=== PATIENT | female | born 1995 | race Hispanic/Latino ===

== ENCOUNTER 2017-09-15 21:36 | Emergency (ER) | payer OTHER, SELFPAY ==
[2017-09-15 21:47] VITALS: BP 134/93; PULSE 93; RESP 16; TEMP 36.4; O2SAT 100; BMI 32.1
--- NOTE | 2017-09-15 23:45 | DI.CT.S_ITS ---
PROCEDURE: CT ABDOMEN PELVIS W CON INDICATIONS: Right lower quadrant pain. Appy? TECHNIQUE: After the administration of intravenous contrast, 5 mm thick sections acquired from the diaphragm to the symphysis. 5 mm coronal and sagittal reformats were acquired. For radiation dose reduction, the following was used: automated exposure control, adjustment of mA and/or kV according to patient size. COMPARISON: None. FINDINGS: Preliminary report by awake overnight counselor radiology Image quality: Excellent. ABDOMEN: Lung bases: Lung bases are clear. Heart size is normal. Solid organs: Liver measures 24 cm appearing normal in enhancement. Gallbladder appears normal. Biliary system is non dilated. Pancreas enhances normally. Spleen is normal in size and enhancement. No adrenal nodules. Kidneys demonstrate normal size and enhancement, without hydronephrosis. Peritoneum and bowel: Bowel loops demonstrate normal wall thickness and caliber. The appendix is normal, but best seen on sagittal series 5/image 45. No free fluid or air. Nodes and vessels: No retroperitoneal or mesenteric adenopathy by size criteria. Aorta and inferior vena cava are normal in size. Miscellaneous: No ventral hernias. PELVIS: Genitourinary: Bladder wall thickness is normal. Uterus and both ovaries are normal in appearance Miscellaneous: No inguinal hernias or adenopathy. Bones: No suspicious bony lesions. No vertebral body compression fractures. IMPRESSION: 1. Normal appendix is identified. Right ovary appears normal. No source of right lower quadrant pain is seen. No acute findings in the abdomen or pelvis. 2. Liver is prominent. Correlation with clinical exam and liver function tests suggested. Findings are concordant with the preliminary report. Dictated by: Jacky Valdez M.D. on 09/16/2017 at 8:22 Approved by: Jacky Valdez M.D. on 09/16/2017 at 8:29
[2017-09-16] MEDS: HYDROCODONE/ACET 10/325 TABLET 1 TAB PO (00:26)
[2017-09-16] MEDS: ONDANSETRON 4 MG/2 ML INJ IV ×2 (00:29→04:19)
[2017-09-16 00:42] LABS: Add Manual Diff / Slide Review NO; Hematocrit 40.5 % (36-46); Hemoglobin 14.1 g/dL (12.0-16.0); Lymphocytes Percent Auto 39.8 % (25-40); Mean Corpuscular HGB Conc 34.8 % (30-36); Monocytes Percent Auto 6.8 % (3-14); Neutrophils Absolute Auto 5600 /uL (3000-5900); Neutrophils Percent Auto 51.4 % (50-75); Platelet Count 358 X10^3/uL (150-400); Red Cell Distribution Width 12.9 % (11.6-14.8); White Blood Cell Count 10.9 X10^3/uL (4.5-11.0)
[2017-09-16 00:51] LABS: Alanine Aminotransferase 25 IU/L (9-52); Albumin 4.2 g/dL (3.5-5.0); Albumin Globulin Ratio 1.3 (1.0-2.8); Alkaline Phosphatase 84 U/L (38-126); Aspartate Aminotransferase 28 IU/L (14-36); Bilirubin Total 0.7 mg/dL (0.2-1.3); Calcium 9.6 mg/dL (8.4-10.2); Estimated Glomerular Filt Rate > 60.0 mL/min (>60); Globulin 3.2 g/dL (1.7-4.1); Glucose 89 mg/dL (70-100); HEMOLYSIS 28 (0-50); Lipase 115 U/L (23-300); Sodium 141 mmol/L (137-145); Total Protein 7.4 g/dL (6.3-8.2)
[2017-09-16] MEDS: HYDROMORPHONE 0.5 MG INJ IV ×2 (02:07→05:43)
[2017-09-16 02:22] VITALS: BP 120/94; PULSE 88; RESP 16; O2SAT 100
--- NOTE | 2017-09-16 03:01 | DI.US.S_ITS ---
PROCEDURE: US PELVIC COMPLETE INDICATIONS: RIGHT PELVIC PAIN TECHNIQUE: Real-time scanning was performed of the pelvic organs, with image documentation. Additional endovaginal scanning was necessary due to incomplete visualization of the adnexal and endometrial structures by transabdominal scanning. COMPARISON: None. LMP 08/11/2017 FINDINGS: Preliminary report by shift production associate radiology Transabdominal scanning: Limited scanning through the kidneys shows no hydronephrosis. The kidneys measure 10.0 CM right and 10.6 CM left. No pathologic free abdominal or pelvic fluid. Appendix is not seen. Endovaginal scanning: Uterus: Uterus is normal in size at 2.8 x 4.5 x 6.0 cm. The endometrium measures 1.5 mm in combined thickness. Ovaries: Ovaries appear normal bilaterally measuring 13 x 13 x 18 mm right and 13 x 17 x 19 mm left. IMPRESSION: 1. Normal pelvic ultrasound. 2. Appendix is nonvisualized and appendicitis cannot be excluded by this exam. Findings are concordant with the preliminary report. Dictated by: Jacky Valdez M.D. on 09/16/2017 at 9:04 Approved by: Jacky Valdez M.D. on 09/16/2017 at 9:07
[2017-09-16 03:04] VITALS: BP 133/91; PULSE 74; RESP 16; O2SAT 98
[2017-09-16 05:29] VITALS: BP 129/93; PULSE 69; RESP 18; O2SAT 100
[2017-09-16 06:22] VITALS: BP 116/71; PULSE 80; RESP 16; O2SAT 96
[2017-09-16 07:08] VITALS: BP 108/75; PULSE 75; RESP 14; O2SAT 99
--- NOTE | 2017-09-16 07:36 | ED.ABDPAIN ---
HPI - Abdominal Pain General Chief Complaint: Abdominal Pain Stated Complaint: PAIN LOWER ABDOMINAL Time Seen by Provider: 09/15/17 23:45 History of Present Illness HPI narrative: HPI 21-year-old female presents for evaluation of one day of moderate to severe nonmigratory right lower quadrant pain that is without identifiable provoking or relieving factors and is accompanied by anorexia; notes a history of irregular periods and severe endometriosis pain. Denies vaginal discharge, discomfort, dysuria, urinary frequency, or prior abdominal surgeries. M/S/F/SocHx notable for: please see HPI; remainder reviewed with patient and in chart. ROS: Negative constitutional, eye, cardiovascular, pulmonary, GI, , MSK, skin, neurologic, psychiatric, endocrine unless noted in the HPI. Exam Gen: Pleasant, non-toxic appearing, resting comfortably. HEENT: NC, AT, PEERL, EOMI. Resp: Clear to auscultation bilaterally, normal work of breathing, no accessory muscle usage. Card: Regular rate and rhythm with no murmurs, rubs, or gallops, extremities warm and well perfused. GI: notable right lower quadrant tenderness palpation at McBurney's point, no rebound, no guarding, remainder of abdomen nontender to palpation, negative Ol[place] sign. : No right sided CVA tenderness to percussion, no left sided CVA tenderness to percussion. No suprapubic tenderness to palpation. MSK: No visible deformities, strength and tone WNL. Skin: Normal color with no visible lesions. Neuro: AO x 3, no facial asymmetry, vision and hearing WNL. Psych: Mood and affect appropriate. Labs / Imaging (pertinent): CT abdomen/pelvis: hepatomegaly. No other acute abnormalities appreciated. UA - negative blood, negative nitrate, negative leukocyte esterase. Urine negative. WBC 10.9, hemoglobin 14.1, sodium 141, potassium 4.0, total bilirubin 0.7, AST 20, ALT 25, alkaline phosphatase 84, lipase 115. Transvaginal ultrasound: pending. GC and wet [place] pending. MDM Previous chart, nursing note, and vitals reviewed. A: 21-year-old female presents for evaluation of one day of moderate to severe nonmigratory right lower quadrant pain that is without identifiable provoking or relieving factors and is accompanied by anorexia. DDx: endometriosis, renal colic, UTI, pyelonephritis, AAA, biliary disease (colic/cholelithiasis/cholecystitis), large bowel disease (diverticulitis/appendicitis),ovarian torsion, hemorrhagic cyst, ectopic . Evaluation: based upon labs, imaging (ultrasound reviewed, awaiting radiologist report) and history strongly suspect symptomatic endometriosis. No clear evidence of alternate etiologies at time of patient care transfer to the daytime provider. Anticipate discharge with limited outpatient RX for pain control and PCP follow-up. Impression: abdominal pain (please reference below for remainder of encounter information) Related Data Home Medications Medication Instructions Recorded Confirmed leuprolide [Lupron Depot] #0 07/30/17 Previous Rx's Medication Instructions Recorded hydrocodone-acetaminophen [[place]] 1 tab PO Q4HP PRN #8 tab 07/26/17 ondansetron [Zofran ODT] 4 mg SUBLINGUAL Q4HP PRN #15 odt 07/26/17 loratadine [Claritin Liqui-Gel] 10 mg PO QDAY #30 sgl 07/30/17 Allergies Allergy/AdvReac Type Severity Reaction Status Date / Time No Known Allergies Allergy Uncoded 08/06/17 12:52 [facility] Social History Smoking Status: Current every day smoker Exam Initial Vital Signs Initial Vital Signs: Vital Signs Temperature 97.5 F L 09/15/17 21:47 Pulse Rate 93 H 09/15/17 21:47 Respiratory Rate 16 09/15/17 21:47 Blood Pressure 134/93 H 09/15/17 21:47 Pulse Oximetry 100 09/15/17 21:47 Course Orders Ordered: ED Orders 09/15/17 23:45 CT abdomen pelvis w con Stat 09/15/17 23:55 Complete Blood Count AUTO DIFF Stat Comprehensive Metabolic Panel Stat Lipase Stat 09/16/17 03:01 US pelvic complete Stat 09/16/17 07:33 GC Screen Stat Wet Prep Tric BV Bekah Stat Discontinued Medications Hydrocodone Bitart/Acetaminophen ([place] 10/325) 1 tab PO NOW ONE Stop: 09/15/17 23:46 Last Admin: 09/16/17 00:26 Dose: 1 tab Hydromorphone HCl (Dilaudid) 0.5 mg IV NOW ONE Stop: 09/16/17 01:26 Last Admin: 09/16/17 02:07 Dose: 0.5 mg Hydromorphone HCl (Dilaudid) 0.5 mg IV NOW ONE Stop: 09/16/17 05:29 Last Admin: 09/16/17 05:43 Dose: 0.5 mg Ondansetron HCl (Zofran) 4 mg IV NOW ONE Stop: 09/16/17 00:30 Last Admin: 09/16/17 00:29 Dose: 4 mg Ondansetron HCl (Zofran) 4 mg IV NOW ONE Stop: 09/16/17 04:00 Last Admin: 09/16/17 04:19 Dose: 4 mg Vital Signs - 8 hr 09/16/17 02:22 09/16/17 03:04 09/16/17 05:29 Pulse Rate 88 74 69 Respiratory Rate 16 16 18 Blood Pressure [Left Arm] 120/94 H 133/91 H 129/93 H Pulse Oximetry 100 98 100 09/16/17 06:22 09/16/17 07:08 Pulse Rate 80 75 Respiratory Rate 16 14 Blood Pressure [Left Arm] 116/71 108/75 Pulse Oximetry 96 99 MDM - Abdominal Pain Lab Data Result diagrams: 09/15/17 23:55 09/15/17 23:55 Lab Results 09/15/17 09/15/17 Range/Units 23:55 23:55 WBC 10.9 (4.5-11.0) X10^3/uL RBC 4.40 (4.0-5.2) X10^6/uL Hgb 14.1 (12.0-16.0) g/dL Hct 40.5 (36-46) % MCV 92.0 (80-100) fL MCH 32.0 (26-34) PG MCHC 34.8 (30-36) % RDW 12.9 (11.6-14.8) % Plt Count 358 (150-400) X10^3/uL Neut % (Auto) 51.4 (50-75) % Lymph % (Auto) 39.8 (25-40) % [place] % (Auto) 6.8 (3-14) % Eos % (Auto) 1.0 L (2-4) % Baso % (Auto) 1.0 (0-2) % Neut # (Auto) 5600 (4474-7179) /uL Sodium 141 (137-145) mmol/L Potassium 4.0 (3.4-5.1) mmol/L Chloride 104.0 (98-107) mmol/L Carbon Dioxide 25.0 (22-32) mmol/L BUN 16.0 (7-17) mg/dL Creatinine 0.80 (0.52-1.04) mg/dL Estimated GFR > 60.0 (>60) mL/min BUN/Creatinine Ratio 20.0 (6-22) Glucose 89 (70-100) mg/dL Calcium 9.6 (8.4-10.2) mg/dL Total Bilirubin 0.7 (0.2-1.3) mg/dL AST 28 (14-36) IU/L ALT 25 (9-52) IU/L Alkaline Phosphatase 84 (38-126) U/L Total Protein 7.4 (6.3-8.2) g/dL Albumin 4.2 (3.5-5.0) g/dL Globulin 3.2 (1.7-4.1) g/dL Albumin/Globulin Ratio 1.3 (1.0-2.8) Lipase 115 (23-300) U/L Discharge Plan Departure Prescriptions: No Action hydrocodone-acetaminophen [[place]] 5 MG/325 MG tablet 1 tab PO Q4HP PRNQty: 8 RF: 0 ondansetron [Zofran ODT] 4 MG tablet,disintegrating 4 mg Sublingual Q4HP PRNQty: 15 RF: 0 leuprolide [Lupron Depot] 3.75 MG syringe kit Qty: 0 RF: 0 loratadine [Claritin Liqui-Gel] 10 MG capsule 10 mg PO QDAY Qty: 30 RF: 0
== END 2017-09-16 08:18 | disposition home or self-care (01) ==
PROVIDERS: Emergency Provider Emergency Medicine
DX: R10.30 Lower abdominal pain, unspecified (principal)
CPT/HCPCS: 74177; 76830; 76856; 80053; 81003; 81025; 83690; 85025; 96374; 96375; 96376; 99283; 99285; J1170; J2405; Q9967

== ENCOUNTER 2017-09-26 09:23 | Day surgery (SDC) | payer OTHER, SELFPAY ==
[2017-09-24 08:33] VITALS: BMI 33.6
[2017-09-26] VITALS (13 sets, daily range): BP systolic 100–123; BP diastolic 47–80; PULSE 70–104; RESP 10–20; TEMP 36.6–36.8; O2SAT 96–100; BMI 33.6
[2017-09-26] MEDS: LACTATED RINGERS 1,000 ML 42 ML IV ×2 (10:25→13:30)
--- NOTE | 2017-09-26 12:56 | PM.GYNOP.1 ---
Operative Date/Time/Diagnoses - Date of procedure: 09/26/17 Time of procedure: 12:57 Pre-op diagnosis: pelvic pain Post-op diagnosis: other ( endometriosis) Procedure: Procedures Operation Date: 09/26/17 10:45 Actual Procedures Side Surgeon p Laparoscopy, Diagnostic, MANAGER SOURCING Jacky Jackson MD Surgeon: Jacky Jackson Anesthesia Type: General Operative Notes Findings: Examination under anesthesia revealed a normal sized anteverted uterus and normal adnexae. Operative findings included a normal uterus, tubes, and ovaries. Liver edge and gallbladder appeared normal. Appendix was searched for but not found. There was a powder burn over the ureter and the left ovarian fossa and a powder burn over the ureter in the right ovarian fossa. The anterior and posterior cul-de-sacs were clear. Closure Type: primary (Two 0 Vicryl, 4 O Monocryl, Dermabond) Specimen(s): none Applied: catheter Estimated blood loss (mL): 10 Blood products transfused: none Procedure in detail: The patient was brought to the operating room and placed supine on the operating table and given general oral endotracheal anesthesia. She was then placed in low lithotomy stirrups and prepped and draped in the usual sterile fashion. A time-out was performed. An examination under anesthesia was performed and a Hulka tenaculum was placed. Attention was turned to the abdomen where the umbilicus was infiltrated with 8 cc of 0.5% Marcaine and a midline stab incision was made. A Veress needle was inserted into the abdominal cavity and its position verified by hanging drop technique. Two attempts to insufflate the abdomen were unsuccessful. An attempt to insufflate the abdomen at xiong's point was also unsuccessful due to elevated abdominal pressures. An open technique using a Burnette cannula was therefore used. The fascia was opened under direct visualization and a 2 0 Vicryl suture was placed on either side of the fascial opening. The Burnette cannula was placed and the previously placed 2 0 Vicryl sutures looped around the Burnette cannula. The abdomen was then insufflated and the 5 mm laparoscoped was inserted into the abdominal cavity allowing visualization of the abdominal contents a 5 mm trocar was placed in the right lower quadrant under direct visualization after infiltration of an area lateral to the inferior epigastric vessels and a stab incision with a 11. Blade. The endometriosis implants were judged to be too close to vital structures to be fulgurated and were left in situ. The abdomen was desufflated to the extent possible, and instruments were withdrawn under direct visualization. The fascial opening was closed with the previously placed 2 0 Vicryl sutures. Additional 2 0 Vicryl subcutaneous sutures were placed. The 5 mm trocar site was closed with 4 O Monocryl and the skin incisions were closed with Dermabond. The instruments were withdrawn from the vagina and the patient was awakened and taken to the recovery room in stable condition. Complications: none Post-operative Condition: stable Disposition: PACU Plan for aftercare: home
[2017-09-26] MEDS: ONDANSETRON 4 MG/2 ML INJ IV (13:05)
[2017-09-26] MEDS: BUPIVACAINE 0.5% W/ EPI (PF) 30 ML VIAL INJ (13:15)
[2017-09-26] MEDS: fentaNYL 100 MCG/2 ML INJ 50 MCG IV ×2 (13:18→13:23)
[2017-09-26] MEDS: HYDROMORPHONE 2 MG INJ IV ×2 (13:35→13:43)
[2017-09-26] MEDS: HYDROMORPHONE 2 MG INJ 0.25 MG IV (13:49)
[2017-09-26] MEDS: HYDROCODONE/ACET 5/325 TABLET 1 TAB PO (14:29)
== END 2017-09-26 15:05 | disposition home or self-care (01) ==
PROVIDERS: Visit Provider Obstetrics & Gynecology
PROC: (CPT 49320; principal; 2017-09-26 10:45)
DX: N80.9 Endometriosis, unspecified (principal)
CPT/HCPCS: 49320; J1170; J2405; J3010

== ENCOUNTER → 2017-11-13 09:52 | Outpatient (CLI) | payer OTHER, SELFPAY ==
--- NOTE | 2017-11-13 | DI.MRI.S_ITS ---
PROCEDURE: MR HIP RT W CON INDICATIONS: LOWER ABDOMINAL PAIN TECHNIQUE: After the administration of 10 mL of dilute intra-articular Gadolinium contrast, coronal STIR of the bony pelvis; coronal and oblique axial T1 spin echo with fat saturation, axial T2 fast spin echo with fat saturation, sagittal T1 spin echo with and without fat saturation of the involved hip. COMPARISON: None. FINDINGS: Image quality: Excellent. Bones and joints: Bone marrow of the pelvic ring and proximal femurs show normal signal throughout. No intraosseous lesions or fractures. No avascular necrosis of the femoral head. The visualized lower lumbar spine appears normally aligned. The ligamental, neck, and labral plicae appear normal where visualized. Tendons and ligaments: The gluteus medius and minimus tendons appear intact, without associated muscle atrophy. The nearby proximal iliotibial band also appears intact. The iliopsoas tendon appears intact, without adjacent bursal fluid collections or evidence for impingement syndrome. The origin of the hamstring tendon is intact at the ischial tuberosity, as well as the associated sacrotuberous ligament. The straight and reflected heads of the rectus femoris muscle origin appear intact, as well as the conjoint tendon. The ligamentum teres appears intact where visualized. Labrum and cartilage: The acetabular labrum appears intact throughout. Incidentally noted mildly prominent smooth margined superior labral sulcus/groove. Cartilage surface of the femoral head appears of normal thickness. No paralabral cysts. The alpha angle of the femur is within normal limits at less than 55 degrees. Soft tissues: Visualized muscles demonstrate normal bulk and internal signal. Quadratus femoris muscle demonstrates no internal edema to suggest ischiofemoral impingement. The proximal sciatic neurovascular bundle appears normal adjacent to the hamstring tendons. No free pelvic fluid. Bladder wall thickness is normal. Genitourinary structures and bowel loops appear normal where visualized. IMPRESSION: Negative exam. No evidence of internal derangement or labral tear. Dictated by: Jose Antonio Poe M.D. on 11/13/2017 at 14:16 Approved by: Jose Antonio Poe M.D. on 11/13/2017 at 14:22
--- NOTE | 2017-11-13 | DI.RAD.S_ITS ---
PROCEDURE: FL HIP INJECTION MR/CT RT INDICATIONS: HIP PAIN TECHNIQUE: The indications, alternatives, benefits, risks, and complications of the procedure were explained to the patient. Written informed consent was obtained and placed in the chart. The hip was examined fluoroscopically with the legs fixed in slight internal rotation, and a site for needle placement chosen for entry into the hip joint from an anterior approach. Care was taken to locate the common femoral artery and vein beforehand. The skin was prepped and draped in a sterile fashion, and 1% Lidocaine infiltrated from skin down to joint capsule. A spinal needle was inserted into the joint, and a small amount of iodinated contrast media injected to confirm intra-articular placement of the needle tip. This was followed by approximately 10 mL dilute solution of a gadolinium containing MR contrast agent. The needle was removed and a dressing was applied. The patient was given postprocedural instructions and sent to the MR suite for imaging. FINDINGS: A single fluoroscopic spot image demonstrates intra-articular location of injected iodinated contrast. IMPRESSION: Successful fluoroscopically guided administration of dilute Gadolinium solution into the hip joint for MR arthrogram. Dictated by: Gonzalez Taylor M.D. on 11/13/2017 at 10:52 Approved by: Gonzalez Taylor M.D. on 11/13/2017 at 10:52
== END ==
PROVIDERS: Visit Provider General Practice
DX: R10.30 Lower abdominal pain, unspecified (principal); M25.551 Pain in right hip
CPT/HCPCS: 27093; 73722; 77002

== ENCOUNTER 2017-11-15 22:18 | Emergency (ER) | payer OTHER, SELFPAY ==
[2017-11-15 22:20] VITALS: BP 129/85; PULSE 106; RESP 40; TEMP 36.1; O2SAT 100; BMI 33.1
--- NOTE | 2017-11-15 22:49 | ED.ABDPAIN ---
HPI - Abdominal Pain General Chief Complaint: Abdominal Pain Stated Complaint: NUASEA,STOMACH PAIN Time Seen by Provider: 11/15/17 22:30 Source: patient and family Mode of arrival: ambulatory Limitations: no limitations History of Present Illness HPI narrative: 21-year-old female presents chief complaint gradually worsening nausea vomiting and right lower quadrant pain course of the day. Additionally she has had loose stools. She is not dizzy nor weak or lightheaded. She denies any history of the same. Her pain is much worse when she moves and improves with rest. She denies vaginal bleeding or discharge MD complaint: abdominal pain Onset (ago): minute(s) Pain Consistency: constant Location: RLQ Severity: severe Quality: cramping and stabbing Radiation: none Migration to: no migration Relieving factors: nothing Exacerbating factors: movement Associated symptoms: nausea, vomiting and diarrhea Related Data Home Medications Medication Instructions Recorded Confirmed leuprolide [Lupron Depot] 3.75 mg IM Q4W #0 07/30/17 09/26/17 Previous Rx's Medication Instructions Recorded hydrocodone-acetaminophen 1 tab PO Q4-6H PRN #14 tab 11/16/17 ketorolac 10 mg PO Q6H PRN #14 tab 11/16/17 Allergies Allergy/AdvReac Type Severity Reaction Status Date / Time No Known Allergies Allergy Uncoded 08/06/17 12:52 Review of Systems Review of Systems All systems reviewed & are unremarkable except as noted in HPI and below Constitutional Denies chills, Denies fever(s), Denies lethargy and Denies weakness Eyes Denies change in vision, Denies eye discharge, Denies irritation and Denies loss of vision ENT Ears, Nose, Mouth, and Throat: Denies change in voice, Denies neck pain and Denies sore throat Cardiovascular Denies chest pain, Denies irregular heart rhythm, Denies lightheadedness, Denies palpitations, Denies dyspnea, Denies dyspnea on exertion and Denies orthopnea Respiratory Denies cough, Denies dyspnea, Denies dyspnea on exertion and Denies wheezing Gastrointestinal Gastrointestinal: Reports abdominal pain, Denies change in bowel habits, Reports diarrhea, Reports nausea and Reports vomiting Genitourinary Denies hematuria, Denies flank pain, Denies urinary incontinence and Denies urinary urgency Musculoskeletal Denies neck pain Integumentary/Breasts Denies pruritus, Denies erythema, Denies rash and Denies wounds Neurologic Denies confusion, Denies loss of vision and Denies weakness Psychiatric Denies anxiety, Denies confusion, Denies depression, Denies homicidal ideation and Denies suicidal ideation Endocrine Denies palpitations Hematologic/Lymphatic Denies easy bruising Allergic/Immunologic Denies wheezing PFSH Medical History Endometriosis (Acute) Polycystic ovaries (Acute) [place] teeth extracted (Acute) Surgical History Hx of tonsillectomy (Acute) Social History household members: friend(s) Smoking Status: Current every day smoker Exam Narrative Exam Narrative: 21-year-old female in mild distress, clutching her right lower abdomen and a emesis bag Initial Vital Signs Initial Vital Signs: Vital Signs Temperature 97.0 F L 11/15/17 22:20 Pulse Rate 106 H 11/15/17 22:20 Respiratory Rate 40 H 11/15/17 22:20 Blood Pressure 129/85 H 11/15/17 22:20 Pulse Oximetry 100 11/15/17 22:20 Const General: cooperative, well developed and acute distress Nutritional Appearance: well nourished Orientation: alert, awake, oriented x3 and not confused HENAZ Head: normocephalic and atraumatic Ears: external ears normal and TM's normal bilaterally Nose: external nose normal and No nasal discharge Face and sinus: sinuses nontender, face symmetric, no sinus tenderness and No dry mucous membranes Mouth: oral mucosae normal and moist mucous membranes Teeth and gingiva: dentition normal Throat: tonsils normal and uvula midline Eyes General: appearance normal, both eyes and all related structures Eyelids: eyelids normal Conjunctivae: conjunctivae normal Sclera: sclerae normal Pupils: PERRL EOM: EOM intact bilaterally Neck Neck: normal visual inspection, trachea midline, No lymphadenopathy, No midline deformity and No JVD Lymphatic: No lymphedema Chest Chest: normal inspection of the chest Resp Effort & Inspection: normal respiratory effort, able to speak in complete sentences, no respiratory distress and no use of accessory muscles Auscultation: clear to auscultation bilaterally, no rales, no rhonchi and no wheezes Cardio Rate: regular rate Rhythm: regular rhythm Heart Sounds: no click, no gallops, no murmurs and no rubs Pulses: normal peripheral pulses GI Inspection: non-distended Palpation: soft, no hepatosplenomegaly, guarding, No pulsatile mass and tender (Severe right lower quadrant pain with local peritonitis) Auscultation: normal bowel sounds Back/Spine/Pelvis Back: No CVA tenderness Cervical Spine: cervical ROM normal and No pain with cervical ROM Thoracic/Lumbar Spine: thoracic and lumbar spine normal to inspection Skin General: no rashes or lesions noted, No jaundice and No petechiae Neuro General: alert, oriented x3, gait normal and no focal motor deficits Speech: speech normal Extrem General: full ROM, no clubbing, cyanosis or edema, no pedal edema and no calf tenderness Psych Appearance: well kempt Mental Status: mental status grossly normal Attitude: cooperative Thought Content: normal and suicidality Judgment: judgment good Course Orders Ordered: ED Orders 11/15/17 22:50 XR acute abdomen series Stat 11/15/17 23:15 Urine Microscopic Stat 11/15/17 23:58 CT abdomen pelvis w con Stat 11/16/17 01:52 US pelvic complete Stat Discontinued Medications Hydrocodone Bitart/Acetaminophen (Vicodin Prepack) 1 bottle MISC SEEINSTR ONE Stop: 11/16/17 03:12 Last Admin: 11/16/17 03:35 Dose: 1 bottle Hydromorphone HCl (Dilaudid) 1 mg IV NOW ONE Stop: 11/16/17 00:05 Last Admin: 11/16/17 00:11 Dose: 1 mg Sodium Chloride (Normal Saline 0.9%) 1,000 mls @ 150 mls/hr IV CONT RANDA Last Infusion: 11/16/17 03:35 Dose: 0 mls/hr Admin: 11/15/17 22:54 Dose: 150 mls/hr Ondansetron HCl (Zofran) 4 mg IV Q4HR PRN PRN Reason: Nausea And Vomiting Last Admin: 11/15/17 22:54 Dose: 4 mg Ondansetron HCl (Zofran Odt Prepack) 1 bottle MISC SEEINSTR ONE Stop: 11/16/17 03:28 Last Admin: 11/16/17 03:35 Dose: 1 bottle Pantoprazole Sodium (Protonix) 40 mg IV NOW ONE Stop: 11/16/17 00:05 Last Admin: 11/16/17 00:11 Dose: 40 mg Vital Signs - 8 hr 11/16/17 00:24 11/16/17 00:45 11/16/17 02:19 Pulse Rate 86 108 H 91 H Respiratory Rate 24 18 Blood Pressure [Right Arm] 117/90 H 135/81 H 130/73 H Pulse Oximetry 98 98 99 11/16/17 03:09 Pulse Rate 80 Respiratory Rate 16 Blood Pressure [Right Arm] 128/76 H Pulse Oximetry 100 MDM - Abdominal Pain Differential Diagnosis Differential diagnosis: Likely abdominal pain, acute appendicitis, calculus of kidney, constipation, endometriosis, gastroenteritis, pancreatitis and small bowel obstruction Medical Records Attestation: I reviewed the patient's medical records. Lab Data Attestation: I reviewed the patient's lab results. Result diagrams: 11/15/17 22:40 11/15/17 22:40 Lab Results 11/15/17 11/15/17 11/15/17 Range/Units 22:40 22:40 23:15 WBC 10.6 (4.5-11.0) X10^3/uL RBC 4.83 (4.0-5.2) X10^6/uL Hgb 15.5 (12.0-16.0) g/dL Hct 44.3 (36-46) % MCV 91.6 (80-100) fL MCH 32.0 (26-34) PG MCHC 34.9 (30-36) % RDW 12.7 (11.6-14.8) % Plt Count 409 H (150-400) X10^3/uL Neut % (Auto) 56.5 (50-75) % Lymph % (Auto) 34.0 (25-40) % [place] % (Auto) 7.9 (3-14) % Eos % (Auto) 0.7 L (2-4) % Baso % (Auto) 0.9 (0-2) % Neut # (Auto) 6000 H (6544-9575) /uL Sodium 143 (137-145) mmol/L Potassium 3.5 (3.4-5.1) mmol/L Chloride 102 (98-107) mmol/L Carbon Dioxide 26 (22-32) mmol/L BUN 11 (7-17) mg/dL Creatinine 0.80 (0.52-1.04) mg/dL Estimated GFR > 60.0 (>60) mL/min BUN/Creatinine Ratio 13.8 (6-22) Glucose 102 H (70-100) mg/dL Calcium 10.0 (8.4-10.2) mg/dL Total Bilirubin 0.7 (0.2-1.3) mg/dL AST 29 (14-36) IU/L ALT 37 (9-52) IU/L Alkaline Phosphatase 107 (38-126) U/L Total Protein 8.5 H (6.3-8.2) g/dL Albumin 4.9 (3.5-5.0) g/dL Globulin 3.6 (1.7-4.1) g/dL Albumin/Globulin Ratio 1.4 (1.0-2.8) Lipase 78 (23-300) U/L Urine RBC 0-1/hpf (0-5/HPF) Urine WBC 0-1/hpf (0-5/HPF) Ur Squamous Epith Cells None seen Urine Bacteria None seen (None) Ur Culture Indicated? Cult not indicated Micro UA Comment Not Reportable Point of care testing: Point of Care Testing Test Results Negative Urine Dip Bedside Urine Glucose Negative Bedside Urine Bilirubin - Negative Bedside Urine Ketone - Negative Urine Specific [place] 1.020 Bedside Urine Occult Blood +/- Bedside Urine pH 6.0 Bedside Urine Protein - Negative Bedside Urine Urobilinogen - Negative Bedside Urine Nitrite - Negative Bedside Urine Leukocytes - Negative Esterase Imaging Data CT scan - abdomen: Radiologist's impression: No appendicitis or obstruction. No free air. Reproductive organs normal US - abdomen: Radiologist's impression: R hemorrhagic ovarian cyst rupture Discharge Plan Departure Patient Disposition: Home, Self-Care Clinical Impression: Ovarian cyst Discharge Date/Time: 11/16/17 03:36 Interventions: ED Discharge Assessment Last Done: 11/16/17 03:36 Instructions: DI for Ovarian Cyst Prescriptions: New hydrocodone-acetaminophen 5-325 mg tablet 1 tab PO Q4-6H PRN (Reason: pain) Qty: 14 RF: 0 ketorolac 10 mg tablet 10 mg PO Q6H PRN (Reason: pain) Qty: 14 RF: 0 No Action leuprolide [Lupron Depot] 3.75 MG syringe kit 3.75 mg IM Q4W Qty: 0 RF: 0
--- NOTE | 2017-11-15 22:50 | DI.RAD.S_ITS ---
PROCEDURE: XR ACUTE ABDOMEN SERIES INDICATIONS: Abdominal pain, recent abdominal surgery for endometriosis TECHNIQUE: One view chest and two views of the abdomen were acquired. COMPARISON: [facility], US, US PELVIC COMPLETE, 11/16/2017, 2:20. [facility], CT, CT ABDOMEN PELVIS W CON, 11/16/2017, 0:22. [facility], US, US PELVIC COMPLETE, 09/16/2017, 3:56. [facility], CT, CT ABDOMEN PELVIS W CON, 09/16/2017, 0:12. [facility], US, ABDOMEN LIMITED, 07/26/2017, 15:01. [facility], CT, ABDOMEN/PELVIS WITH CONTRAST, 07/26/2017, 11:31. FINDINGS: Surgical changes and devices: None. Chest: Lungs are clear. Heart size is normal. No pleural effusions. No pneumoperitoneum. Abdomen: Bowel gas pattern is normal. No suspicious calcifications. Visualized solid organ contours appear normal. Bones: No suspicious bony lesions. IMPRESSION: Unremarkable exam. Dictated by: Elma Kelly M.D. on 11/16/2017 at 9:15 Approved by: Elma Kelly M.D. on 11/16/2017 at 9:16
[2017-11-15] MEDS: SODIUM CHLORIDE 0.9% 1,000 ML 150 ML IV (22:54)
[2017-11-15] MEDS: ONDANSETRON 4 MG/2 ML INJ IV (22:54)
[2017-11-15 23:01] LABS: Add Manual Diff / Slide Review NO; Basophils Percent Auto 0.9 % (0-2); Eosinophils Percent Auto 0.7 % (2-4); Hematocrit 44.3 % (36-46); Hemoglobin 15.5 g/dL (12.0-16.0); Mean Corpuscular HGB Conc 34.9 % (30-36); Mean Corpuscular Volume 91.6 fL (80-100); Monocytes Percent Auto 7.9 % (3-14); Neutrophils Absolute Auto 6000 /uL (3000-5900); Neutrophils Percent Auto 56.5 % (50-75); Platelet Count 409 X10^3/uL (150-400); Red Blood Cell Count 4.83 X10^6/uL (4.0-5.2); Red Cell Distribution Width 12.7 % (11.6-14.8); White Blood Cell Count 10.6 X10^3/uL (4.5-11.0)
[2017-11-15 23:07] LABS: Alanine Aminotransferase 37 IU/L (9-52); Albumin 4.9 g/dL (3.5-5.0); Albumin Globulin Ratio 1.4 (1.0-2.8); Alkaline Phosphatase 107 U/L (38-126); Aspartate Aminotransferase 29 IU/L (14-36); BUN Creatinine Ratio 13.8 (6-22); Bilirubin Total 0.7 mg/dL (0.2-1.3); Blood Urea Nitrogen 11 mg/dL (7-17); Carbon Dioxide 26 mmol/L (22-32); Chloride 102 mmol/L (98-107); Estimated Glomerular Filt Rate > 60.0 mL/min (>60); Globulin 3.6 g/dL (1.7-4.1); Glucose 102 mg/dL (70-100); HEMOLYSIS < 15 (0-50); Lipase 78 U/L (23-300); Potassium 3.5 mmol/L (3.4-5.1); Sodium 143 mmol/L (137-145); Total Protein 8.5 g/dL (6.3-8.2)
[2017-11-15 23:25] LABS: Bacteria Urine None Seen
[2017-11-15 23:39] LABS: RBC Urine 0-1/HPF (0-5/HPF); Squamous Epithelial Cell Urine None Seen; WBC Urine 0-1/HPF (0-5/HPF)
[2017-11-15 23:40] LABS: Culture Indicated Urine Cult Not Indicated
--- NOTE | 2017-11-15 23:58 | DI.CT.S_ITS ---
PROCEDURE: CT ABDOMEN PELVIS W CON INDICATIONS: severe RLQ pain, chills, vomiting TECHNIQUE: After the administration of intravenous contrast, 5 mm thick sections acquired from the diaphragm to the symphysis. 5 mm coronal and sagittal reformats were acquired. For radiation dose reduction, the following was used: automated exposure control, adjustment of mA and/or kV according to patient size. COMPARISON: [facility], US, US PELVIC COMPLETE, 09/16/2017, 3:56. [facility], US, US PELVIC COMPLETE, 11/16/2017, 2:20. [facility], CT, CT ABDOMEN PELVIS W CON, 09/16/2017, 0:12. [facility], US, ABDOMEN LIMITED, 07/26/2017, 15:01. [facility], CT, ABDOMEN/PELVIS WITH CONTRAST, 07/26/2017, 11:31. FINDINGS: Image quality: Motion is present. ABDOMEN: Lung bases: Lung bases are clear. Heart size is normal. Solid organs: Liver is mildly enlarged. Gallbladder is unremarkable. Biliary system is non dilated. Pancreas enhances normally. Spleen is normal in size and enhancement. No adrenal nodules. Kidneys demonstrate normal size and enhancement, without hydronephrosis. Peritoneum and bowel: Bowel loops demonstrate normal wall thickness and caliber. No free fluid or air. Appendix is unremarkable. Nodes and vessels: No retroperitoneal or mesenteric adenopathy by size criteria. Aorta and inferior vena cava are normal in size. Miscellaneous: No ventral hernias. PELVIS: Genitourinary: Bladder wall thickness is normal. Miscellaneous: No inguinal hernias or adenopathy. Bones: No suspicious bony lesions. No vertebral body compression fractures. IMPRESSION: 1. Appendix is unremarkable. No inflammatory change within the right lower quadrant. 2. Hepatomegaly without steatosis. Dictated by: Elma Kelly M.D. on 11/16/2017 at 8:53 Approved by: Elma Kelly M.D. on 11/16/2017 at 8:57
[2017-11-16] MEDS: PANTOPRAZOLE 40 MG VIAL IV (00:11)
[2017-11-16] MEDS: HYDROMORPHONE 1 MG INJ IV (00:11)
[2017-11-16 00:24] VITALS: BP 117/90; PULSE 86; RESP 24; O2SAT 98
[2017-11-16 00:45] VITALS: BP 135/81; PULSE 108; O2SAT 98
--- NOTE | 2017-11-16 01:52 | DI.US.S_ITS ---
PROCEDURE: US PELVIC COMPLETE INDICATIONS: SEVERE PELVIC PAIN TECHNIQUE: Real-time scanning was performed of the pelvic organs, with image documentation. Additional endovaginal scanning was necessary due to incomplete visualization of the adnexal and endometrial structures by transabdominal scanning. COMPARISON: [facility], CT, CT ABDOMEN PELVIS W CON, 11/16/2017, 0:22. [facility], CR, XR ACUTE ABDOMEN SERIES, 11/15/2017, 22:35. [facility], US, US PELVIC COMPLETE, 09/16/2017, 3:56. [facility], CT, CT ABDOMEN PELVIS W CON, 09/16/2017, 0:12. [facility], US, ABDOMEN LIMITED, 07/26/2017, 15:01. [facility], CT, ABDOMEN/PELVIS WITH CONTRAST, 07/26/2017, 11:31. FINDINGS: Transabdominal scanning: Limited scanning through the kidneys shows no hydronephrosis. No pathologic free abdominal or pelvic fluid. Endovaginal scanning: Uterus: Uterus is normal in size at 6.7 x 3.2 x 4.7 cm. The endometrium measures 10 mm in combined thickness. Ovaries: Right ovary measures 20 x 22 x 24 mm. The left are measures 20 x 19 x 18 mm. There unremarkable. Scattered follicles are noted within the left ovary. 10 mm focus of heteroechogenicity is noted within the right ovary possibly an involuting complex cyst. IMPRESSION: Focus of heteroechogenicity within the right ovary possibly involuting complex hemorrhagic cyst. Dictated by: Elma Kelly M.D. on 11/16/2017 at 9:37 Approved by: Elma Kelly M.D. on 11/16/2017 at 9:39
[2017-11-16 02:19] VITALS: BP 130/73; PULSE 91; RESP 18; O2SAT 99
[2017-11-16 03:09] VITALS: BP 128/76; PULSE 80; RESP 16; O2SAT 100
[2017-11-16] MEDS: ONDANSETRON 4 MG ODT PREPACK 1 BOTTLE MISC (03:35)
[2017-11-16] MEDS: HYDROCODONE/ACET 5/325 PREPACK 1 BOTTLE MISC (03:35)
== END 2017-11-16 03:36 | disposition home or self-care (01) ==
PROVIDERS: Emergency Provider Emergency Medicine
DX: N83.209 Unspecified ovarian cyst, unspecified side (principal)
CPT/HCPCS: 36591; 74022; 74177; 76830; 76856; 80053; 81003; 81015; 81025; 83690; 85025; 96361; 96374; 96375; 99283; 99284; C9113; J1170; J2405; Q9967

== ENCOUNTER 2018-01-13 01:59 | Emergency (ER) | payer OTHER, SELFPAY ==
--- NOTE | 2018-01-13 02:04 | ED_ITS ---
HPI - Abdominal Pain General Chief Complaint: Abdominal Pain Stated Complaint: lower abdominal pain since yesterday Time Seen by Provider: 01/13/18 02:04 Source: patient Mode of arrival: ambulatory Limitations: no limitations History of Present Illness HPI narrative: Patient is a 22-year-old female here for evaluation of right- sided abdominal pain. She stated that it started at 5 o'clock last evening. Has continued since then. Also has nausea and vomiting. She has a history of chronic right lower quadrant pain. Has been diagnosed with endometriosis. She states that she has an appointment scheduled for next Friday by a general surgeon for removal of her appendix secondary to ?chronic appendicitis ?she also has a history of ovarian cyst. She states the pain today is different than all of her prior abdominal pain. No trauma. Has not tried anything for prior to arrival. No urinary symptoms. No vaginal bleeding no change in bowel habits. Related Data Home Medications Medication Instructions Recorded Confirmed leuprolide [Lupron Depot] 3.75 mg IM Q4W #0 07/30/17 09/26/17 Previous Rx's Medication Instructions Recorded hydrocodone-acetaminophen 1 tab PO Q4-6H PRN #14 tab 11/16/17 ketorolac 10 mg PO Q6H PRN #14 tab 11/16/17 ondansetron [Zofran ODT] 4 mg PO BID-TID PRN #14 tab 01/13/18 Allergies Allergy/AdvReac Type Severity Reaction Status Date / Time No Known Allergies Allergy Uncoded 01/13/18 02:11 Review of Systems Constitutional Denies chills and Denies fever(s) ENT Ears, Nose, Mouth, and Throat: Denies vertigo and Denies dizziness Cardiovascular Denies chest pain and Denies dyspnea Respiratory Denies cough and Denies dyspnea Gastrointestinal Gastrointestinal: Reports abdominal pain, Denies melena, Reports nausea and Reports vomiting Genitourinary Denies dysuria Musculoskeletal Denies back pain, Denies myalgias and Denies arthralgias Integumentary/Breasts Denies lesions and Denies rash Neurologic Denies vertigo and Denies dizziness Hematologic/Lymphatic Denies easy bleeding and Denies easy bruising [facility] Medical History Endometriosis (Acute) Polycystic ovaries (Acute) [place] teeth extracted (Acute) Surgical History Hx of tonsillectomy (Acute) Social History household members: friend(s) Smoking Status: Current every day smoker Exam Initial Vital Signs Initial Vital Signs: Vital Signs Pulse Rate 105 H 01/13/18 02:07 Respiratory Rate 24 01/13/18 02:07 Blood Pressure 121/90 01/13/18 02:07 Pulse Oximetry 100 01/13/18 02:07 Const General: cooperative, well developed, well groomed and No acute distress Orientation: alert, awake and oriented x3 HENMT Head: normal to inspection and normocephalic Resp Effort & Inspection: normal respiratory effort Auscultation: clear to auscultation bilaterally Cardio Rate: regular rate Rhythm: regular rhythm Heart Sounds: no murmurs GI Inspection: normal to inspection and non-distended Palpation: soft, No firm and tender Back/Spine/Pelvis Back: No CVA tenderness Skin Lesions: no lesions Rashes: no rashes Neuro General: alert, awake and oriented x3 Cognition: normal cognition Speech: speech normal Motor: muscle tone normal throughout Sensory Exam: no sensory deficits noted Extrem General: normal to inspection and capillary refill normal Psych Appearance: grossly normal and well kempt Course Orders Ordered: ED Orders 01/13/18 02:09 Complete Blood Count AUTO DIFF Stat Comprehensive Metabolic Panel Stat Lipase Stat 01/13/18 02:34 Urine Microscopic Stat Discontinued Medications Hydromorphone HCl (Dilaudid) 0.5 mg IV NOW ONE Stop: 01/13/18 03:23 Last Admin: 01/13/18 03:33 Dose: 0.5 mg Sodium Chloride (Normal Saline 0.9%) 1,000 mls @ 1,000 mls/hr IV BOLUS ONE Stop: 01/13/18 03:13 Last Infusion: 01/13/18 03:34 Dose: 0 mls/hr Admin: 01/13/18 02:30 Dose: 1,000 mls/hr Sodium Chloride (Normal Saline 0.9%) 1,000 mls @ 1,000 mls/hr IV BOLUS ONE Stop: 01/13/18 04:23 Last Admin: 01/13/18 03:34 Dose: 1,000 mls/hr Ketorolac Tromethamine (Toradol) 30 mg IV NOW ONE Stop: 01/13/18 04:07 Last Admin: 01/13/18 04:08 Dose: 30 mg Metoclopramide HCl (Reglan) 10 mg IV NOW ONE Stop: 01/13/18 02:41 Last Admin: 01/13/18 02:42 Dose: 10 mg Morphine Sulfate (Morphine) 4 mg IV NOW ONE Stop: 01/13/18 02:15 Last Admin: 01/13/18 02:26 Dose: 4 mg Ondansetron HCl (Zofran) 4 mg IV NOW ONE Stop: 01/13/18 02:15 Last Admin: 01/13/18 02:25 Dose: 4 mg Ondansetron HCl (Zofran) 4 mg IV NOW ONE Stop: 01/13/18 04:45 Last Admin: 01/13/18 04:47 Dose: 4 mg Vital Signs - 8 hr 01/13/18 02:07 01/13/18 05:10 Pulse Rate 105 H 82 Respiratory Rate 24 82 H Blood Pressure 121/90 Blood Pressure [Left Arm] 126/85 Pulse Oximetry 100 100 MDM - Abdominal Pain Medical Records Attestation: I reviewed the patient's medical records. Lab Data Attestation: I reviewed the patient's lab results. Result diagrams: 01/13/18 02:09 01/13/18 02:09 Lab Results 01/13/18 01/13/18 01/13/18 Range/Units 02:09 02:09 02:34 WBC 15.7 H (4.5-11.0) X10^3/uL RBC 4.77 (4.0-5.2) X10^6/uL Hgb 15.0 (12.0-16.0) g/dL Hct 43.0 (36-46) % MCV 90.2 (80-100) fL MCH 31.4 (26-34) PG MCHC 34.8 (30-36) % RDW 12.2 (11.6-14.8) % Plt Count 402 H (150-400) X10^3/uL Neut % (Auto) 70.9 (50-75) % Lymph % (Auto) 22.5 L (25-40) % [place] % (Auto) 5.4 (3-14) % Eos % (Auto) 0.3 L (2-4) % Baso % (Auto) 0.9 (0-2) % Neut # (Auto) 97225 H (4757-6627) /uL Sodium 144 (137-145) mmol/L Potassium 3.7 (3.4-5.1) mmol/L Chloride 102 (98-107) mmol/L Carbon Dioxide 24 (22-32) mmol/L BUN 12 (7-17) mg/dL Creatinine 1.10 H (0.52-1.04) mg/dL Estimated GFR > 60.0 (>60) mL/min BUN/Creatinine Ratio 10.9 (6-22) Glucose 95 (70-100) mg/dL Calcium 10.2 (8.4-10.2) mg/dL Total Bilirubin 1.3 (0.2-1.3) mg/dL AST 32 (14-36) IU/L ALT 38 (9-52) IU/L Alkaline Phosphatase 97 (38-126) U/L Total Protein 8.4 H (6.3-8.2) g/dL Albumin 4.9 (3.5-5.0) g/dL Globulin 3.5 (1.7-4.1) g/dL Albumin/Globulin Ratio 1.4 (1.0-2.8) Lipase 73 (23-300) U/L Urine RBC 0-1/hpf (0-5/HPF) Urine WBC None seen (0-5/HPF) Urine Bacteria Occasional (0-1) (None) Ur Culture Indicated? Cult not indicated Micro UA Comment Not Reportable Point of care testing: Point of Care Testing Test Results Negative Urine Dip Bedside Urine Glucose Negative Bedside Urine Bilirubin - Negative Bedside Urine Ketone +++ 80 Urine Specific [place] 1.015 Bedside Urine Occult Blood +/- Bedside Urine pH 6.0 Bedside Urine Protein - Negative Bedside Urine Urobilinogen - Negative Bedside Urine Nitrite - Negative Bedside Urine Leukocytes - Negative Esterase MDM Narrative Medical decision making narrative: After multiple doses of nausea medication she was able to tolerate oral intake here in the ER. Patient stated that the Toradol that she was given through the IV improved her symptoms tremendously. Her heart rate improved. Given the elevated heart rate in her ketones in the urine I suspect that she did have mild dehydration. She does have an elevated white blood cell count. I did discuss this with her. She has had multiple abdominal CT scans in the past. I did inform her of the concern I have for intra-abdominal pathology such as appendicitis, cholecystitis, bowel obstructions another potential surgical pathology. I did also inform her that the elevated white blood cell count could also be secondary to the uncontrolled vomiting and dehydration causing demargination. She was afebrile here. After this long discussion the patient opted to not have a CT scan performed today secondary to the number CT she has had in the past. I do not feel like this isn 't unreasonable decision. I did tell her that if her symptoms worsen, she could not tolerate oral intake, she developed a fever that she does need to return to the emergency department for re-evaluation. I would recommend that if she does return a CT scan be performed for evaluation. Patient expressed understanding of the potential of missing a surgical issue. She declined the offer for a work note. She does have pain medication at home. She does not have any nausea medication at home. She was sent home with a prepack is Zofran and a prescription for the same. Discharge Plan Departure Patient Disposition: Home Clinical Impression: Abdominal pain, Nausea & vomiting, Dehydration Instructions: DI for Dehydration -- Adult, DI for Abdominal Pain-Adult, Nausea and Vomiting-Adult Activity Restrictions/Additional Instructions: Recommend that you take small sips of water over longer. Recommend a bland diet Take the nausea medication as needed. Use your pain medication that you have at home for any discomfort. After a discussion we did opt to not perform a CT scan today. This does me that we could potentially be missing an issue such as appendicitis. If your symptoms worsen or if you developed fevers or the inability to tolerate oral intake I do recommend that you return to the emergency department for further evaluation. Keep all of your scheduled medical appointments. Prescriptions: New ondansetron [Zofran ODT] 4 mg tablet,disintegrating 4 mg PO BID-TID PRN (Reason: nausea and vomiting) Qty: 14 RF: 0 No Action leuprolide [Lupron Depot] 3.75 MG syringe kit 3.75 mg IM Q4W Qty: 0 RF: 0 hydrocodone-acetaminophen 5-325 mg tablet 1 tab PO Q4-6H PRN (Reason: pain) Qty: 14 RF: 0 ketorolac 10 mg tablet 10 mg PO Q6H PRN (Reason: pain) Qty: 14 RF: 0 Stand Alone Forms: Work/School Restrictions
[2018-01-13 02:07] VITALS: BP 121/90; PULSE 105; RESP 24; O2SAT 100; BMI 34.0
[2018-01-13] MEDS: ONDANSETRON 4 MG/2 ML INJ IV ×2 (02:25→04:47)
[2018-01-13 02:26] LABS: Add Manual Diff / Slide Review NO; Basophils Percent Auto 0.9 % (0-2); Eosinophils Percent Auto 0.3 % (2-4); Lymphocytes Percent Auto 22.5 % (25-40); Mean Corpuscular HGB Conc 34.8 % (30-36); Mean Corpuscular Hemoglobin 31.4 PG (26-34); Mean Corpuscular Volume 90.2 fL (80-100); Monocytes Percent Auto 5.4 % (3-14); Neutrophils Absolute Auto 11100 /uL (3000-5900); Neutrophils Percent Auto 70.9 % (50-75); Platelet Count 402 X10^3/uL (150-400); Red Blood Cell Count 4.77 X10^6/uL (4.0-5.2); Red Cell Distribution Width 12.2 % (11.6-14.8); White Blood Cell Count 15.7 X10^3/uL (4.5-11.0)
[2018-01-13] MEDS: MORPHINE 4 MG/ML INJ IV (02:26)
[2018-01-13 02:29] LABS: Alanine Aminotransferase 38 IU/L (9-52); Albumin 4.9 g/dL (3.5-5.0); Albumin Globulin Ratio 1.4 (1.0-2.8); Alkaline Phosphatase 97 U/L (38-126); Aspartate Aminotransferase 32 IU/L (14-36); BUN Creatinine Ratio 10.9 (6-22); Bilirubin Total 1.3 mg/dL (0.2-1.3); Blood Urea Nitrogen 12 mg/dL (7-17); Calcium 10.2 mg/dL (8.4-10.2); Carbon Dioxide 24 mmol/L (22-32); Chloride 102 mmol/L (98-107); Estimated Glomerular Filt Rate > 60.0 mL/min (>60); Globulin 3.5 g/dL (1.7-4.1); Glucose 95 mg/dL (70-100); HEMOLYSIS < 15 (0-50); Lipase 73 U/L (23-300); Potassium 3.7 mmol/L (3.4-5.1); Sodium 144 mmol/L (137-145); Total Protein 8.4 g/dL (6.3-8.2)
[2018-01-13] MEDS: SODIUM CHLORIDE 0.9% 1,000 ML 1000 ML IV ×2 (02:30→03:34)
--- NOTE | 2018-01-13 02:37 | PC.NURSE ---
Pt still has N-V after the zofran and morphine.
[2018-01-13] MEDS: METOCLOPRAMIDE 10 MG/2 ML INJ IV (02:42)
[2018-01-13 03:04] LABS: WBC Urine None Seen (0-5/HPF)
--- NOTE | 2018-01-13 03:11 | PC.NURSE ---
Pt called and requesting something for abd pain. Informing Dr Albarran the above.
[2018-01-13 03:13] LABS: Bacteria Urine Occasional (0-1); RBC Urine 0-1/HPF (0-5/HPF)
[2018-01-13 03:14] LABS: Culture Indicated Urine Cult Not Indicated
[2018-01-13] MEDS: HYDROMORPHONE 1 MG INJ 0.5 MG IV (03:33)
[2018-01-13] MEDS: KETOROLAC 60 MG/2 ML VIAL 30 MG IV (04:08)
[2018-01-13 05:10] VITALS: BP 126/85; PULSE 82; RESP 82; O2SAT 100
[2018-01-13] MEDS: ONDANSETRON 4 MG ODT PREPACK 1 BOTTLE MISC (05:16)
== END 2018-01-13 05:33 | disposition home or self-care (01) ==
PROVIDERS: Emergency Provider Emergency Medicine
DX: R10.9 Unspecified abdominal pain (principal)
CPT/HCPCS: 80053; 81003; 81015; 81025; 83690; 85025; J1170; J1885; J2270; J2405; J2765

== ENCOUNTER 2018-01-13 17:32 | Emergency (ER) | payer OTHER, SELFPAY ==
[2018-01-13 17:48] VITALS: BP 136/88; PULSE 98; RESP 20; TEMP 36.5; O2SAT 100
[2018-01-13] MEDS: ONDANSETRON 4 MG/2 ML INJ IV (18:20)
[2018-01-13] MEDS: SODIUM CHLORIDE 0.9% 1,000 ML 1000 ML IV ×2 (18:20→20:43)
--- NOTE | 2018-01-13 18:30 | ED_ITS ---
HPI - Nausea/Vomiting/Diarrhea General Chief complaint: Nausea/Vomiting/Diarrhea Stated complaint: PAIN LOWER RIGHT SIDE STOMACH Time Seen by Provider: 01/13/18 18:19 Source: patient Mode of arrival: ambulatory Limitations: no limitations History of Present Illness HPI Narrative: 22-year-old female who I evaluated here in the emergency department less than 24 hr ago for right lower quadrant/right mid abdomen pain and nausea and vomiting. During her prior visit the patient did have an elevated white blood cell count and ketones in her urine and was tachycardic upon arrival. We did discuss this and I felt that these findings were secondary to demargination and also dehydration. She felt better after medicines here in the emergency department. We did discuss the potential for CT scan however since she has had multiple CT scans in the past we opted to hold on this for now. The patient returns this evening for continued symptoms. She states she has been taking her Zofran at home which has controlled her symptoms somewhat however the pain has not gone away and she thinks maybe it is somewhat worse. Continues to have nausea and vomiting. No urinary symptoms. No bowel symptoms. Patient states that several years ago she was diagnosed with Chlamydia but this was treated she did have a test of cure. She states she is not concerned about any STDs today. She states that she does have a diagnosis of endometriosis which was diagnosed by curing press operator after a laparoscopy. Related Data Home Medications Medication Instructions Recorded Confirmed ibuprofen 1 tab PO Q8H PRN 01/13/18 01/13/18 norethindrone-e.estradiol-iron 1 tab PO DAILY 01/13/18 01/13/18 Previous Rx's Medication Instructions Recorded ondansetron [Zofran ODT] 4 mg PO BID-TID PRN #14 tab 01/13/18 Allergies Allergy/AdvReac Type Severity Reaction Status Date / Time No Known Allergies Allergy Uncoded 01/13/18 02:11 Review of Systems Constitutional Denies fatigue, Denies fever(s), Denies headache(s) and Reports malaise ENT Ears, Nose, Mouth, and Throat: Denies dysphagia, Denies vertigo, Denies dizziness and Denies headache(s) Cardiovascular Denies chest pain, Denies syncope and Denies dyspnea Respiratory Denies dyspnea Gastrointestinal Gastrointestinal: Reports abdominal pain, Denies bloating, Denies change in bowel habits, Denies constipation, Denies cramping, Denies dysphagia, Denies diarrhea, Reports nausea and Reports vomiting Genitourinary Denies amenorrhea, Denies hematuria, Denies dysuria, Denies pelvic pain, Denies urinary incontinence, Denies urinary hesitancy, Denies urinary urgency, Denies vaginal discharge and Denies vaginal pruritus Musculoskeletal Denies myalgias and Denies arthralgias Integumentary/Breasts Denies lesions and Denies rash Neurologic Denies confusion, Denies vertigo, Denies dizziness, Denies syncope and Denies headache(s) Psychiatric Denies confusion Endocrine Denies fatigue Hematologic/Lymphatic Denies easy bleeding and Denies easy bruising [facility] Medical History Endometriosis (Acute) Polycystic ovaries (Acute) [place] teeth extracted (Acute) Surgical History Hx of tonsillectomy (Acute) Social History household members: friend(s) Smoking Status: Current every day smoker Exam Initial Vital Signs Initial Vital Signs: Vital Signs Temperature 97.7 F 01/13/18 17:48 Pulse Rate 98 H 01/13/18 17:48 Respiratory Rate 20 01/13/18 17:48 Blood Pressure 136/88 01/13/18 17:48 Pulse Oximetry 100 01/13/18 17:48 Const General: cooperative, well developed, well groomed and No acute distress Orientation: alert, awake and oriented x3 HENMT Head: normal to inspection and normocephalic Resp Effort & Inspection: normal respiratory effort Auscultation: clear to auscultation bilaterally Cardio Rate: regular rate Rhythm: regular rhythm Pulses: radial pulses present GI Inspection: non-distended Palpation: soft, No firm, No rigid and tender (Right mid abdomen right lower quadrant without rebound) External Female Exam: external appearance normal Bimanual Exam- Vagina & Uterus: normal bimanual exam, normal cervical palpation and no cervical motion tenderness Bimanual Exam- Adnexa, other: adnexal tenderness on the right Back/Spine/Pelvis Back: No CVA tenderness Skin Lesions: no lesions Rashes: no rashes Extrem General: normal to inspection and capillary refill normal Psych Appearance: grossly normal and well kempt Course Orders Ordered: ED Orders 01/13/18 18:05 Complete Blood Count AUTO DIFF Stat 01/13/18 18:30 CT abdomen pelvis w con Stat Comprehensive Metabolic Panel Stat GC Screen Stat 01/13/18 18:46 Lactate (Lactic Acid) Stat 01/13/18 18:50 Urine Chlamydia Gonorrhea PCR Stat 01/13/18 20:20 US pelvic complete Stat Discontinued Medications Hydromorphone HCl (Dilaudid) 1 mg IV NOW ONE Stop: 01/13/18 18:40 Last Admin: 01/13/18 18:58 Dose: 1 mg Hydromorphone HCl (Dilaudid) 0.5 mg IV NOW ONE Stop: 01/13/18 20:30 Last Admin: 01/13/18 20:43 Dose: 0.5 mg Sodium Chloride (Normal Saline 0.9%) 1,000 mls @ 1,000 mls/hr IV BOLUS ONE Stop: 01/13/18 19:29 Last Infusion: 01/13/18 19:24 Dose: 0 mls/hr Admin: 01/13/18 18:20 Dose: 1,000 mls/hr Sodium Chloride (Normal Saline 0.9%) 1,000 mls @ 1,000 mls/hr IV BOLUS ONE Stop: 01/13/18 21:38 Last Infusion: 01/13/18 21:57 Dose: 0 mls/hr Admin: 01/13/18 20:43 Dose: 1,000 mls/hr Lorazepam (Ativan) 0.5 mg IV NOW ONE Stop: 01/13/18 21:53 Last Admin: 01/13/18 21:58 Dose: 0.5 mg Metoclopramide HCl (Reglan) 10 mg IV NOW ONE Stop: 01/13/18 18:40 Last Admin: 01/13/18 18:58 Dose: 10 mg Ondansetron HCl (Zofran) 4 mg IV NOW ONE Stop: 01/13/18 18:40 Last Admin: 01/13/18 18:20 Dose: 4 mg Pantoprazole Sodium (Protonix) 40 mg IV NOW ONE Stop: 01/13/18 21:15 Last Admin: 01/13/18 21:45 Dose: 40 mg Vital Signs - 8 hr 01/13/18 17:48 01/13/18 20:52 Temperature 97.7 F Pulse Rate 98 H 71 Respiratory Rate 20 15 Blood Pressure 136/88 Blood Pressure [Right Arm] 108/61 Pulse Oximetry 100 99 MDM - Nausea/Vomiting/Diarrhea Medical Records Attestation: I reviewed the patient's medical records. Lab Data Attestation: I reviewed the patient's lab results. Result diagrams: 01/13/18 18:05 01/13/18 18:30 Lab Results 01/13/18 01/13/18 01/13/18 Range/Units 18:05 18:30 18:46 WBC 9.7 (4.5-11.0) X10^3/uL RBC 4.46 (4.0-5.2) X10^6/uL Hgb 14.2 (12.0-16.0) g/dL Hct 40.7 (36-46) % MCV 91.4 (80-100) fL MCH 31.9 (26-34) PG MCHC 34.9 (30-36) % RDW 12.5 (11.6-14.8) % Plt Count 375 (150-400) X10^3/uL Neut % (Auto) 59.5 (50-75) % Lymph % (Auto) 30.5 (25-40) % [place]ucks % (Auto) 8.7 (3-14) % Eos % (Auto) 0.5 L (2-4) % Baso % (Auto) 0.8 (0-2) % Neut # (Auto) 5800 (8127-2909) /uL Sodium 143 (137-145) mmol/L Potassium 3.7 (3.4-5.1) mmol/L Chloride 106 (98-107) mmol/L Carbon Dioxide 25 (22-32) mmol/L BUN 7 (7-17) mg/dL Creatinine 1.10 H (0.52-1.04) mg/dL Estimated GFR > 60.0 (>60) mL/min BUN/Creatinine Ratio 6.4 (6-22) Glucose 95 (70-100) mg/dL Lactate 0.9 (0.7-2.1) mmol/L Calcium 9.3 (8.4-10.2) mg/dL Total Bilirubin 1.1 (0.2-1.3) mg/dL AST 57 H (14-36) IU/L ALT 29 (9-52) IU/L Alkaline Phosphatase 90 (38-126) U/L Total Protein 7.5 (6.3-8.2) g/dL Albumin 4.4 (3.5-5.0) g/dL Globulin 3.1 (1.7-4.1) g/dL Albumin/Globulin Ratio 1.4 (1.0-2.8) Ur Chlamydia DNA (PCR) N gonorrhoeae DNA (PCR) 01/13/18 Range/Units 18:50 WBC (4.5-11.0) X10^3/uL RBC (4.0-5.2) X10^6/uL Hgb (12.0-16.0) g/dL Hct (36-46) % MCV (80-100) fL MCH (26-34) PG MCHC (30-36) % RDW (11.6-14.8) % Plt Count (150-400) X10^3/uL Neut % (Auto) (50-75) % Lymph % (Auto) (25-40) % Bucks % (Auto) (3-14) % Eos % (Auto) (2-4) % Baso % (Auto) (0-2) % Neut # (Auto) (1136-2325) /uL Sodium (137-145) mmol/L Potassium (3.4-5.1) mmol/L Chloride (98-107) mmol/L Carbon Dioxide (22-32) mmol/L BUN (7-17) mg/dL Creatinine (0.52-1.04) mg/dL Estimated GFR (>60) mL/min BUN/Creatinine Ratio (6-22) Glucose (70-100) mg/dL Lactate (0.7-2.1) mmol/L Calcium (8.4-10.2) mg/dL Total Bilirubin (0.2-1.3) mg/dL AST (14-36) IU/L ALT (9-52) IU/L Alkaline Phosphatase (38-126) U/L Total Protein (6.3-8.2) g/dL Albumin (3.5-5.0) g/dL Globulin (1.7-4.1) g/dL Albumin/Globulin Ratio (1.0-2.8) Ur Chlamydia DNA (PCR) Not detected N gonorrhoeae DNA (PCR) Not detected Point of Care Testing Test Results Negative Urine Dip Bedside Urine Glucose Negative Bedside Urine Bilirubin - Negative Bedside Urine Ketone + 15 Urine Specific Sophia 1.015 Bedside Urine Occult Blood - Negative Bedside Urine pH 6.0 Bedside Urine Protein - Negative Bedside Urine Urobilinogen - Negative Bedside Urine Nitrite - Negative Bedside Urine Leukocytes - Negative Esterase Imaging Data CT scan - abdomen: Radiologist's impression: PROCEDURE: CT ABDOMEN PELVIS W CON INDICATIONS: Right sided abd pain TECHNIQUE: After the administration of intravenous contrast, 5 mm thick sections acquired from the diaphragm to the symphysis. 5 mm coronal and sagittal reformats were acquired. For radiation dose reduction, the following was used: automated exposure control, adjustment of mA and/or kV according to patient size. COMPARISON: None. FINDINGS: Image quality: Excellent. ABDOMEN: Lung bases: Lung bases are clear. Heart size is normal. Solid organs: Liver is normal in size and enhancement. Gallbladder is within normal limits. Biliary system is non dilated. Pancreas enhances normally. Spleen is normal in size and enhancement. No adrenal nodules. Kidneys demonstrate normal size and enhancement, without hydronephrosis. Peritoneum and bowel: Stomach is within normal limits. There are multiple mildly distended and nearly enhancing fluid filled small bowel loops. The colon is fluid-filled and demonstrates mild thickening and enhancement of the descending and sigmoid colon. No free fluid or air. Normal appendix. Nodes and vessels: No retroperitoneal or mesenteric adenopathy by size criteria. Aorta and inferior vena cava are normal in size. Miscellaneous: No ventral hernias. PELVIS: Genitourinary: Bladder wall thickness is normal. Miscellaneous: No inguinal hernias or adenopathy. Bones: No suspicious bony lesions. No vertebral body compression fractures. IMPRESSION: 1. Findings suggestive of gastroenteritis. 2. Normal appendix. Dictated by: Berto Sands M.D. on 01/13/2018 at 19:36 Approved by: Berto Sands M.D. on 01/13/2018 at 19:39 US - abdomen: Radiologist's impression: [address] [id number] Ultrasound Report Signed Patient: Monique Newton [facility]#: [id number] : 1995Acct:[id number] Age/Sex: 22 / FDate of Service: 01/13/18 Loc: ED Accession Number: [id number] Procedure: US pelvic complete Ordering Provider: Adalberto Albarran D.O. PROCEDURE: US PELVIC COMPLETE INDICATIONS: RIGHT ADNEXAL PAIN TECHNIQUE: Real-time scanning was performed of the pelvic organs, with image documentation. Additional endovaginal scanning was necessary due to incomplete visualization of the adnexal and endometrial structures by transabdominal scanning. COMPARISON: None. FINDINGS: Transabdominal scanning: Limited scanning through the kidneys shows no hydronephrosis. No pathologic free abdominal or pelvic fluid. Endovaginal scanning: Uterus: Uterus is normal in size at 6.9 x 3.9 x 4.5 cm. The endometrium measures 9 mm in combined thickness. Ovaries: Within normal limits bilaterally IMPRESSION: No acute process. Dictated by: Berto Sands M.D. on 01/13/2018 at 21:54 Approved by: Berto Sands M.D. on 01/13/2018 at 21:55 MDM Narrative Medical decision making narrative: CT scan today unremarkable. Pelvic ultrasound today unremarkable. Her elevated white blood cell count from earlier today has resolved. Her pelvic exam today shows no cervical motion tenderness. Her GC and chlamydia was negative. LFTs unremarkable. Given the negative CT, physical exam is not consistent with gallbladder pathology. Not consistent with renal stones. CT negative for appendicitis. Ultrasound is negative for ovarian torsion or ovarian cysts or . Patient is not concerned about STDs and her GC and chlamydia are negative. Physical exam is not consistent with PID. No signs of bowel obstructions. No signs of urinary tract infection or pyelonephritis. Unsure as the exact etiology of her symptoms however does not appear to be surgical in nature. She states that she has been working on getting a referral to see a GI doctor. Her pain could be from endometriosis as well. Had a long discussion with the patient. She does have pain medications and Zofran at home. Informed her that she needed to contact her primary care doctor for follow-up. She expressed understanding and agreement with plan. Discharge Plan Departure Patient Disposition: Home Clinical Impression: Abdominal pain, Nausea & vomiting Instructions: Nausea and Vomiting-Adult Activity Restrictions/Additional Instructions: The exact cause of her symptoms were not identified today in the emergency department however he did have extensive testing which does not show any emergent or surgical or infectious causes. I would highly recommend that you contact your primary care doctor tomorrow to see about the referral to see the GI specialist. I would also recommend that you contact your curing press operator provider to see you if whether not the symptoms your experiencing today may be the result of endometriosis. Take the pain medication in the nausea medication that you have at home as needed and as directed. Prescriptions: No Action ondansetron [Zofran ODT] 4 mg tablet,disintegrating 4 mg PO BID-TID PRN (Reason: nausea and vomiting) Qty: 14 RF: 0 ibuprofen 800 mg tablet 1 tab PO Q8H PRN (Reason: Pain, Moderate) RF: 0 norethindrone-e.estradiol-iron 1 mg-20 mcg (21)/75 mg (7) tablet 1 tab PO DAILY RF: 0
[2018-01-13 18:41] LABS: Add Manual Diff / Slide Review NO; Basophils Percent Auto 0.8 % (0-2); Eosinophils Percent Auto 0.5 % (2-4); Hematocrit 40.7 % (36-46); Hemoglobin 14.2 g/dL (12.0-16.0); Lymphocytes Percent Auto 30.5 % (25-40); Mean Corpuscular HGB Conc 34.9 % (30-36); Mean Corpuscular Hemoglobin 31.9 PG (26-34); Mean Corpuscular Volume 91.4 fL (80-100); Monocytes Percent Auto 8.7 % (3-14); Neutrophils Absolute Auto 5800 /uL (3000-5900); Neutrophils Percent Auto 59.5 % (50-75); Platelet Count 375 X10^3/uL (150-400); Red Blood Cell Count 4.46 X10^6/uL (4.0-5.2); Red Cell Distribution Width 12.5 % (11.6-14.8); White Blood Cell Count 9.7 X10^3/uL (4.5-11.0)
[2018-01-13 18:46] LABS: Alanine Aminotransferase 29 IU/L (9-52); Albumin 4.4 g/dL (3.5-5.0); Albumin Globulin Ratio 1.4 (1.0-2.8); Alkaline Phosphatase 90 U/L (38-126); Aspartate Aminotransferase 57 IU/L (14-36); Bilirubin Total 1.1 mg/dL (0.2-1.3); Blood Urea Nitrogen 7 mg/dL (7-17); Calcium 9.3 mg/dL (8.4-10.2); Carbon Dioxide 25 mmol/L (22-32); Chloride 106 mmol/L (98-107); Globulin 3.1 g/dL (1.7-4.1); Glucose 95 mg/dL (70-100); HEMOLYSIS < 15 (0-50); Potassium 3.7 mmol/L (3.4-5.1); Sodium 143 mmol/L (137-145); Total Protein 7.5 g/dL (6.3-8.2)
[2018-01-13] MEDS: HYDROMORPHONE 1 MG INJ IV (18:58)
[2018-01-13] MEDS: METOCLOPRAMIDE 10 MG/2 ML INJ IV (18:58)
[2018-01-13 19:04] LABS: BUN Creatinine Ratio 6.4 (6-22); Estimated Glomerular Filt Rate > 60.0 mL/min (>60)
[2018-01-13 19:05] LABS: Lactate (Lactic Acid) 0.9 mmol/L (0.7-2.1)
--- NOTE | 2018-01-13 20:20 | DI.US.S_ITS ---
PROCEDURE: US PELVIC COMPLETE INDICATIONS: RIGHT ADNEXAL PAIN TECHNIQUE: Real-time scanning was performed of the pelvic organs, with image documentation. Additional endovaginal scanning was necessary due to incomplete visualization of the adnexal and endometrial structures by transabdominal scanning. COMPARISON: None. FINDINGS: Transabdominal scanning: Limited scanning through the kidneys shows no hydronephrosis. No pathologic free abdominal or pelvic fluid. Endovaginal scanning: Uterus: Uterus is normal in size at 6.9 x 3.9 x 4.5 cm. The endometrium measures 9 mm in combined thickness. Ovaries: Within normal limits bilaterally IMPRESSION: No acute process. Dictated by: Berto Sands M.D. on 01/13/2018 at 21:54 Approved by: Berto Sands M.D. on 01/13/2018 at 21:55
[2018-01-13 20:38] LABS: Urine N gonorrhoeae NOT DETECTED
[2018-01-13] MEDS: HYDROMORPHONE 1 MG INJ 0.5 MG IV (20:43)
[2018-01-13 20:52] VITALS: BP 108/61; PULSE 71; RESP 15; O2SAT 99
[2018-01-13 20:58] LABS: Urine Chlamydia NOT DETECTED
[2018-01-13] MEDS: PANTOPRAZOLE 40 MG VIAL IV (21:45)
[2018-01-13] MEDS: LORazepam 2 MG/ML SYRINGE 0.5 MG IV (21:58)
[2018-01-13 22:53] VITALS: BP 122/79; PULSE 66; RESP 14; TEMP 36.8; O2SAT 100
== END 2018-01-13 22:54 | disposition home or self-care (01) ==
PROVIDERS: Emergency Provider Emergency Medicine
DX: R10.9 Unspecified abdominal pain (principal); R11.2 Nausea with vomiting, unspecified
CPT/HCPCS: 36415; 36591; 74177; 76830; 76856; 80053; 81003; 81015; 81025; 83605; 83690; 85025; 87491; 87591; 96361; 96374; 96375; 99283; 99285; C9113; J1170; J1885; J2060; J2270; J2405; J2765; Q9967

== ENCOUNTER 2018-02-12 16:21 | Emergency (ER) | payer OTHER, SELFPAY ==
[2018-02-12 16:31] VITALS: BP 132/77; PULSE 103; RESP 16; TEMP 36.8; O2SAT 100; BMI 32.9
--- NOTE | 2018-02-12 16:32 | ED.NAVMDI ---
HPI - Nausea/Vomiting/Diarrhea <NIKOLAI Anderson - Last Filed: 02/12/18 22:16> General Chief complaint: Nausea/Vomiting/Diarrhea Stated complaint: ABD PAIN N/V Time Seen by Provider: 02/12/18 16:24 Source: patient Mode of arrival: ambulatory Limitations: no limitations History of Present Illness HPI Narrative: 22-year-old female with history of endometriosis as an everyday smoker here for complaint of having pain into her right lower quadrant/right pelvic region. She recently had her appendix out January 18 however denies any complications with the incisions or with the surgery. She states that her symptoms are similar to prior exacerbations of her endometriosis. She states her last menstrual cycle was on 27 December. She denies any vaginal bleeding or discharge. No fevers no chills. She does report having some nausea with vomiting. Last bowel movement was yesterday and was unremarkable. She denies any urinary symptoms. She is currently waiting for follow up with [employer] for further evaluation of endometriosis next week. She denies any other concerns or complaints at this time. Related Data Home Medications Medication Instructions Recorded Confirmed norethindrone-e.estradiol-iron 1 tab PO DAILY 01/13/18 02/12/18 biotin 1 cap PO DAILY 02/12/18 02/12/18 Previous Rx's Medication Instructions Recorded hydrocodone-acetaminophen [[place]] 1 tab PO Q4-6H PRN #10 tab 02/12/18 ondansetron 4 mg PO TID PRN #10 tab 02/12/18 Allergies Allergy/AdvReac Type Severity Reaction Status Date / Time No Known Drug Allergies Allergy Verified 02/12/18 16:31 Review of Systems <NIKOLAI Anderson - Last Filed: 02/12/18 22:16> Constitutional Denies chills, Denies fever(s), Denies lethargy and Denies weakness Eyes Denies change in vision, Denies eye discharge, Denies irritation and Denies loss of vision ENT Ears, Nose, Mouth, and Throat: Denies change in voice, Denies neck pain and Denies sore throat Cardiovascular Denies chest pain, Denies irregular heart rhythm, Denies lightheadedness, Denies palpitations, Denies dyspnea, Denies dyspnea on exertion and Denies orthopnea Respiratory Denies cough, Denies dyspnea, Denies dyspnea on exertion and Denies wheezing Gastrointestinal Gastrointestinal: Denies abdominal pain, Denies change in bowel habits, Denies diarrhea, Denies nausea and Denies vomiting Genitourinary Reports pelvic pain Musculoskeletal Denies neck pain Integumentary/Breasts Denies pruritus, Denies erythema, Denies rash and Denies wounds Neurologic Denies confusion, Denies loss of vision and Denies weakness Psychiatric Denies anxiety, Denies confusion, Denies depression, Denies homicidal ideation and Denies suicidal ideation Endocrine Denies palpitations Hematologic/Lymphatic Denies easy bruising Allergic/Immunologic Denies wheezing Exam <NIKOLAI Anderson - Last Filed: 02/12/18 22:16> Initial Vital Signs Initial Vital Signs: Vital Signs Temperature 98.3 F 02/12/18 16:31 Pulse Rate 103 H 02/12/18 16:31 Respiratory Rate 16 02/12/18 16:31 Blood Pressure 132/77 02/12/18 16:31 Pulse Oximetry 100 02/12/18 16:31 Const General: cooperative and well developed Nutritional Appearance: well nourished Orientation: alert, awake, oriented x3 and not confused HENUT Mouth: oral mucosae normal and moist mucous membranes Eyes Conjunctivae: conjunctivae normal Sclera: sclerae normal Pupils: PERRL EOM: EOM intact bilaterally Resp Effort & Inspection: normal respiratory effort, able to speak in complete sentences, no respiratory distress and no use of accessory muscles Auscultation: clear to auscultation bilaterally, no rales, no rhonchi and no wheezes Cardio Rate: regular rate Rhythm: regular rhythm Heart Sounds: no click, no gallops, no murmurs and no rubs Pulses: normal peripheral pulses GI Inspection: non-distended Palpation: soft, no hepatosplenomegaly, No guarding, No pulsatile mass and No tender Auscultation: normal bowel sounds Other: Tenderness on palpation to right lower quadrant/pelvic region. Skin General: no rashes or lesions noted, No jaundice and No petechiae Neuro General: alert, oriented x3, gait normal and no focal motor deficits Speech: speech normal <Maryjo Choi DO - Last Filed: 02/13/18 04:18> Initial Vital Signs Initial Vital Signs: Vital Signs Temperature 98.3 F 02/12/18 16:31 Pulse Rate 103 H 02/12/18 16:31 Respiratory Rate 16 02/12/18 16:31 Blood Pressure 132/77 02/12/18 16:31 Pulse Oximetry 100 02/12/18 16:31 Course <NIKOLAI Anderson - Last Filed: 02/12/18 22:16> Orders Ordered: Discontinued Medications Hydromorphone HCl (Dilaudid) 1 mg IV NOW ONE Stop: 02/12/18 16:46 Last Admin: 02/12/18 17:15 Dose: 1 mg Hydromorphone HCl (Dilaudid) 1 mg IV NOW ONE Stop: 02/12/18 18:33 Last Admin: 02/12/18 18:41 Dose: 1 mg Sodium Chloride (Normal Saline 0.9%) 1,000 mls @ 1,000 mls/hr IV BOLUS ONE Stop: 02/12/18 17:44 Last Infusion: 02/12/18 18:50 Dose: 0 mls/hr Admin: 02/12/18 17:20 Dose: 1,000 mls/hr Sodium Chloride (Normal Saline 0.9%) 1,000 mls @ 1,000 mls/hr IV BOLUS PRN PRN Reason: Fluid replacement Last Infusion: 02/12/18 20:23 Dose: 0 mls/hr Admin: 02/12/18 18:42 Dose: 1,000 mls/hr Ondansetron HCl (Zofran) 4 mg IV NOW ONE Stop: 02/12/18 16:46 Last Admin: 02/12/18 17:19 Dose: 4 mg Ondansetron HCl (Zofran) 4 mg IV NOW ONE Stop: 02/12/18 18:33 Last Admin: 02/12/18 18:41 Dose: 4 mg Vital Signs - 8 hr 02/12/18 20:39 Pulse Rate 95 H Blood Pressure 126/78 Pulse Oximetry 100 <Maryjo Choi DO - Last Filed: 02/13/18 04:18> Orders Ordered: Discontinued Medications Hydromorphone HCl (Dilaudid) 1 mg IV NOW ONE Stop: 02/12/18 16:46 Last Admin: 02/12/18 17:15 Dose: 1 mg Hydromorphone HCl (Dilaudid) 1 mg IV NOW ONE Stop: 02/12/18 18:33 Last Admin: 02/12/18 18:41 Dose: 1 mg Sodium Chloride (Normal Saline 0.9%) 1,000 mls @ 1,000 mls/hr IV BOLUS ONE Stop: 02/12/18 17:44 Last Infusion: 02/12/18 18:50 Dose: 0 mls/hr Admin: 02/12/18 17:20 Dose: 1,000 mls/hr Sodium Chloride (Normal Saline 0.9%) 1,000 mls @ 1,000 mls/hr IV BOLUS PRN PRN Reason: Fluid replacement Last Infusion: 02/12/18 20:23 Dose: 0 mls/hr Admin: 02/12/18 18:42 Dose: 1,000 mls/hr Ondansetron HCl (Zofran) 4 mg IV NOW ONE Stop: 02/12/18 16:46 Last Admin: 02/12/18 17:19 Dose: 4 mg Ondansetron HCl (Zofran) 4 mg IV NOW ONE Stop: 02/12/18 18:33 Last Admin: 02/12/18 18:41 Dose: 4 mg Vital Signs - 8 hr 02/12/18 20:39 Pulse Rate 95 H Blood Pressure 126/78 Pulse Oximetry 100 MDM - Nausea/Vomiting/Diarrhea <NIKOLAI Anderson - Last Filed: 02/12/18 22:16> Lab Data Result diagrams: 02/12/18 17:14 02/12/18 17:14 Lab Results 02/12/18 02/12/18 02/12/18 Range/Units 16:52 17:14 17:14 WBC 11.1 H (4.5-11.0) X10^3/uL RBC 4.73 (4.0-5.2) X10^6/uL Hgb 14.8 (12.0-16.0) g/dL Hct 42.9 (36-46) % MCV 90.7 (80-100) fL MCH 31.2 (26-34) PG MCHC 34.4 (30-36) % RDW 12.5 (11.6-14.8) % Plt Count 353 (150-400) X10^3/uL Neut % (Auto) 72.9 (50-75) % Lymph % (Auto) 19.7 L (25-40) % [place] % (Auto) 6.5 (3-14) % Eos % (Auto) 0.3 L (2-4) % Baso % (Auto) 0.6 (0-2) % Neut # (Auto) 8000 H (4899-3828) /uL Sodium 142 (137-145) mmol/L Potassium 3.8 (3.4-5.1) mmol/L Chloride 102 (98-107) mmol/L Carbon Dioxide 23 (22-32) mmol/L BUN 9 (7-17) mg/dL Creatinine 1.20 H (0.52-1.04) mg/dL Estimated GFR 55.7 L (>60) mL/min BUN/Creatinine Ratio 7.5 (6-22) Glucose 93 (70-100) mg/dL Calcium 9.7 (8.4-10.2) mg/dL Total Bilirubin 1.2 (0.2-1.3) mg/dL AST 31 (14-36) IU/L ALT 42 (9-52) IU/L Alkaline Phosphatase 96 (38-126) U/L Total Protein 7.9 (6.3-8.2) g/dL Albumin 4.8 (3.5-5.0) g/dL Globulin 3.1 (1.7-4.1) g/dL Albumin/Globulin Ratio 1.5 (1.0-2.8) Lipase 53 (23-300) U/L Urine RBC 1-5/hpf (0-5/HPF) Urine WBC 0-1/hpf (0-5/HPF) Ur Squamous Epith Cells 0-1 /hpf Urine Bacteria Moderate (10-30) H (None) Urine Mucus 1+ H (Negative) Ur Culture Indicated? Cult not indicated Micro UA Comment Call for cx Point of Care Testing Test Results Negative Urine Dip Bedside Urine Glucose Negative Bedside Urine Bilirubin - Negative Bedside Urine Ketone +++ 80 Urine Specific [place] 1.030 Bedside Urine Occult Blood + Bedside Urine pH 6.0 Bedside Urine Protein +/- 15 Bedside Urine Urobilinogen +/- 1mg Bedside Urine Nitrite - Negative Bedside Urine Leukocytes - Negative Esterase Imaging Data US - abdomen: Radiologist's impression: [address] [address] Ultrasound Report Signed Patient: Monique Newton [facility]#: [id number] : 1995Acct:[id number] Age/Sex: 22 / FDate of Service: 02/12/18 Loc: ED Accession Number: [id number] Procedure: US abdomen complete Ordering Provider: Atn James PROCEDURE: US ABDOMEN COMPLETE INDICATIONS: Right lower quadrant pain TECHNIQUE: Real-time scanning was performed of the abdominal and retroperitoneal organs, with image documentation. COMPARISON: None. FINDINGS: Liver: Liver is normal in size and homogeneous in echotexture. Gallbladder: Unremarkable Biliary ducts: Intrahepatic bile ducts are non-dilated. Extrahepatic bile duct caliber measures 4 mm. Normal is 6-7 mm or less in diameter, or 10 mm or less post-cholecystectomy. Pancreas: Obscured by shadowing bowel gas. Spleen: Obscured by shadowing bowel gas and rib shadow Kidneys: Kidneys are normal in size and echotexture. Right kidney measures 11.1 cm long; left kidney measures 11.1 cm long. No hydronephrosis or nephrolithiasis. No solid masses. Aorta: Proximal aorta is obscured by shadowing bowel gas Visualized aorta is normal in caliber at less than 3 cm. Iliacs: Proximal common iliac arteries are normal in caliber at less than 2.5 cm. IVC: Obscured by shadowing bowel gas. Miscellaneous: No free abdominal fluid. IMPRESSION: Suboptimal evaluation due to excessive shadowing bowel gas. No acute abnormality identified, however the pancreas, spleen are not well seen due to bowel gas. Dictated by: Jose Antonio Poe M.D. on 02/12/2018 at 18:02 Approved by: Jose Antonio oPe M.D. on 02/12/2018 at 18:04 pelvic us: Radiologist's impression: Ultrasound Report Signed Patient: Monique Newton [facility]#: [id number] : 1995Acct:[id number] Age/Sex: 22 / FDate of Service: 02/12/18 Loc: ED Accession Number: [id number] Procedure: US pelvic complete Ordering Provider: Ant James PROCEDURE: US PELVIC COMPLETE INDICATIONS: Right lower quadrant pain nausea vomiting. Status post appendectomy TECHNIQUE: Real-time scanning was performed of the pelvic organs, with image documentation. Additional endovaginal scanning was necessary due to incomplete visualization of the adnexal and endometrial structures by transabdominal scanning. COMPARISON: [facility], , US PELVIC COMPLETE, 01/13/2018, 21:17. FINDINGS: Transabdominal scanning: Limited scanning through the kidneys shows no hydronephrosis. No pathologic free abdominal or pelvic fluid. Endovaginal scanning: Uterus: Uterus is normal in size at 6.9 x 3.6 x 5.0 cm. The endometrium measures 8 mm in combined thickness. Ovaries: Right ovary is unremarkable and measures 2.2 x 2.4 x 2.3 cm. Left ovary measures 2.4 x 2.2 x 3.2 cm. Normal wave form seen with Doppler interrogation of the right ovary. Physiologic left ovarian follicle incidentally noted measuring 1.9 cm the. IMPRESSION: No evidence of right ovarian torsion identified. Negative examination as above. No free fluid. Dictated by: Jose Antonio Poe M.D. on 02/12/2018 at 18:04 Approved by: Jose Antonio Poe M.D. on 02/12/2018 at 18:08 Abdominal x-ray: Radiologist's impression: [address] [address] XRay Report Signed Patient: Monique Newton [facility]#: [id number] : 1995Acct:[id number] Age/Sex: 22 / FDate of Service: 02/12/18 Loc: ED Accession Number: [id number] Procedure: XR abdomen min 2V Ordering Provider: Ant James PROCEDURE: XR ABDOMEN MIN 2V INDICATIONS: Right lower quadrant pain nausea vomiting TECHNIQUE: 2 views of the abdomen were acquired. COMPARISON: None. FINDINGS: Surgical changes and devices: None. Bowel: No pneumoperitoneum. The bowel gas pattern is nonobstructive. Soft tissues: No masses; visualized solid organ contours appear normal in size. No suspicious abdominal calcifications. Bones: No suspicious bony abnormalities. IMPRESSION: Negative exam as above Dictated by: Jose Antonio Poe M.D. on 02/12/2018 at 17:59 Approved by: Jose Antonio Poe M.D. on 02/12/2018 at 18:02 [facility] Narrative Medical decision making narrative: CBC and Chem panel were obtained were unremarkable. Urinalysis was negative for urinary tract infection and also . Ultrasound of the abdomen and pelvic were unremarkable. Signs and symptoms presents as pain secondary to her endometriosis. She felt better after pain medications and nausea medication. She is prescribed a small amount of pain medication along with Zofran to help with the nausea. She is encouraged to follow up with [employer] as scheduled. For any worsening symptoms return emergency room. <Maryjo Steph, DO - Last Filed: 02/13/18 04:18> Lab Data Lab Results 02/12/18 02/12/18 02/12/18 Range/Units 16:52 17:14 17:14 WBC 11.1 H (4.5-11.0) X10^3/uL RBC 4.73 (4.0-5.2) X10^6/uL Hgb 14.8 (12.0-16.0) g/dL Hct 42.9 (36-46) % MCV 90.7 (80-100) fL MCH 31.2 (26-34) PG MCHC 34.4 (30-36) % RDW 12.5 (11.6-14.8) % Plt Count 353 (150-400) X10^3/uL Neut % (Auto) 72.9 (50-75) % Lymph % (Auto) 19.7 L (25-40) % [place] % (Auto) 6.5 (3-14) % Eos % (Auto) 0.3 L (2-4) % Baso % (Auto) 0.6 (0-2) % Neut # (Auto) 8000 H (8998-2755) /uL Sodium 142 (137-145) mmol/L Potassium 3.8 (3.4-5.1) mmol/L Chloride 102 (98-107) mmol/L Carbon Dioxide 23 (22-32) mmol/L BUN 9 (7-17) mg/dL Creatinine 1.20 H (0.52-1.04) mg/dL Estimated GFR 55.7 L (>60) mL/min BUN/Creatinine Ratio 7.5 (6-22) Glucose 93 (70-100) mg/dL Calcium 9.7 (8.4-10.2) mg/dL Total Bilirubin 1.2 (0.2-1.3) mg/dL AST 31 (14-36) IU/L ALT 42 (9-52) IU/L Alkaline Phosphatase 96 (38-126) U/L Total Protein 7.9 (6.3-8.2) g/dL Albumin 4.8 (3.5-5.0) g/dL Globulin 3.1 (1.7-4.1) g/dL Albumin/Globulin Ratio 1.5 (1.0-2.8) Lipase 53 (23-300) U/L Urine RBC 1-5/hpf (0-5/HPF) Urine WBC 0-1/hpf (0-5/HPF) Ur Squamous Epith Cells 0-1 /hpf Urine Bacteria Moderate (10-30) H (None) Urine Mucus 1+ H (Negative) Ur Culture Indicated? Cult not indicated Micro UA Comment Call for cx Point of Care Testing Test Results Negative Urine Dip Bedside Urine Glucose Negative Bedside Urine Bilirubin - Negative Bedside Urine Ketone +++ 80 Urine Specific [place] 1.030 Bedside Urine Occult Blood + Bedside Urine pH 6.0 Bedside Urine Protein +/- 15 Bedside Urine Urobilinogen +/- 1mg Bedside Urine Nitrite - Negative Bedside Urine Leukocytes - Negative Esterase Discharge Plan Departure Patient Disposition: Home Clinical Impression: Endometriosis, Pelvic pain Discharge Date/Time: 02/12/18 20:40 Interventions: ED Discharge Assessment Last Done: 02/12/18 20:39 Instructions: DI for Endometriosis Activity Restrictions/Additional Instructions: Laboratory results and imaging today were unremarkable. Signs and symptoms presents as pain secondary to endometriosis. Follow up with primary care provide. Follow up with [employer] next week as scheduled. Use ibuprofen as needed for any discomfort. Small amount of [place] is prescribed for breakthrough pain use as directed. Zofran is prescribed help with any nausea also use as described. For any worsening symptoms return to the emergency room. Prescriptions: New hydrocodone-acetaminophen [[place]] 5-325 mg tablet 1 tab PO Q4-6H PRN (Reason: pain) Qty: 10 RF: 0 ondansetron 4 mg tablet,disintegrating 4 mg PO TID PRN (Reason: nausea and vomiting) Qty: 10 RF: 0 No Action biotin 1 cap PO DAILY RF: 0 norethindrone-e.estradiol-iron 1 mg-20 mcg (21)/75 mg (7) tablet 1 tab PO DAILY RF: 0 Referrals: [facility] [Provider Group] <Maryjo Choi, - Last Filed: 02/13/18 04:18> Cosign ED Attending Renzo Attestation: I was immediately available in the department for consultation. Documentation has been reviewed. I agree with assessment and plan.
--- NOTE | 2018-02-12 16:45 | DI.US.S_ITS ---
PROCEDURE: US PELVIC COMPLETE INDICATIONS: Right lower quadrant pain nausea vomiting. Status post appendectomy TECHNIQUE: Real-time scanning was performed of the pelvic organs, with image documentation. Additional endovaginal scanning was necessary due to incomplete visualization of the adnexal and endometrial structures by transabdominal scanning. COMPARISON: [facility], , US PELVIC COMPLETE, 01/13/2018, 21:17. FINDINGS: Transabdominal scanning: Limited scanning through the kidneys shows no hydronephrosis. No pathologic free abdominal or pelvic fluid. Endovaginal scanning: Uterus: Uterus is normal in size at 6.9 x 3.6 x 5.0 cm. The endometrium measures 8 mm in combined thickness. Ovaries: Right ovary is unremarkable and measures 2.2 x 2.4 x 2.3 cm. Left ovary measures 2.4 x 2.2 x 3.2 cm. Normal wave form seen with Doppler interrogation of the right ovary. Physiologic left ovarian follicle incidentally noted measuring 1.9 cm the. IMPRESSION: No evidence of right ovarian torsion identified. Negative examination as above. No free fluid. Dictated by: Jose Antonio Poe M.D. on 02/12/2018 at 18:04 Approved by: Jose Antonio Poe M.D. on 02/12/2018 at 18:08
--- NOTE | 2018-02-12 16:46 | DI.US.S_ITS ---
PROCEDURE: US ABDOMEN COMPLETE INDICATIONS: Right lower quadrant pain TECHNIQUE: Real-time scanning was performed of the abdominal and retroperitoneal organs, with image documentation. COMPARISON: None. FINDINGS: Liver: Liver is normal in size and homogeneous in echotexture. Gallbladder: Unremarkable Biliary ducts: Intrahepatic bile ducts are non-dilated. Extrahepatic bile duct caliber measures 4 mm. Normal is 6-7 mm or less in diameter, or 10 mm or less post-cholecystectomy. Pancreas: Obscured by shadowing bowel gas. Spleen: Obscured by shadowing bowel gas and rib shadow Kidneys: Kidneys are normal in size and echotexture. Right kidney measures 11.1 cm long; left kidney measures 11.1 cm long. No hydronephrosis or nephrolithiasis. No solid masses. Aorta: Proximal aorta is obscured by shadowing bowel gas Visualized aorta is normal in caliber at less than 3 cm. Iliacs: Proximal common iliac arteries are normal in caliber at less than 2.5 cm. IVC: Obscured by shadowing bowel gas. Miscellaneous: No free abdominal fluid. IMPRESSION: Suboptimal evaluation due to excessive shadowing bowel gas. No acute abnormality identified, however the pancreas, spleen are not well seen due to bowel gas. Dictated by: Jose Antonio Poe M.D. on 02/12/2018 at 18:02 Approved by: Jose Antonio Poe M.D. on 02/12/2018 at 18:04
--- NOTE | 2018-02-12 16:47 | DI.RAD.S_ITS ---
PROCEDURE: XR ABDOMEN MIN 2V INDICATIONS: Right lower quadrant pain nausea vomiting TECHNIQUE: 2 views of the abdomen were acquired. COMPARISON: None. FINDINGS: Surgical changes and devices: None. Bowel: No pneumoperitoneum. The bowel gas pattern is nonobstructive. Soft tissues: No masses; visualized solid organ contours appear normal in size. No suspicious abdominal calcifications. Bones: No suspicious bony abnormalities. IMPRESSION: Negative exam as above Dictated by: Jose Antonio Poe M.D. on 02/12/2018 at 17:59 Approved by: Jose Antonio Poe M.D. on 02/12/2018 at 18:02
[2018-02-12] MEDS: HYDROMORPHONE 1 MG INJ IV ×2 (17:15→18:41)
[2018-02-12] MEDS: ONDANSETRON 4 MG/2 ML INJ IV ×2 (17:19→18:41)
[2018-02-12] MEDS: SODIUM CHLORIDE 0.9% 1,000 ML 1000 ML IV ×2 (17:20→18:42)
--- NOTE | 2018-02-12 17:21 | ED_ITS ---
HPI - Nausea/Vomiting/Diarrhea <NIKOLAI Anderson - Last Filed: 02/12/18 22:16> General Chief complaint: Nausea/Vomiting/Diarrhea Stated complaint: ABD PAIN N/V Time Seen by Provider: 02/12/18 16:24 Source: patient Mode of arrival: ambulatory Limitations: no limitations History of Present Illness HPI Narrative: 22-year-old female with history of endometriosis as an everyday smoker here for complaint of having pain into her right lower quadrant/right pelvic region. She recently had her appendix out January 18 however denies any complications with the incisions or with the surgery. She states that her symptoms are similar to prior exacerbations of her endometriosis. She states her last menstrual cycle was on 27 December. She denies any vaginal bleeding or discharge. No fevers no chills. She does report having some nausea with vomiting. Last bowel movement was yesterday and was unremarkable. She denies any urinary symptoms. She is currently waiting for follow up with water restoration technician for further evaluation of endometriosis next week. She denies any other concerns or complaints at this time. Related Data Home Medications Medication Instructions Recorded Confirmed norethindrone-e.estradiol-iron 1 tab PO DAILY 01/13/18 02/12/18 biotin 1 cap PO DAILY 02/12/18 02/12/18 Previous Rx's Medication Instructions Recorded hydrocodone-acetaminophen [[place]] 1 tab PO Q4-6H PRN #10 tab 02/12/18 ondansetron 4 mg PO TID PRN #10 tab 02/12/18 Allergies Allergy/AdvReac Type Severity Reaction Status Date / Time No Known Drug Allergies Allergy Verified 02/12/18 16:31 Review of Systems <NIKOLAI Anderson - Last Filed: 02/12/18 22:16> Constitutional Denies chills, Denies fever(s), Denies lethargy and Denies weakness Eyes Denies change in vision, Denies eye discharge, Denies irritation and Denies loss of vision ENT Ears, Nose, Mouth, and Throat: Denies change in voice, Denies neck pain and Denies sore throat Cardiovascular Denies chest pain, Denies irregular heart rhythm, Denies lightheadedness, Denies palpitations, Denies dyspnea, Denies dyspnea on exertion and Denies orthopnea Respiratory Denies cough, Denies dyspnea, Denies dyspnea on exertion and Denies wheezing Gastrointestinal Gastrointestinal: Denies abdominal pain, Denies change in bowel habits, Denies diarrhea, Denies nausea and Denies vomiting Genitourinary Reports pelvic pain Musculoskeletal Denies neck pain Integumentary/Breasts Denies pruritus, Denies erythema, Denies rash and Denies wounds Neurologic Denies confusion, Denies loss of vision and Denies weakness Psychiatric Denies anxiety, Denies confusion, Denies depression, Denies homicidal ideation and Denies suicidal ideation Endocrine Denies palpitations Hematologic/Lymphatic Denies easy bruising Allergic/Immunologic Denies wheezing Exam <NIKOLAI Anderson - Last Filed: 02/12/18 22:16> Initial Vital Signs Initial Vital Signs: Vital Signs Temperature 98.3 F 02/12/18 16:31 Pulse Rate 103 H 02/12/18 16:31 Respiratory Rate 16 02/12/18 16:31 Blood Pressure 132/77 02/12/18 16:31 Pulse Oximetry 100 02/12/18 16:31 Const General: cooperative and well developed Nutritional Appearance: well nourished Orientation: alert, awake, oriented x3 and not confused HENMD Mouth: oral mucosae normal and moist mucous membranes Eyes Conjunctivae: conjunctivae normal Sclera: sclerae normal Pupils: PERRL EOM: EOM intact bilaterally Resp Effort & Inspection: normal respiratory effort, able to speak in complete sentences, no respiratory distress and no use of accessory muscles Auscultation: clear to auscultation bilaterally, no rales, no rhonchi and no wheezes Cardio Rate: regular rate Rhythm: regular rhythm Heart Sounds: no click, no gallops, no murmurs and no rubs Pulses: normal peripheral pulses GI Inspection: non-distended Palpation: soft, no hepatosplenomegaly, No guarding, No pulsatile mass and No tender Auscultation: normal bowel sounds Other: Tenderness on palpation to right lower quadrant/pelvic region. Skin General: no rashes or lesions noted, No jaundice and No petechiae Neuro General: alert, oriented x3, gait normal and no focal motor deficits Speech: speech normal <Maryjo Choi DO - Last Filed: 02/13/18 04:18> Initial Vital Signs Initial Vital Signs: Vital Signs Temperature 98.3 F 02/12/18 16:31 Pulse Rate 103 H 02/12/18 16:31 Respiratory Rate 16 02/12/18 16:31 Blood Pressure 132/77 02/12/18 16:31 Pulse Oximetry 100 02/12/18 16:31 Course <NIKOLAI Anderson - Last Filed: 02/12/18 22:16> Orders Ordered: Discontinued Medications Hydromorphone HCl (Dilaudid) 1 mg IV NOW ONE Stop: 02/12/18 16:46 Last Admin: 02/12/18 17:15 Dose: 1 mg Hydromorphone HCl (Dilaudid) 1 mg IV NOW ONE Stop: 02/12/18 18:33 Last Admin: 02/12/18 18:41 Dose: 1 mg Sodium Chloride (Normal Saline 0.9%) 1,000 mls @ 1,000 mls/hr IV BOLUS ONE Stop: 02/12/18 17:44 Last Infusion: 02/12/18 18:50 Dose: 0 mls/hr Admin: 02/12/18 17:20 Dose: 1,000 mls/hr Sodium Chloride (Normal Saline 0.9%) 1,000 mls @ 1,000 mls/hr IV BOLUS PRN PRN Reason: Fluid replacement Last Infusion: 02/12/18 20:23 Dose: 0 mls/hr Admin: 02/12/18 18:42 Dose: 1,000 mls/hr Ondansetron HCl (Zofran) 4 mg IV NOW ONE Stop: 02/12/18 16:46 Last Admin: 02/12/18 17:19 Dose: 4 mg Ondansetron HCl (Zofran) 4 mg IV NOW ONE Stop: 02/12/18 18:33 Last Admin: 02/12/18 18:41 Dose: 4 mg Vital Signs - 8 hr 02/12/18 20:39 Pulse Rate 95 H Blood Pressure 126/78 Pulse Oximetry 100 <Maryjo Choi DO - Last Filed: 02/13/18 04:18> Orders Ordered: Discontinued Medications Hydromorphone HCl (Dilaudid) 1 mg IV NOW ONE Stop: 02/12/18 16:46 Last Admin: 02/12/18 17:15 Dose: 1 mg Hydromorphone HCl (Dilaudid) 1 mg IV NOW ONE Stop: 02/12/18 18:33 Last Admin: 02/12/18 18:41 Dose: 1 mg Sodium Chloride (Normal Saline 0.9%) 1,000 mls @ 1,000 mls/hr IV BOLUS ONE Stop: 02/12/18 17:44 Last Infusion: 02/12/18 18:50 Dose: 0 mls/hr Admin: 02/12/18 17:20 Dose: 1,000 mls/hr Sodium Chloride (Normal Saline 0.9%) 1,000 mls @ 1,000 mls/hr IV BOLUS PRN PRN Reason: Fluid replacement Last Infusion: 02/12/18 20:23 Dose: 0 mls/hr Admin: 02/12/18 18:42 Dose: 1,000 mls/hr Ondansetron HCl (Zofran) 4 mg IV NOW ONE Stop: 02/12/18 16:46 Last Admin: 02/12/18 17:19 Dose: 4 mg Ondansetron HCl (Zofran) 4 mg IV NOW ONE Stop: 02/12/18 18:33 Last Admin: 02/12/18 18:41 Dose: 4 mg Vital Signs - 8 hr 02/12/18 20:39 Pulse Rate 95 H Blood Pressure 126/78 Pulse Oximetry 100 MDM - Nausea/Vomiting/Diarrhea <NIKOLAI Anderson - Last Filed: 02/12/18 22:16> Lab Data Result diagrams: 02/12/18 17:14 02/12/18 17:14 Lab Results 02/12/18 02/12/18 02/12/18 Range/Units 16:52 17:14 17:14 WBC 11.1 H (4.5-11.0) X10^3/uL RBC 4.73 (4.0-5.2) X10^6/uL Hgb 14.8 (12.0-16.0) g/dL Hct 42.9 (36-46) % MCV 90.7 (80-100) fL MCH 31.2 (26-34) PG MCHC 34.4 (30-36) % RDW 12.5 (11.6-14.8) % Plt Count 353 (150-400) X10^3/uL Neut % (Auto) 72.9 (50-75) % Lymph % (Auto) 19.7 L (25-40) % [place] % (Auto) 6.5 (3-14) % Eos % (Auto) 0.3 L (2-4) % Baso % (Auto) 0.6 (0-2) % Neut # (Auto) 8000 H (4542-6351) /uL Sodium 142 (137-145) mmol/L Potassium 3.8 (3.4-5.1) mmol/L Chloride 102 (98-107) mmol/L Carbon Dioxide 23 (22-32) mmol/L BUN 9 (7-17) mg/dL Creatinine 1.20 H (0.52-1.04) mg/dL Estimated GFR 55.7 L (>60) mL/min BUN/Creatinine Ratio 7.5 (6-22) Glucose 93 (70-100) mg/dL Calcium 9.7 (8.4-10.2) mg/dL Total Bilirubin 1.2 (0.2-1.3) mg/dL AST 31 (14-36) IU/L ALT 42 (9-52) IU/L Alkaline Phosphatase 96 (38-126) U/L Total Protein 7.9 (6.3-8.2) g/dL Albumin 4.8 (3.5-5.0) g/dL Globulin 3.1 (1.7-4.1) g/dL Albumin/Globulin Ratio 1.5 (1.0-2.8) Lipase 53 (23-300) U/L Urine RBC 1-5/hpf (0-5/HPF) Urine WBC 0-1/hpf (0-5/HPF) Ur Squamous Epith Cells 0-1 /hpf Urine Bacteria Moderate (10-30) H (None) Urine Mucus 1+ H (Negative) Ur Culture Indicated? Cult not indicated Micro UA Comment Call for cx Point of Care Testing Test Results Negative Urine Dip Bedside Urine Glucose Negative Bedside Urine Bilirubin - Negative Bedside Urine Ketone +++ 80 Urine Specific [place] 1.030 Bedside Urine Occult Blood + Bedside Urine pH 6.0 Bedside Urine Protein +/- 15 Bedside Urine Urobilinogen +/- 1mg Bedside Urine Nitrite - Negative Bedside Urine Leukocytes - Negative Esterase Imaging Data US - abdomen: Radiologist's impression: [address] [address] Ultrasound Report Signed Patient: Monique Newton [facility]#: [id number] : 1995Acct:[id number] Age/Sex: 22 / FDate of Service: 02/12/18 Loc: ED Accession Number: [id number] Procedure: US abdomen complete Ordering Provider: Ant James PROCEDURE: US ABDOMEN COMPLETE INDICATIONS: Right lower quadrant pain TECHNIQUE: Real-time scanning was performed of the abdominal and retroperitoneal organs, with image documentation. COMPARISON: None. FINDINGS: Liver: Liver is normal in size and homogeneous in echotexture. Gallbladder: Unremarkable Biliary ducts: Intrahepatic bile ducts are non-dilated. Extrahepatic bile duct caliber measures 4 mm. Normal is 6-7 mm or less in diameter, or 10 mm or less post-cholecystectomy. Pancreas: Obscured by shadowing bowel gas. Spleen: Obscured by shadowing bowel gas and rib shadow Kidneys: Kidneys are normal in size and echotexture. Right kidney measures 11.1 cm long; left kidney measures 11.1 cm long. No hydronephrosis or nephrolithiasis. No solid masses. Aorta: Proximal aorta is obscured by shadowing bowel gas Visualized aorta is normal in caliber at less than 3 cm. Iliacs: Proximal common iliac arteries are normal in caliber at less than 2.5 cm. IVC: Obscured by shadowing bowel gas. Miscellaneous: No free abdominal fluid. IMPRESSION: Suboptimal evaluation due to excessive shadowing bowel gas. No acute abnormality identified, however the pancreas, spleen are not well seen due to bowel gas. Dictated by: Jose Antonio Poe M.D. on 02/12/2018 at 18:02 Approved by: Jose Antonio Poe M.D. on 02/12/2018 at 18:04 pelvic us: Radiologist's impression: Ultrasound Report Signed Patient: Monique Newton [facility]#: [id number] : 1995Acct:[id number] Age/Sex: 22 / FDate of Service: 02/12/18 Loc: ED Accession Number: [id number] Procedure: US pelvic complete Ordering Provider: Ant James PROCEDURE: US PELVIC COMPLETE INDICATIONS: Right lower quadrant pain nausea vomiting. Status post appendectomy TECHNIQUE: Real-time scanning was performed of the pelvic organs, with image documentation. Additional endovaginal scanning was necessary due to incomplete visualization of the adnexal and endometrial structures by transabdominal scanning. COMPARISON: [facility], , US PELVIC COMPLETE, 01/13/2018, 21:17. FINDINGS: Transabdominal scanning: Limited scanning through the kidneys shows no hydronephrosis. No pathologic free abdominal or pelvic fluid. Endovaginal scanning: Uterus: Uterus is normal in size at 6.9 x 3.6 x 5.0 cm. The endometrium measures 8 mm in combined thickness. Ovaries: Right ovary is unremarkable and measures 2.2 x 2.4 x 2.3 cm. Left ovary measures 2.4 x 2.2 x 3.2 cm. Normal wave form seen with Doppler interrogation of the right ovary. Physiologic left ovarian follicle incidentally noted measuring 1.9 cm the. IMPRESSION: No evidence of right ovarian torsion identified. Negative examination as above. No free fluid. Dictated by: Jose Antonio Poe M.D. on 02/12/2018 at 18:04 Approved by: Jose Antonio Poe M.D. on 02/12/2018 at 18:08 Abdominal x-ray: Radiologist's impression: [address] [address] XRay Report Signed Patient: Monique Newton [facility]#: [id number] : 1995Acct:[id number] Age/Sex: 22 / FDate of Service: 02/12/18 Loc: ED Accession Number: [id number] Procedure: XR abdomen min 2V Ordering Provider: Ant James PROCEDURE: XR ABDOMEN MIN 2V INDICATIONS: Right lower quadrant pain nausea vomiting TECHNIQUE: 2 views of the abdomen were acquired. COMPARISON: None. FINDINGS: Surgical changes and devices: None. Bowel: No pneumoperitoneum. The bowel gas pattern is nonobstructive. Soft tissues: No masses; visualized solid organ contours appear normal in size. No suspicious abdominal calcifications. Bones: No suspicious bony abnormalities. IMPRESSION: Negative exam as above Dictated by: Jose Antonio Poe M.D. on 02/12/2018 at 17:59 Approved by: Jose Antonio Poe M.D. on 02/12/2018 at 18:02 [facility] Narrative Medical decision making narrative: CBC and Chem panel were obtained were unremarkable. Urinalysis was negative for urinary tract infection and also . Ultrasound of the abdomen and pelvic were unremarkable. Signs and symptoms presents as pain secondary to her endometriosis. She felt better after pain medications and nausea medication. She is prescribed a small amount of pain medication along with Zofran to help with the nausea. She is encouraged to follow up with water restoration technician as scheduled. For any worsening symptoms return emergency room. <Maryjo Steph, DO - Last Filed: 02/13/18 04:18> Lab Data Lab Results 02/12/18 02/12/18 02/12/18 Range/Units 16:52 17:14 17:14 WBC 11.1 H (4.5-11.0) X10^3/uL RBC 4.73 (4.0-5.2) X10^6/uL Hgb 14.8 (12.0-16.0) g/dL Hct 42.9 (36-46) % MCV 90.7 (80-100) fL MCH 31.2 (26-34) PG MCHC 34.4 (30-36) % RDW 12.5 (11.6-14.8) % Plt Count 353 (150-400) X10^3/uL Neut % (Auto) 72.9 (50-75) % Lymph % (Auto) 19.7 L (25-40) % [place] % (Auto) 6.5 (3-14) % Eos % (Auto) 0.3 L (2-4) % Baso % (Auto) 0.6 (0-2) % Neut # (Auto) 8000 H (3545-1637) /uL Sodium 142 (137-145) mmol/L Potassium 3.8 (3.4-5.1) mmol/L Chloride 102 (98-107) mmol/L Carbon Dioxide 23 (22-32) mmol/L BUN 9 (7-17) mg/dL Creatinine 1.20 H (0.52-1.04) mg/dL Estimated GFR 55.7 L (>60) mL/min BUN/Creatinine Ratio 7.5 (6-22) Glucose 93 (70-100) mg/dL Calcium 9.7 (8.4-10.2) mg/dL Total Bilirubin 1.2 (0.2-1.3) mg/dL AST 31 (14-36) IU/L ALT 42 (9-52) IU/L Alkaline Phosphatase 96 (38-126) U/L Total Protein 7.9 (6.3-8.2) g/dL Albumin 4.8 (3.5-5.0) g/dL Globulin 3.1 (1.7-4.1) g/dL Albumin/Globulin Ratio 1.5 (1.0-2.8) Lipase 53 (23-300) U/L Urine RBC 1-5/hpf (0-5/HPF) Urine WBC 0-1/hpf (0-5/HPF) Ur Squamous Epith Cells 0-1 /hpf Urine Bacteria Moderate (10-30) H (None) Urine Mucus 1+ H (Negative) Ur Culture Indicated? Cult not indicated Micro UA Comment Call for cx Point of Care Testing Test Results Negative Urine Dip Bedside Urine Glucose Negative Bedside Urine Bilirubin - Negative Bedside Urine Ketone +++ 80 Urine Specific [place] 1.030 Bedside Urine Occult Blood + Bedside Urine pH 6.0 Bedside Urine Protein +/- 15 Bedside Urine Urobilinogen +/- 1mg Bedside Urine Nitrite - Negative Bedside Urine Leukocytes - Negative Esterase Discharge Plan Departure Patient Disposition: Home Clinical Impression: Endometriosis, Pelvic pain Discharge Date/Time: 02/12/18 20:40 Interventions: ED Discharge Assessment Last Done: 02/12/18 20:39 Instructions: DI for Endometriosis Activity Restrictions/Additional Instructions: Laboratory results and imaging today were unremarkable. Signs and symptoms presents as pain secondary to endometriosis. Follow up with primary care provide. Follow up with water restoration technician next week as scheduled. Use ibuprofen as needed for any discomfort. Small amount of [place] is prescribed for breakthrough pain use as directed. Zofran is prescribed help with any nausea also use as described. For any worsening symptoms return to the emergency room. Prescriptions: New hydrocodone-acetaminophen [[place]] 5-325 mg tablet 1 tab PO Q4-6H PRN (Reason: pain) Qty: 10 RF: 0 ondansetron 4 mg tablet,disintegrating 4 mg PO TID PRN (Reason: nausea and vomiting) Qty: 10 RF: 0 No Action biotin 1 cap PO DAILY RF: 0 norethindrone-e.estradiol-iron 1 mg-20 mcg (21)/75 mg (7) tablet 1 tab PO DAILY RF: 0 Referrals: [facility] [employer] [facility] [Provider Group] <Maryjo Choi, - Last Filed: 02/13/18 04:18> Cosign ED Attending Renzo Attestation: I was immediately available in the department for consultation. Documentation has been reviewed. I agree with assessment and plan.
[2018-02-12 17:24] LABS: RBC Urine 1-5/HPF (0-5/HPF); WBC Urine 0-1/HPF (0-5/HPF)
[2018-02-12 17:25] LABS: Bacteria Urine Moderate (10-30); Mucus Urine 1+ (Negative); Squamous Epithelial Cell Urine 0-1 /HPF
[2018-02-12 17:26] LABS: Culture Indicated Urine Cult Not Indicated
[2018-02-12 17:27] LABS: Add Manual Diff / Slide Review NO; Basophils Percent Auto 0.6 % (0-2); Eosinophils Percent Auto 0.3 % (2-4); Hematocrit 42.9 % (36-46); Hemoglobin 14.8 g/dL (12.0-16.0); Lymphocytes Percent Auto 19.7 % (25-40); Mean Corpuscular HGB Conc 34.4 % (30-36); Mean Corpuscular Hemoglobin 31.2 PG (26-34); Mean Corpuscular Volume 90.7 fL (80-100); Monocytes Percent Auto 6.5 % (3-14); Neutrophils Absolute Auto 8000 /uL (3000-5900); Neutrophils Percent Auto 72.9 % (50-75); Platelet Count 353 X10^3/uL (150-400); Red Blood Cell Count 4.73 X10^6/uL (4.0-5.2); Red Cell Distribution Width 12.5 % (11.6-14.8); White Blood Cell Count 11.1 X10^3/uL (4.5-11.0)
[2018-02-12 17:44] LABS: Alanine Aminotransferase 42 IU/L (9-52); Albumin 4.8 g/dL (3.5-5.0); Albumin Globulin Ratio 1.5 (1.0-2.8); Alkaline Phosphatase 96 U/L (38-126); Aspartate Aminotransferase 31 IU/L (14-36); Bilirubin Total 1.2 mg/dL (0.2-1.3); Blood Urea Nitrogen 9 mg/dL (7-17); Calcium 9.7 mg/dL (8.4-10.2); Carbon Dioxide 23 mmol/L (22-32); Chloride 102 mmol/L (98-107); Globulin 3.1 g/dL (1.7-4.1); Glucose 93 mg/dL (70-100); HEMOLYSIS < 15 (0-50); Lipase 53 U/L (23-300); Potassium 3.8 mmol/L (3.4-5.1); Sodium 142 mmol/L (137-145); Total Protein 7.9 g/dL (6.3-8.2)
[2018-02-12 17:59] LABS: BUN Creatinine Ratio 7.5 (6-22); Estimated Glomerular Filt Rate 55.7 mL/min (>60)
[2018-02-12 20:39] VITALS: BP 126/78; PULSE 95; O2SAT 100
== END 2018-02-12 20:40 | disposition home or self-care (01) ==
PROVIDERS: Emergency Provider Nurse Practitioner Family
DX: N80.9 Endometriosis, unspecified (principal); R10.9 Unspecified abdominal pain
CPT/HCPCS: 36415; 74019; 76700; 76830; 76856; 80053; 81003; 81015; 81025; 83690; 85025; 96361; 96374; 96375; 96376; 99283; 99284; J1170; J2405

== ENCOUNTER 2018-03-02 11:33 | Observation (INO) | payer OTHER, SELFPAY ==
[2018-03-02] VITALS (8 sets, daily range): BP systolic 107–131; BP diastolic 67–91; PULSE 57–100; RESP 13–18; TEMP 35.7–36.6; O2SAT 95–100; BMI 34.2
[2018-03-02] MEDS: ONDANSETRON 4 MG ODT PO (12:10)
[2018-03-02] MEDS: SODIUM CHLORIDE 0.9% 1,000 ML 1000 ML IV ×2 (12:24→14:01)
[2018-03-02] MEDS: ONDANSETRON 4 MG/2 ML INJ IV ×2 (12:27→23:40)
[2018-03-02] MEDS: KETOROLAC 60 MG/2 ML VIAL 30 MG IV (12:27)
[2018-03-02 12:31] LABS: Add Manual Diff / Slide Review NO; Basophils Percent Auto 0.9 % (0-2); Eosinophils Percent Auto 0.1 % (2-4); Hematocrit 42.4 % (36-46); Hemoglobin 14.4 g/dL (12.0-16.0); Lymphocytes Percent Auto 20.6 % (25-40); Mean Corpuscular Hemoglobin 30.8 PG (26-34); Mean Corpuscular Volume 90.5 fL (80-100); Monocytes Percent Auto 4.5 % (3-14); Neutrophils Absolute Auto 5900 /uL (3000-5900); Neutrophils Percent Auto 73.9 % (50-75); Platelet Count 408 X10^3/uL (150-400); Red Blood Cell Count 4.68 X10^6/uL (4.0-5.2); Red Cell Distribution Width 12.6 % (11.6-14.8)
--- NOTE | 2018-03-02 12:31 | ED.NAVMDI ---
HPI - Nausea/Vomiting/Diarrhea <Jennifer Johnson PA-C - Last Filed: 03/02/18 20:19> General Chief complaint: Nausea/Vomiting/Diarrhea Stated complaint: N/V/D Time Seen by Provider: 03/02/18 12:31 Source: patient Mode of arrival: ambulatory Limitations: no limitations History of Present Illness HPI Narrative: This 22-year-old female returns to ED due to recurrent right lower quadrant pain, nausea and vomiting and later onset of diarrhea. She states this is very typical for her with exacerbations of pain from her endometriosis. She had an appendectomy and exploration in December, and at that time adhesions were visualized but unable to be removed due to proximity to vital structures. She states that this pain started yesterday, and she took Zofran and tramadol prescribed by her PCP. She was able to rest for for 5 hr, but woke up early this morning with persistent pain as well as nausea and vomiting, and was unable to keep down any medication. She has not had any food or fluids in the last couple of days, as she has been vomiting liquid, and then continuously dry heaving since then. She states that she has also had 6 or 7 loose stools today. She states that she has some chills, does not have any known fevers at home. She states that pain is in the usual location in the right lower quadrant. She denies any new features with the pain such as urinary symptoms or back pain. She states that she skipped her menses last month and is on continuous OCP for endometriosis. She did have menses on Friday and has minimal brown discharge today. She is not concerned about STDs. No other new symptoms such as chest pain or dyspnea. She is awaiting panendoscopy on Friday by GI for further evaluation, has also been referred for PT by her director of billing. Related Data Home Medications Medication Instructions Recorded Confirmed biotin 1 cap PO DAILY 02/12/18 03/02/18 norethindrone-e.estradiol-iron 1 tab PO DAILY 03/02/18 03/02/18 Previous Rx's Medication Instructions Recorded ondansetron 8 mg PO TID PRN #30 tab 03/03/18 tramadol 50 mg PO Q4H PRN #30 tab 03/03/18 Allergies Allergy/AdvReac Type Severity Reaction Status Date / Time No Known Drug Allergies Allergy Verified 02/12/18 16:31 Review of Systems <Jennifer Johnson PA-C - Last Filed: 03/02/18 20:19> Review of Systems All systems reviewed & are unremarkable except as noted in HPI and below Exam <Jennifer Johnson PA-C - Last Filed: 03/02/18 20:19> Narrative Exam Narrative: GENERAL APPEARANCE: Patient retching continuously, belching HEENT: PERRL, EOMI, no scleral icterus NECK: Supple LUNGS: Clear to auscultation bilaterally. HEART: Rate and rhythm regular, normal S1 and S2, no S3 or S4. ABDOMEN: Soft, nondistended, bowel sounds present x 4 quadrants, no masses palpable, no hepatosplenomegaly. Localized R. LQ TTP without guarding or rebound EXTREMITIES: No edema, no cyanosis DERMATOLOGIC: No jaundice or exanthem NEUROLOGIC: Alert and oriented with normal speech and coordination Initial Vital Signs Initial Vital Signs: Vital Signs Temperature 97.8 F 03/02/18 11:40 Pulse Rate 100 H 03/02/18 11:40 Respiratory Rate 13 03/02/18 11:40 Blood Pressure 122/89 03/02/18 11:40 Pulse Oximetry 100 03/02/18 11:40 <Navi Mandel DO - Last Filed: 03/05/18 08:11> Initial Vital Signs Initial Vital Signs: Vital Signs Temperature 97.8 F 03/02/18 11:40 Pulse Rate 100 H 03/02/18 11:40 Respiratory Rate 13 03/02/18 11:40 Blood Pressure 122/89 03/02/18 11:40 Pulse Oximetry 100 03/02/18 11:40 Course <ANNE Rosa Last Filed: 03/02/18 20:19> Additional Information: The patient initially improved with Reglan and Dilaudid. She did not respond to Zofran. She started to have some recurrent nausea and pain. This appeared somewhat improved with Ativan and a little bit more Dilaudid, but she was unable to tolerate ice chips and had recurrent retching. Spoke with Dr. Hernandez public relations coordinator hospitalist who is agreeable to admission for observation, for intractable nausea and vomiting as well as pain control. We discussed medications and will try Compazine. Patient does have an outpatient bank consultant, Dr. Jackson, with whom she is following Orders Ordered: Discontinued Medications Hydromorphone HCl (Dilaudid) 1 mg IV NOW ONE Stop: 03/02/18 13:03 Last Admin: 03/02/18 13:08 Dose: 1 mg Hydromorphone HCl (Dilaudid) 0.5 mg IV NOW ONE Stop: 03/02/18 14:48 Last Admin: 03/02/18 15:14 Dose: 0.5 mg Hydromorphone HCl (Dilaudid) 0.5 mg IV NOW ONE Stop: 03/02/18 17:15 Last Admin: 03/02/18 17:55 Dose: 0.5 mg Hydromorphone HCl (Dilaudid) 1 mg IV Q2HR RANDA Last Admin: 03/02/18 19:38 Dose: Hydromorphone HCl (Dilaudid) 1 mg IV Q2HR RANDA Last Admin: 03/02/18 21:27 Dose: 1 mg Admin: 03/02/18 19:41 Dose: 1 mg Hydromorphone HCl (Dilaudid) 1 mg IV Q2HR PRN PRN Reason: Pain, Severe (7-10) Hydromorphone HCl (Dilaudid) 1 mg IV Q2H PRN PRN Reason: Pain, Severe (7-10) Last Admin: 03/03/18 12:34 Dose: 1 mg Admin: 03/03/18 09:17 Dose: 1 mg Admin: 03/03/18 06:32 Dose: 1 mg Admin: 03/03/18 04:25 Dose: 1 mg Admin: 03/03/18 02:24 Dose: 1 mg Admin: 03/03/18 00:00 Dose: 1 mg Sodium Chloride (Normal Saline 0.9%) 1,000 mls @ 1,000 mls/hr IV BOLUS ONE Stop: 03/02/18 13:10 Last Infusion: 03/02/18 13:59 Dose: 0 mls/hr Admin: 03/02/18 12:24 Dose: 1,000 mls/hr Sodium Chloride (Normal Saline 0.9%) 1,000 mls @ 1,000 mls/hr IV BOLUS ONE Stop: 03/02/18 14:43 Last Infusion: 03/02/18 15:15 Dose: 0 mls/hr Admin: 03/02/18 14:01 Dose: 1,000 mls/hr Ketorolac Tromethamine (Toradol) 30 mg IV NOW ONE Stop: 03/02/18 12:27 Last Admin: 03/02/18 12:27 Dose: 30 mg Lorazepam (Ativan) 0.5 mg IV NOW ONE Stop: 03/02/18 14:48 Last Admin: 03/02/18 15:15 Dose: 0.5 mg Metoclopramide HCl (Reglan) 10 mg IV NOW ONE Stop: 03/02/18 13:03 Last Admin: 03/02/18 13:09 Dose: 10 mg Metoclopramide HCl (Reglan) 10 mg IV Q8HR PRN PRN Reason: Nausea And Vomiting Last Admin: 03/03/18 06:02 Dose: 10 mg Admin: 03/02/18 20:26 Dose: 10 mg Ondansetron HCl (Zofran Odt) 4 mg PO NOW ONE Stop: 03/02/18 12:12 Last Admin: 03/02/18 12:10 Dose: 4 mg Ondansetron HCl (Zofran) 4 mg IV NOW ONE Stop: 03/02/18 12:27 Last Admin: 03/02/18 12:27 Dose: 4 mg Ondansetron HCl (Zofran) 4 mg IV Q4HR PRN PRN Reason: Nausea And Vomiting Last Admin: 03/03/18 13:10 Dose: 4 mg Admin: 03/03/18 09:08 Dose: 4 mg Admin: 03/03/18 03:40 Dose: 4 mg Admin: 03/02/18 23:40 Dose: 4 mg Oxycodone/Acetaminophen (Percocet 5/325) 2 tab PO Q4HR PRN PRN Reason: Pain, Severe (7-10) Last Admin: 03/03/18 11:29 Dose: 2 tab Admin: 03/03/18 07:33 Dose: 2 tab Admin: 03/03/18 01:03 Dose: 2 tab Pantoprazole Sodium (Protonix) 40 mg IV NOW ONE Stop: 03/02/18 13:03 Last Admin: 03/02/18 13:08 Dose: 40 mg Prochlorperazine (Compazine) 10 mg IV NOW ONE Stop: 03/02/18 16:11 Last Admin: 03/02/18 16:48 Dose: 10 mg Sodium Chloride (Normal Saline 0.9% Flush) 10 ml IV PRN PRN PRN Reason: Flush Last Admin: 03/03/18 06:02 Dose: 10 ml Admin: 03/03/18 03:40 Dose: 10 ml Admin: 03/03/18 02:24 Dose: 10 ml Admin: 03/03/18 00:02 Dose: 10 ml Sodium Chloride (Normal Saline 0.9% Flush) 10 ml IV BID [facility] Last Admin: 03/03/18 07:42 Dose: 10 ml Vital Signs - 8 hr 03/02/18 13:14 03/02/18 14:11 03/02/18 14:59 Pulse Rate 88 72 77 Respiratory Rate 16 13 16 Blood Pressure Blood Pressure [Left Arm] 131/82 111/70 127/69 Pulse Oximetry 99 100 99 03/02/18 16:48 Pulse Rate 90 Respiratory Rate Blood Pressure 110/72 Blood Pressure [Left Arm] Pulse Oximetry <Navi Mandel DO - Last Filed: 03/05/18 08:11> Orders Ordered: Discontinued Medications Hydromorphone HCl (Dilaudid) 1 mg IV NOW ONE Stop: 03/02/18 13:03 Last Admin: 03/02/18 13:08 Dose: 1 mg Hydromorphone HCl (Dilaudid) 0.5 mg IV NOW ONE Stop: 03/02/18 14:48 Last Admin: 03/02/18 15:14 Dose: 0.5 mg Hydromorphone HCl (Dilaudid) 0.5 mg IV NOW ONE Stop: 03/02/18 17:15 Last Admin: 03/02/18 17:55 Dose: 0.5 mg Hydromorphone HCl (Dilaudid) 1 mg IV Q2HR [facility] Last Admin: 03/02/18 19:38 Dose: Hydromorphone HCl (Dilaudid) 1 mg IV Q2HR [facility] Last Admin: 03/02/18 21:27 Dose: 1 mg Admin: 03/02/18 19:41 Dose: 1 mg Hydromorphone HCl (Dilaudid) 1 mg IV Q2HR PRN PRN Reason: Pain, Severe (7-10) Hydromorphone HCl (Dilaudid) 1 mg IV Q2H PRN PRN Reason: Pain, Severe (7-10) Last Admin: 03/03/18 12:34 Dose: 1 mg Admin: 03/03/18 09:17 Dose: 1 mg Admin: 03/03/18 06:32 Dose: 1 mg Admin: 03/03/18 04:25 Dose: 1 mg Admin: 03/03/18 02:24 Dose: 1 mg Admin: 03/03/18 00:00 Dose: 1 mg Sodium Chloride (Normal Saline 0.9%) 1,000 mls @ 1,000 mls/hr IV BOLUS ONE Stop: 03/02/18 13:10 Last Infusion: 03/02/18 13:59 Dose: 0 mls/hr Admin: 03/02/18 12:24 Dose: 1,000 mls/hr Sodium Chloride (Normal Saline 0.9%) 1,000 mls @ 1,000 mls/hr IV BOLUS ONE Stop: 03/02/18 14:43 Last Infusion: 03/02/18 15:15 Dose: 0 mls/hr Admin: 03/02/18 14:01 Dose: 1,000 mls/hr Ketorolac Tromethamine (Toradol) 30 mg IV NOW ONE Stop: 03/02/18 12:27 Last Admin: 03/02/18 12:27 Dose: 30 mg Lorazepam (Ativan) 0.5 mg IV NOW ONE Stop: 03/02/18 14:48 Last Admin: 03/02/18 15:15 Dose: 0.5 mg Metoclopramide HCl (Reglan) 10 mg IV NOW ONE Stop: 03/02/18 13:03 Last Admin: 03/02/18 13:09 Dose: 10 mg Metoclopramide HCl (Reglan) 10 mg IV Q8HR PRN PRN Reason: Nausea And Vomiting Last Admin: 03/03/18 06:02 Dose: 10 mg Admin: 03/02/18 20:26 Dose: 10 mg Ondansetron HCl (Zofran Odt) 4 mg PO NOW ONE Stop: 03/02/18 12:12 Last Admin: 03/02/18 12:10 Dose: 4 mg Ondansetron HCl (Zofran) 4 mg IV NOW ONE Stop: 03/02/18 12:27 Last Admin: 03/02/18 12:27 Dose: 4 mg Ondansetron HCl (Zofran) 4 mg IV Q4HR PRN PRN Reason: Nausea And Vomiting Last Admin: 03/03/18 13:10 Dose: 4 mg Admin: 03/03/18 09:08 Dose: 4 mg Admin: 03/03/18 03:40 Dose: 4 mg Admin: 03/02/18 23:40 Dose: 4 mg Oxycodone/Acetaminophen (Percocet 5/325) 2 tab PO Q4HR PRN PRN Reason: Pain, Severe (7-10) Last Admin: 03/03/18 11:29 Dose: 2 tab Admin: 03/03/18 07:33 Dose: 2 tab Admin: 03/03/18 01:03 Dose: 2 tab Pantoprazole Sodium (Protonix) 40 mg IV NOW ONE Stop: 03/02/18 13:03 Last Admin: 03/02/18 13:08 Dose: 40 mg Prochlorperazine (Compazine) 10 mg IV NOW ONE Stop: 03/02/18 16:11 Last Admin: 03/02/18 16:48 Dose: 10 mg Sodium Chloride (Normal Saline 0.9% Flush) 10 ml IV PRN PRN PRN Reason: Flush Last Admin: 03/03/18 06:02 Dose: 10 ml Admin: 03/03/18 03:40 Dose: 10 ml Admin: 03/03/18 02:24 Dose: 10 ml Admin: 03/03/18 00:02 Dose: 10 ml Sodium Chloride (Normal Saline 0.9% Flush) 10 ml IV BID RANDA Last Admin: 03/03/18 07:42 Dose: 10 ml Vital Signs - 8 hr 03/02/18 13:14 03/02/18 14:11 03/02/18 14:59 Pulse Rate 88 72 77 Respiratory Rate 16 13 16 Blood Pressure Blood Pressure [Left Arm] 131/82 111/70 127/69 Pulse Oximetry 99 100 99 03/02/18 16:48 Pulse Rate 90 Respiratory Rate Blood Pressure 110/72 Blood Pressure [Left Arm] Pulse Oximetry MDM - Nausea/Vomiting/Diarrhea <Jennifer Johnson PA-C - Last Filed: 03/02/18 20:19> Lab Data Attestation: I reviewed the patient's lab results. Result diagrams: 03/02/18 12:16 03/02/18 12:16 Lab Results 11/05/18 11/05/18 11/05/18 Range/Units 12:16 12:16 12:16 WBC 8.0 (4.5-11.0) X10^3/uL RBC 4.68 (4.0-5.2) X10^6/uL Hgb 14.4 (12.0-16.0) g/dL Hct 42.4 (36-46) % MCV 90.5 (80-100) fL MCH 30.8 (26-34) PG MCHC 34.0 (30-36) % RDW 12.6 (11.6-14.8) % Plt Count 408 H (150-400) X10^3/uL Neut % (Auto) 73.9 (50-75) % Lymph % (Auto) 20.6 L (25-40) % [place] % (Auto) 4.5 (3-14) % Eos % (Auto) 0.1 L (2-4) % Baso % (Auto) 0.9 (0-2) % Neut # (Auto) 5900 (4938-7956) /uL PT 12.4 (10.1-12.7) SECONDS INR 1.1 (0.9-1.3) APTT 34 (26.4-36.2) SECONDS Sodium 144 (137-145) mmol/L Potassium 4.0 (3.4-5.1) mmol/L Chloride 109 H (98-107) mmol/L Carbon Dioxide 23 (22-32) mmol/L BUN 8 (7-17) mg/dL Creatinine 0.70 (0.52-1.04) mg/dL Estimated GFR > 60.0 (>60) mL/min BUN/Creatinine Ratio 11.4 (6-22) Glucose 97 (70-100) mg/dL Calcium 9.7 (8.4-10.2) mg/dL Total Bilirubin 0.7 (0.2-1.3) mg/dL AST 35 (14-36) IU/L ALT 41 (9-52) IU/L Alkaline Phosphatase 87 (38-126) U/L Total Protein 8.1 (6.3-8.2) g/dL Albumin 4.8 (3.5-5.0) g/dL Globulin 3.3 (1.7-4.1) g/dL Albumin/Globulin Ratio 1.5 (1.0-2.8) Lipase 66 (23-300) U/L Urine RBC (0-5/HPF) Urine WBC (0-5/HPF) Urine Bacteria (None) Ur Culture Indicated? Micro UA Comment Ur Chlamydia DNA (PCR) N gonorrhoeae DNA (PCR) 03/02/18 03/02/18 Range/Units 12:31 Unknown WBC (4.5-11.0) X10^3/uL RBC (4.0-5.2) X10^6/uL Hgb (12.0-16.0) g/dL Hct (36-46) % MCV (80-100) fL MCH (26-34) PG MCHC (30-36) % RDW (11.6-14.8) % Plt Count (150-400) X10^3/uL Neut % (Auto) (50-75) % Lymph % (Auto) (25-40) % [place] % (Auto) (3-14) % Eos % (Auto) (2-4) % Baso % (Auto) (0-2) % Neut # (Auto) (5396-8081) /uL PT (10.1-12.7) SECONDS INR (0.9-1.3) APTT (26.4-36.2) SECONDS Sodium (137-145) mmol/L Potassium (3.4-5.1) mmol/L Chloride (98-107) mmol/L Carbon Dioxide (22-32) mmol/L BUN (7-17) mg/dL Creatinine (0.52-1.04) mg/dL Estimated GFR (>60) mL/min BUN/Creatinine Ratio (6-22) Glucose (70-100) mg/dL Calcium (8.4-10.2) mg/dL Total Bilirubin (0.2-1.3) mg/dL AST (14-36) IU/L ALT (9-52) IU/L Alkaline Phosphatase (38-126) U/L Total Protein (6.3-8.2) g/dL Albumin (3.5-5.0) g/dL Globulin (1.7-4.1) g/dL Albumin/Globulin Ratio (1.0-2.8) Lipase (23-300) U/L Urine RBC 1-5/hpf (0-5/HPF) Urine WBC 0-1/hpf (0-5/HPF) Urine Bacteria Occasional (0-1) D (None) Ur Culture Indicated? Cult not indicated Micro UA Comment Not Reportable Ur Chlamydia DNA (PCR) Not detected N gonorrhoeae DNA (PCR) Not detected Point of Care Testing Test Results Negative Urine Dip Bedside Urine Glucose Negative Bedside Urine Bilirubin - Negative Bedside Urine Ketone - Negative Urine Specific [place] 1.015 Bedside Urine Occult Blood +/- Bedside Urine pH 7.0 Bedside Urine Protein - Negative Bedside Urine Urobilinogen - Negative Bedside Urine Nitrite - Negative Bedside Urine Leukocytes - Negative Esterase Imaging Data pelvic us: Radiologist's impression: [address] [id number] Ultrasound Report Signed Patient: Monique Newton IMR#: [id number] : 1995Acct:[id number] Age/Sex: 22 / FDate of Service: 03/02/18 Loc: ED Accession Number: [id number] Procedure: US pelvic complete Ordering Provider: Jennifer Johnson P.A-C PROCEDURE: US PELVIC LIMITED INDICATIONS: R. LQ pain, h/o cyst TECHNIQUE: Real-time transabdominal scanning was performed of the pelvic organs, with image documentation. COMPARISON: [facility], US, US PELVIC COMPLETE, 02/12/2018, 17:22. [facility], US, US PELVIC COMPLETE, 01/13/2018, 21:17. [facility], CT, CT ABDOMEN PELVIS W CON, 01/13/2018, 19:07. FINDINGS: Uterus: Uterus is normal in size at 7.0 x 2.6 x 5.0 cm. Endometrium measures 5 mm in combined thickness. No focal myometrial lesions are evident. No significant fluid is seen within the endometrium. The cervix appears to be within normal limits. Ovaries: The right ovary measures 2.6 x 1.6 x 1.1 cm. The left ovary measures 2.7 x 1.6 x 1.6 cm. Both ovaries are normal in size without cystic or solid lesion. Multiple follicles are present involving both ovaries. However, there appears to be a left paraovarian cyst measuring up to approximately 1.6 cm in diameter. Other: No free pelvic fluid. Limited scanning through the kidneys shows no hydronephrosis. IMPRESSION: Unremarkable uterus and ovaries. No large ovarian cysts. Dictated by: Florin Harrison M.D. on 03/02/2018 at 14:09 Approved by: Florin Harrison M.D. on 03/02/2018 at 14:12 <Navi Mandel DO - Last Filed: 03/05/18 08:11> Lab Data Lab Results 03/02/18 03/02/18 03/02/18 Range/Units 12:16 12:16 12:16 WBC 8.0 (4.5-11.0) X10^3/uL RBC 4.68 (4.0-5.2) X10^6/uL Hgb 14.4 (12.0-16.0) g/dL Hct 42.4 (36-46) % MCV 90.5 (80-100) fL MCH 30.8 (26-34) PG MCHC 34.0 (30-36) % RDW 12.6 (11.6-14.8) % Plt Count 408 H (150-400) X10^3/uL Neut % (Auto) 73.9 (50-75) % Lymph % (Auto) 20.6 L (25-40) % [place] % (Auto) 4.5 (3-14) % Eos % (Auto) 0.1 L (2-4) % Baso % (Auto) 0.9 (0-2) % Neut # (Auto) 5900 (0477-2262) /uL PT 12.4 (10.1-12.7) SECONDS INR 1.1 (0.9-1.3) APTT 34 (26.4-36.2) SECONDS Sodium 144 (137-145) mmol/L Potassium 4.0 (3.4-5.1) mmol/L Chloride 109 H (98-107) mmol/L Carbon Dioxide 23 (22-32) mmol/L BUN 8 (7-17) mg/dL Creatinine 0.70 (0.52-1.04) mg/dL Estimated GFR > 60.0 (>60) mL/min BUN/Creatinine Ratio 11.4 (6-22) Glucose 97 (70-100) mg/dL Calcium 9.7 (8.4-10.2) mg/dL Total Bilirubin 0.7 (0.2-1.3) mg/dL AST 35 (14-36) IU/L ALT 41 (9-52) IU/L Alkaline Phosphatase 87 (38-126) U/L Total Protein 8.1 (6.3-8.2) g/dL Albumin 4.8 (3.5-5.0) g/dL Globulin 3.3 (1.7-4.1) g/dL Albumin/Globulin Ratio 1.5 (1.0-2.8) Lipase 66 (23-300) U/L Urine RBC (0-5/HPF) Urine WBC (0-5/HPF) Urine Bacteria (None) Ur Culture Indicated? Micro UA Comment Ur Chlamydia DNA (PCR) N gonorrhoeae DNA (PCR) 03/02/18 03/02/18 Range/Units 12:31 Unknown WBC (4.5-11.0) X10^3/uL RBC (4.0-5.2) X10^6/uL Hgb (12.0-16.0) g/dL Hct (36-46) % MCV (80-100) fL MCH (26-34) PG MCHC (30-36) % RDW (11.6-14.8) % Plt Count (150-400) X10^3/uL Neut % (Auto) (50-75) % Lymph % (Auto) (25-40) % [place] % (Auto) (3-14) % Eos % (Auto) (2-4) % Baso % (Auto) (0-2) % Neut # (Auto) (6939-3385) /uL PT (10.1-12.7) SECONDS INR (0.9-1.3) APTT (26.4-36.2) SECONDS Sodium (137-145) mmol/L Potassium (3.4-5.1) mmol/L Chloride (98-107) mmol/L Carbon Dioxide (22-32) mmol/L BUN (7-17) mg/dL Creatinine (0.52-1.04) mg/dL Estimated GFR (>60) mL/min BUN/Creatinine Ratio (6-22) Glucose (70-100) mg/dL Calcium (8.4-10.2) mg/dL Total Bilirubin (0.2-1.3) mg/dL AST (14-36) IU/L ALT (9-52) IU/L Alkaline Phosphatase (38-126) U/L Total Protein (6.3-8.2) g/dL Albumin (3.5-5.0) g/dL Globulin (1.7-4.1) g/dL Albumin/Globulin Ratio (1.0-2.8) Lipase (23-300) U/L Urine RBC 1-5/hpf (0-5/HPF) Urine WBC 0-1/hpf (0-5/HPF) Urine Bacteria Occasional (0-1) D (None) Ur Culture Indicated? Cult not indicated Micro UA Comment Not Reportable Ur Chlamydia DNA (PCR) Not detected N gonorrhoeae DNA (PCR) Not detected Point of Care Testing Test Results Negative Urine Dip Bedside Urine Glucose Negative Bedside Urine Bilirubin - Negative Bedside Urine Ketone - Negative Urine Specific [place] 1.015 Bedside Urine Occult Blood +/- Bedside Urine pH 7.0 Bedside Urine Protein - Negative Bedside Urine Urobilinogen - Negative Bedside Urine Nitrite - Negative Bedside Urine Leukocytes - Negative Esterase Discharge Plan Departure Patient Disposition: Admitted as Observation Clinical Impression: Vomiting, Intractable pain Discharge Date/Time: 03/02/18 16:16 Interventions: ED Discharge Assessment Last Done: 03/02/18 17:57 Admit Date/Time: 03/02/18 16:19 Admit Provider: Haven Hernandez <Navi Mandel DO - Last Filed: 03/05/18 08:11> Cosign ED Attending Maryature Attestation: I was immediately available in the department for consultation. Documentation has been reviewed. I agree with assessment and plan.
[2018-03-02 12:32] LABS: INR 1.1 (0.9-1.3); Prothrombin Time 12.4 SECONDS (10.1-12.7)
[2018-03-02 12:34] LABS: PTT Partial Thromboplastin Tim 34 SECONDS (26.4-36.2)
--- NOTE | 2018-03-02 12:34 | ED_ITS ---
HPI - Nausea/Vomiting/Diarrhea <Jennifer Johnson PA-C - Last Filed: 03/02/18 20:19> General Chief complaint: Nausea/Vomiting/Diarrhea Stated complaint: N/V/D Time Seen by Provider: 03/02/18 12:31 Source: patient Mode of arrival: ambulatory Limitations: no limitations History of Present Illness HPI Narrative: This 22-year-old female returns to ED due to recurrent right lower quadrant pain, nausea and vomiting and later onset of diarrhea. She states this is very typical for her with exacerbations of pain from her endometriosis. She had an appendectomy and exploration in December, and at that time adhesions were visualized but unable to be removed due to proximity to vital structures. She states that this pain started yesterday, and she took Zofran and tramadol prescribed by her PCP. She was able to rest for for 5 hr, but woke up early this morning with persistent pain as well as nausea and vomiting, and was unable to keep down any medication. She has not had any food or fluids in the last couple of days, as she has been vomiting liquid, and then continuously dry heaving since then. She states that she has also had 6 or 7 loose stools today. She states that she has some chills, does not have any known fevers at home. She states that pain is in the usual location in the right lower quadrant. She denies any new features with the pain such as urinary symptoms or back pain. She states that she skipped her menses last month and is on continuous OCP for endometriosis. She did have menses on Friday and has minimal brown discharge today. She is not concerned about STDs. No other new symptoms such as chest pain or dyspnea. 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 Related Data Home Medications Medication Instructions Recorded Confirmed biotin 1 cap PO DAILY 02/12/18 03/02/18 norethindrone-e.estradiol-iron 1 tab PO DAILY 03/02/18 03/02/18 Previous Rx's Medication Instructions Recorded ondansetron 8 mg PO TID PRN #30 tab 03/03/18 tramadol 50 mg PO Q4H PRN #30 tab 03/03/18 Allergies Allergy/AdvReac Type Severity Reaction Status Date / Time No Known Drug Allergies Allergy Verified 02/12/18 16:31 Review of Systems <Jennifer Johnson PA-C - Last Filed: 03/02/18 20:19> Review of Systems All systems reviewed & are unremarkable except as noted in HPI and below Exam <Jennifer oJhnson PA-C - Last Filed: 03/02/18 20:19> Narrative Exam Narrative: GENERAL APPEARANCE: Patient retching continuously, belching HEENT: PERRL, EOMI, no scleral icterus NECK: Supple LUNGS: Clear to auscultation bilaterally. HEART: Rate and rhythm regular, normal S1 and S2, no S3 or S4. ABDOMEN: Soft, nondistended, bowel sounds present x 4 quadrants, no masses palpable, no hepatosplenomegaly. Localized R. LQ TTP without guarding or rebound EXTREMITIES: No edema, no cyanosis DERMATOLOGIC: No jaundice or exanthem NEUROLOGIC: Alert and oriented with normal speech and coordination Initial Vital Signs Initial Vital Signs: Vital Signs Temperature 97.8 F 03/02/18 11:40 Pulse Rate 100 H 03/02/18 11:40 Respiratory Rate 13 03/02/18 11:40 Blood Pressure 122/89 03/02/18 11:40 Pulse Oximetry 100 03/02/18 11:40 <Navi Mandel DO - Last Filed: 03/05/18 08:11> Initial Vital Signs Initial Vital Signs: Vital Signs Temperature 97.8 F 03/02/18 11:40 Pulse Rate 100 H 03/02/18 11:40 Respiratory Rate 13 03/02/18 11:40 Blood Pressure 122/89 03/02/18 11:40 Pulse Oximetry 100 03/02/18 11:40 Course <ANNE Rosa Last Filed: 03/02/18 20:19> Additional Information: The patient initially improved with Reglan and Dilaudid. She did not respond to Zofran. She started to have some recurrent nausea and pain. This appeared somewhat improved with Ativan and a little bit more Dilaudid, but she was unable to tolerate ice chips and had recurrent retching. Spoke with Dr. Hernandez hall monitor hospitalist who is agreeable to admission for observation, for intractable nausea and vomiting as well as pain control. We discussed medications and will try Compazine. Patient does have an outpatient vp research, Dr. Jackson, with whom she is following Orders Ordered: Discontinued Medications Hydromorphone HCl (Dilaudid) 1 mg IV NOW ONE Stop: 03/02/18 13:03 Last Admin: 03/02/18 13:08 Dose: 1 mg Hydromorphone HCl (Dilaudid) 0.5 mg IV NOW ONE Stop: 03/02/18 14:48 Last Admin: 03/02/18 15:14 Dose: 0.5 mg Hydromorphone HCl (Dilaudid) 0.5 mg IV NOW ONE Stop: 03/02/18 17:15 Last Admin: 03/02/18 17:55 Dose: 0.5 mg Hydromorphone HCl (Dilaudid) 1 mg IV Q2HR RANDA Last Admin: 03/02/18 19:38 Dose: Hydromorphone HCl (Dilaudid) 1 mg IV Q2HR RANDA Last Admin: 03/02/18 21:27 Dose: 1 mg Admin: 03/02/18 19:41 Dose: 1 mg Hydromorphone HCl (Dilaudid) 1 mg IV Q2HR PRN PRN Reason: Pain, Severe (7-10) Hydromorphone HCl (Dilaudid) 1 mg IV Q2H PRN PRN Reason: Pain, Severe (7-10) Last Admin: 03/03/18 12:34 Dose: 1 mg Admin: 03/03/18 09:17 Dose: 1 mg Admin: 03/03/18 06:32 Dose: 1 mg Admin: 03/03/18 04:25 Dose: 1 mg Admin: 03/03/18 02:24 Dose: 1 mg Admin: 03/03/18 00:00 Dose: 1 mg Sodium Chloride (Normal Saline 0.9%) 1,000 mls @ 1,000 mls/hr IV BOLUS ONE Stop: 03/02/18 13:10 Last Infusion: 03/02/18 13:59 Dose: 0 mls/hr Admin: 03/02/18 12:24 Dose: 1,000 mls/hr Sodium Chloride (Normal Saline 0.9%) 1,000 mls @ 1,000 mls/hr IV BOLUS ONE Stop: 03/02/18 14:43 Last Infusion: 03/02/18 15:15 Dose: 0 mls/hr Admin: 03/02/18 14:01 Dose: 1,000 mls/hr Ketorolac Tromethamine (Toradol) 30 mg IV NOW ONE Stop: 03/02/18 12:27 Last Admin: 03/02/18 12:27 Dose: 30 mg Lorazepam (Ativan) 0.5 mg IV NOW ONE Stop: 03/02/18 14:48 Last Admin: 03/02/18 15:15 Dose: 0.5 mg Metoclopramide HCl (Reglan) 10 mg IV NOW ONE Stop: 03/02/18 13:03 Last Admin: 03/02/18 13:09 Dose: 10 mg Metoclopramide HCl (Reglan) 10 mg IV Q8HR PRN PRN Reason: Nausea And Vomiting Last Admin: 03/03/18 06:02 Dose: 10 mg Admin: 03/02/18 20:26 Dose: 10 mg Ondansetron HCl (Zofran Odt) 4 mg PO NOW ONE Stop: 03/02/18 12:12 Last Admin: 03/02/18 12:10 Dose: 4 mg Ondansetron HCl (Zofran) 4 mg IV NOW ONE Stop: 03/02/18 12:27 Last Admin: 03/02/18 12:27 Dose: 4 mg Ondansetron HCl (Zofran) 4 mg IV Q4HR PRN PRN Reason: Nausea And Vomiting Last Admin: 03/03/18 13:10 Dose: 4 mg Admin: 03/03/18 09:08 Dose: 4 mg Admin: 03/03/18 03:40 Dose: 4 mg Admin: 03/02/18 23:40 Dose: 4 mg Oxycodone/Acetaminophen (Percocet 5/325) 2 tab PO Q4HR PRN PRN Reason: Pain, Severe (7-10) Last Admin: 03/03/18 11:29 Dose: 2 tab Admin: 03/03/18 07:33 Dose: 2 tab Admin: 03/03/18 01:03 Dose: 2 tab Pantoprazole Sodium (Protonix) 40 mg IV NOW ONE Stop: 03/02/18 13:03 Last Admin: 03/02/18 13:08 Dose: 40 mg Prochlorperazine (Compazine) 10 mg IV NOW ONE Stop: 03/02/18 16:11 Last Admin: 03/02/18 16:48 Dose: 10 mg Sodium Chloride (Normal Saline 0.9% Flush) 10 ml IV PRN PRN PRN Reason: Flush Last Admin: 03/03/18 06:02 Dose: 10 ml Admin: 03/03/18 03:40 Dose: 10 ml Admin: 03/03/18 02:24 Dose: 10 ml Admin: 03/03/18 00:02 Dose: 10 ml Sodium Chloride (Normal Saline 0.9% Flush) 10 ml IV BID [facility] Last Admin: 03/03/18 07:42 Dose: 10 ml Vital Signs - 8 hr 03/02/18 13:14 03/02/18 14:11 03/02/18 14:59 Pulse Rate 88 72 77 Respiratory Rate 16 13 16 Blood Pressure Blood Pressure [Left Arm] 131/82 111/70 127/69 Pulse Oximetry 99 100 99 03/02/18 16:48 Pulse Rate 90 Respiratory Rate Blood Pressure 110/72 Blood Pressure [Left Arm] Pulse Oximetry <Navi Mandel DO - Last Filed: 03/05/18 08:11> Orders Ordered: Discontinued Medications Hydromorphone HCl (Dilaudid) 1 mg IV NOW ONE Stop: 03/02/18 13:03 Last Admin: 03/02/18 13:08 Dose: 1 mg Hydromorphone HCl (Dilaudid) 0.5 mg IV NOW ONE Stop: 03/02/18 14:48 Last Admin: 03/02/18 15:14 Dose: 0.5 mg Hydromorphone HCl (Dilaudid) 0.5 mg IV NOW ONE Stop: 03/02/18 17:15 Last Admin: 03/02/18 17:55 Dose: 0.5 mg Hydromorphone HCl (Dilaudid) 1 mg IV Q2HR [facility] Last Admin: 03/02/18 19:38 Dose: Hydromorphone HCl (Dilaudid) 1 mg IV Q2HR [facility] Last Admin: 03/02/18 21:27 Dose: 1 mg Admin: 03/02/18 19:41 Dose: 1 mg Hydromorphone HCl (Dilaudid) 1 mg IV Q2HR PRN PRN Reason: Pain, Severe (7-10) Hydromorphone HCl (Dilaudid) 1 mg IV Q2H PRN PRN Reason: Pain, Severe (7-10) Last Admin: 03/03/18 12:34 Dose: 1 mg Admin: 03/03/18 09:17 Dose: 1 mg Admin: 03/03/18 06:32 Dose: 1 mg Admin: 03/03/18 04:25 Dose: 1 mg Admin: 03/03/18 02:24 Dose: 1 mg Admin: 03/03/18 00:00 Dose: 1 mg Sodium Chloride (Normal Saline 0.9%) 1,000 mls @ 1,000 mls/hr IV BOLUS ONE Stop: 03/02/18 13:10 Last Infusion: 03/02/18 13:59 Dose: 0 mls/hr Admin: 03/02/18 12:24 Dose: 1,000 mls/hr Sodium Chloride (Normal Saline 0.9%) 1,000 mls @ 1,000 mls/hr IV BOLUS ONE Stop: 03/02/18 14:43 Last Infusion: 03/02/18 15:15 Dose: 0 mls/hr Admin: 03/02/18 14:01 Dose: 1,000 mls/hr Ketorolac Tromethamine (Toradol) 30 mg IV NOW ONE Stop: 03/02/18 12:27 Last Admin: 03/02/18 12:27 Dose: 30 mg Lorazepam (Ativan) 0.5 mg IV NOW ONE Stop: 03/02/18 14:48 Last Admin: 03/02/18 15:15 Dose: 0.5 mg Metoclopramide HCl (Reglan) 10 mg IV NOW ONE Stop: 03/02/18 13:03 Last Admin: 03/02/18 13:09 Dose: 10 mg Metoclopramide HCl (Reglan) 10 mg IV Q8HR PRN PRN Reason: Nausea And Vomiting Last Admin: 03/03/18 06:02 Dose: 10 mg Admin: 03/02/18 20:26 Dose: 10 mg Ondansetron HCl (Zofran Odt) 4 mg PO NOW ONE Stop: 03/02/18 12:12 Last Admin: 03/02/18 12:10 Dose: 4 mg Ondansetron HCl (Zofran) 4 mg IV NOW ONE Stop: 03/02/18 12:27 Last Admin: 03/02/18 12:27 Dose: 4 mg Ondansetron HCl (Zofran) 4 mg IV Q4HR PRN PRN Reason: Nausea And Vomiting Last Admin: 03/03/18 13:10 Dose: 4 mg Admin: 03/03/18 09:08 Dose: 4 mg Admin: 03/03/18 03:40 Dose: 4 mg Admin: 03/02/18 23:40 Dose: 4 mg Oxycodone/Acetaminophen (Percocet 5/325) 2 tab PO Q4HR PRN PRN Reason: Pain, Severe (7-10) Last Admin: 03/03/18 11:29 Dose: 2 tab Admin: 03/03/18 07:33 Dose: 2 tab Admin: 03/03/18 01:03 Dose: 2 tab Pantoprazole Sodium (Protonix) 40 mg IV NOW ONE Stop: 03/02/18 13:03 Last Admin: 03/02/18 13:08 Dose: 40 mg Prochlorperazine (Compazine) 10 mg IV NOW ONE Stop: 03/02/18 16:11 Last Admin: 03/02/18 16:48 Dose: 10 mg Sodium Chloride (Normal Saline 0.9% Flush) 10 ml IV PRN PRN PRN Reason: Flush Last Admin: 03/03/18 06:02 Dose: 10 ml Admin: 03/03/18 03:40 Dose: 10 ml Admin: 03/03/18 02:24 Dose: 10 ml Admin: 03/03/18 00:02 Dose: 10 ml Sodium Chloride (Normal Saline 0.9% Flush) 10 ml IV BID RANDA Last Admin: 03/03/18 07:42 Dose: 10 ml Vital Signs - 8 hr 03/02/18 13:14 03/02/18 14:11 03/02/18 14:59 Pulse Rate 88 72 77 Respiratory Rate 16 13 16 Blood Pressure Blood Pressure [Left Arm] 131/82 111/70 127/69 Pulse Oximetry 99 100 99 03/02/18 16:48 Pulse Rate 90 Respiratory Rate Blood Pressure 110/72 Blood Pressure [Left Arm] Pulse Oximetry MDM - Nausea/Vomiting/Diarrhea <Jennifer Johnson PA-C - Last Filed: 03/02/18 20:19> Lab Data Attestation: I reviewed the patient's lab results. Result diagrams: 03/02/18 12:16 03/02/18 12:16 Lab Results 11/05/18 11/05/18 11/05/18 Range/Units 12:16 12:16 12:16 WBC 8.0 (4.5-11.0) X10^3/uL RBC 4.68 (4.0-5.2) X10^6/uL Hgb 14.4 (12.0-16.0) g/dL Hct 42.4 (36-46) % MCV 90.5 (80-100) fL MCH 30.8 (26-34) PG MCHC 34.0 (30-36) % RDW 12.6 (11.6-14.8) % Plt Count 408 H (150-400) X10^3/uL Neut % (Auto) 73.9 (50-75) % Lymph % (Auto) 20.6 L (25-40) % [place] % (Auto) 4.5 (3-14) % Eos % (Auto) 0.1 L (2-4) % Baso % (Auto) 0.9 (0-2) % Neut # (Auto) 5900 (7704-0504) /uL PT 12.4 (10.1-12.7) SECONDS INR 1.1 (0.9-1.3) APTT 34 (26.4-36.2) SECONDS Sodium 144 (137-145) mmol/L Potassium 4.0 (3.4-5.1) mmol/L Chloride 109 H (98-107) mmol/L Carbon Dioxide 23 (22-32) mmol/L BUN 8 (7-17) mg/dL Creatinine 0.70 (0.52-1.04) mg/dL Estimated GFR > 60.0 (>60) mL/min BUN/Creatinine Ratio 11.4 (6-22) Glucose 97 (70-100) mg/dL Calcium 9.7 (8.4-10.2) mg/dL Total Bilirubin 0.7 (0.2-1.3) mg/dL AST 35 (14-36) IU/L ALT 41 (9-52) IU/L Alkaline Phosphatase 87 (38-126) U/L Total Protein 8.1 (6.3-8.2) g/dL Albumin 4.8 (3.5-5.0) g/dL Globulin 3.3 (1.7-4.1) g/dL Albumin/Globulin Ratio 1.5 (1.0-2.8) Lipase 66 (23-300) U/L Urine RBC (0-5/HPF) Urine WBC (0-5/HPF) Urine Bacteria (None) Ur Culture Indicated? Micro UA Comment Ur Chlamydia DNA (PCR) N gonorrhoeae DNA (PCR) 03/02/18 03/02/18 Range/Units 12:31 Unknown WBC (4.5-11.0) X10^3/uL RBC (4.0-5.2) X10^6/uL Hgb (12.0-16.0) g/dL Hct (36-46) % MCV (80-100) fL MCH (26-34) PG MCHC (30-36) % RDW (11.6-14.8) % Plt Count (150-400) X10^3/uL Neut % (Auto) (50-75) % Lymph % (Auto) (25-40) % [place] % (Auto) (3-14) % Eos % (Auto) (2-4) % Baso % (Auto) (0-2) % Neut # (Auto) (2853-4160) /uL PT (10.1-12.7) SECONDS INR (0.9-1.3) APTT (26.4-36.2) SECONDS Sodium (137-145) mmol/L Potassium (3.4-5.1) mmol/L Chloride (98-107) mmol/L Carbon Dioxide (22-32) mmol/L BUN (7-17) mg/dL Creatinine (0.52-1.04) mg/dL Estimated GFR (>60) mL/min BUN/Creatinine Ratio (6-22) Glucose (70-100) mg/dL Calcium (8.4-10.2) mg/dL Total Bilirubin (0.2-1.3) mg/dL AST (14-36) IU/L ALT (9-52) IU/L Alkaline Phosphatase (38-126) U/L Total Protein (6.3-8.2) g/dL Albumin (3.5-5.0) g/dL Globulin (1.7-4.1) g/dL Albumin/Globulin Ratio (1.0-2.8) Lipase (23-300) U/L Urine RBC 1-5/hpf (0-5/HPF) Urine WBC 0-1/hpf (0-5/HPF) Urine Bacteria Occasional (0-1) D (None) Ur Culture Indicated? Cult not indicated Micro UA Comment Not Reportable Ur Chlamydia DNA (PCR) Not detected N gonorrhoeae DNA (PCR) Not detected Point of Care Testing Test Results Negative Urine Dip Bedside Urine Glucose Negative Bedside Urine Bilirubin - Negative Bedside Urine Ketone - Negative Urine Specific [place] 1.015 Bedside Urine Occult Blood +/- Bedside Urine pH 7.0 Bedside Urine Protein - Negative Bedside Urine Urobilinogen - Negative Bedside Urine Nitrite - Negative Bedside Urine Leukocytes - Negative Esterase Imaging Data pelvic us: Radiologist's impression: [address] [address] Ultrasound Report Signed Patient: Monique Newton IMR#: [id number] : 1995Acct:[id number] Age/Sex: 22 / FDate of Service: 03/02/18 Loc: ED Accession Number: [id number] Procedure: US pelvic complete Ordering Provider: Jennifer Johnson P.A-C PROCEDURE: US PELVIC LIMITED INDICATIONS: R. LQ pain, h/o cyst TECHNIQUE: Real-time transabdominal scanning was performed of the pelvic organs, with image documentation. COMPARISON: [facility], US, US PELVIC COMPLETE, 02/12/2018, 17:22. [facility], US, US PELVIC COMPLETE, 01/13/2018, 21:17. [facility], CT, CT ABDOMEN PELVIS W CON, 01/13/2018, 19:07. FINDINGS: Uterus: Uterus is normal in size at 7.0 x 2.6 x 5.0 cm. Endometrium measures 5 mm in combined thickness. No focal myometrial lesions are evident. No significant fluid is seen within the endometrium. The cervix appears to be within normal limits. Ovaries: The right ovary measures 2.6 x 1.6 x 1.1 cm. The left ovary measures 2.7 x 1.6 x 1.6 cm. Both ovaries are normal in size without cystic or solid lesion. Multiple follicles are present involving both ovaries. However, there appears to be a left paraovarian cyst measuring up to approximately 1.6 cm in diameter. Other: No free pelvic fluid. Limited scanning through the kidneys shows no hydronephrosis. IMPRESSION: Unremarkable uterus and ovaries. No large ovarian cysts. Dictated by: Florin Harrison M.D. on 03/02/2018 at 14:09 Approved by: Florin Harrison M.D. on 03/02/2018 at 14:12 <Navi Mandel DO - Last Filed: 03/05/18 08:11> Lab Data Lab Results 03/02/18 03/02/18 03/02/18 Range/Units 12:16 12:16 12:16 WBC 8.0 (4.5-11.0) X10^3/uL RBC 4.68 (4.0-5.2) X10^6/uL Hgb 14.4 (12.0-16.0) g/dL Hct 42.4 (36-46) % MCV 90.5 (80-100) fL MCH 30.8 (26-34) PG MCHC 34.0 (30-36) % RDW 12.6 (11.6-14.8) % Plt Count 408 H (150-400) X10^3/uL Neut % (Auto) 73.9 (50-75) % Lymph % (Auto) 20.6 L (25-40) % [place] % (Auto) 4.5 (3-14) % Eos % (Auto) 0.1 L (2-4) % Baso % (Auto) 0.9 (0-2) % Neut # (Auto) 5900 (6797-2877) /uL PT 12.4 (10.1-12.7) SECONDS INR 1.1 (0.9-1.3) APTT 34 (26.4-36.2) SECONDS Sodium 144 (137-145) mmol/L Potassium 4.0 (3.4-5.1) mmol/L Chloride 109 H (98-107) mmol/L Carbon Dioxide 23 (22-32) mmol/L BUN 8 (7-17) mg/dL Creatinine 0.70 (0.52-1.04) mg/dL Estimated GFR > 60.0 (>60) mL/min BUN/Creatinine Ratio 11.4 (6-22) Glucose 97 (70-100) mg/dL Calcium 9.7 (8.4-10.2) mg/dL Total Bilirubin 0.7 (0.2-1.3) mg/dL AST 35 (14-36) IU/L ALT 41 (9-52) IU/L Alkaline Phosphatase 87 (38-126) U/L Total Protein 8.1 (6.3-8.2) g/dL Albumin 4.8 (3.5-5.0) g/dL Globulin 3.3 (1.7-4.1) g/dL Albumin/Globulin Ratio 1.5 (1.0-2.8) Lipase 66 (23-300) U/L Urine RBC (0-5/HPF) Urine WBC (0-5/HPF) Urine Bacteria (None) Ur Culture Indicated? Micro UA Comment Ur Chlamydia DNA (PCR) N gonorrhoeae DNA (PCR) 03/02/18 03/02/18 Range/Units 12:31 Unknown WBC (4.5-11.0) X10^3/uL RBC (4.0-5.2) X10^6/uL Hgb (12.0-16.0) g/dL Hct (36-46) % MCV (80-100) fL MCH (26-34) PG MCHC (30-36) % RDW (11.6-14.8) % Plt Count (150-400) X10^3/uL Neut % (Auto) (50-75) % Lymph % (Auto) (25-40) % [place] % (Auto) (3-14) % Eos % (Auto) (2-4) % Baso % (Auto) (0-2) % Neut # (Auto) (7994-8284) /uL PT (10.1-12.7) SECONDS INR (0.9-1.3) APTT (26.4-36.2) SECONDS Sodium (137-145) mmol/L Potassium (3.4-5.1) mmol/L Chloride (98-107) mmol/L Carbon Dioxide (22-32) mmol/L BUN (7-17) mg/dL Creatinine (0.52-1.04) mg/dL Estimated GFR (>60) mL/min BUN/Creatinine Ratio (6-22) Glucose (70-100) mg/dL Calcium (8.4-10.2) mg/dL Total Bilirubin (0.2-1.3) mg/dL AST (14-36) IU/L ALT (9-52) IU/L Alkaline Phosphatase (38-126) U/L Total Protein (6.3-8.2) g/dL Albumin (3.5-5.0) g/dL Globulin (1.7-4.1) g/dL Albumin/Globulin Ratio (1.0-2.8) Lipase (23-300) U/L Urine RBC 1-5/hpf (0-5/HPF) Urine WBC 0-1/hpf (0-5/HPF) Urine Bacteria Occasional (0-1) D (None) Ur Culture Indicated? Cult not indicated Micro UA Comment Not Reportable Ur Chlamydia DNA (PCR) Not detected N gonorrhoeae DNA (PCR) Not detected Point of Care Testing Test Results Negative Urine Dip Bedside Urine Glucose Negative Bedside Urine Bilirubin - Negative Bedside Urine Ketone - Negative Urine Specific [place] 1.015 Bedside Urine Occult Blood +/- Bedside Urine pH 7.0 Bedside Urine Protein - Negative Bedside Urine Urobilinogen - Negative Bedside Urine Nitrite - Negative Bedside Urine Leukocytes - Negative Esterase Discharge Plan Departure Patient Disposition: Admitted as Observation Clinical Impression: Vomiting, Intractable pain Discharge Date/Time: 03/02/18 16:16 Interventions: ED Discharge Assessment Last Done: 03/02/18 17:57 Admit Date/Time: 03/02/18 16:19 Admit Provider: Haven Hernandez <Navi Mandel DO - Last Filed: 03/05/18 08:11> Cosign ED Attending Maryature Attestation: I was immediately available in the department for consultation. Documentation has been reviewed. I agree with assessment and plan.
[2018-03-02 12:35] LABS: Alanine Aminotransferase 41 IU/L (9-52); Albumin 4.8 g/dL (3.5-5.0); Albumin Globulin Ratio 1.5 (1.0-2.8); Alkaline Phosphatase 87 U/L (38-126); Aspartate Aminotransferase 35 IU/L (14-36); BUN Creatinine Ratio 11.4 (6-22); Bilirubin Total 0.7 mg/dL (0.2-1.3); Blood Urea Nitrogen 8 mg/dL (7-17); Calcium 9.7 mg/dL (8.4-10.2); Carbon Dioxide 23 mmol/L (22-32); Chloride 109 mmol/L (98-107); Estimated Glomerular Filt Rate > 60.0 mL/min (>60); Globulin 3.3 g/dL (1.7-4.1); Glucose 97 mg/dL (70-100); HEMOLYSIS 17 (0-50); Lipase 66 U/L (23-300); Sodium 144 mmol/L (137-145); Total Protein 8.1 g/dL (6.3-8.2)
[2018-03-02 12:53] LABS: Bacteria Urine Occasional (0-1); Culture Indicated Urine Cult Not Indicated; RBC Urine 1-5/HPF (0-5/HPF); WBC Urine 0-1/HPF (0-5/HPF)
[2018-03-02] MEDS: HYDROMORPHONE 1 MG INJ IV ×3 (13:08→21:27)
[2018-03-02] MEDS: PANTOPRAZOLE 40 MG VIAL IV (13:08)
[2018-03-02] MEDS: METOCLOPRAMIDE 10 MG/2 ML INJ IV ×2 (13:09→20:26)
--- NOTE | 2018-03-02 13:12 | DI.US.S_ITS ---
PROCEDURE: US PELVIC LIMITED INDICATIONS: R. LQ pain, h/o cyst TECHNIQUE: Real-time transabdominal scanning was performed of the pelvic organs, with image documentation. COMPARISON: [facility], US, US PELVIC COMPLETE, 02/12/2018, 17:22. [facility], US, US PELVIC COMPLETE, 01/13/2018, 21:17. [facility], CT, CT ABDOMEN PELVIS W CON, 01/13/2018, 19:07. FINDINGS: Uterus: Uterus is normal in size at 7.0 x 2.6 x 5.0 cm. Endometrium measures 5 mm in combined thickness. No focal myometrial lesions are evident. No significant fluid is seen within the endometrium. The cervix appears to be within normal limits. Ovaries: The right ovary measures 2.6 x 1.6 x 1.1 cm. The left ovary measures 2.7 x 1.6 x 1.6 cm. Both ovaries are normal in size without cystic or solid lesion. Multiple follicles are present involving both ovaries. However, there appears to be a left paraovarian cyst measuring up to approximately 1.6 cm in diameter. Other: No free pelvic fluid. Limited scanning through the kidneys shows no hydronephrosis. IMPRESSION: Unremarkable uterus and ovaries. No large ovarian cysts. Dictated by: Florin Harrison M.D. on 03/02/2018 at 14:09 Approved by: Florin Harrison M.D. on 03/02/2018 at 14:12
[2018-03-02] MEDS: HYDROMORPHONE 1 MG INJ 0.5 MG IV ×2 (15:14→17:55)
[2018-03-02] MEDS: LORazepam 2 MG/ML SYRINGE 0.5 MG IV (15:15)
[2018-03-02] MEDS: PROCHLORPERAZINE 10 MG/2 ML VIAL IV (16:48)
[2018-03-02 18:06] LABS: Urine N gonorrhoeae NOT DETECTED
[2018-03-02 18:19] LABS: Urine Chlamydia NOT DETECTED
--- NOTE | 2018-03-02 18:38 | PC.ADMIT ---
Addendum entered by Saba Moscoso R.N. 03/02/18 22:10: Pt was able to eat a sandwich and drank a few apple juices. Pt given snacks. pt still belching and does hiccup quite a bit as well after anything. meds given per JUN. will continue to monitor pt for safety. Original Note: Admission Note: Pt arrived to floor vis [facility] around 1745- pt rates pain /. states its a constant pain in one area, RLQ, and gets increasingly bigger in size after the medication wears off. Pt compliant with admission process and nursing assessments. Pt pleasant and cooperative. Pt ambulates steady gait but is in alot of pain. pt belches frequently. pt states she is supposed to start her cleanse for her endoscopy and colonoscopy scheduled for Friday am, but states she cannot keep anything down and has not been able to for four or five days now. pt has been unable to keep water down for today and that's when she decided to come in as her primary md told her last time this happened that she should have come to the hospital when she was unable to keep fluids down.
--- NOTE | 2018-03-02 18:58 | PM.HP.1 ---
History of Present Illness Date Patient Seen: 03/02/18 Time Patient Seen: 18:30 Chief complaint: N/V/D Narrative: 22-year-old female, under the primary care of Dr. Arellano at the [facility], with history of endometriosis, who presented to the [facility] today for right lower quadrant abdominal pain. She started having right lower quadrant abdominal pain earlier this afternoon when she was sitting in the chair. The pain severity is gradually gotten worse. She described the pain as a sharp stabbing pain. She currently rates the severity of the pain as 6.5/ 10. She did have nausea and vomiting. She also had 5-6 loose stools. She received Zofran, Ativan, Compazine at the ER for symptomatic control. She also received IV Dilaudid for pain control. Pelvic ultrasound did not reveal the cause of her abdominal pain. She was admitted to the medicine floor for observation. Patient History Medical History Endometriosis (Acute) Polycystic ovaries (Acute) [place] teeth extracted (Acute) Surgical History Hx of tonsillectomy (Acute) Family & Social History Family History: Reviewed 03/02/18 by Haven Hernandez MD Social History: household members friend(s) Prior Living Arrangements Apartment/Condo Safety & Behavioral: Feels Safe in Current Yes Environment Been Physically Hurt or No Threatened By a Person Suicidal Ideation Description None Suicide Plan Description No Plan Tobacco & Substance use: Smoking Status Current every day smoker Smoking packs per day 0.25 alcohol intake current alcohol intake frequency holiday/special occasion Substance Use Type does not use Meds Home Medications Medication Instructions Recorded Confirmed Type biotin 1 cap PO DAILY 02/12/18 03/02/18 History norethindrone-e.estradiol-iron 1 tab PO DAILY 03/02/18 03/02/18 History [05/17 (28)] ondansetron HCl 8 mg PO TID PRN 03/02/18 03/02/18 History tramadol 50 mg PO Q4H PRN 03/02/18 03/02/18 History Allergies Allergy/AdvReac Type Severity Reaction Status Date / Time No Known Drug Allergies Allergy Verified 02/12/18 16:31 Review of Systems Constitutional Comments: No fever chills or sweats Cardiovascular Comments: No chest pain or palpitation Respiratory Comments: No cough or shortness of breath Gastrointestinal Gastrointestinal: Reports as per HPI Genitourinary Comments: No dysuria Musculoskeletal Comments: No low back pain Exam Vital Signs (past 8 hours): - 03/02/18 11:40 03/02/18 13:14 03/02/18 14:11 Temperature 97.8 F Pulse Rate 100 H 88 72 Respiratory Rate 13 16 13 Blood Pressure 122/89 Blood Pressure [Left Arm] 131/82 111/70 Pulse Oximetry 100 99 100 03/02/18 14:59 03/02/18 16:48 Temperature Pulse Rate 77 90 Respiratory Rate 16 Blood Pressure 110/72 Blood Pressure [Left Arm] 127/69 Pulse Oximetry 99 Oxygen Delivery Method Room Air Narrative Exam Narrative: GENERAL: Young woman in no acute distress. HEENT: Head normocephalic, atraumatic. Eyes pupils equal round NECK: Supple, no JVD, CHEST: Breath sounds equal bilaterally, no wheezes rales or rhonchi. CARDIAC: Regular rate and rhythm without murmurs, rubs or gallops. ABDOMEN: Soft, right lower quadrant tenderness.,No guarding or rebound. EXTREMITIES: Normal range of motion, no clubbing or edema. NEUROLOGICAL: Alert and oriented; Normal muscle strength. SKIN: Warm, dry, no petechiae, no rashes or lesions. Objective Imaging US - abdomen: Radiologist's impression: Unremarkable uterus and ovaries. No large ovarian cysts. Labs Result Diagrams: 03/02/18 12:16 03/02/18 12:16 Labs: Laboratory Results - last 24 hr 03/02/18 03/02/18 03/02/18 12:16 12:16 12:16 WBC 8.0 RBC 4.68 Hgb 14.4 Hct 42.4 MCV 90.5 MCH 30.8 MCHC 34.0 RDW 12.6 Plt Count 408 H Neut % (Auto) 73.9 Lymph % (Auto) 20.6 L Garvin % (Auto) 4.5 Eos % (Auto) 0.1 L Baso % (Auto) 0.9 Neut # (Auto) 5900 PT 12.4 INR 1.1 APTT 34 Sodium 144 Potassium 4.0 Chloride 109 H Carbon Dioxide 23 BUN 8 Creatinine 0.70 Estimated GFR > 60.0 BUN/Creatinine Ratio 11.4 Glucose 97 Calcium 9.7 Total Bilirubin 0.7 AST 35 ALT 41 Alkaline Phosphatase 87 Total Protein 8.1 Albumin 4.8 Globulin 3.3 Albumin/Globulin Ratio 1.5 Lipase 66 Urine RBC Urine WBC Urine Bacteria Ur Culture Indicated? Micro UA Comment Ur Chlamydia DNA (PCR) N gonorrhoeae DNA (PCR) 03/02/18 03/02/18 12:31 Unknown WBC RBC Hgb Hct MCV MCH MCHC RDW Plt Count Neut % (Auto) Lymph % (Auto) Garvin % (Auto) Eos % (Auto) Baso % (Auto) Neut # (Auto) PT INR APTT Sodium Potassium Chloride Carbon Dioxide BUN Creatinine Estimated GFR BUN/Creatinine Ratio Glucose Calcium Total Bilirubin AST ALT Alkaline Phosphatase Total Protein Albumin Globulin Albumin/Globulin Ratio Lipase Urine RBC 1-5/hpf Urine WBC 0-1/hpf Urine Bacteria Occasional (0-1) D Ur Culture Indicated? Cult not indicated Micro UA Comment Not Reportable Ur Chlamydia DNA (PCR) Not detected N gonorrhoeae DNA (PCR) Not detected Assessment & Plan Plan: Assessment/Plan Narrative: 1. Right lower quadrant abdominal pain: Likely secondary to endometriosis. We will continue serial abdominal exams. Continue Dilaudid IV for pain control. I will also add Percocet p.o. for moderate pain as needed. Use Zofran as needed for nausea Quality VTE Deep Vein Thrombosis/Pulmonary Embolism Present on Admission: No
[2018-03-03] MEDS: SODIUM CHLORIDE 0.9% FLUSH 10 ML IV ×5 (00:02→07:42)
[2018-03-03] MEDS: OXYCODONE/ACETAMINOPHEN 5/325 TABLET 2 TAB PO ×3 (01:03→11:29)
--- NOTE | 2018-03-03 01:16 | PC.NURSE ---
Addendum entered by Erika Hugo R.N. 03/03/18 06:08: Having dry heaves again so medicated with Reglan. States the best her pain has been has been down to a 4/10. Knows she is able to have Percocet now but with nausea is not wanting to try Percocet. Requests Dilaudid be given when next due. Original Note: Addendum entered by Erika Hugo R.N. 03/03/18 06:07: Original Note: Addendum entered by Erika Hugo R.N. 03/03/18 04:28: Continuing to have abdominal pain and rates severity as 5/10; medicated with Dilaudid. Original Note: Addendum entered by Erika Hugo R.N. 03/03/18 03:44: Medicated with Zofran for complaint of nausea; no dry heaves or vomiting at this time. Original Note: Addendum entered by Erika Hugo R.N. 03/03/18 03:23: Complains of feeling fuzzy possibly related to narcotics; bed alarm activated as precaution. Pain now 4/10 Original Note: Addendum entered by Erika Hugo R.N. 03/03/18 02:29: Complains that pain is still 6/10 so medicated with Dilaudid and provided warm blanket to abdomen. Original Note: Patient is alert and oriented. Breath sounds are CTA with RA sat of 99%. HRR. Nauseated and dry heaves earlier but now, after receiving Zofran, is only slightly nauseated and able to nibble on crackers and take sips of water. Pain at 0000 was 7/10 so medicated with IV Dilaudid and now 6/10 so given po Percocet. Pain is constant, sharp and stabbing in right LQ of abdomen. BT present. Does states she had burning with last urination and urine was dark and concentrated. Independent with bed mobility and calls for SBA when out of bed. Fall risk score is moderate.
[2018-03-03] MEDS: HYDROMORPHONE 1 MG INJ IV ×6 (02:24→12:34)
[2018-03-03 03:32] VITALS: BP 115/81; PULSE 80; RESP 16; TEMP 36.3; O2SAT 99
[2018-03-03] MEDS: ONDANSETRON 4 MG/2 ML INJ IV ×3 (03:40→13:10)
[2018-03-03] MEDS: METOCLOPRAMIDE 10 MG/2 ML INJ IV (06:02)
[2018-03-03 07:45] VITALS: BP 118/77; PULSE 68; RESP 12; TEMP 36.3; O2SAT 99
--- NOTE | 2018-03-03 10:00 | PC.NURSE ---
Addendum entered by Lauren Ibarra R.N. 03/03/18 13:42: Discharge paperwork reviewed with pt and alternative pain control measures discussed. She verbalized understanding and aware to notify PCP and [place] flight of hospital stay and follow-up as needed. Pt has pending appts with GI and OB specialist later this month. Pt left with all belongings with friend and d/c'd home in personal vehicle. Original Note: Addendum entered by Lauren Ibarra R.N. 03/03/18 13:24: Pt has not slept this shift. Continues to report nausea and intermittent pain rated 6/10 to RLQ. Relief noted with IV zofran/dilaudid and po percocet measures. Warm compress to abd helps discomfort. No dry heaves observed this shift. Tolerating sips of liquids with adequate UOP. Original Note: Pt A&Ox3. At start of shift pt appears uncomfortable. Reporting pain, no nausea. Later in shift reporting nausea w/o dry heaves/vomiting and sharp pain to RLQ. Warm compress applied to abdomen and medicated per emar--relief when reassessed. Poor po intake, encouraged sips of liquids. Reports no longer having dysuria. Friend at bedside, still awake, encouraged pt to rest since poor nights sleep. Will continue to monitor.
[2018-03-03 11:25] VITALS: BP 113/53; PULSE 72; RESP 18; O2SAT 99
--- NOTE | 2018-03-03 17:48 | PM.DS.1 ---
History of Present Illness Chief complaint: N/V/D Narrative: 22-year-old female, under the primary care of Dr. Arellano at the [facility], with history of endometriosis, who presented to the [facility] today for right lower quadrant abdominal pain. She started having right lower quadrant abdominal pain earlier this afternoon when she was sitting in the chair. The pain severity is gradually gotten worse. She described the pain as a sharp stabbing pain. She currently rates the severity of the pain as 6.5/ 10. She did have nausea and vomiting. She also had 5-6 loose stools. She received Zofran, Ativan, Compazine at the ER for symptomatic control. She also received IV Dilaudid for pain control. Pelvic ultrasound did not reveal the cause of her abdominal pain. She was admitted to the medicine floor for observation. Discharge Providers Date of admission: 03/02/18 16:19 Discharge provider: Darnell Tripp MD Discharge Date: 03/03/18 Summary Discharge Diagnosis: 1. Chronic abdominal pain possibly endometriosis related 2. Chronic nausea Hospital Course: Patient admitted for control of nausea and abdominal pain. These are chronic symptoms which really did not respond well to hospital treatments. There were no findings to suggest anything new going on. She had her appendix out recently. She carries diagnosis of endometriosis. 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 I did renew her tramadol 30 tablets and Zofran 30 tablets. Status at Discharge Functional status at discharge: independent ambulation Overall status at discharge: patient is back to baseline Time Spent with Patient Less than 30 minutes Exam Vital Signs (past 8 hours): - 03/03/18 11:25 Pulse Rate 72 Respiratory Rate 18 Blood Pressure 113/53 L Pulse Oximetry 99 Oxygen Delivery Method Room Air Objective Labs Result Diagrams: 03/02/18 12:16 03/02/18 12:16 Labs: Laboratory Results - last 24 hr 03/02/18 Unknown Ur Chlamydia DNA (PCR) Not detected N gonorrhoeae DNA (PCR) Not detected Discharge Plan Discharge Plan Patient Disposition: Home Discharge Med Rec/Prescriptions Prescriptions: New ondansetron 8 mg tablet,disintegrating 8 mg PO TID PRN (Reason: nausea and vomiting) Qty: 30 RF: 0 Continue biotin 1 cap PO DAILY RF: 0 norethindrone-e.estradiol-iron 1 mg-20 mcg (21)/75 mg (7) tablet 1 tab PO DAILY RF: 0 tramadol 50 mg tablet 50 mg PO Q4H PRN (Reason: Pain, Moderate) Qty: 30 RF: 0 Discontinued ondansetron HCl 8 mg tablet 8 mg PO TID PRN (Reason: Nausea) RF: 0 Provider Discharge Instructions Diet: Regular Visit Report/Discharge Packet Instructions: Endometriosis, Ondansetron, Tramadol Visit Report Forms: Stroke Signs & Symptoms Discharge Data Attending Provider: Haven Hernandez Admit Date/Time: 03/02/18 16:19 Discharges patient from system. Discharge Date/Time: 03/03/18 01:30 Quality VTE Deep Vein Thrombosis/Pulmonary Embolism Present on Admission: No
--- NOTE | 2018-03-03 17:51 | P.DS_ITS ---
History of Present Illness Chief complaint: N/V/D Narrative: 22-year-old female, under the primary care of Dr. Arellano at the [facility], with history of endometriosis, who presented to the [facility] today for right lower quadrant abdominal pain. She started having right lower quadrant abdominal pain earlier this afternoon when she was sitting in the chair. The pain severity is gradually gotten worse. She described the pain as a sharp stabbing pain. She currently rates the severity of the pain as 6.5/ 10. She did have nausea and vomiting. She also had 5-6 loose stools. She received Zofran, Ativan, Compazine at the ER for symptomatic control. She also received IV Dilaudid for pain control. Pelvic ultrasound did not reveal the cause of her abdominal pain. She was admitted to the medicine floor for observation. Discharge Providers Date of admission: 03/02/18 16:19 Discharge provider: Darnell Tripp MD Discharge Date: 03/03/18 Summary Discharge Diagnosis: 1. Chronic abdominal pain possibly endometriosis related 2. Chronic nausea Hospital Course: Patient admitted for control of nausea and abdominal pain. These are chronic symptoms which really did not respond well to hospital treatments. There were no findings to suggest anything new going on. She had her appendix out recently. She carries diagnosis of endometriosis. 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 I did renew her tramadol 30 tablets and Zofran 30 tablets. Status at Discharge Functional status at discharge: independent ambulation Overall status at discharge: patient is back to baseline Time Spent with Patient Less than 30 minutes Exam Vital Signs (past 8 hours): - 03/03/18 11:25 Pulse Rate 72 Respiratory Rate 18 Blood Pressure 113/53 L Pulse Oximetry 99 Oxygen Delivery Method Room Air Objective Labs Result Diagrams: 03/02/18 12:16 03/02/18 12:16 Labs: Laboratory Results - last 24 hr 03/02/18 Unknown Ur Chlamydia DNA (PCR) Not detected N gonorrhoeae DNA (PCR) Not detected Discharge Plan Discharge Plan Patient Disposition: Home Discharge Med Rec/Prescriptions Prescriptions: New ondansetron 8 mg tablet,disintegrating 8 mg PO TID PRN (Reason: nausea and vomiting) Qty: 30 RF: 0 Continue biotin 1 cap PO DAILY RF: 0 norethindrone-e.estradiol-iron 1 mg-20 mcg (21)/75 mg (7) tablet 1 tab PO DAILY RF: 0 tramadol 50 mg tablet 50 mg PO Q4H PRN (Reason: Pain, Moderate) Qty: 30 RF: 0 Discontinued ondansetron HCl 8 mg tablet 8 mg PO TID PRN (Reason: Nausea) RF: 0 Provider Discharge Instructions Diet: Regular Visit Report/Discharge Packet Instructions: Endometriosis, Ondansetron, Tramadol Visit Report Forms: Stroke Signs & Symptoms Discharge Data Attending Provider: Haven Hernandez Admit Date/Time: 03/02/18 16:19 Discharges patient from system. Discharge Date/Time: 03/03/18 01:30 Quality VTE Deep Vein Thrombosis/Pulmonary Embolism Present on Admission: No
== END 2018-03-03 01:30 | disposition home or self-care (01) ==
LOC: ED 12:31 → AC 16:16
PROVIDERS: Emergency Medicine; Admitting Provider Internal Medicine; Emergency Provider Internal Medicine; Visit Provider Internal Medicine
DX: R10.31 Right lower quadrant pain (principal); R11.2 Nausea with vomiting, unspecified; R19.7 Diarrhea, unspecified; F17.210 Nicotine dependence, cigarettes, uncomplicated; N80.9 Endometriosis, unspecified; E28.2 Polycystic ovarian syndrome
CPT/HCPCS: 36591; 76830; 76856; 80053; 81003; 81015; 81025; 83690; 85025; 85610; 85730; 87491; 87591; 96374; 96375; 96376; 99283; G0378; C9113; J0780; J1170; J1885; J2060; J2405; J2765

== ENCOUNTER 2018-04-05 19:10 | Emergency (ER) | payer OTHER, SELFPAY ==
[2018-03-02 18:05] VITALS: BMI 34.2
[2018-04-05 19:29] VITALS: BP 130/91; PULSE 90; RESP 24; TEMP 37; O2SAT 100; BMI 31.8
[2018-04-05 19:53] LABS: Bacteria Urine None Seen; RBC Urine None Seen (0-5/HPF); WBC Urine None Seen (0-5/HPF)
--- NOTE | 2018-04-05 19:57 | DI.US.S_ITS ---
PROCEDURE: US PELVIC COMPLETE INDICATIONS: PAIN TECHNIQUE: Real-time scanning was performed of the pelvic organs, with image documentation. Additional endovaginal scanning was necessary due to incomplete visualization of the adnexal and endometrial structures by transabdominal scanning. COMPARISON: [facility], , US PELVIC COMPLETE, 02/12/2018, 17:22. FINDINGS: Transabdominal scanning: No pathologic free abdominal or pelvic fluid. Endovaginal scanning: Uterus: Uterus is normal in size at 6.8 x 3.5 x 4.4 cm. The endometrium measures 0.6 cm in combined thickness. Ovaries: The right ovary measures 2.5 x 1.5 x 1.8 cm and the left ovary measures 3.6 x 2.0 x 1.7 cm. There is an exophytic ovarian or paraovarian cyst measuring up to 1.4 cm. Patent arterial flow demonstrated in the ovaries on Doppler interrogation. IMPRESSION: 1. Normal sonographic study of the pelvis. Dictated by: Cristiano Chavez M.D. on 04/05/2018 at 21:21 Approved by: Cristiano Chavez M.D. on 04/05/2018 at 21:24
--- NOTE | 2018-04-05 19:57 | DI.US.S_ITS ---
PROCEDURE: US ABDOMEN COMPLETE INDICATIONS: PAIN TECHNIQUE: Real-time scanning was performed of the abdominal and retroperitoneal organs, with image documentation. COMPARISON: None. FINDINGS: Liver: Liver is normal in size and increased in echogenicity. Gallbladder: The gallbladder is partially distended. No gallstones, gallbladder wall thickening, or pericholecystic fluid. Biliary ducts: Intrahepatic bile ducts are non-dilated. Extrahepatic bile duct caliber measures up to 4 mm. Normal is 6-7 mm or less in diameter, or 10 mm or less post-cholecystectomy. Pancreas: Not well-seen due to bowel gas. Spleen: Spleen is normal in size and homogeneous in echotexture. Kidneys: Right kidney measures 10.3 cm long; left kidney measures 1.3 cm long. No hydronephrosis. Aorta: Visualized aorta is normal in caliber at less than 3 cm. Iliacs: Proximal common iliac arteries are normal in caliber at less than 2.5 cm. IVC: Intrahepatic inferior vena cava is patent. Miscellaneous: No free abdominal fluid. IMPRESSION: 1. Increased hepatic echogenicity compatible with steatosis. 2. Partially distended gallbladder without evidence of cholelithiasis or definite cholecystitis. Dictated by: Cristiano Chavez M.D. on 04/05/2018 at 21:17 Approved by: Cristiano Chavez M.D. on 04/05/2018 at 21:21
--- NOTE | 2018-04-05 20:09 | ED.NAVMDI ---
HPI - Nausea/Vomiting/Diarrhea <JOE Solitario - Last Filed: 04/05/18 22:35> General Chief complaint: Nausea/Vomiting/Diarrhea Stated complaint: abdominal pain, vomiting,diarrhea Time Seen by Provider: 04/05/18 19:43 Source: patient Mode of arrival: ambulatory Limitations: no limitations History of Present Illness HPI Narrative: Patient is a patient is a single 22-year-old female with history of endometriosis was is current smoker who presents with a chief complaint of lower abdominal pain, nausea vomiting diarrhea. She has a history of multiple visits to this and other emergency departments and has an ELLI report for frequent visits. She presents today with chief complaint of lower abdominal pain and cramping that started yesterday and severe nausea vomiting diarrhea started today. She states that her vomiting has been almost continual since 2:00 a.m. this afternoon and that she has had for 5 episodes of diarrhea. She states that she has nausea vomiting and diarrhea episodes with her endometriosis. She states she was recently started on medications for H pylori after she had a colonoscopy an endoscope done by GI recently. She is not sure what medication she is taking. She also had her appendix out this past fall. She denies possibility of . She denies concerned about STIs. She denies subjective fever but complains of hot flashes and chills. Related Data Home Medications Medication Instructions Recorded Confirmed biotin 1 cap PO DAILY 02/12/18 03/02/18 norethindrone-e.estradiol-iron 1 tab PO DAILY 03/02/18 03/02/18 Previous Rx's Medication Instructions Recorded ondansetron 8 mg PO TID PRN #30 tab 03/03/18 tramadol 50 mg PO Q4H PRN #30 tab 03/03/18 Allergies Allergy/AdvReac Type Severity Reaction Status Date / Time Sulfa (Sulfonamide Allergy Verified 04/05/18 19:35 Antibiotics) Review of Systems <JOE Solitario - Last Filed: 04/05/18 22:35> Review of Systems GENERAL: Denies chills, fatigue, malaise, fever, sweats. HEENT: Denies sinus pain, ear pain, sore throat, difficulty swallowing, dizziness. RESPIRATORY: Denies dyspnea, cough, wheezing, hemoptysis, sputum. CARDIOVASCULAR: Denies chest pain, palpitations, orthopnea, edema, GASTROINTESTINAL: see HPI : See HPI MUSCULOSKELETAL: denies weakness, joint pain, or bony pain SKIN: Denies rash, skin lesions, or other NEUROLOGIC: Denies weakness, headache, numbness, change in speech, confusion, seizures, incoordination. PSYCHIATRIC: No concerning psychosocial issues. 12 point review of systems is negative except for those stated above Exam <Kirstin JamisonLUCHO champion-BC - Last Filed: 04/05/18 22:35> Narrative Exam Narrative: GENERAL: This is a well-nourished, well-developed patient, holding a vomit bag HEAD: Atraumatic. Normocephalic. No temporal or scalp tenderness. EYES: Pupils equal round and reactive. Extraocular motions intact. No scleral icterus. No injection or drainage. ENT: Nose without bleeding, purulent drainage or septal hematoma. Throat without erythema, tonsillar hypertrophy or exudate. Uvula midline. Airway patent. NECK: Trachea midline. No JVD or lymphadenopathy. Supple, nontender, no meningeal signs. CARDIOVASCULAR: Regular rate and rhythm without murmurs, gallops, or rubs. RESPIRATORY: Clear to auscultation. Breath sounds equal bilaterally. No wheezes, rales, or rhonchi. GASTROINTESTINAL: Abdomen soft,, nondistended. No hepato-splenomegaly, or palpable masses. No guarding. diffuse tenderness to lower left suprapubic and lower right quadrants. EXTREMITIES: No clubbing, cyanosis, or edema. No joint tenderness, effusion, or edema noted. BACK: Nontender without deformity or crepitance. No flank tenderness. NEURO: AOx3. SKIN: No rash or erythema. Initial Vital Signs Initial Vital Signs: Vital Signs Temperature 98.6 F 04/05/18 19:29 Pulse Rate 90 04/05/18 19:29 Respiratory Rate 24 04/05/18 19:29 Blood Pressure 130/91 H 04/05/18 19:29 Pulse Oximetry 100 04/05/18 19:29 <Smitha Harmon MD - Last Filed: 04/06/18 00:45> Initial Vital Signs Initial Vital Signs: Vital Signs Temperature 98.6 F 04/05/18 19:29 Pulse Rate 90 04/05/18 19:29 Respiratory Rate 24 04/05/18 19:29 Blood Pressure 130/91 H 04/05/18 19:29 Pulse Oximetry 100 04/05/18 19:29 Course <Kirstin Santiago, DRY CHAIN PULLER-BC - Last Filed: 04/05/18 22:35> Course Narrative: I checked on the patient several times throughout her stay in the emergency department. She was given 2 L of IVF as well as several doses of Zofran and Reglan as well as a dose of hydromorphone. She did present complaining of profuse diarrhea, but was not able to provide a stool sample throughout her stay in the emergency department. Orders Ordered: ED Orders 04/05/18 19:45 Urine Microscopic Stat 04/05/18 19:57 US abdomen complete Stat US pelvic complete Stat 04/05/18 20:15 Amylase Stat Complete Blood Count AUTO DIFF Stat Comprehensive Metabolic Panel Stat Lactate (Lactic Acid) Stat Lipase Stat 04/05/18 21:15 CT abdomen pelvis w con Stat Discontinued Medications Hydromorphone HCl (Dilaudid) 1 mg IV NOW ONE Stop: 04/05/18 21:09 Last Admin: 04/05/18 21:16 Dose: 1 mg Sodium Chloride (Normal Saline 0.9%) 1,000 mls @ 1,000 mls/hr IV BOLUS ONE Stop: 04/05/18 20:52 Last Infusion: 04/05/18 21:18 Dose: 0 mls/hr Admin: 04/05/18 20:19 Dose: 1,000 mls/hr Sodium Chloride (Normal Saline 0.9%) 1,000 mls @ 1,000 mls/hr IV BOLUS ONE Stop: 04/05/18 22:15 Last Infusion: 04/05/18 23:07 Dose: 0 mls/hr Admin: 04/05/18 21:18 Dose: 1,000 mls/hr Metoclopramide HCl (Reglan) 10 mg IV NOW ONE Stop: 04/05/18 21:46 Last Admin: 04/05/18 22:00 Dose: 10 mg Ondansetron HCl (Zofran) 4 mg IV NOW ONE Stop: 04/05/18 19:54 Last Admin: 04/05/18 20:19 Dose: 4 mg Ondansetron HCl (Zofran) 4 mg IV NOW ONE Stop: 04/05/18 21:24 Last Admin: 04/05/18 21:24 Dose: 4 mg Ondansetron HCl (Zofran Odt Prepack) 1 bottle MISC SEEINSTR ONE Stop: 04/05/18 22:31 Last Admin: 04/05/18 22:40 Dose: 1 bottle Potassium Chloride (Klor-Con M10) 20 meq PO NOW ONE Stop: 04/05/18 22:33 Last Admin: 04/05/18 22:39 Dose: 20 meq Vital Signs - 8 hr 04/05/18 19:29 04/05/18 20:58 04/05/18 23:07 Temperature 98.6 F Pulse Rate 90 72 68 Respiratory Rate 24 19 16 Blood Pressure 130/91 H 124/77 Blood Pressure [Right Arm] 130/81 Pulse Oximetry 100 100 100 <Smitha Harmon MD - Last Filed: 04/06/18 00:45> Orders Ordered: ED Orders 04/05/18 19:45 Urine Microscopic Stat 04/05/18 19:57 US abdomen complete Stat US pelvic complete Stat 04/05/18 20:15 Amylase Stat Complete Blood Count AUTO DIFF Stat Comprehensive Metabolic Panel Stat Lactate (Lactic Acid) Stat Lipase Stat 04/05/18 21:15 CT abdomen pelvis w con Stat Discontinued Medications Hydromorphone HCl (Dilaudid) 1 mg IV NOW ONE Stop: 04/05/18 21:09 Last Admin: 04/05/18 21:16 Dose: 1 mg Sodium Chloride (Normal Saline 0.9%) 1,000 mls @ 1,000 mls/hr IV BOLUS ONE Stop: 04/05/18 20:52 Last Infusion: 04/05/18 21:18 Dose: 0 mls/hr Admin: 04/05/18 20:19 Dose: 1,000 mls/hr Sodium Chloride (Normal Saline 0.9%) 1,000 mls @ 1,000 mls/hr IV BOLUS ONE Stop: 04/05/18 22:15 Last Infusion: 04/05/18 23:07 Dose: 0 mls/hr Admin: 04/05/18 21:18 Dose: 1,000 mls/hr Metoclopramide HCl (Reglan) 10 mg IV NOW ONE Stop: 04/05/18 21:46 Last Admin: 04/05/18 22:00 Dose: 10 mg Ondansetron HCl (Zofran) 4 mg IV NOW ONE Stop: 04/05/18 19:54 Last Admin: 04/05/18 20:19 Dose: 4 mg Ondansetron HCl (Zofran) 4 mg IV NOW ONE Stop: 04/05/18 21:24 Last Admin: 04/05/18 21:24 Dose: 4 mg Ondansetron HCl (Zofran Odt Prepack) 1 bottle MISC SEEINSTR ONE Stop: 04/05/18 22:31 Last Admin: 04/05/18 22:40 Dose: 1 bottle Potassium Chloride (Klor-Con M10) 20 meq PO NOW ONE Stop: 04/05/18 22:33 Last Admin: 04/05/18 22:39 Dose: 20 meq Vital Signs - 8 hr 04/05/18 19:29 04/05/18 20:58 04/05/18 23:07 Temperature 98.6 F Pulse Rate 90 72 68 Respiratory Rate 24 19 16 Blood Pressure 130/91 H 124/77 Blood Pressure [Right Arm] 130/81 Pulse Oximetry 100 100 100 MDM - Nausea/Vomiting/Diarrhea <LUCHO Solitario- - Last Filed: 04/05/18 22:35> Lab Data Result diagrams: 04/05/18 20:15 04/05/18 20:15 Lab Results 04/05/18 04/05/18 04/05/18 Range/Units 19:45 20:15 20:15 WBC 8.9 (4.5-11.0) X10^3/uL RBC 4.62 (4.0-5.2) X10^6/uL Hgb 14.2 (12.0-16.0) g/dL Hct 42.2 (36-46) % MCV 91.5 (80-100) fL MCH 30.7 (26-34) PG MCHC 33.6 (30-36) % RDW 13.6 (11.6-14.8) % Plt Count 373 (150-400) X10^3/uL Neut % (Auto) 61.7 (50-75) % Lymph % (Auto) 29.6 (25-40) % Miller % (Auto) 7.4 (3-14) % Eos % (Auto) 0.8 L (2-4) % Baso % (Auto) 0.5 (0-2) % Neut # (Auto) 5500 (2276-0577) /uL Sodium 144 (137-145) mmol/L Potassium 3.5 (3.4-5.1) mmol/L Chloride 103 (98-107) mmol/L Carbon Dioxide 26 (22-32) mmol/L BUN 11 (7-17) mg/dL Creatinine 0.80 (0.52-1.04) mg/dL Estimated GFR > 60.0 (>60) mL/min BUN/Creatinine Ratio 13.8 (6-22) Glucose 92 (70-100) mg/dL Lactate (0.7-2.1) mmol/L Calcium 9.6 (8.4-10.2) mg/dL Total Bilirubin 0.5 (0.2-1.3) mg/dL AST 29 (14-36) IU/L ALT 34 (9-52) IU/L Alkaline Phosphatase 93 (38-126) U/L Total Protein 7.9 (6.3-8.2) g/dL Albumin 4.6 (3.5-5.0) g/dL Globulin 3.3 (1.7-4.1) g/dL Albumin/Globulin Ratio 1.4 (1.0-2.8) Amylase 55 (30-110) U/L Lipase 70 (23-300) U/L Urine RBC None seen (0-5/HPF) Urine WBC None seen (0-5/HPF) Amorphous Sediment 1+ Urine Bacteria None seen (None) Ur Culture Indicated? Cult not indicated Micro UA Comment Not Reportable 04/05/18 Range/Units 20:15 WBC (4.5-11.0) X10^3/uL RBC (4.0-5.2) X10^6/uL Hgb (12.0-16.0) g/dL Hct (36-46) % MCV (80-100) fL MCH (26-34) PG MCHC (30-36) % RDW (11.6-14.8) % Plt Count (150-400) X10^3/uL Neut % (Auto) (50-75) % Lymph % (Auto) (25-40) % Miller % (Auto) (3-14) % Eos % (Auto) (2-4) % Baso % (Auto) (0-2) % Neut # (Auto) (3321-2637) /uL Sodium (137-145) mmol/L Potassium (3.4-5.1) mmol/L Chloride (98-107) mmol/L Carbon Dioxide (22-32) mmol/L BUN (7-17) mg/dL Creatinine (0.52-1.04) mg/dL Estimated GFR (>60) mL/min BUN/Creatinine Ratio (6-22) Glucose (70-100) mg/dL Lactate 1.0 (0.7-2.1) mmol/L Calcium (8.4-10.2) mg/dL Total Bilirubin (0.2-1.3) mg/dL AST (14-36) IU/L ALT (9-52) IU/L Alkaline Phosphatase (38-126) U/L Total Protein (6.3-8.2) g/dL Albumin (3.5-5.0) g/dL Globulin (1.7-4.1) g/dL Albumin/Globulin Ratio (1.0-2.8) Amylase (30-110) U/L Lipase (23-300) U/L Urine RBC (0-5/HPF) Urine WBC (0-5/HPF) Amorphous Sediment Urine Bacteria (None) Ur Culture Indicated? Micro UA Comment Point of Care Testing Test Results Negative Urine Dip Bedside Urine Glucose Negative Bedside Urine Bilirubin - Negative Bedside Urine Ketone - Negative Urine Specific [place] 1.020 Bedside Urine Occult Blood +/- Bedside Urine pH 6.5 Bedside Urine Protein - Negative Bedside Urine Urobilinogen - Negative Bedside Urine Nitrite - Negative Bedside Urine Leukocytes - Negative Esterase Imaging Data CT scan - abdomen: Radiologist's impression: [address] [address] [address] Scan Report Signed Patient: Monique Newton [facility]#: [id number] : 1995Acct:[id number] Age/Sex: 22 / FDate of Service: 04/05/18 Loc: ED Accession Number: [id number] Procedure: CT abdomen pelvis w con Ordering Provider: Kirstin Santiago-BC PROCEDURE: CT ABDOMEN PELVIS W CON INDICATIONS: Abdominal pain TECHNIQUE: After the administration of intravenous contrast, 5 mm thick sections acquired from the diaphragm to the symphysis. 5 mm coronal and sagittal reformats were acquired. For radiation dose reduction, the following was used: automated exposure control, adjustment of mA and/or kV according to patient size. COMPARISON: [facility], CT, CT ABDOMEN PELVIS W CON, 01/13/2018, 19:07. FINDINGS: Image quality: Excellent. ABDOMEN: Lung bases: Lung bases are clear. Heart size is normal. Solid organs: No focal hepatic lesions identified. Gallbladder appears within normal limits. Biliary system is non dilated. Pancreas enhances normally. Spleen is normal in size and enhancement. No adrenal nodules. Kidneys demonstrate normal size and enhancement, without hydronephrosis. Peritoneum and bowel: There is mild gastric wall thickening with mild hyperemia of the gastric mucosa. Bowel loops demonstrate normal wall thickness and caliber. There are R. sutures along the medial aspect of the cecum likely from prior appendectomy. No free fluid or air. Nodes and vessels: No retroperitoneal or mesenteric adenopathy by size criteria. Aorta and inferior vena cava are normal in size. Miscellaneous: No ventral hernias. PELVIS: Genitourinary: Bladder wall thickness is normal. The uterus and ovaries appear within normal size limits. Miscellaneous: No inguinal hernias or adenopathy. Bones: No suspicious bony lesions. No vertebral body compression fractures. IMPRESSION: 1. Mild gastric wall thickening with mild mucosal enhancement compatible with a nonspecific gastritis. Recommend correlation clinically. Dictated by: Cristiano Chavez M.D. on 04/05/2018 at 21:46 Approved by: Cristiano Chavez M.D. on 04/05/2018 at 21:52 US - abdomen: Radiologist's impression: [address] [address] Ultrasound Report Signed Patient: Monique Newton [facility]#: [id number] : 1995Acct:[id number] Age/Sex: 22 / FDate of Service: 04/05/18 Loc: ED Accession Number: [id number] Procedure: US abdomen complete Ordering Provider: Kirstin Santiago PROCEDURE: US ABDOMEN COMPLETE INDICATIONS: PAIN TECHNIQUE: Real-time scanning was performed of the abdominal and retroperitoneal organs, with image documentation. COMPARISON: None. FINDINGS: Liver: Liver is normal in size and increased in echogenicity. Gallbladder: The gallbladder is partially distended. No gallstones, gallbladder wall thickening, or pericholecystic fluid. Biliary ducts: Intrahepatic bile ducts are non-dilated. Extrahepatic bile duct caliber measures up to 4 mm. Normal is 6-7 mm or less in diameter, or 10 mm or less post-cholecystectomy. Pancreas: Not well-seen due to bowel gas. Spleen: Spleen is normal in size and homogeneous in echotexture. Kidneys: Right kidney measures 10.3 cm long; left kidney measures 1.3 cm long. No hydronephrosis. Aorta: Visualized aorta is normal in caliber at less than 3 cm. Iliacs: Proximal common iliac arteries are normal in caliber at less than 2.5 cm. IVC: Intrahepatic inferior vena cava is patent. Miscellaneous: No free abdominal fluid. IMPRESSION: 1. Increased hepatic echogenicity compatible with steatosis. 2. Partially distended gallbladder without evidence of cholelithiasis or definite cholecystitis. Dictated by: Cristiano Chavez M.D. on 04/05/2018 at 21:17 Approved by: Cristiano Chavez M.D. on 04/05/2018 at 21:21 CT scan - pelvis: Radiologist's impression: [place] [address] Ultrasound Report Signed Patient: Monique Newton [facility]#: [id number] : 1995Acct:[id number] Age/Sex: 22 / FDate of Service: 04/05/18 Loc: ED Accession Number: [id number] Procedure: US pelvic complete Ordering Provider: Kirstin SantiagoBC PROCEDURE: US PELVIC COMPLETE INDICATIONS: PAIN TECHNIQUE: Real-time scanning was performed of the pelvic organs, with image documentation. Additional endovaginal scanning was necessary due to incomplete visualization of the adnexal and endometrial structures by transabdominal scanning. COMPARISON: [facility], US PELVIC COMPLETE, 02/12/2018, 17:22. FINDINGS: Transabdominal scanning: No pathologic free abdominal or pelvic fluid. Endovaginal scanning: Uterus: Uterus is normal in size at 6.8 x 3.5 x 4.4 cm. The endometrium measures 0.6 cm in combined thickness. Ovaries: The right ovary measures 2.5 x 1.5 x 1.8 cm and the left ovary measures 3.6 x 2.0 x 1.7 cm. There is an exophytic ovarian or paraovarian cyst measuring up to 1.4 cm. Patent arterial flow demonstrated in the ovaries on Doppler interrogation. IMPRESSION: 1. Normal sonographic study of the pelvis. Dictated by: Cristiano Chavez M.D. on 04/05/2018 at 21:21 Approved by: Cristiano Chavez M.D. on 04/05/2018 at 21:24 [facility] Narrative Medical decision making narrative: Patient is a 22-year-old female with chronic abdominal pain and endometriosis who presents with nausea vomiting diarrhea. She had a CBC, CMP and urinalysis done. All came back grossly within normal limits. Given the acuteness of her exam And significant medical surgical history, I did obtain an ultrasound of her abdomen and pelvic ultrasound as well as an abdominal pelvis CT scan. Her CT scan showed evidence of gastritis. I discussed at length with the patient her normal imaging and grossly normal lab work. She was again not able to provide a stool sample prior to discharge. I discussed that I would be willing to give her an order for 1 to bring in as an outpatient, but she [place] She was able to pass a p.o. challenge to keep down water prior to discharge. <Smitha Harmon MD - Last Filed: 04/06/18 00:45> Lab Data Lab Results 04/05/18 04/05/18 04/05/18 Range/Units 19:45 20:15 20:15 WBC 8.9 (4.5-11.0) X10^3/uL RBC 4.62 (4.0-5.2) X10^6/uL Hgb 14.2 (12.0-16.0) g/dL Hct 42.2 (36-46) % MCV 91.5 (80-100) fL MCH 30.7 (26-34) PG MCHC 33.6 (30-36) % RDW 13.6 (11.6-14.8) % Plt Count 373 (150-400) X10^3/uL Neut % (Auto) 61.7 (50-75) % Lymph % (Auto) 29.6 (25-40) % Miller % (Auto) 7.4 (3-14) % Eos % (Auto) 0.8 L (2-4) % Baso % (Auto) 0.5 (0-2) % Neut # (Auto) 5500 (4346-1581) /uL Sodium 144 (137-145) mmol/L Potassium 3.5 (3.4-5.1) mmol/L Chloride 103 (98-107) mmol/L Carbon Dioxide 26 (22-32) mmol/L BUN 11 (7-17) mg/dL Creatinine 0.80 (0.52-1.04) mg/dL Estimated GFR > 60.0 (>60) mL/min BUN/Creatinine Ratio 13.8 (6-22) Glucose 92 (70-100) mg/dL Lactate (0.7-2.1) mmol/L Calcium 9.6 (8.4-10.2) mg/dL Total Bilirubin 0.5 (0.2-1.3) mg/dL AST 29 (14-36) IU/L ALT 34 (9-52) IU/L Alkaline Phosphatase 93 (38-126) U/L Total Protein 7.9 (6.3-8.2) g/dL Albumin 4.6 (3.5-5.0) g/dL Globulin 3.3 (1.7-4.1) g/dL Albumin/Globulin Ratio 1.4 (1.0-2.8) Amylase 55 (30-110) U/L Lipase 70 (23-300) U/L Urine RBC None seen (0-5/HPF) Urine WBC None seen (0-5/HPF) Amorphous Sediment 1+ Urine Bacteria None seen (None) Ur Culture Indicated? Cult not indicated Micro UA Comment Not Reportable 04/05/18 Range/Units 20:15 WBC (4.5-11.0) X10^3/uL RBC (4.0-5.2) X10^6/uL Hgb (12.0-16.0) g/dL Hct (36-46) % MCV (80-100) fL MCH (26-34) PG MCHC (30-36) % RDW (11.6-14.8) % Plt Count (150-400) X10^3/uL Neut % (Auto) (50-75) % Lymph % (Auto) (25-40) % Miller % (Auto) (3-14) % Eos % (Auto) (2-4) % Baso % (Auto) (0-2) % Neut # (Auto) (2808-2612) /uL Sodium (137-145) mmol/L Potassium (3.4-5.1) mmol/L Chloride (98-107) mmol/L Carbon Dioxide (22-32) mmol/L BUN (7-17) mg/dL Creatinine (0.52-1.04) mg/dL Estimated GFR (>60) mL/min BUN/Creatinine Ratio (6-22) Glucose (70-100) mg/dL Lactate 1.0 (0.7-2.1) mmol/L Calcium (8.4-10.2) mg/dL Total Bilirubin (0.2-1.3) mg/dL AST (14-36) IU/L ALT (9-52) IU/L Alkaline Phosphatase (38-126) U/L Total Protein (6.3-8.2) g/dL Albumin (3.5-5.0) g/dL Globulin (1.7-4.1) g/dL Albumin/Globulin Ratio (1.0-2.8) Amylase (30-110) U/L Lipase (23-300) U/L Urine RBC (0-5/HPF) Urine WBC (0-5/HPF) Amorphous Sediment Urine Bacteria (None) Ur Culture Indicated? Micro UA Comment Point of Care Testing Test Results Negative Urine Dip Bedside Urine Glucose Negative Bedside Urine Bilirubin - Negative Bedside Urine Ketone - Negative Urine Specific [place] 1.020 Bedside Urine Occult Blood +/- Bedside Urine pH 6.5 Bedside Urine Protein - Negative Bedside Urine Urobilinogen - Negative Bedside Urine Nitrite - Negative Bedside Urine Leukocytes - Negative Esterase Discharge Plan Departure Patient Disposition: Home Clinical Impression: Abdominal pain, Nausea & vomiting Discharge Date/Time: 04/05/18 23:08 Interventions: ED Discharge Assessment Last Done: 04/05/18 23:07 Instructions: DI for Abdominal Pain-Adult, DI for Nausea -- Adult, DI for Vomiting -- Adult Activity Restrictions/Additional Instructions: All of your lab work came back mostly normal today. Your potassium was on the low end of normal, so I gave you a dose the emergency department. Your white blood cell count was not elevated and her urine was normal. Your imaging all came back mostly normal. We gave you some nausea medication, some pain medication and 2 L of fluid. Please follow-up with primary care physician tomorrow. I am giving a take home pack of Zofran to take if needed. Please follow-up with primary care physician tomorrow. Prescriptions: No Action biotin 1 cap PO DAILY RF: 0 norethindrone-e.estradiol-iron 1 mg-20 mcg (21)/75 mg (7) tablet 1 tab PO DAILY RF: 0 tramadol 50 mg tablet 50 mg PO Q4H PRN (Reason: Pain, Moderate) Qty: 30 RF: 0 ondansetron 8 mg tablet,disintegrating 8 mg PO TID PRN (Reason: nausea and vomiting) Qty: 30 RF: 0 Referrals: [facility] [Provider Group]
--- NOTE | 2018-04-05 20:17 | ED_ITS ---
HPI - Nausea/Vomiting/Diarrhea <JOE Solitario - Last Filed: 04/05/18 22:35> General Chief complaint: Nausea/Vomiting/Diarrhea Stated complaint: abdominal pain, vomiting,diarrhea Time Seen by Provider: 04/05/18 19:43 Source: patient Mode of arrival: ambulatory Limitations: no limitations History of Present Illness HPI Narrative: Patient is a patient is a single 22-year-old female with history of endometriosis was is current smoker who presents with a chief complaint of lower abdominal pain, nausea vomiting diarrhea. She has a history of multiple visits to this and other emergency departments and has an ELLI report for frequent visits. She presents today with chief complaint of lower abdominal pain and cramping that started yesterday and severe nausea vomiting diarrhea started today. She states that her vomiting has been almost continual since 2:00 a.m. this afternoon and that she has had for 5 episodes of diarrhea. She states that she has nausea vomiting and diarrhea episodes with her endometriosis. She states she was recently started on medications for H pylori after she had a colonoscopy an endoscope done by GI recently. She is not sure what medication she is taking. She also had her appendix out this past fall. She denies possibility of . She denies concerned about STIs. She denies subjective fever but complains of hot flashes and chills. Related Data Home Medications Medication Instructions Recorded Confirmed biotin 1 cap PO DAILY 02/12/18 03/02/18 norethindrone-e.estradiol-iron 1 tab PO DAILY 03/02/18 03/02/18 Previous Rx's Medication Instructions Recorded ondansetron 8 mg PO TID PRN #30 tab 03/03/18 tramadol 50 mg PO Q4H PRN #30 tab 03/03/18 Allergies Allergy/AdvReac Type Severity Reaction Status Date / Time Sulfa (Sulfonamide Allergy Verified 04/05/18 19:35 Antibiotics) Review of Systems <JOE Solitario - Last Filed: 04/05/18 22:35> Review of Systems GENERAL: Denies chills, fatigue, malaise, fever, sweats. HEENT: Denies sinus pain, ear pain, sore throat, difficulty swallowing, dizziness. RESPIRATORY: Denies dyspnea, cough, wheezing, hemoptysis, sputum. CARDIOVASCULAR: Denies chest pain, palpitations, orthopnea, edema, GASTROINTESTINAL: see HPI : See HPI MUSCULOSKELETAL: denies weakness, joint pain, or bony pain SKIN: Denies rash, skin lesions, or other NEUROLOGIC: Denies weakness, headache, numbness, change in speech, confusion, seizures, incoordination. PSYCHIATRIC: No concerning psychosocial issues. 12 point review of systems is negative except for those stated above Exam <Kirstin JamisonLUCHO champion-BC - Last Filed: 04/05/18 22:35> Narrative Exam Narrative: GENERAL: This is a well-nourished, well-developed patient, holding a vomit bag HEAD: Atraumatic. Normocephalic. No temporal or scalp tenderness. EYES: Pupils equal round and reactive. Extraocular motions intact. No scleral icterus. No injection or drainage. ENT: Nose without bleeding, purulent drainage or septal hematoma. Throat without erythema, tonsillar hypertrophy or exudate. Uvula midline. Airway patent. NECK: Trachea midline. No JVD or lymphadenopathy. Supple, nontender, no meningeal signs. CARDIOVASCULAR: Regular rate and rhythm without murmurs, gallops, or rubs. RESPIRATORY: Clear to auscultation. Breath sounds equal bilaterally. No wheezes , rales, or rhonchi. GASTROINTESTINAL: Abdomen soft,, nondistended. No hepato-splenomegaly, or palpable masses. No guarding. diffuse tenderness to lower left suprapubic and lower right quadrants. EXTREMITIES: No clubbing, cyanosis, or edema. No joint tenderness, effusion, or edema noted. BACK: Nontender without deformity or crepitance. No flank tenderness. NEURO: AOx3. SKIN: No rash or erythema. Initial Vital Signs Initial Vital Signs: Vital Signs Temperature 98.6 F 04/05/18 19:29 Pulse Rate 90 04/05/18 19:29 Respiratory Rate 24 04/05/18 19:29 Blood Pressure 130/91 H 04/05/18 19:29 Pulse Oximetry 100 04/05/18 19:29 <Smitha Harmon MD - Last Filed: 04/06/18 00:45> Initial Vital Signs Initial Vital Signs: Vital Signs Temperature 98.6 F 04/05/18 19:29 Pulse Rate 90 04/05/18 19:29 Respiratory Rate 24 04/05/18 19:29 Blood Pressure 130/91 H 04/05/18 19:29 Pulse Oximetry 100 04/05/18 19:29 Course <Kirstin Santiago, VP OF [employer]-BC - Last Filed: 04/05/18 22:35> Course Narrative: I checked on the patient several times throughout her stay in the emergency department. She was given 2 L of IVF as well as several doses of Zofran and Reglan as well as a dose of hydromorphone. She did present complaining of profuse diarrhea, but was not able to provide a stool sample throughout her stay in the emergency department. Orders Ordered: ED Orders 04/05/18 19:45 Urine Microscopic Stat 04/05/18 19:57 US abdomen complete Stat US pelvic complete Stat 04/05/18 20:15 Amylase Stat Complete Blood Count AUTO DIFF Stat Comprehensive Metabolic Panel Stat Lactate (Lactic Acid) Stat Lipase Stat 04/05/18 21:15 CT abdomen pelvis w con Stat Discontinued Medications Hydromorphone HCl (Dilaudid) 1 mg IV NOW ONE Stop: 04/05/18 21:09 Last Admin: 04/05/18 21:16 Dose: 1 mg Sodium Chloride (Normal Saline 0.9%) 1,000 mls @ 1,000 mls/hr IV BOLUS ONE Stop: 04/05/18 20:52 Last Infusion: 04/05/18 21:18 Dose: 0 mls/hr Admin: 04/05/18 20:19 Dose: 1,000 mls/hr Sodium Chloride (Normal Saline 0.9%) 1,000 mls @ 1,000 mls/hr IV BOLUS ONE Stop: 04/05/18 22:15 Last Infusion: 04/05/18 23:07 Dose: 0 mls/hr Admin: 04/05/18 21:18 Dose: 1,000 mls/hr Metoclopramide HCl (Reglan) 10 mg IV NOW ONE Stop: 04/05/18 21:46 Last Admin: 04/05/18 22:00 Dose: 10 mg Ondansetron HCl (Zofran) 4 mg IV NOW ONE Stop: 04/05/18 19:54 Last Admin: 04/05/18 20:19 Dose: 4 mg Ondansetron HCl (Zofran) 4 mg IV NOW ONE Stop: 04/05/18 21:24 Last Admin: 04/05/18 21:24 Dose: 4 mg Ondansetron HCl (Zofran Odt Prepack) 1 bottle MISC SEEINSTR ONE Stop: 04/05/18 22:31 Last Admin: 04/05/18 22:40 Dose: 1 bottle Potassium Chloride (Klor-Con M10) 20 meq PO NOW ONE Stop: 04/05/18 22:33 Last Admin: 04/05/18 22:39 Dose: 20 meq Vital Signs - 8 hr 04/05/18 19:29 04/05/18 20:58 04/05/18 23:07 Temperature 98.6 F Pulse Rate 90 72 68 Respiratory Rate 24 19 16 Blood Pressure 130/91 H 124/77 Blood Pressure [Right Arm] 130/81 Pulse Oximetry 100 100 100 <Smitha Harmon MD - Last Filed: 04/06/18 00:45> Orders Ordered: ED Orders 04/05/18 19:45 Urine Microscopic Stat 04/05/18 19:57 US abdomen complete Stat US pelvic complete Stat 04/05/18 20:15 Amylase Stat Complete Blood Count AUTO DIFF Stat Comprehensive Metabolic Panel Stat Lactate (Lactic Acid) Stat Lipase Stat 04/05/18 21:15 CT abdomen pelvis w con Stat Discontinued Medications Hydromorphone HCl (Dilaudid) 1 mg IV NOW ONE Stop: 04/05/18 21:09 Last Admin: 04/05/18 21:16 Dose: 1 mg Sodium Chloride (Normal Saline 0.9%) 1,000 mls @ 1,000 mls/hr IV BOLUS ONE Stop: 04/05/18 20:52 Last Infusion: 04/05/18 21:18 Dose: 0 mls/hr Admin: 04/05/18 20:19 Dose: 1,000 mls/hr Sodium Chloride (Normal Saline 0.9%) 1,000 mls @ 1,000 mls/hr IV BOLUS ONE Stop: 04/05/18 22:15 Last Infusion: 04/05/18 23:07 Dose: 0 mls/hr Admin: 04/05/18 21:18 Dose: 1,000 mls/hr Metoclopramide HCl (Reglan) 10 mg IV NOW ONE Stop: 04/05/18 21:46 Last Admin: 04/05/18 22:00 Dose: 10 mg Ondansetron HCl (Zofran) 4 mg IV NOW ONE Stop: 04/05/18 19:54 Last Admin: 04/05/18 20:19 Dose: 4 mg Ondansetron HCl (Zofran) 4 mg IV NOW ONE Stop: 04/05/18 21:24 Last Admin: 04/05/18 21:24 Dose: 4 mg Ondansetron HCl (Zofran Odt Prepack) 1 bottle MISC SEEINSTR ONE Stop: 04/05/18 22:31 Last Admin: 04/05/18 22:40 Dose: 1 bottle Potassium Chloride (Klor-Con M10) 20 meq PO NOW ONE Stop: 04/05/18 22:33 Last Admin: 04/05/18 22:39 Dose: 20 meq Vital Signs - 8 hr 04/05/18 19:29 04/05/18 20:58 04/05/18 23:07 Temperature 98.6 F Pulse Rate 90 72 68 Respiratory Rate 24 19 16 Blood Pressure 130/91 H 124/77 Blood Pressure [Right Arm] 130/81 Pulse Oximetry 100 100 100 MDM - Nausea/Vomiting/Diarrhea <LUCHO Solitario- - Last Filed: 04/05/18 22:35> Lab Data Result diagrams: 04/05/18 20:15 04/05/18 20:15 Lab Results 04/05/18 04/05/18 04/05/18 Range/Units 19:45 20:15 20:15 WBC 8.9 (4.5-11.0) X10^3/uL RBC 4.62 (4.0-5.2) X10^6/uL Hgb 14.2 (12.0-16.0) g/dL Hct 42.2 (36-46) % MCV 91.5 (80-100) fL MCH 30.7 (26-34) PG MCHC 33.6 (30-36) % RDW 13.6 (11.6-14.8) % Plt Count 373 (150-400) X10^3/uL Neut % (Auto) 61.7 (50-75) % Lymph % (Auto) 29.6 (25-40) % [place] % (Auto) 7.4 (3-14) % Eos % (Auto) 0.8 L (2-4) % Baso % (Auto) 0.5 (0-2) % Neut # (Auto) 5500 (7584-3533) /uL Sodium 144 (137-145) mmol/L Potassium 3.5 (3.4-5.1) mmol/L Chloride 103 (98-107) mmol/L Carbon Dioxide 26 (22-32) mmol/L BUN 11 (7-17) mg/dL Creatinine 0.80 (0.52-1.04) mg/dL Estimated GFR > 60.0 (>60) mL/min BUN/Creatinine Ratio 13.8 (6-22) Glucose 92 (70-100) mg/dL Lactate (0.7-2.1) mmol/L Calcium 9.6 (8.4-10.2) mg/dL Total Bilirubin 0.5 (0.2-1.3) mg/dL AST 29 (14-36) IU/L ALT 34 (9-52) IU/L Alkaline Phosphatase 93 (38-126) U/L Total Protein 7.9 (6.3-8.2) g/dL Albumin 4.6 (3.5-5.0) g/dL Globulin 3.3 (1.7-4.1) g/dL Albumin/Globulin Ratio 1.4 (1.0-2.8) Amylase 55 (30-110) U/L Lipase 70 (23-300) U/L Urine RBC None seen (0-5/HPF) Urine WBC None seen (0-5/HPF) Amorphous Sediment 1+ Urine Bacteria None seen (None) Ur Culture Indicated? Cult not indicated Micro UA Comment Not Reportable 04/05/18 Range/Units 20:15 WBC (4.5-11.0) X10^3/uL RBC (4.0-5.2) X10^6/uL Hgb (12.0-16.0) g/dL Hct (36-46) % MCV (80-100) fL MCH (26-34) PG MCHC (30-36) % RDW (11.6-14.8) % Plt Count (150-400) X10^3/uL Neut % (Auto) (50-75) % Lymph % (Auto) (25-40) % [place] % (Auto) (3-14) % Eos % (Auto) (2-4) % Baso % (Auto) (0-2) % Neut # (Auto) (9693-5257) /uL Sodium (137-145) mmol/L Potassium (3.4-5.1) mmol/L Chloride (98-107) mmol/L Carbon Dioxide (22-32) mmol/L BUN (7-17) mg/dL Creatinine (0.52-1.04) mg/dL Estimated GFR (>60) mL/min BUN/Creatinine Ratio (6-22) Glucose (70-100) mg/dL Lactate 1.0 (0.7-2.1) mmol/L Calcium (8.4-10.2) mg/dL Total Bilirubin (0.2-1.3) mg/dL AST (14-36) IU/L ALT (9-52) IU/L Alkaline Phosphatase (38-126) U/L Total Protein (6.3-8.2) g/dL Albumin (3.5-5.0) g/dL Globulin (1.7-4.1) g/dL Albumin/Globulin Ratio (1.0-2.8) Amylase (30-110) U/L Lipase (23-300) U/L Urine RBC (0-5/HPF) Urine WBC (0-5/HPF) Amorphous Sediment Urine Bacteria (None) Ur Culture Indicated? Micro UA Comment Point of Care Testing Test Results Negative Urine Dip Bedside Urine Glucose Negative Bedside Urine Bilirubin - Negative Bedside Urine Ketone - Negative Urine Specific [place] 1.020 Bedside Urine Occult Blood +/- Bedside Urine pH 6.5 Bedside Urine Protein - Negative Bedside Urine Urobilinogen - Negative Bedside Urine Nitrite - Negative Bedside Urine Leukocytes - Negative Esterase Imaging Data CT scan - abdomen: Radiologist's impression: [address] [address] [address] Scan Report Signed Patient: Monique Newton [facility]#: [id number] : 1995Acct:[id number] Age/Sex: 22 / FDate of Service: 04/05/18 Loc: ED Accession Number: [id number] Procedure: CT abdomen pelvis w con Ordering Provider: Kirstin Santiago-BC PROCEDURE: CT ABDOMEN PELVIS W CON INDICATIONS: Abdominal pain TECHNIQUE: After the administration of intravenous contrast, 5 mm thick sections acquired from the diaphragm to the symphysis. 5 mm coronal and sagittal reformats were acquired. For radiation dose reduction, the following was used: automated exposure control, adjustment of mA and/or kV according to patient size. COMPARISON: [facility], CT, CT ABDOMEN PELVIS W CON, 01/13/2018, 19:07. FINDINGS: Image quality: Excellent. ABDOMEN: Lung bases: Lung bases are clear. Heart size is normal. Solid organs: No focal hepatic lesions identified. Gallbladder appears within normal limits. Biliary system is non dilated. Pancreas enhances normally. Spleen is normal in size and enhancement. No adrenal nodules. Kidneys demonstrate normal size and enhancement, without hydronephrosis. Peritoneum and bowel: There is mild gastric wall thickening with mild hyperemia of the gastric mucosa. Bowel loops demonstrate normal wall thickness and caliber. There are R. sutures along the medial aspect of the cecum likely from prior appendectomy. No free fluid or air. Nodes and vessels: No retroperitoneal or mesenteric adenopathy by size criteria. Aorta and inferior vena cava are normal in size. Miscellaneous: No ventral hernias. PELVIS: Genitourinary: Bladder wall thickness is normal. The uterus and ovaries appear within normal size limits. Miscellaneous: No inguinal hernias or adenopathy. Bones: No suspicious bony lesions. No vertebral body compression fractures. IMPRESSION: 1. Mild gastric wall thickening with mild mucosal enhancement compatible with a nonspecific gastritis. Recommend correlation clinically. Dictated by: Cristiano Chavez M.D. on 04/05/2018 at 21:46 Approved by: Cristiano Chavez M.D. on 04/05/2018 at 21:52 US - abdomen: Radiologist's impression: [address] [address] Ultrasound Report Signed Patient: Monique Newton [facility]#: [id number] : 1995Acct:[id number] Age/Sex: 22 / FDate of Service: 04/05/18 Loc: ED Accession Number: [id number] Procedure: US abdomen complete Ordering Provider: Kirstin Santiago PROCEDURE: US ABDOMEN COMPLETE INDICATIONS: PAIN TECHNIQUE: Real-time scanning was performed of the abdominal and retroperitoneal organs, with image documentation. COMPARISON: None. FINDINGS: Liver: Liver is normal in size and increased in echogenicity. Gallbladder: The gallbladder is partially distended. No gallstones, gallbladder wall thickening, or pericholecystic fluid. Biliary ducts: Intrahepatic bile ducts are non-dilated. Extrahepatic bile duct caliber measures up to 4 mm. Normal is 6-7 mm or less in diameter, or 10 mm or less post-cholecystectomy. Pancreas: Not well-seen due to bowel gas. Spleen: Spleen is normal in size and homogeneous in echotexture. Kidneys: Right kidney measures 10.3 cm long; left kidney measures 1.3 cm long. No hydronephrosis. Aorta: Visualized aorta is normal in caliber at less than 3 cm. Iliacs: Proximal common iliac arteries are normal in caliber at less than 2.5 cm. IVC: Intrahepatic inferior vena cava is patent. Miscellaneous: No free abdominal fluid. IMPRESSION: 1. Increased hepatic echogenicity compatible with steatosis. 2. Partially distended gallbladder without evidence of cholelithiasis or definite cholecystitis. Dictated by: Cristiano Chavez M.D. on 04/05/2018 at 21:17 Approved by: Cristiano Chavez M.D. on 04/05/2018 at 21:21 CT scan - pelvis: Radiologist's impression: [place] [address] Ultrasound Report Signed Patient: Monique Newton [facility]#: [id number] : 1995Acct:[id number] Age/Sex: 22 / FDate of Service: 04/05/18 Loc: ED Accession Number: [id number] Procedure: US pelvic complete Ordering Provider: Kirstin SantiagoBC PROCEDURE: US PELVIC COMPLETE INDICATIONS: PAIN TECHNIQUE: Real-time scanning was performed of the pelvic organs, with image documentation. Additional endovaginal scanning was necessary due to incomplete visualization of the adnexal and endometrial structures by transabdominal scanning. COMPARISON: [facility], US PELVIC COMPLETE, 02/12/2018, 17:22. FINDINGS: Transabdominal scanning: No pathologic free abdominal or pelvic fluid. Endovaginal scanning: Uterus: Uterus is normal in size at 6.8 x 3.5 x 4.4 cm. The endometrium measures 0.6 cm in combined thickness. Ovaries: The right ovary measures 2.5 x 1.5 x 1.8 cm and the left ovary measures 3.6 x 2.0 x 1.7 cm. There is an exophytic ovarian or paraovarian cyst measuring up to 1.4 cm. Patent arterial flow demonstrated in the ovaries on Doppler interrogation. IMPRESSION: 1. Normal sonographic study of the pelvis. Dictated by: Cristiano Chavez M.D. on 04/05/2018 at 21:21 Approved by: Cristiano Chavez M.D. on 04/05/2018 at 21:24 [facility] Narrative Medical decision making narrative: Patient is a 22-year-old female with chronic abdominal pain and endometriosis who presents with nausea vomiting diarrhea. She had a CBC, CMP and urinalysis done. All came back grossly within normal limits. Given the acuteness of her exam And significant medical surgical history, I did obtain an ultrasound of her abdomen and pelvic ultrasound as well as an abdominal pelvis CT scan. Her CT scan showed evidence of gastritis. I discussed at length with the patient her normal imaging and grossly normal lab work. She was again not able to provide a stool sample prior to discharge. I discussed that I would be willing to give her an order for 1 to bring in as an outpatient, but she [place] She was able to pass a p.o. challenge to keep down water prior to discharge. <Smitha Harmon MD - Last Filed: 04/06/18 00:45> Lab Data Lab Results 04/05/18 04/05/18 04/05/18 Range/Units 19:45 20:15 20:15 WBC 8.9 (4.5-11.0) X10^3/uL RBC 4.62 (4.0-5.2) X10^6/uL Hgb 14.2 (12.0-16.0) g/dL Hct 42.2 (36-46) % MCV 91.5 (80-100) fL MCH 30.7 (26-34) PG MCHC 33.6 (30-36) % RDW 13.6 (11.6-14.8) % Plt Count 373 (150-400) X10^3/uL Neut % (Auto) 61.7 (50-75) % Lymph % (Auto) 29.6 (25-40) % [place] % (Auto) 7.4 (3-14) % Eos % (Auto) 0.8 L (2-4) % Baso % (Auto) 0.5 (0-2) % Neut # (Auto) 5500 (0818-3375) /uL Sodium 144 (137-145) mmol/L Potassium 3.5 (3.4-5.1) mmol/L Chloride 103 (98-107) mmol/L Carbon Dioxide 26 (22-32) mmol/L BUN 11 (7-17) mg/dL Creatinine 0.80 (0.52-1.04) mg/dL Estimated GFR > 60.0 (>60) mL/min BUN/Creatinine Ratio 13.8 (6-22) Glucose 92 (70-100) mg/dL Lactate (0.7-2.1) mmol/L Calcium 9.6 (8.4-10.2) mg/dL Total Bilirubin 0.5 (0.2-1.3) mg/dL AST 29 (14-36) IU/L ALT 34 (9-52) IU/L Alkaline Phosphatase 93 (38-126) U/L Total Protein 7.9 (6.3-8.2) g/dL Albumin 4.6 (3.5-5.0) g/dL Globulin 3.3 (1.7-4.1) g/dL Albumin/Globulin Ratio 1.4 (1.0-2.8) Amylase 55 (30-110) U/L Lipase 70 (23-300) U/L Urine RBC None seen (0-5/HPF) Urine WBC None seen (0-5/HPF) Amorphous Sediment 1+ Urine Bacteria None seen (None) Ur Culture Indicated? Cult not indicated Micro UA Comment Not Reportable 04/05/18 Range/Units 20:15 WBC (4.5-11.0) X10^3/uL RBC (4.0-5.2) X10^6/uL Hgb (12.0-16.0) g/dL Hct (36-46) % MCV (80-100) fL MCH (26-34) PG MCHC (30-36) % RDW (11.6-14.8) % Plt Count (150-400) X10^3/uL Neut % (Auto) (50-75) % Lymph % (Auto) (25-40) % [place] % (Auto) (3-14) % Eos % (Auto) (2-4) % Baso % (Auto) (0-2) % Neut # (Auto) (3426-6856) /uL Sodium (137-145) mmol/L Potassium (3.4-5.1) mmol/L Chloride (98-107) mmol/L Carbon Dioxide (22-32) mmol/L BUN (7-17) mg/dL Creatinine (0.52-1.04) mg/dL Estimated GFR (>60) mL/min BUN/Creatinine Ratio (6-22) Glucose (70-100) mg/dL Lactate 1.0 (0.7-2.1) mmol/L Calcium (8.4-10.2) mg/dL Total Bilirubin (0.2-1.3) mg/dL AST (14-36) IU/L ALT (9-52) IU/L Alkaline Phosphatase (38-126) U/L Total Protein (6.3-8.2) g/dL Albumin (3.5-5.0) g/dL Globulin (1.7-4.1) g/dL Albumin/Globulin Ratio (1.0-2.8) Amylase (30-110) U/L Lipase (23-300) U/L Urine RBC (0-5/HPF) Urine WBC (0-5/HPF) Amorphous Sediment Urine Bacteria (None) Ur Culture Indicated? Micro UA Comment Point of Care Testing Test Results Negative Urine Dip Bedside Urine Glucose Negative Bedside Urine Bilirubin - Negative Bedside Urine Ketone - Negative Urine Specific [place] 1.020 Bedside Urine Occult Blood +/- Bedside Urine pH 6.5 Bedside Urine Protein - Negative Bedside Urine Urobilinogen - Negative Bedside Urine Nitrite - Negative Bedside Urine Leukocytes - Negative Esterase Discharge Plan Departure Patient Disposition: Home Clinical Impression: Abdominal pain, Nausea & vomiting Discharge Date/Time: 04/05/18 23:08 Interventions: ED Discharge Assessment Last Done: 04/05/18 23:07 Instructions: DI for Abdominal Pain-Adult, DI for Nausea -- Adult, DI for Vomiting -- Adult Activity Restrictions/Additional Instructions: All of your lab work came back mostly normal today. Your potassium was on the low end of normal, so I gave you a dose the emergency department. Your white blood cell count was not elevated and her urine was normal. Your imaging all came back mostly normal. We gave you some nausea medication, some pain medication and 2 L of fluid. Please follow-up with primary care physician tomorrow. I am giving a take home pack of Zofran to take if needed. Please follow-up with primary care physician tomorrow. Prescriptions: No Action biotin 1 cap PO DAILY RF: 0 norethindrone-e.estradiol-iron 1 mg-20 mcg (21)/75 mg (7) tablet 1 tab PO DAILY RF: 0 tramadol 50 mg tablet 50 mg PO Q4H PRN (Reason: Pain, Moderate) Qty: 30 RF: 0 ondansetron 8 mg tablet,disintegrating 8 mg PO TID PRN (Reason: nausea and vomiting) Qty: 30 RF: 0 Referrals: [facility] [Provider Group]
[2018-04-05] MEDS: ONDANSETRON 4 MG/2 ML INJ IV ×2 (20:19→21:24)
[2018-04-05] MEDS: SODIUM CHLORIDE 0.9% 1,000 ML 1000 ML IV ×2 (20:19→21:18)
[2018-04-05 20:21] LABS: Amorphous Sediment Urine 1+; Culture Indicated Urine Cult Not Indicated
[2018-04-05 20:30] LABS: Add Manual Diff / Slide Review NO; Basophils Percent Auto 0.5 % (0-2); Eosinophils Percent Auto 0.8 % (2-4); Hematocrit 42.2 % (36-46); Hemoglobin 14.2 g/dL (12.0-16.0); Lymphocytes Percent Auto 29.6 % (25-40); Mean Corpuscular HGB Conc 33.6 % (30-36); Mean Corpuscular Hemoglobin 30.7 PG (26-34); Mean Corpuscular Volume 91.5 fL (80-100); Monocytes Percent Auto 7.4 % (3-14); Neutrophils Absolute Auto 5500 /uL (3000-5900); Neutrophils Percent Auto 61.7 % (50-75); Platelet Count 373 X10^3/uL (150-400); Red Blood Cell Count 4.62 X10^6/uL (4.0-5.2); Red Cell Distribution Width 13.6 % (11.6-14.8); White Blood Cell Count 8.9 X10^3/uL (4.5-11.0)
[2018-04-05 20:47] LABS: Alanine Aminotransferase 34 IU/L (9-52); Albumin 4.6 g/dL (3.5-5.0); Albumin Globulin Ratio 1.4 (1.0-2.8); Alkaline Phosphatase 93 U/L (38-126); Amylase 55 U/L (30-110); Aspartate Aminotransferase 29 IU/L (14-36); BUN Creatinine Ratio 13.8 (6-22); Bilirubin Total 0.5 mg/dL (0.2-1.3); Blood Urea Nitrogen 11 mg/dL (7-17); Calcium 9.6 mg/dL (8.4-10.2); Carbon Dioxide 26 mmol/L (22-32); Chloride 103 mmol/L (98-107); Estimated Glomerular Filt Rate > 60.0 mL/min (>60); Globulin 3.3 g/dL (1.7-4.1); Glucose 92 mg/dL (70-100); HEMOLYSIS < 15 (0-50); Lipase 70 U/L (23-300); Potassium 3.5 mmol/L (3.4-5.1); Sodium 144 mmol/L (137-145); Total Protein 7.9 g/dL (6.3-8.2)
[2018-04-05 20:58] VITALS: BP 130/81; PULSE 72; RESP 19; O2SAT 100
--- NOTE | 2018-04-05 21:15 | DI.CT.S_ITS ---
PROCEDURE: CT ABDOMEN PELVIS W CON INDICATIONS: Abdominal pain TECHNIQUE: After the administration of intravenous contrast, 5 mm thick sections acquired from the diaphragm to the symphysis. 5 mm coronal and sagittal reformats were acquired. For radiation dose reduction, the following was used: automated exposure control, adjustment of mA and/or kV according to patient size. COMPARISON: [facility], CT, CT ABDOMEN PELVIS W CON, 01/13/2018, 19:07. FINDINGS: Image quality: Excellent. ABDOMEN: Lung bases: Lung bases are clear. Heart size is normal. Solid organs: No focal hepatic lesions identified. Gallbladder appears within normal limits. Biliary system is non dilated. Pancreas enhances normally. Spleen is normal in size and enhancement. No adrenal nodules. Kidneys demonstrate normal size and enhancement, without hydronephrosis. Peritoneum and bowel: There is mild gastric wall thickening with mild hyperemia of the gastric mucosa. Bowel loops demonstrate normal wall thickness and caliber. There are R. sutures along the medial aspect of the cecum likely from prior appendectomy. No free fluid or air. Nodes and vessels: No retroperitoneal or mesenteric adenopathy by size criteria. Aorta and inferior vena cava are normal in size. Miscellaneous: No ventral hernias. PELVIS: Genitourinary: Bladder wall thickness is normal. The uterus and ovaries appear within normal size limits. Miscellaneous: No inguinal hernias or adenopathy. Bones: No suspicious bony lesions. No vertebral body compression fractures. IMPRESSION: 1. Mild gastric wall thickening with mild mucosal enhancement compatible with a nonspecific gastritis. Recommend correlation clinically. Dictated by: Cristiano Chavez M.D. on 04/05/2018 at 21:46 Approved by: Cristiano Chavez M.D. on 04/05/2018 at 21:52
[2018-04-05] MEDS: HYDROMORPHONE 1 MG INJ IV (21:16)
[2018-04-05] MEDS: METOCLOPRAMIDE 10 MG/2 ML INJ IV (22:00)
--- NOTE | 2018-04-05 22:13 | PC.NURSE ---
Pt ambulated to [facility]. Was not able to produce stool sample. Pamela notified.
[2018-04-05] MEDS: POTASSIUM CHLORIDE 10 MEQ TAB 20 MEQ PO (22:39)
[2018-04-05] MEDS: ONDANSETRON 4 MG ODT PREPACK 1 BOTTLE MISC (22:40)
--- NOTE | 2018-04-05 22:44 | PC.NURSE ---
Pt is unable to provide stool sample. Provider aware.
[2018-04-05 23:07] VITALS: BP 124/77; PULSE 68; RESP 16; O2SAT 100
== END 2018-04-05 23:08 | disposition home or self-care (01) ==
PROVIDERS: Emergency Provider Nurse Practitioner Family
DX: R10.9 Unspecified abdominal pain (principal); R11.2 Nausea with vomiting, unspecified
CPT/HCPCS: 36591; 74177; 76700; 76830; 76856; 80053; 81003; 81015; 81025; 82150; 83605; 83690; 85025; 96361; 96374; 96375; 96376; 99283; 99285; J1170; J2405; J2765; Q9967

== ENCOUNTER 2018-05-15 00:36 | Emergency (ER) | payer OTHER, SELFPAY ==
[2018-03-02 18:05] VITALS: BMI 34.2
[2018-05-15 00:45] VITALS: BP 126/83; PULSE 101; RESP 18; TEMP 36.1; O2SAT 99; BMI 33.6
[2018-05-15 02:59] VITALS: BP 130/66; PULSE 99; O2SAT 99
--- NOTE | 2018-05-15 04:29 | DI.US.S_ITS ---
PROCEDURE: US PELVIC COMPLETE INDICATIONS: acutely worsened R pelvic pain TECHNIQUE: Real-time scanning was performed of the pelvic organs, with image documentation. Additional endovaginal scanning was necessary due to incomplete visualization of the adnexal and endometrial structures by transabdominal scanning. COMPARISON: None. FINDINGS: Transabdominal scanning: Limited scanning through the kidneys shows no hydronephrosis. No pathologic free abdominal or pelvic fluid. Endovaginal scanning: Uterus: Uterus is normal in size at 6.3 x 3.7 x 5.0 cm. The endometrium measures 11.0 mm in combined thickness. Ovaries: Right adnexa measures 1.8 x 2.4 x 1.8 cm. Left adnexa measures 1.8 x 2.5 x 2.6 cm. The ovaries are sonographically normal. Doppler evaluation demonstrates normal vascular flow in the adnexa. There is a small 1.0 x 1.5 x 1.1 cm cystic lesion adjacent to the right adnexa. Color Doppler evaluation demonstrates no vascularity within or along the periphery of the right adnexal region cyst. Right adnexal region cyst likely represents right paraovarian cyst versus a tubal cyst. IMPRESSION: 1. No evidence of ovarian torsion. Please note intermittent ovarian torsion cannot be excluded by ultrasound. 2. 1.0 x 1.5 x 1.1 cm right paraovarian cyst versus tubal cyst. Dictated by: Sherry Dean MD, PhD on 05/15/2018 at 7:11 Approved by: Sherry Dean MD, PhD on 05/15/2018 at 7:18
[2018-05-15] MEDS: HYDROMORPHONE 2 MG INJ 1 MG IM (04:30)
[2018-05-15] MEDS: KETOROLAC 60 MG/2 ML VIAL IM (04:40)
[2018-05-15 05:53] VITALS: BP 121/74; PULSE 95; RESP 16; O2SAT 96
--- NOTE | 2018-05-28 09:00 | ED.ABDPAIN ---
HPI - Abdominal Pain General Chief Complaint: Abdominal Pain Stated Complaint: vomiting sharp stabbing abdominal pain Time Seen by Provider: 05/15/18 03:51 Source: patient Mode of arrival: ambulatory Limitations: no limitations History of Present Illness HPI narrative: Patient complains of sharp stabbing right lower abdominal pain for the last 3 days. This has happened on and off before. She states she has a history of ovarian cyst previously. Patient denies any vaginal bleeding. No vaginal fluid leakage. She is not known to be . Patient states that the pain is keeping her from being able to do the work she needs to do. Patient denies further complaints at this time. She states her pain at worst is an 8/10, but right now, is a 7/10. Nothing makes better or worse. Patient states that she is here because [place] She denies fevers or chills. No appetite changes. Related Data Home Medications Medication Instructions Recorded Confirmed biotin 1 cap PO DAILY 02/12/18 03/02/18 norethindrone-e.estradiol-iron 1 tab PO DAILY 03/02/18 03/02/18 Previous Rx's Medication Instructions Recorded ondansetron 8 mg PO TID PRN #30 tab 03/03/18 tramadol 50 mg PO Q4H PRN #30 tab 03/03/18 Allergies Allergy/AdvReac Type Severity Reaction Status Date / Time Sulfa (Sulfonamide Allergy Verified 05/15/18 00:45 Antibiotics) Review of Systems Constitutional Denies chills, Denies fever(s), Denies lethargy and Denies weakness Eyes Denies change in vision, Denies eye discharge, Denies irritation and Denies loss of vision ENT Ears, Nose, Mouth, and Throat: Denies change in voice, Denies neck pain and Denies sore throat Cardiovascular Denies chest pain, Denies irregular heart rhythm, Denies lightheadedness, Denies palpitations, Denies dyspnea, Denies dyspnea on exertion and Denies orthopnea Respiratory Denies cough, Denies dyspnea, Denies dyspnea on exertion and Denies wheezing Gastrointestinal Gastrointestinal: Reports abdominal pain, Denies change in bowel habits, Denies diarrhea, Reports nausea and Reports vomiting Genitourinary Denies hematuria, Denies flank pain, Denies urinary incontinence and Denies urinary urgency Musculoskeletal Denies neck pain Integumentary/Breasts Denies pruritus, Denies erythema, Denies rash and Denies wounds Neurologic Denies confusion, Denies loss of vision and Denies weakness Psychiatric Denies anxiety, Denies confusion, Denies depression, Denies homicidal ideation and Denies suicidal ideation Endocrine Denies palpitations Hematologic/Lymphatic Denies easy bruising Allergic/Immunologic Denies wheezing [facility] Medical History Endometriosis (Acute) Polycystic ovaries (Acute) [place] teeth extracted (Acute) Surgical History Hx of tonsillectomy (Acute) Social History household members: friend(s) Smoking Status: Current every day smoker alcohol intake: current Social History household members: friend(s) Smoking Status: Current every day smoker alcohol intake: current Exam Initial Vital Signs Initial Vital Signs: Vital Signs Temperature 97.0 F L 05/15/18 00:45 Pulse Rate 101 H 05/15/18 00:45 Respiratory Rate 18 05/15/18 00:45 Blood Pressure 126/83 05/15/18 00:45 Pulse Oximetry 99 05/15/18 00:45 Const General: cooperative and well developed Nutritional Appearance: well nourished Orientation: alert, awake, oriented x3 and not confused [facility] Head: normocephalic and atraumatic Ears: external ears normal Nose: external nose normal and No nasal discharge Face and sinus: face symmetric and No dry mucous membranes Mouth: oral mucosae normal and moist mucous membranes Teeth and gingiva: dentition normal Eyes General: appearance normal, both eyes and all related structures Eyelids: eyelids normal Conjunctivae: conjunctivae normal Sclera: sclerae normal Pupils: PERRL EOM: EOM intact bilaterally Neck Neck: normal visual inspection, trachea midline, No lymphadenopathy, No midline deformity and No JVD Lymphatic: No lymphedema Chest Chest: normal inspection of the chest Resp Effort & Inspection: normal respiratory effort, able to speak in complete sentences, no respiratory distress and no use of accessory muscles Auscultation: clear to auscultation bilaterally, no rales, no rhonchi and no wheezes Cardio Rate: regular rate Rhythm: regular rhythm Heart Sounds: no click, no gallops, no murmurs and no rubs Pulses: normal peripheral pulses GI Inspection: non-distended Palpation: soft, no hepatosplenomegaly, No guarding, No pulsatile mass and tender (Mild, right pelvic area.) Back/Spine/Pelvis Back: No CVA tenderness Cervical Spine: cervical ROM normal and No pain with cervical ROM Thoracic/Lumbar Spine: thoracic and lumbar spine normal to inspection Skin General: no rashes or lesions noted, No jaundice and No petechiae Neuro General: alert, oriented x3, gait normal and no focal motor deficits Speech: speech normal Extrem General: full ROM, no clubbing, cyanosis or edema, no pedal edema and no calf tenderness Psych Appearance: well kempt Mental Status: mental status grossly normal Attitude: cooperative Thought Content: normal and suicidality Judgment: judgment good Course Course Narrative: Patient was treated symptomatically in the emergency department. Urinalysis and test were negative. Ultrasound was performed of the patient's pelvis, and patient was found to have a small right adnexal cyst. No evidence of torsion was noted. I discussed with patient the results of her study. The patient has had extensive workup for this same problem in the past, with ongoing pain. I have advised her that she needs to see a formulation chemist to determine whether exploratory laparoscopy would be helpful to determine any other causes of her pelvic pain, such as endometriosis. At this time however, no emergent condition has been identified. Patient has been without nausea and vomiting in the emergency department. She is stable for discharge home in improved condition. Orders Ordered: Discontinued Medications Hydromorphone HCl (Dilaudid) 1 mg IM NOW ONE Stop: 05/15/18 04:32 Last Admin: 05/15/18 04:30 Dose: 1 mg Ketorolac Tromethamine (Toradol) 60 mg IM NOW ONE Stop: 05/15/18 04:30 Last Admin: 05/15/18 04:40 Dose: 60 mg MDM - Abdominal Pain Medical Records Attestation: I reviewed the patient's medical records. Lab Data Attestation: I reviewed the patient's lab results. Point of care testing: Point of Care Testing Test Results Negative Urine Dip Bedside Urine Glucose Negative Bedside Urine Bilirubin - Negative Bedside Urine Ketone - Negative Urine Specific [place] 1.005 Bedside Urine Occult Blood +/- Bedside Urine pH 6.0 Bedside Urine Protein - Negative Bedside Urine Urobilinogen - Negative Bedside Urine Nitrite - Negative Bedside Urine Leukocytes - Negative Esterase Imaging Data Pelvic ultrasound: Radiologist's impression: PROCEDURE: US PELVIC COMPLETE INDICATIONS: acutely worsened R pelvic pain TECHNIQUE: Real-time scanning was performed of the pelvic organs, with image documentation. Additional endovaginal scanning was necessary due to incomplete visualization of the adnexal and endometrial structures by transabdominal scanning. COMPARISON: None. FINDINGS: Transabdominal scanning: Limited scanning through the kidneys shows no hydronephrosis. No pathologic free abdominal or pelvic fluid. Endovaginal scanning: Uterus: Uterus is normal in size at 6.3 x 3.7 x 5.0 cm. The endometrium measures 11.0 mm in combined thickness. Ovaries: Right adnexa measures 1.8 x 2.4 x 1.8 cm. Left adnexa measures 1.8 x 2.5 x 2.6 cm. The ovaries are sonographically normal. Doppler evaluation demonstrates normal vascular flow in the adnexa. There is a small 1.0 x 1.5 x 1.1 cm cystic lesion adjacent to the right adnexa. Color Doppler evaluation demonstrates no vascularity within or along the periphery of the right adnexal region cyst. Right adnexal region cyst likely represents right paraovarian cyst versus a tubal cyst. IMPRESSION: 1. No evidence of ovarian torsion. Please note intermittent ovarian torsion cannot be excluded by ultrasound. 2. 1.0 x 1.5 x 1.1 cm right paraovarian cyst versus tubal cyst. Dictated by: Sherry Dean MD, PhD on 05/15/2018 at 7:11 Approved by: Sherry Dean MD, PhD on 05/15/2018 at 7:18 Discharge Plan Departure Patient Disposition: Home Clinical Impression: Abdominal pain, Ovarian cyst Discharge Date/Time: 05/15/18 06:00 Interventions: ED Discharge Assessment Last Done: 05/15/18 06:00 Instructions: DI for Ovarian Cyst, DI for Abdominal Pain-Adult Activity Restrictions/Additional Instructions: Your ultrasound shows a cyst attached your right ovary. There is a small amount of fluid associated with the cyst, and may represent a recently ruptured portion of that cyst. This will heal on its own; however, the cyst may continue to cause you problems as long as it is present. You may speak with a formulation chemist about having it removed if it continues to bother you to this degree. Prescriptions: No Action biotin 1 cap PO DAILY RF: 0 norethindrone-e.estradiol-iron 1 mg-20 mcg (21)/75 mg (7) tablet 1 tab PO DAILY RF: 0 tramadol 50 mg tablet 50 mg PO Q4H PRN (Reason: Pain, Moderate) Qty: 30 RF: 0 ondansetron 8 mg tablet,disintegrating 8 mg PO TID PRN (Reason: nausea and vomiting) Qty: 30 RF: 0
--- NOTE | 2018-05-28 09:07 | ED_ITS ---
HPI - Abdominal Pain General Chief Complaint: Abdominal Pain Stated Complaint: vomiting sharp stabbing abdominal pain Time Seen by Provider: 05/15/18 03:51 Source: patient Mode of arrival: ambulatory Limitations: no limitations History of Present Illness HPI narrative: Patient complains of sharp stabbing right lower abdominal pain for the last 3 days. This has happened on and off before. She states she has a history of ovarian cyst previously. Patient denies any vaginal bleeding. No vaginal fluid leakage. She is not known to be . Patient states that the pain is keeping her from being able to do the work she needs to do. Patient denies further complaints at this time. She states her pain at worst is an 8/10, but right now, is a 7/10. Nothing makes better or worse. Patient states that she is here because she [place] She denies fevers or chills. No appetite changes. Related Data Home Medications Medication Instructions Recorded Confirmed biotin 1 cap PO DAILY 02/12/18 03/02/18 norethindrone-e.estradiol-iron 1 tab PO DAILY 03/02/18 03/02/18 Previous Rx's Medication Instructions Recorded ondansetron 8 mg PO TID PRN #30 tab 03/03/18 tramadol 50 mg PO Q4H PRN #30 tab 03/03/18 Allergies Allergy/AdvReac Type Severity Reaction Status Date / Time Sulfa (Sulfonamide Allergy Verified 05/15/18 00:45 Antibiotics) Review of Systems Constitutional Denies chills, Denies fever(s), Denies lethargy and Denies weakness Eyes Denies change in vision, Denies eye discharge, Denies irritation and Denies loss of vision ENT Ears, Nose, Mouth, and Throat: Denies change in voice, Denies neck pain and Denies sore throat Cardiovascular Denies chest pain, Denies irregular heart rhythm, Denies lightheadedness, Denies palpitations, Denies dyspnea, Denies dyspnea on exertion and Denies orthopnea Respiratory Denies cough, Denies dyspnea, Denies dyspnea on exertion and Denies wheezing Gastrointestinal Gastrointestinal: Reports abdominal pain, Denies change in bowel habits, Denies diarrhea, Reports nausea and Reports vomiting Genitourinary Denies hematuria, Denies flank pain, Denies urinary incontinence and Denies urinary urgency Musculoskeletal Denies neck pain Integumentary/Breasts Denies pruritus, Denies erythema, Denies rash and Denies wounds Neurologic Denies confusion, Denies loss of vision and Denies weakness Psychiatric Denies anxiety, Denies confusion, Denies depression, Denies homicidal ideation and Denies suicidal ideation Endocrine Denies palpitations Hematologic/Lymphatic Denies easy bruising Allergic/Immunologic Denies wheezing [facility] Medical History Endometriosis (Acute) Polycystic ovaries (Acute) [place] teeth extracted (Acute) Surgical History Hx of tonsillectomy (Acute) Social History household members: friend(s) Smoking Status: Current every day smoker alcohol intake: current Social History household members: friend(s) Smoking Status: Current every day smoker alcohol intake: current Exam Initial Vital Signs Initial Vital Signs: Vital Signs Temperature 97.0 F L 05/15/18 00:45 Pulse Rate 101 H 05/15/18 00:45 Respiratory Rate 18 05/15/18 00:45 Blood Pressure 126/83 05/15/18 00:45 Pulse Oximetry 99 05/15/18 00:45 Const General: cooperative and well developed Nutritional Appearance: well nourished Orientation: alert, awake, oriented x3 and not confused [facility] Head: normocephalic and atraumatic Ears: external ears normal Nose: external nose normal and No nasal discharge Face and sinus: face symmetric and No dry mucous membranes Mouth: oral mucosae normal and moist mucous membranes Teeth and gingiva: dentition normal Eyes General: appearance normal, both eyes and all related structures Eyelids: eyelids normal Conjunctivae: conjunctivae normal Sclera: sclerae normal Pupils: PERRL EOM: EOM intact bilaterally Neck Neck: normal visual inspection, trachea midline, No lymphadenopathy, No midline deformity and No JVD Lymphatic: No lymphedema Chest Chest: normal inspection of the chest Resp Effort & Inspection: normal respiratory effort, able to speak in complete sentences, no respiratory distress and no use of accessory muscles Auscultation: clear to auscultation bilaterally, no rales, no rhonchi and no wheezes Cardio Rate: regular rate Rhythm: regular rhythm Heart Sounds: no click, no gallops, no murmurs and no rubs Pulses: normal peripheral pulses GI Inspection: non-distended Palpation: soft, no hepatosplenomegaly, No guarding, No pulsatile mass and tender (Mild, right pelvic area.) Back/Spine/Pelvis Back: No CVA tenderness Cervical Spine: cervical ROM normal and No pain with cervical ROM Thoracic/Lumbar Spine: thoracic and lumbar spine normal to inspection Skin General: no rashes or lesions noted, No jaundice and No petechiae Neuro General: alert, oriented x3, gait normal and no focal motor deficits Speech: speech normal Extrem General: full ROM, no clubbing, cyanosis or edema, no pedal edema and no calf tenderness Psych Appearance: well kempt Mental Status: mental status grossly normal Attitude: cooperative Thought Content: normal and suicidality Judgment: judgment good Course Course Narrative: Patient was treated symptomatically in the emergency department. Urinalysis and test were negative. Ultrasound was performed of the patient's pelvis, and patient was found to have a small right adnexal cyst. No evidence of torsion was noted. I discussed with patient the results of her study. The patient has had extensive workup for this same problem in the past, with ongoing pain. I have advised her that she needs to see a nursery school teacher to determine whether exploratory laparoscopy would be helpful to determine any other causes of her pelvic pain, such as endometriosis. At this time however, no emergent condition has been identified. Patient has been without nausea and vomiting in the emergency department. She is stable for discharge home in improved condition. Orders Ordered: Discontinued Medications Hydromorphone HCl (Dilaudid) 1 mg IM NOW ONE Stop: 05/15/18 04:32 Last Admin: 05/15/18 04:30 Dose: 1 mg Ketorolac Tromethamine (Toradol) 60 mg IM NOW ONE Stop: 05/15/18 04:30 Last Admin: 05/15/18 04:40 Dose: 60 mg MDM - Abdominal Pain Medical Records Attestation: I reviewed the patient's medical records. Lab Data Attestation: I reviewed the patient's lab results. Point of care testing: Point of Care Testing Test Results Negative Urine Dip Bedside Urine Glucose Negative Bedside Urine Bilirubin - Negative Bedside Urine Ketone - Negative Urine Specific [place] 1.005 Bedside Urine Occult Blood +/- Bedside Urine pH 6.0 Bedside Urine Protein - Negative Bedside Urine Urobilinogen - Negative Bedside Urine Nitrite - Negative Bedside Urine Leukocytes - Negative Esterase Imaging Data Pelvic ultrasound: Radiologist's impression: PROCEDURE: US PELVIC COMPLETE INDICATIONS: acutely worsened R pelvic pain TECHNIQUE: Real-time scanning was performed of the pelvic organs, with image documentation. Additional endovaginal scanning was necessary due to incomplete visualization of the adnexal and endometrial structures by transabdominal scanning. COMPARISON: None. FINDINGS: Transabdominal scanning: Limited scanning through the kidneys shows no hydronephrosis. No pathologic free abdominal or pelvic fluid. Endovaginal scanning: Uterus: Uterus is normal in size at 6.3 x 3.7 x 5.0 cm. The endometrium measures 11.0 mm in combined thickness. Ovaries: Right adnexa measures 1.8 x 2.4 x 1.8 cm. Left adnexa measures 1.8 x 2.5 x 2.6 cm. The ovaries are sonographically normal. Doppler evaluation demonstrates normal vascular flow in the adnexa. There is a small 1.0 x 1.5 x 1.1 cm cystic lesion adjacent to the right adnexa. Color Doppler evaluation demonstrates no vascularity within or along the periphery of the right adnexal region cyst. Right adnexal region cyst likely represents right paraovarian cyst versus a tubal cyst. IMPRESSION: 1. No evidence of ovarian torsion. Please note intermittent ovarian torsion cannot be excluded by ultrasound. 2. 1.0 x 1.5 x 1.1 cm right paraovarian cyst versus tubal cyst. Dictated by: Sherry Dean MD, PhD on 05/15/2018 at 7:11 Approved by: Sherry Dean MD, PhD on 05/15/2018 at 7:18 Discharge Plan Departure Patient Disposition: Home Clinical Impression: Abdominal pain, Ovarian cyst Discharge Date/Time: 05/15/18 06:00 Interventions: ED Discharge Assessment Last Done: 05/15/18 06:00 Instructions: DI for Ovarian Cyst, DI for Abdominal Pain-Adult Activity Restrictions/Additional Instructions: Your ultrasound shows a cyst attached your right ovary. There is a small amount of fluid associated with the cyst, and may represent a recently ruptured portion of that cyst. This will heal on its own; however, the cyst may continue to cause you problems as long as it is present. You may speak with a nursery school teacher about having it removed if it continues to bother you to this degree. Prescriptions: No Action biotin 1 cap PO DAILY RF: 0 norethindrone-e.estradiol-iron 1 mg-20 mcg (21)/75 mg (7) tablet 1 tab PO DAILY RF: 0 tramadol 50 mg tablet 50 mg PO Q4H PRN (Reason: Pain, Moderate) Qty: 30 RF: 0 ondansetron 8 mg tablet,disintegrating 8 mg PO TID PRN (Reason: nausea and vomiting) Qty: 30 RF: 0
== END 2018-05-15 06:00 | disposition home or self-care (01) ==
PROVIDERS: Emergency Provider Emergency Medicine
DX: R10.9 Unspecified abdominal pain (principal); N83.201 Unspecified ovarian cyst, right side
CPT/HCPCS: 76830; 76856; 81003; 81025; 99282; 99283; J1170; J1885

== ENCOUNTER 2018-12-03 23:20 | Emergency (ER) | payer OTHER, SELFPAY ==
[2018-03-02 18:05] VITALS: BMI 34.2
[2018-12-03 23:25] VITALS: BP 141/72; PULSE 91; RESP 18; TEMP 36.4; O2SAT 100; BMI 32.8
[2018-12-03 23:57] LABS: Bacteria Urine Occasional (0-1); RBC Urine 1-5/HPF (0-5/HPF); Squamous Epithelial Cell Urine 1-5 /HPF (0-5/HPF); WBC Urine 1-5/HPF (0-5/HPF)
[2018-12-03 23:58] LABS: Mucus Urine 1+ (Negative)
[2018-12-03 23:59] LABS: Amorphous Sediment Urine 1+; Culture Indicated Urine Cult Not Indicated
--- NOTE | 2018-12-04 00:28 | ED_ITS ---
HPI - Female Genitourinary General Chief complaint: Urogenital-Female Stated complaint: back pain, pain/dark urine, hard to urinate Time Seen by Provider: 12/04/18 00:01 Source: patient Mode of arrival: ambulatory Limitations: no limitations History of Present Illness HPI Narrative: Otherwise healthy 22-year-old female here for evaluation of a couple days of dysuria, frequent urination, dark-colored urine, nausea, lower abdominal pain, and back pain. She is active-[employer]. She contacted her medical department they state they could not get her in. They told her to come to the emergency department. Has not tried anything for symptoms prior to arrival. Related Data Home Medications Medication Instructions Recorded Confirmed biotin 1 cap PO DAILY 02/12/18 03/02/18 norethindrone-e.estradiol-iron 1 tab PO DAILY 03/02/18 03/02/18 Previous Rx's Medication Instructions Recorded ondansetron 8 mg PO TID PRN #30 tab 03/03/18 tramadol 50 mg PO Q4H PRN #30 tab 03/03/18 cephalexin [Keflex] 500 mg PO BID 10 Days #20 cap 12/04/18 Allergies Allergy/AdvReac Type Severity Reaction Status Date / Time Sulfa (Sulfonamide Allergy Verified 12/03/18 23:33 Antibiotics) Review of Systems Constitutional Denies fever(s) Cardiovascular Denies chest pain and Denies dyspnea Respiratory Denies dyspnea Gastrointestinal Gastrointestinal: Reports abdominal pain, Reports nausea and Denies vomiting Genitourinary Reports urinary frequency, Reports dysuria, Reports urinary hesitancy and Reports urinary urgency Integumentary/Breasts Denies lesions and Denies rash Hematologic/Lymphatic Denies easy bleeding and Denies easy bruising [facility] Medical History Endometriosis (Acute) Polycystic ovaries (Acute) [place] teeth extracted (Acute) Social History household members: friend(s) Smoking Status: Current every day smoker alcohol intake: current Exam Initial Vital Signs Initial Vital Signs: Vital Signs Temperature 97.6 F 12/03/18 23:25 Pulse Rate 91 H 12/03/18 23:25 Respiratory Rate 18 12/03/18 23:25 Blood Pressure 141/72 H 12/03/18 23:25 Pulse Oximetry 100 12/03/18 23:25 Resp Effort & Inspection: normal respiratory effort Auscultation: clear to auscultation bilaterally Cardio Rate: regular rate Rhythm: regular rhythm Back/Spine/Pelvis Back: CVA tenderness Skin Lesions: no lesions Rashes: no rashes Neuro General: alert and awake Cognition: normal cognition Speech: speech normal Extrem General: normal to inspection and capillary refill normal Psych Appearance: grossly normal and well kempt Course Orders Ordered: ED Orders 12/03/18 23:40 Urine Microscopic Stat Discontinued Medications Cephalexin HCl (Keflex) 500 mg PO NOW ONE Stop: 12/04/18 00:26 Last Admin: 12/04/18 00:39 Dose: 500 mg Ondansetron HCl (Zofran Odt Prepack) 1 bottle MISC SEEINSTR ONE Stop: 12/04/18 00:26 Last Admin: 12/04/18 00:40 Dose: 1 bottle Tramadol HCl (Ultram 50mg Prepack) 1 bottle MISC SEEINSTR ONE Stop: 12/04/18 00:28 Last Admin: 12/04/18 00:40 Dose: 1 bottle Vital Signs - 8 hr 12/03/18 23:25 12/04/18 00:41 Temperature 97.6 F 99.1 F Pulse Rate 91 H 75 Respiratory Rate 18 16 Blood Pressure 141/72 H 115/74 Pulse Oximetry 100 99 MDM - Female Genitourinary Lab Data Attestation: I reviewed the patient's lab results. Lab Results 12/03/18 Range/Units 23:40 Urine RBC 1-5/hpf (0-5/HPF) Urine WBC 1-5/hpf (0-5/HPF) Ur Squamous Epith Cells 1-5 /hpf (0-5/HPF) Amorphous Sediment 1+ Urine Bacteria Occasional (0-1) (None) Urine Mucus 1+ H (Negative) Ur Culture Indicated? Cult not indicated Point of Care Testing Test Results Negative Urine Dip Bedside Urine Glucose Negative Bedside Urine Bilirubin - Negative Bedside Urine Ketone +/- 5 Urine Specific [place] 1.030 Bedside Urine Occult Blood + Bedside Urine pH 6.0 Bedside Urine Protein +/- 15 Bedside Urine Urobilinogen +/- 1mg Bedside Urine Nitrite - Negative Bedside Urine Leukocytes - Negative Esterase MDM Narrative Medical decision making narrative: Patient with dysuria, back pain, frequency, dark colored urine. Given her symptoms will treat her for urinary tract infection. Patient is nontoxic appearing. Was sent home with other symptom treatment. She was given return precautions and follow-up instructions. She expressed understanding and agreement with plan. Discharge Plan Departure Patient Disposition: Home Clinical Impression: Pyelonephritis Discharge Date/Time: 12/04/18 00:42 Interventions: ED Discharge Assessment Last Done: 12/04/18 00:41 Instructions: DI for Kidney Infection Activity Restrictions/Additional Instructions: Take the antibiotics and other medication as directed. Return to the emergency department for any new or worsening symptoms Prescriptions: New cephalexin [Keflex] 500 mg capsule 500 mg PO BID 10 Days Qty: 20 RF: 0 No Action biotin 1 cap PO DAILY RF: 0 norethindrone-e.estradiol-iron 1 mg-20 mcg (21)/75 mg (7) tablet 1 tab PO DAILY RF: 0 tramadol 50 mg tablet 50 mg PO Q4H PRN (Reason: Pain, Moderate) Qty: 30 RF: 0 ondansetron 8 mg tablet,disintegrating 8 mg PO TID PRN (Reason: nausea and vomiting) Qty: 30 RF: 0
[2018-12-04] MEDS: cephALEXin 250 MG CAPSULE 500 MG PO (00:39)
[2018-12-04] MEDS: TRAMADOL 50 MG PREPACK 1 BOTTLE MISC (00:40)
[2018-12-04] MEDS: ONDANSETRON 4 MG ODT PREPACK 1 BOTTLE MISC (00:40)
[2018-12-04 00:41] VITALS: BP 115/74; PULSE 75; RESP 16; TEMP 37.3; O2SAT 99
== END 2018-12-04 00:42 | disposition home or self-care (01) ==
PROVIDERS: Emergency Provider Emergency Medicine
DX: N12 Tubulo-interstitial nephritis, not specified as acute or chronic (principal)
CPT/HCPCS: 81003; 81015; 81025; 99282; 99283

== ENCOUNTER 2018-12-14 03:57 | Emergency (ER) | payer OTHER, SELFPAY ==
[2018-03-02 18:05] VITALS: BMI 34.2
[2018-12-14 04:11] VITALS: BP 126/98; PULSE 58; RESP 20; TEMP 36.6; O2SAT 96
[2018-12-14] MEDS: ONDANSETRON 4 MG ODT SL (04:45)
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
[2018-12-14] MEDS: KETOROLAC 60 MG/2 ML VIAL IM (05:26)
--- NOTE | 2018-12-14 06:21 | PC.NURSE ---
Unable to contact [facility] nurse. Plan now to transfer to [facility].
[2018-12-14 06:45] VITALS: BP 120/70; PULSE 65; RESP 16; O2SAT 100
== END 2018-12-14 06:47 | disposition short-term general hospital (02) ==
PROVIDERS: Emergency Provider Emergency Medicine
DX: T74.21XA Adult sexual abuse, confirmed, initial encounter (principal)
CPT/HCPCS: 96372; 99283; J1885

== ENCOUNTER 2018-12-28 02:38 | Emergency (ER) | payer OTHER, SELFPAY ==
[2018-03-02 18:05] VITALS: BMI 34.2
[2018-12-28] VITALS (8 sets, daily range): BP systolic 85–138; BP diastolic 45–90; PULSE 13–99; RESP 14–24; TEMP 36.5; O2SAT 95–99; BMI 33.6
--- NOTE | 2018-12-28 02:59 | ED_ITS ---
HPI - Headache General Chief Complaint: Headache Stated Complaint: endometriosis pain,migraine/cant move left side Time Seen by Provider: 12/28/18 02:42 Source: patient Mode of arrival: ambulatory Limitations: no limitations History of Present Illness HPI Narrative: Patient comes emergency department complaining of headache and pain from her endometriosis. Patient states that when she began to have her endometriosis pain, which she attributes to starting her period, she began to feel anxious. Patient developed a panic attack, and states that she took her propranolol for this. However per, although help the panic attack, it caused her to have a migraine she states. Patient states that she has a history of hemiplegic migraines, and that she is having some left-sided weakness now. She has already seen a neurologist for this, and has been told that her symptoms are not stroke related, but due to migraine associated hemiparesis. Patient states that the paresis resolves when the migraine goes away. She states that both a migraine and the endometriosis associated pain are consistent with previous episodes. No other complaints at this time. No fever chills. No dysuria. No chest pain or shortness of breath. Related Data Home Medications Medication Instructions Recorded Confirmed biotin 1 cap PO DAILY 02/12/18 03/02/18 norethindrone-e.estradiol-iron 1 tab PO DAILY 03/02/18 03/02/18 escitalopram oxalate 10 mg PO DAILY 12/30/18 12/30/18 norethindrone-e.estradiol-iron 1 tab PO DAILY 12/30/18 12/30/18 [05/17 (28)] propranolol 10 mg PO TID 12/30/18 12/30/18 Previous Rx's Medication Instructions Recorded ondansetron 8 mg PO TID PRN #30 tab 03/03/18 tramadol 50 mg PO Q4H PRN #30 tab 03/03/18 alprazolam [Xanax] 0.5 mg PO BID PRN #4 tab 12/28/18 hydrocodone-acetaminophen 1 tab PO Q4-6H PRN #7 tab 12/28/18 Allergies Allergy/AdvReac Type Severity Reaction Status Date / Time Sulfa (Sulfonamide Allergy Verified 12/03/18 23:33 Antibiotics) Review of Systems Constitutional Constitutional: Denies chills, Denies fatigue, Denies fever(s), Denies frequent falls, Reports headache(s), Denies lethargy and Denies weakness Eyes Eyes: Denies change in vision, Denies eye discharge, Denies irritation and Denies loss of vision ENT Ears, Nose, Mouth, and Throat: Denies change in voice, Denies dizziness, Reports headache(s), Denies neck pain, Denies sore throat and Denies throat swelling Cardiovascular Cardiovascular: Denies chest pain, Denies irregular heart rhythm, Denies lightheadedness, Denies palpitations, Denies dyspnea, Denies dyspnea on exertion and Denies orthopnea Respiratory Respiratory: Denies cough, Denies dyspnea, Denies dyspnea on exertion and Denies wheezing Gastrointestinal Gastrointestinal: Reports abdominal pain, Denies change in bowel habits, Denies diarrhea, Reports nausea and Reports vomiting Genitourinary Genitourinary: Denies hematuria, Denies flank pain, Denies urinary incontinence and Denies urinary urgency Musculoskeletal Musculoskeletal: Denies back pain, Denies muscle weakness, Denies neck pain, Denies numbness and Denies tingling Integumentary/Breasts Skin/Breast: Denies pruritus, Denies erythema, Denies rash and Denies wounds Neurologic Neurologic: Denies behavioral changes, Denies confusion, Denies dizziness, Denies frequent falls, Reports headache(s), Denies loss of vision, Denies numbness, Denies tingling and Denies weakness Psychiatric Psychiatric: Denies anxiety, Denies behavioral changes, Denies confusion, Denies depression, Denies homicidal ideation and Denies suicidal ideation Endocrine Endocrine: Denies fatigue, Denies flushing and Denies palpitations Hematologic/Lymphatic Hematologic/Lymphatic: Denies easy bruising Allergic/Immunologic Allergic/Immunologic: Denies urticaria, Denies throat swelling and Denies wheezing [facility] Medical History Endometriosis (Acute) Polycystic ovaries (Acute) [place] teeth extracted (Acute) Surgical History Hx of tonsillectomy (Acute) Social History household members: friend(s) Smoking Status: Current every day smoker alcohol intake: current Social History household members: friend(s) Smoking Status: Current every day smoker alcohol intake: current Exam Initial Vital Signs Initial Vital Signs: Vital Signs Temperature 97.7 F 12/28/18 02:46 Pulse Rate 73 12/28/18 02:46 Respiratory Rate 18 12/28/18 02:46 Blood Pressure 131/84 12/28/18 02:46 Pulse Oximetry 97 12/28/18 02:46 Const General: cooperative and well developed Nutritional Appearance: well nourished Orientation: alert, awake, oriented x3 and not confused Other: Patient appears anxious. HENMT Head: normocephalic and atraumatic Ears: external ears normal and TM's normal bilaterally Nose: external nose normal and No nasal discharge Face and sinus: sinuses nontender, face symmetric, no sinus tenderness and No dry mucous membranes Mouth: oral mucosae normal and moist mucous membranes Teeth and gingiva: dentition normal Throat: tonsils normal and uvula midline Eyes General: appearance normal, both eyes and all related structures Eyelids: eyelids normal Conjunctivae: conjunctivae normal Sclera: sclerae normal Pupils: PERRL EOM: EOM intact bilaterally Neck Neck: normal visual inspection, trachea midline, No lymphadenopathy, No midline deformity and No JVD Lymphatic: No lymphedema Chest Chest: normal inspection of the chest Resp Effort & Inspection: normal respiratory effort, able to speak in complete sentences, no respiratory distress and no use of accessory muscles Auscultation: clear to auscultation bilaterally, no rales, no rhonchi and no wheezes Cardio Rate: regular rate Rhythm: regular rhythm Heart Sounds: no click, no gallops, no murmurs and no rubs Pulses: normal peripheral pulses GI Inspection: non-distended Palpation: soft, no hepatosplenomegaly, No guarding, No pulsatile mass and tender (Right lower quadrant tenderness, moderate) Back/Spine/Pelvis Back: No CVA tenderness Cervical Spine: cervical ROM normal and No pain with cervical ROM Thoracic/Lumbar Spine: thoracic and lumbar spine normal to inspection Skin General: no rashes or lesions noted, No jaundice and No petechiae Neuro General: alert, oriented x3, gait normal and no focal motor deficits Speech: speech normal Extrem General: full ROM, no clubbing, cyanosis or edema, no pedal edema and no calf tenderness Psych Appearance: well kempt Mental Status: mental status grossly normal Attitude: cooperative Thought Content: normal and suicidality Judgment: judgment good Course Course Course Narrative: Patient was treated with IV Zofran, Toradol, and Dilaudid. The patient was extremely anxious, required also treatment with benzodiazepines while here. Ultimately, however, the patient was found to be feeling better, and was able to be discharged home with her friend. She was moving left side without difficulty, and her symptoms were in keeping with her prior diagnosis of hemiplegic migraine. We have discussed home management of symptoms, as well as the usual indications for return. Orders Ordered: Discontinued Medications Hydromorphone HCl (Dilaudid) 1 mg IV NOW ONE Stop: 12/28/18 02:56 Last Admin: 12/28/18 03:05 Dose: 1 mg Documented by: XOCHITL Ketorolac Tromethamine (Toradol) 30 mg IV NOW ONE Stop: 12/28/18 02:56 Last Admin: 12/28/18 03:05 Dose: 30 mg Documented by: XOCHITL Lorazepam (Ativan) 1 mg IV NOW ONE Stop: 12/28/18 03:29 Last Admin: 12/28/18 03:31 Dose: 1 mg Documented by: RASHI Lorazepam (Ativan) 1 mg IV NOW ONE Stop: 12/28/18 04:17 Last Admin: 12/28/18 04:22 Dose: 1 mg Documented by: RASHI Ondansetron HCl (Zofran) 4 mg IV NOW ONE Stop: 12/28/18 03:03 Last Admin: 12/28/18 03:05 Dose: 4 mg Documented by: XOCHITL Vital Signs Vital signs: Vital Signs - 8 hr 12/28/18 02:46 Temperature 97.7 F Pulse Rate 73 Respiratory Rate 18 Blood Pressure 131/84 Pulse Oximetry 97 MDM - Headache Medical Records Attestation: I reviewed the patient's medical records. Discharge Plan Departure Patient Disposition: Home Clinical Impression: Anxiety Abdominal pain Qualifiers: Abdominal location: lower abdomen, unspecified Qualified Code(s): R10.30 - Lower abdominal pain, unspecified Migraine Qualifiers: Migraine type: without aura Status migrainosus presence: without status migrainosus Intractability: not intractable Qualified Code(s): G43.009 - Migraine without aura, not intractable, without status migrainosus Discharge Date/Time: 12/28/18 06:09 Instructions: Migraine -- Adult, DI for Abdominal Pain-Adult, DI for Anxiety -- Adult Activity Restrictions/Additional Instructions: You have been given signficant doses of medication for both pain and anxiety/panic attack. You will need to combine mental focus and self-calming techniques with the taking of medicine to prevent your anxiety and panic attacks from gaining momentum as they have done tonight. Please follow up with your doctor on Friday, as planned. You may take the medication for pain and anxiety until then, needed. Prescriptions: New hydrocodone-acetaminophen 5-325 mg tablet 1 tab PO Q4-6H PRN (Reason: pain) Qty: 7 RF: 0 alprazolam [Xanax] 0.5 mg tablet 0.5 mg PO BID PRN (Reason: anxiety) Qty: 4 RF: 0 No Action biotin 1 cap PO DAILY RF: 0 norethindrone-e.estradiol-iron [Junel FE 05/17 ()] 1 mg-20 mcg (21)/75 mg (7) tablet 1 tab PO DAILY RF: 0 propranolol 10 mg tablet 10 mg PO TID RF: 0 escitalopram oxalate 10 mg tablet 10 mg PO DAILY RF: 0 norethindrone-e.estradiol-iron 1 mg-20 mcg (21)/75 mg (7) tablet 1 tab PO DAILY RF: 0 tramadol 50 mg tablet 50 mg PO Q4H PRN (Reason: Pain, Moderate) Qty: 30 RF: 0 ondansetron 8 mg tablet,disintegrating 8 mg PO TID PRN (Reason: nausea and vomiting) Qty: 30 RF: 0
[2018-12-28] MEDS: ONDANSETRON 4 MG/2 ML INJ IV (03:05)
[2018-12-28] MEDS: HYDROMORPHONE 1 MG INJ IV (03:05)
[2018-12-28] MEDS: KETOROLAC 60 MG/2 ML VIAL 30 MG IV (03:05)
[2018-12-28] MEDS: LORazepam 2 MG/ML INJ 1 MG IV ×2 (03:31→04:22)
--- NOTE | 2018-12-28 03:34 | PC.NURSE ---
Pt writhing and sobbing in the bed, left arm still weak but some movement now. Pt states, I'm having a panic attack. Pt coached in deep breathing/mindfulness with little effect. Pt states, I can't handle it. I can't handle the pain from both [abd and headache]. Dr Harmon notified, order received for 1 mg ativan IV. Pt medicated, friend at bedside. Will monitor for effect.
== END 2018-12-28 06:09 | disposition home or self-care (01) ==
PROVIDERS: Emergency Provider Emergency Medicine
DX: F41.9 Anxiety disorder, unspecified (principal); R10.30 Lower abdominal pain, unspecified; G43.009 Migraine without aura, not intractable, without status migrainosus
CPT/HCPCS: 96374; 96375; 96376; 99283; 99284; J1170; J1885; J2060; J2405

== ENCOUNTER 2018-12-30 16:11 | Emergency (ER) | payer OTHER, SELFPAY ==
[2018-03-02 18:05] VITALS: BMI 34.2
[2018-12-30 16:14] VITALS: BP 158/95; PULSE 91; RESP 20; TEMP 36.5; O2SAT 100
[2018-12-30 16:41] VITALS: BP 145/97; PULSE 67; RESP 16; O2SAT 97
[2018-12-30] MEDS: SODIUM CHLORIDE 0.9% 1,000 ML 1000 ML IV (17:21)
[2018-12-30] MEDS: METOCLOPRAMIDE 10 MG/2 ML INJ IV (17:21)
[2018-12-30] MEDS: diphenhydrAMINE 50 MG/ML VIAL 25 MG IV (17:22)
[2018-12-30] MEDS: KETOROLAC 60 MG/2 ML VIAL 30 MG IV (17:22)
[2018-12-30] MEDS: HYDROMORPHONE 0.5 MG INJ IV ×2 (18:41→19:54)
[2018-12-30 18:57] VITALS: BP 133/87; PULSE 70; RESP 15; O2SAT 96
[2018-12-30 19:00] VITALS: BP 139/90; PULSE 78; RESP 19; O2SAT 95
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
== END 2018-12-30 20:16 | disposition home or self-care (01) ==
PROVIDERS: Emergency Provider Nurse Practitioner Family
DX: G43.409 Hemiplegic migraine, not intractable, without status migrainosus (principal)
CPT/HCPCS: 36591; 81003; 96361; 96374; 96375; 96376; 99283; 99284; J1170; J1200; J1885; J2765

== ENCOUNTER 2019-01-13 22:48 | Emergency (ER) | payer OTHER, SELFPAY ==
[2018-03-02 18:05] VITALS: BMI 34.2
[2019-01-13] MEDS: SODIUM CHLORIDE 0.9% 1,000 ML 1000 ML IV (23:05)
[2019-01-13 23:07] VITALS: BP 138/95; PULSE 108; RESP 18; TEMP 36.4; O2SAT 99; BMI 34.5
--- NOTE | 2019-01-13 23:35 | ED_ITS ---
HPI - Headache General Chief Complaint: Headache Stated Complaint: MIGRAINE, N/V ABD PAIN Time Seen by Provider: 01/13/19 23:12 Source: patient Mode of arrival: ambulatory Limitations: no limitations History of Present Illness HPI Narrative: Patient is a 23-year-old female with history of appendectomy and endometriosis presenting with right lower quadrant pain. She says it started around 8:00 p.m. this evening. She thinks it is her endometriosis she has had pain here and before. He started dry heaving and then her headache got worse. She does have a history of migraine headaches, precipitated by anxiety and depression. She states that she has been on anxiety depression medication for some time is and they seem to be helping her headaches. However this 1 started after her abdominal pain. She says her menses has gotten worse she actually had an endometriosis surgery a few years ago severe right lower quadrant and her menstruation cycles improved significantly. Over the last 6 months or so they have progressively got worse she has referral in for violent crimes detective but has not yet been there. MD Complaint: headache Related Data Home Medications Medication Instructions Recorded Confirmed biotin 1 cap PO DAILY 02/12/18 03/02/18 norethindrone-e.estradiol-iron 1 tab PO DAILY 03/02/18 03/02/18 escitalopram oxalate 10 mg PO DAILY 12/30/18 12/30/18 norethindrone-e.estradiol-iron 1 tab PO DAILY 12/30/18 12/30/18 [05/17 (28)] propranolol 10 mg PO TID 12/30/18 12/30/18 Previous Rx's Medication Instructions Recorded ondansetron 8 mg PO TID PRN #30 tab 03/03/18 tramadol 50 mg PO Q4H PRN #30 tab 03/03/18 alprazolam [Xanax] 0.5 mg PO BID PRN #4 tab 12/28/18 hydrocodone-acetaminophen 1 tab PO Q4-6H PRN #7 tab 12/28/18 Allergies Allergy/AdvReac Type Severity Reaction Status Date / Time Sulfa (Sulfonamide Allergy Verified 12/03/18 23:33 Antibiotics) Review of Systems Review of Systems Narrative: GENERAL: Denies chills, fatigue, malaise, fever, sweats, travel HEENT: Denies sinus pain, ear pain, sore throat, difficulty swallowing, neck pain RESPIRATORY: Denies dyspnea, cough, wheezing, hemoptysis, sputum. CARDIOVASCULAR: Denies chest pain, palpitations, orthopnea, edema GASTROINTESTINAL: See HPI : Denies dysuria, frequency, incontinence, hematuria, urinary retention, flank pain. MUSCULOSKELETAL: Denies weakness, joint pain, or bony pain SKIN: No rash, no erythema, no pruritus NEUROLOGIC: See HPI Denies weakness, dizziness,numbness, change in speech, confusion PSYCHIATRIC: No concerning psychosocial issues. 12 point review of systems is negative except for those stated above and HPI [facility] [place] Medical History Endometriosis (Acute) Polycystic ovaries (Acute) [place] teeth extracted (Acute) Surgical History Hx of tonsillectomy (Acute) Social History household members: friend(s) Smoking Status: Current every day smoker alcohol intake: current Social History household members: friend(s) Smoking Status: Current every day smoker alcohol intake: current Exam Initial Vital Signs Initial Vital Signs: Vital Signs Temperature 97.6 F 01/13/19 23:07 Pulse Rate 108 H 01/13/19 23:07 Respiratory Rate 18 01/13/19 23:07 Blood Pressure 138/95 H 01/13/19 23:07 Pulse Oximetry 99 01/13/19 23:07 GENERAL: Sitting in dark room dry heaving HEENT: Head atraumatic,EOMI, pupils reactive, face symmetric CARDIOVASCULAR: Regular rate and rhythm without murmurs, rubs or gallops. RESPIRATORY: Breath sounds equal bilaterally, no wheezes rales or rhonchi. ABDOMEN: Soft, right lower quadrant tenderness no guarding no rebound no [place] sign : No flank pain EXTREMITIES: Normal range of motion, no clubbing or edema. Neurovascularly intact NEUROLOGICAL: Alert and oriented x4.Normal gait and speech. SKIN: Warm, dry, no laceration, no petechiae, no rashes or lesions. Course Orders Ordered: ED Orders 01/13/19 23:00 Complete Blood Count AUTO DIFF Stat Comprehensive Metabolic Panel Stat Lipase Stat Test Urine Stat Urinalysis and Microscopic Stat 01/14/19 00:22 CT abdomen pelvis w con Stat Discontinued Medications Diphenhydramine HCl (Benadryl) 25 mg IV NOW ONE Stop: 01/13/19 23:27 Last Admin: 01/13/19 23:39 Dose: 25 mg Documented by: LOLIS Sodium Chloride (Normal Saline 0.9%) 1,000 mls @ 1,000 mls/hr IV CONT RANDA Last Infusion: 01/14/19 01:33 Dose: 1,000 mls/hr Documented by: Admin: 01/13/19 23:05 Dose: 1,000 mls/hr Documented by: LOLIS Ketorolac Tromethamine (Toradol) 30 mg IV NOW ONE Stop: 01/13/19 23:27 Last Admin: 01/13/19 23:39 Dose: 30 mg Documented by: LOLIS Pantoprazole Sodium (Protonix) 40 mg IV NOW ONE Stop: 01/13/19 23:27 Last Admin: 01/13/19 23:38 Dose: 40 mg Documented by: LOLIS Prochlorperazine (Compazine) 10 mg IV NOW ONE Stop: 01/13/19 23:27 Last Admin: 01/13/19 23:38 Dose: 10 mg Documented by: LOLIS Vital Signs Vital signs: Vital Signs - 8 hr 01/13/19 23:07 01/14/19 01:00 Temperature 97.6 F Pulse Rate 108 H 84 Respiratory Rate 18 18 Blood Pressure 138/95 H Blood Pressure [Right Arm] 131/88 Pulse Oximetry 99 98 MDM - Headache Lab Data Attestation: I reviewed the patient's lab results. Result diagrams: 01/13/19 23:00 01/13/19 23:00 Labs: Lab Results 01/13/19 01/13/19 01/13/19 Range/Units 23:00 23:00 23:00 WBC 14.0 H (4.5-11.0) X10^3/uL RBC 4.40 (4.0-5.2) X10^6/uL Hgb 13.9 (12.0-16.0) g/dL Hct 39.7 (36-46) % MCV 90.1 (80-100) fL MCH 31.5 (26-34) PG MCHC 34.9 (30-36) % RDW 13.0 (11.6-14.8) % Plt Count 386 (150-400) X10^3/uL Neut % (Auto) 66.9 (50-75) % Lymph % (Auto) 25.5 (25-40) % [place] % (Auto) 6.1 (3-14) % Eos % (Auto) 0.8 L (2-4) % Baso % (Auto) 0.7 (0-2) % Neut # (Auto) 9400 H (6231-3116) /uL Lymph # (Auto) 3600 (2470-8644) /uL [place] # (Auto) 900 (0-900) /uL Eos # (Auto) 100 (0-450) /uL Baso # (Auto) 100 (0-100) /uL Sodium 138 (137-145) mmol/L Potassium 4.0 (3.4-5.1) mmol/L Chloride 102 (98-107) mmol/L Carbon Dioxide 25 (22-32) mmol/L BUN 19 H (7-17) mg/dL Creatinine 0.80 (0.52-1.04) mg/dL Estimated GFR > 60.0 (>60) mL/min BUN/Creatinine Ratio 23.8 H (6-22) Glucose 108 H (70-100) mg/dL Calcium 9.7 (8.4-10.2) mg/dL Total Bilirubin 0.4 (0.2-1.3) mg/dL AST 31 (14-36) IU/L ALT 18 (9-52) IU/L Alkaline Phosphatase 97 (38-126) U/L Total Protein 7.9 (6.3-8.2) g/dL Albumin 4.5 (3.5-5.0) g/dL Globulin 3.4 (1.7-4.1) g/dL Albumin/Globulin Ratio 1.3 (1.0-2.8) Lipase 134 (23-300) U/L Urine Color Urine Appearance Urine pH (4.5-8.0) Ur Specific [place] (1.000-1.035) Urine Protein (Negative) Urine Glucose (UA) (Negative) g/dL Urine Ketones (NEGATIVE) Urine Occult Blood (Negative) Urine Nitrate (Negative) Urine Bilirubin (NEGATIVE) Urine Urobilinogen (0.2) E.U./dL Ur Leukocyte Esterase (NEGATIVE) Urine RBC (0-5/HPF) Urine WBC (0-5/HPF) Ur Squamous Epith Cells (0-5/HPF) Urine Bacteria (None) Ur Culture Indicated? Urine Test Negative (Negative) 01/13/19 Range/Units 23:00 WBC (4.5-11.0) X10^3/uL RBC (4.0-5.2) X10^6/uL Hgb (12.0-16.0) g/dL Hct (36-46) % MCV (80-100) fL MCH (26-34) PG MCHC (30-36) % RDW (11.6-14.8) % Plt Count (150-400) X10^3/uL Neut % (Auto) (50-75) % Lymph % (Auto) (25-40) % [place] % (Auto) (3-14) % Eos % (Auto) (2-4) % Baso % (Auto) (0-2) % Neut # (Auto) (5801-5516) /uL Lymph # (Auto) (5004-6670) /uL [place] # (Auto) (0-900) /uL Eos # (Auto) (0-450) /uL Baso # (Auto) (0-100) /uL Sodium (137-145) mmol/L Potassium (3.4-5.1) mmol/L Chloride (98-107) mmol/L Carbon Dioxide (22-32) mmol/L BUN (7-17) mg/dL Creatinine (0.52-1.04) mg/dL Estimated GFR (>60) mL/min BUN/Creatinine Ratio (6-22) Glucose (70-100) mg/dL Calcium (8.4-10.2) mg/dL Total Bilirubin (0.2-1.3) mg/dL AST (14-36) IU/L ALT (9-52) IU/L Alkaline Phosphatase (38-126) U/L Total Protein (6.3-8.2) g/dL Albumin (3.5-5.0) g/dL Globulin (1.7-4.1) g/dL Albumin/Globulin Ratio (1.0-2.8) Lipase (23-300) U/L Urine Color Yellow Urine Appearance Clear Urine pH 6.5 (4.5-8.0) Ur Specific [place] 1.015 (1.000-1.035) Urine Protein Negative (Negative) Urine Glucose (UA) Negative (Negative) g/dL Urine Ketones Negative (NEGATIVE) Urine Occult Blood Trace-lysed (Negative) Urine Nitrate Negative (Negative) Urine Bilirubin Negative (NEGATIVE) Urine Urobilinogen 0.2 (0.2) E.U./dL Ur Leukocyte Esterase Negative (NEGATIVE) Urine RBC 0-1/hpf (0-5/HPF) Urine WBC None seen (0-5/HPF) Ur Squamous Epith Cells 0-1 /hpf (0-5/HPF) Urine Bacteria None seen (None) Ur Culture Indicated? Cult not indicated Urine Test (Negative) Imaging Data CT scan - abdomen: Radiologist's impression: mine shifter report: No acute abnormality. No free intraperitoneal air or fluid. No inflammatory or obstructive changes involving bowel or Eda toe urinary tract. Distended urinary bladder. Right ovary measuring 2.2 x 2.5 cm. MDM Narrative Medical decision making narrative: The patient's headache is better after migraine cocktail. She does have some mild right lower quadrant pain. Is quite lateral not quite over her ovaries. Her pain there has improved some but is not totally gone away. CT does no in ovarian cyst. She also has a history of endometriosis this feels similar to her previous episodes of endometriosis. She has referral in to violent crimes detective all ready. Overall she is feeling better and feels ready able to go home Discharge Plan Departure Patient Disposition: Home Clinical Impression: Endometriosis Ovarian cyst Qualifiers: Laterality: right Qualified Code(s): N83.201 - Unspecified ovarian cyst, right side Migraine Qualifiers: Migraine type: unspecified Status migrainosus presence: without status migrainosus Intractability: not intractable Qualified Code(s): G43.909 - Migraine, unspecified, not intractable, without status migrainosus Discharge Date/Time: 01/14/19 01:35 Instructions: Ovarian Cyst, Endometriosis Activity Restrictions/Additional Instructions: *You have been diagnosed with endometriosis ovarian cyst *What to do: Recommend seeing a violent crimes detective in regards to both of these things. If you should need stronger pain medication please talk with her PCP *Continue to take medications as directed *Follow up with your primary care provider in 2-3 days *Return to ER if you should have increasing pain persistent vomiting or any new, worsening or concerning symptoms Prescriptions: No Action biotin 1 cap PO DAILY RF: 0 hydrocodone-acetaminophen 5-325 mg tablet 1 tab PO Q4-6H PRN (Reason: pain) Qty: 7 RF: 0 alprazolam [Xanax] 0.5 mg tablet 0.5 mg PO BID PRN (Reason: anxiety) Qty: 4 RF: 0 norethindrone-e.estradiol-iron [Junel FE 05/17 ()] 1 mg-20 mcg (21)/75 mg (7) tablet 1 tab PO DAILY RF: 0 propranolol 10 mg tablet 10 mg PO TID RF: 0 escitalopram oxalate 10 mg tablet 10 mg PO DAILY RF: 0 norethindrone-e.estradiol-iron 1 mg-20 mcg (21)/75 mg (7) tablet 1 tab PO DAILY RF: 0 tramadol 50 mg tablet 50 mg PO Q4H PRN (Reason: Pain, Moderate) Qty: 30 RF: 0 ondansetron 8 mg tablet,disintegrating 8 mg PO TID PRN (Reason: nausea and vomiting) Qty: 30 RF: 0
[2019-01-13 23:38] LABS: Add Manual Diff / Slide Review NO; Basophils Absolute Auto 100 /uL (0-100); Basophils Percent Auto 0.7 % (0-2); Eosinophils Absolute Auto 100 /uL (0-450); Eosinophils Percent Auto 0.8 % (2-4); Hematocrit 39.7 % (36-46); Hemoglobin 13.9 g/dL (12.0-16.0); Lymphocytes Absolute Auto 3600 /uL (1100-4500); Lymphocytes Percent Auto 25.5 % (25-40); Mean Corpuscular HGB Conc 34.9 % (30-36); Mean Corpuscular Hemoglobin 31.5 PG (26-34); Mean Corpuscular Volume 90.1 fL (80-100); Monocytes Absolute Auto 900 /uL (0-900); Monocytes Percent Auto 6.1 % (3-14); Neutrophils Absolute Auto 9400 /uL (1500-7000); Neutrophils Percent Auto 66.9 % (50-75); Platelet Count 386 X10^3/uL (150-400)
[2019-01-13] MEDS: PROCHLORPERAZINE 10 MG/2 ML VIAL IV (23:38)
[2019-01-13] MEDS: PANTOPRAZOLE 40 MG VIAL IV (23:38)
[2019-01-13] MEDS: KETOROLAC 60 MG/2 ML VIAL 30 MG IV (23:39)
[2019-01-13] MEDS: diphenhydrAMINE 50 MG/ML VIAL 25 MG IV (23:39)
[2019-01-13 23:41] LABS: Alanine Aminotransferase 18 IU/L (9-52); Albumin 4.5 g/dL (3.5-5.0); Albumin Globulin Ratio 1.3 (1.0-2.8); Alkaline Phosphatase 97 U/L (38-126); Aspartate Aminotransferase 31 IU/L (14-36); BUN Creatinine Ratio 23.8 (6-22); Bilirubin Total 0.4 mg/dL (0.2-1.3); Blood Urea Nitrogen 19 mg/dL (7-17); Calcium 9.7 mg/dL (8.4-10.2); Carbon Dioxide 25 mmol/L (22-32); Chloride 102 mmol/L (98-107); Estimated Glomerular Filt Rate > 60.0 mL/min (>60); Globulin 3.4 g/dL (1.7-4.1); Glucose 108 mg/dL (70-100); HEMOLYSIS < 15 (0-50); Lipase 134 U/L (23-300); Sodium 138 mmol/L (137-145); Total Protein 7.9 g/dL (6.3-8.2)
[2019-01-13 23:54] LABS: Pregnancy Test Urine Negative (Negative)
[2019-01-13 23:57] LABS: Bacteria Urine None Seen; WBC Urine None Seen (0-5/HPF)
[2019-01-14 00:21] LABS: Appearance Urine UA CLEAR; Bilirubin Urine UA NEGATIVE (NEGATIVE); Color Urine UA YELLOW; Glucose Urine UA NEGATIVE (Negative); Ketones Urine UA NEGATIVE (NEGATIVE); Leukocyte Esterase Urine UA NEGATIVE (NEGATIVE); Nitrite Urine UA NEGATIVE (Negative); Occult Blood Urine UA TRACE-LYSED (Negative); Protein Urine UA NEGATIVE (Negative); Specific Gravity Urine UA 1.015 (1.000-1.035); Urobilinogen Urine UA 0.2 E.U./dL (0.2)
[2019-01-14 00:22] LABS: pH Urine UA 6.5 (4.5-8.0)
--- NOTE | 2019-01-14 00:22 | DI.CT.S_ITS ---
PROCEDURE: CT ABDOMEN PELVIS W CON INDICATIONS: Right lower quadrant pain, history of appendicitis TECHNIQUE: After the administration of intravenous contrast, 5 mm thick sections acquired from the diaphragm to the symphysis. 5 mm coronal and sagittal reformats were acquired. For radiation dose reduction, the following was used: automated exposure control, adjustment of mA and/or kV according to patient size. COMPARISON: [facility], CT, CT ABDOMEN PELVIS W CON, 04/05/2018, 21:12. FINDINGS: Image quality: There is mild motion artifact. ABDOMEN: Lung bases: Lung bases are clear. Heart size is normal. Solid organs: Evaluation of the liver demonstrates no focal hepatic lesions. The gallbladder appears within normal limits without calcified gallstones. Biliary system is non-dilated. Pancreas enhances normally. No peripancreatic fat stranding or fluid collections. No pancreatic duct dilatation. The spleen is normal in size. No adrenal nodules. Kidneys demonstrate no hydronephrosis. Peritoneum and bowel: Bowel loops demonstrate normal wall thickness and caliber. There are postsurgical changes along the cecum compatible with prior appendectomy. No free fluid or air. Nodes and vessels: No retroperitoneal or mesenteric adenopathy by size criteria. Aorta and inferior vena cava are normal in size. Miscellaneous: No ventral hernias. PELVIS: Genitourinary: There is moderate distention of the urinary bladder. Bladder wall thickness is normal. There is a thin walled right ovarian cyst measuring up to 2.3 cm likely representing a physiologic follicular cyst. Miscellaneous: No inguinal hernias or adenopathy. Bones: No suspicious bony lesions. No vertebral body compression fractures. IMPRESSION: 1. No definite acute intra-abdominal abnormality. 2. Thin walled right ovarian cyst like the representing a physiologic follicular cyst. 3. Moderate distention of the urinary bladder. Concordant with preliminary interpretation. Dictated by: Cristiano Chavez M.D. on 01/14/2019 at 9:13 Approved by: Cristiano Chavez M.D. on 01/14/2019 at 9:17
[2019-01-14 00:42] LABS: Culture Indicated Urine Cult Not Indicated; RBC Urine 0-1/HPF (0-5/HPF); Squamous Epithelial Cell Urine 0-1 /HPF (0-5/HPF)
[2019-01-14 01:00] VITALS: BP 131/88; PULSE 84; RESP 18; O2SAT 98
== END 2019-01-14 01:35 | disposition home or self-care (01) ==
PROVIDERS: Emergency Provider Emergency Medicine
DX: N80.9 Endometriosis, unspecified (principal); N83.201 Unspecified ovarian cyst, right side; G43.909 Migraine, unspecified, not intractable, without status migrainosus
CPT/HCPCS: 36591; 74177; 80053; 81001; 81025; 83690; 85025; 96361; 96374; 96375; 99283; 99285; C9113; J0780; J1200; J1885; Q9967

== ENCOUNTER 2019-01-23 23:23 | Emergency (ER) | payer OTHER, SELFPAY ==
[2018-03-02 18:05] VITALS: BMI 34.2
[2019-01-23 23:31] VITALS: BP 138/93; PULSE 107; RESP 16; TEMP 37; O2SAT 98; BMI 34.5
[2019-01-24 00:43] LABS: Prothrombin Time 10.9 SECONDS (10.1-12.7)
[2019-01-24] MEDS: SODIUM CHLORIDE 0.9% 1,000 ML 1000 ML IV (00:43)
[2019-01-24] MEDS: ONDANSETRON 4 MG/2 ML INJ IV (00:43)
--- NOTE | 2019-01-24 00:44 | PC.NURSE ---
Patient states she is feeling like she'd rather than feel the pain she is having. States she has no plan but has thought about just dieing and not hurting. Denies previous hx of suicide attempts. Pt in full view of [employer] station and contracts verbally for safety.
[2019-01-24 00:45] LABS: PTT Partial Thromboplastin Tim 36 SECONDS (26.4-36.2)
[2019-01-24 00:47] LABS: Alanine Aminotransferase 26 IU/L (9-52); Albumin 4.3 g/dL (3.5-5.0); Albumin Globulin Ratio 1.2 (1.0-2.8); Alkaline Phosphatase 85 U/L (38-126); Aspartate Aminotransferase 47 IU/L (14-36); BUN Creatinine Ratio 14.3 (6-22); Bilirubin Total 0.4 mg/dL (0.2-1.3); Blood Urea Nitrogen 10 mg/dL (7-17); Calcium 9.4 mg/dL (8.4-10.2); Carbon Dioxide 24 mmol/L (22-32); Chloride 108 mmol/L (98-107); Estimated Glomerular Filt Rate > 60.0 mL/min (>60); Globulin 3.5 g/dL (1.7-4.1); Glucose 104 mg/dL (70-100); HEMOLYSIS 18 (0-50); Lipase 99 U/L (23-300); Potassium 4.1 mmol/L (3.4-5.1); Sodium 144 mmol/L (137-145); Total Protein 7.8 g/dL (6.3-8.2)
[2019-01-24 00:49] LABS: Add Manual Diff / Slide Review NO; Basophils Absolute Auto 100 /uL (0-100); Basophils Percent Auto 0.9 % (0-2); Eosinophils Absolute Auto 200 /uL (0-450); Eosinophils Percent Auto 2.2 % (2-4); Hemoglobin 13.5 g/dL (12.0-16.0); Lymphocytes Absolute Auto 2700 /uL (1100-4500); Lymphocytes Percent Auto 28.1 % (25-40); Mean Corpuscular HGB Conc 34.6 % (30-36); Mean Corpuscular Hemoglobin 31.4 PG (26-34); Mean Corpuscular Volume 90.7 fL (80-100); Monocytes Absolute Auto 600 /uL (0-900); Monocytes Percent Auto 6.8 % (3-14); Neutrophils Absolute Auto 5900 /uL (1500-7000); Platelet Count 428 X10^3/uL (150-400); Red Cell Distribution Width 13.2 % (11.6-14.8); White Blood Cell Count 9.4 X10^3/uL (4.5-11.0)
[2019-01-24 01:30] VITALS: BP 117/62; PULSE 98; RESP 16; TEMP 36.7; O2SAT 97
--- NOTE | 2019-01-24 01:34 | ED_ITS ---
HPI - Abdominal Pain General Chief Complaint: Abdominal Pain Stated Complaint: severe abdominal pain/migraine nausea/weakness Time Seen by Provider: 01/24/19 01:34 Source: patient and old records reviewed Mode of arrival: Ambulatory Limitations: no limitations History of Present Illness HPI narrative: This is a 23-year-old female comes to the emergency department with complaint of abdominal pain, migraine and nausea. Patient states she has had all these problems in the past. States she has had migraine she took Reglan, Benadryl p.o. and ibuprofen at home which kept her migraine ?in check and ?but she has continued to have significant abdominal pain. She does normally see a neurologist, she states that the Reglan, Benadryl combo was recommended by her neurologist. They are in the process of getting her set up with verapamil but she is waiting for prior authorization. Patient states she has known endometriosis. She states that this is the 2nd worst episode that she has had. She has had laparoscopic surgery in the past and states that she had an area removed on the right side 1-2 years ago. Patient states it is always on the right side it is similar to where she normally hurts. It is the similar type episodes. She has had appendectomy in the past. Patient denies any fevers. She felt nauseated early but does not currently. She has had normal bowel movements and states they have been a little soft. She denies any urinary frequency urgency or dysuria. She did start her menses today and she thinks that may be exacerbating her endometriosis. 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 Related Data Home Medications Medication Instructions Recorded Confirmed biotin 1 cap PO DAILY 02/12/18 03/02/18 norethindrone-e.estradiol-iron 1 tab PO DAILY 03/02/18 03/02/18 escitalopram oxalate 10 mg PO DAILY 12/30/18 12/30/18 norethindrone-e.estradiol-iron 1 tab PO DAILY 12/30/18 12/30/18 [05/17 (28)] propranolol 10 mg PO TID 12/30/18 12/30/18 Previous Rx's Medication Instructions Recorded ondansetron 8 mg PO TID PRN #30 tab 03/03/18 tramadol 50 mg PO Q4H PRN #30 tab 03/03/18 alprazolam [Xanax] 0.5 mg PO BID PRN #4 tab 12/28/18 hydrocodone-acetaminophen 1 tab PO Q4-6H PRN #7 tab 12/28/18 Allergies Allergy/AdvReac Type Severity Reaction Status Date / Time Sulfa (Sulfonamide Allergy Verified 12/03/18 23:33 Antibiotics) Review of Systems Review of Systems ROS Unobtainable: All systems reviewed & are unremarkable except as noted in HPI and below Constitutional Constitutional: Denies chills, Denies fever(s) and Reports headache(s) ENT Ears, Nose, Mouth, and Throat: Reports headache(s) Cardiovascular Cardiovascular: Denies chest pain, Denies irregular heart rhythm, Denies light headedness, Denies palpitations, Denies dyspnea, Denies dyspnea on exertion and Denies orthopnea Respiratory Respiratory: Denies dyspnea and Denies dyspnea on exertion Gastrointestinal Gastrointestinal: Reports abdominal pain, Denies melena, Denies hematochezia, Denies change in bowel habits, Denies diarrhea, Reports nausea (improved after home meds) and Reports vomiting (x2) Genitourinary Genitourinary: Reports as per HPI (currently on menses), Denies abnormal vaginal bleeding, Denies hematuria, Denies urinary frequency, Denies difficulty voiding, Reports dysmenorrhea, Denies dysuria, Denies flank pain, Denies urinary incontinence, Denies urinary hesitancy, Denies urinary urgency and Denies vaginal discharge Musculoskeletal Musculoskeletal: Denies back pain Neurologic Neurologic: Reports headache(s) Endocrine Endocrine: Denies palpitations [facility] Social History household members: friend(s) Smoking Status: Former smoker alcohol intake: current Exam Narrative Exam Narrative: GENERAL: Alert and oriented x three, obese female in moderate distress. HEENT: Head normocephalic, atraumatic, EOMI, pupils reactive, face symmetric, moist mucous membranes NECK: Supple, full range of motion CARDIOVASCULAR: Regular rate and rhythm without murmurs, rubs or gallops. RESPIRATORY: Breath sounds equal bilaterally, no wheezes rales or rhonchi. ABDOMEN: Soft, patient has moderate tenderness of the right middle abdomen. Normoactive bowel sounds all 4 quadrants. No guarding or rebound, rigidity, no mass. : No CVA tenderness EXTREMITIES: Normal range of motion, no clubbing or edema. Neurovascularly intact NEUROLOGICAL: Cranial nerves II through XII grossly intact. Moving all extremities SKIN: Warm, dry, no petechiae, no rashes or lesions. Initial Vital Signs Initial Vital Signs: Vital Signs Temperature 98.6 F 01/23/19 23:31 Pulse Rate 107 H 01/23/19 23:31 Respiratory Rate 16 01/23/19 23:31 Blood Pressure 138/93 H 01/23/19 23:31 Pulse Oximetry 98 01/23/19 23:31 Course Orders Ordered: ED Orders 01/24/19 00:18 Complete Blood Count AUTO DIFF Stat Comprehensive Metabolic Panel Stat Lipase Stat Partial Thromboplastin Time Stat Prothrombin Time INR Stat Discontinued Medications Hydromorphone HCl (Dilaudid) 1 mg IV NOW ONE Stop: 01/24/19 02:19 Last Admin: 01/24/19 02:36 Dose: 1 mg Documented by: BRUNA Hydromorphone HCl (Dilaudid) 1 mg IV NOW ONE Stop: 01/24/19 02:54 Last Admin: 01/24/19 03:00 Dose: 1 mg Documented by: BRUNA Sodium Chloride (Normal Saline 0.9%) 1,000 mls @ 1,000 mls/hr IV BOLUS ONE Stop: 01/24/19 01:40 Last Infusion: 01/24/19 01:58 Dose: 0 mls/hr Documented by: Admin: 01/24/19 00:43 Dose: 1,000 mls/hr Documented by: BRUNA Ketorolac Tromethamine (Toradol) 30 mg IV NOW ONE Stop: 01/24/19 01:48 Last Admin: 01/24/19 01:55 Dose: 30 mg Documented by: BRUNA Lorazepam (Ativan) 0.5 mg IV NOW ONE Stop: 01/24/19 01:48 Last Admin: 01/24/19 01:56 Dose: 0.5 mg Documented by: BRUNA Ondansetron HCl (Zofran) 4 mg IV NOW ONE Stop: 01/24/19 00:35 Last Admin: 01/24/19 00:43 Dose: 4 mg Documented by: BRUNA Vital Signs Vital signs: Vital Signs - 8 hr 01/24/19 01:30 01/24/19 02:30 01/24/19 04:02 Temperature 98.0 F 98.5 F Pulse Rate 98 H 98 H 97 H Respiratory Rate 16 16 16 Blood Pressure [Right Arm] 117/62 148/74 H 139/90 Pulse Oximetry 97 98 99 MDM - Abdominal Pain Lab Data Attestation: I reviewed the patient's lab results. Result diagrams: 01/24/19 00:18 01/24/19 00:18 Labs: Lab Results 01/24/19 01/24/19 01/24/19 Range/Units 00:18 00:18 00:18 WBC 9.4 (4.5-11.0) X10^3/uL RBC 4.30 (4.0-5.2) X10^6/uL Hgb 13.5 (12.0-16.0) g/dL Hct 39.0 (36-46) % MCV 90.7 (80-100) fL MCH 31.4 (26-34) PG MCHC 34.6 (30-36) % RDW 13.2 (11.6-14.8) % Plt Count 428 H (150-400) X10^3/uL Neut % (Auto) 62.0 (50-75) % Lymph % (Auto) 28.1 (25-40) % [place] % (Auto) 6.8 (3-14) % Eos % (Auto) 2.2 (2-4) % Baso % (Auto) 0.9 (0-2) % Neut # (Auto) 5900 (9781-8542) /uL Lymph # (Auto) 2700 (6462-2462) /uL [place] # (Auto) 600 (0-900) /uL Eos # (Auto) 200 (0-450) /uL Baso # (Auto) 100 (0-100) /uL PT 10.9 (10.1-12.7) SECONDS INR 1.0 (0.9-1.3) APTT 36 D (26.4-36.2) SECONDS Sodium 144 (137-145) mmol/L Potassium 4.1 (3.4-5.1) mmol/L Chloride 108 H (98-107) mmol/L Carbon Dioxide 24 (22-32) mmol/L BUN 10 (7-17) mg/dL Creatinine 0.70 (0.52-1.04) mg/dL Estimated GFR > 60.0 (>60) mL/min BUN/Creatinine Ratio 14.3 (6-22) Glucose 104 H (70-100) mg/dL Calcium 9.4 (8.4-10.2) mg/dL Total Bilirubin 0.4 (0.2-1.3) mg/dL AST 47 H (14-36) IU/L ALT 26 (9-52) IU/L Alkaline Phosphatase 85 (38-126) U/L Total Protein 7.8 (6.3-8.2) g/dL Albumin 4.3 (3.5-5.0) g/dL Globulin 3.5 (1.7-4.1) g/dL Albumin/Globulin Ratio 1.2 (1.0-2.8) Lipase 99 (23-300) U/L Point of care testing: Point of Care Testing Test Results Negative Urine Dip Bedside Urine Glucose Negative Bedside Urine Bilirubin - Negative Bedside Urine Ketone - Negative Urine Specific [place] 1.010 Bedside Urine Occult Blood +/- Bedside Urine pH 5.5 Bedside Urine Protein - Negative Bedside Urine Urobilinogen - Negative Bedside Urine Nitrite - Negative Bedside Urine Leukocytes - Negative Esterase MDM Narrative Medical decision making narrative: Patient has right-sided abdominal pain, states she has had an appendectomy. She has multiple visits for similar symptoms in the past. Patient has tried her regular migraine medications with minimal improvement. Patient and I discussed that her labs today do not show any major abnormalities. Her heart rate was elevated initially. Discussed with patient at this time I would like to avoid radiating her she has had multiple CT scans in the past and she is open to this plan. Patient given Toradol and Ativan with minimal improvement. Given additional dose of Dilaudid and patient on recheck is improved but still uncomfortable. Patient received 2nd dose and requesting to return home. 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 Continue home medications as prescribed. Return to the ER for fevers greater than 100.4 F, persistent vomiting, black or bloody stools, you're not having any bowel movements, changing or new abdominal pain, now, new chest pain or shortness of breath, syncope or lightheadedness or other new or concerning symptoms. Prescriptions: No Action biotin 1 cap PO DAILY RF: 0 hydrocodone-acetaminophen 5-325 mg tablet 1 tab PO Q4-6H PRN (Reason: pain) Qty: 7 RF: 0 alprazolam [Xanax] 0.5 mg tablet 0.5 mg PO BID PRN (Reason: anxiety) Qty: 4 RF: 0 norethindrone-e.estradiol-iron [Junel FE 05/17 (28)] 1 mg-20 mcg (21)/75 mg (7) tablet 1 tab PO DAILY RF: 0 propranolol 10 mg tablet 10 mg PO TID RF: 0 escitalopram oxalate 10 mg tablet 10 mg PO DAILY RF: 0 norethindrone-e.estradiol-iron 1 mg-20 mcg (21)/75 mg (7) tablet 1 tab PO DAILY RF: 0 tramadol 50 mg tablet 50 mg PO Q4H PRN (Reason: Pain, Moderate) Qty: 30 RF: 0 ondansetron 8 mg tablet,disintegrating 8 mg PO TID PRN (Reason: nausea and vomiting) Qty: 30 RF: 0
[2019-01-24] MEDS: KETOROLAC 60 MG/2 ML VIAL 30 MG IV (01:55)
[2019-01-24] MEDS: LORazepam 2 MG/ML INJ 0.5 MG IV (01:56)
[2019-01-24 02:30] VITALS: BP 148/74; PULSE 98; RESP 16; O2SAT 98
[2019-01-24] MEDS: HYDROMORPHONE 1 MG INJ IV ×2 (02:36→03:00)
[2019-01-24 04:02] VITALS: BP 139/90; PULSE 97; RESP 16; TEMP 36.9; O2SAT 99
== END 2019-01-24 04:00 | disposition home or self-care (01) ==
PROVIDERS: Emergency Provider Emergency Medicine
DX: R10.9 Unspecified abdominal pain (principal); Z87.42 Personal history of other diseases of the female genital tract
CPT/HCPCS: 36415; 80053; 81003; 81025; 83690; 85025; 85610; 85730; 96361; 96374; 96375; 99283; 99284; J1170; J1885; J2060; J2405

== ENCOUNTER 2019-01-24 20:04 | Emergency (ER) | payer OTHER, SELFPAY ==
[2018-03-02 18:05] VITALS: BMI 34.2
[2019-01-24] VITALS (9 sets, daily range): BP systolic 89–142; BP diastolic 69–99; PULSE 75–103; RESP 12–20; TEMP 36.2–37.1; O2SAT 98–99; BMI 34.5
--- NOTE | 2019-01-24 20:50 | ED.ABDPAIN ---
HPI - Abdominal Pain General Chief Complaint: Abdominal Pain Stated Complaint: abdominal pain is worse, not keeping anything down Time Seen by Provider: 01/24/19 20:21 Source: patient Mode of arrival: Ambulatory Limitations: no limitations History of Present Illness HPI narrative: 23-year-old female smoker with known history of endometriosis and chronic abdominal pain presents to the emergency department for the 2nd time in 2 days. She was seen and evaluated last night with extensive workup at and reassuring labs and exam. Patient had increasing right lower quadrant pain as well as nausea and vomiting over the course of the day. Her pain is worse with motion and improves with rest. She does states she had 1 episode of diarrhea but largely her bowels have been normal. She denies dysuria, frequency or urgency. She has had no fever, recent antibiotics or exposure to ill persons. She denies international travel. She does have an extensive history of endometriosis and migraines. She had been on hormonal replacement to help with endometriosis but had increasing migraines. As a result she stopped taking these medications and her migraines have improved. This is her 1st menstrual cycle off of them, her menses started yesterday. MD complaint: abdominal pain Onset (ago): day(s) Pain Consistency: constant Location: RLQ Severity: moderate Quality: cramping and aching Migration to: no migration Relieving factors: rest Exacerbating factors: movement Associated symptoms: nausea and vomiting Related Data Patient : No Home Medications Medication Instructions Recorded Confirmed biotin 1 cap PO DAILY 02/12/18 03/02/18 norethindrone-e.estradiol-iron 1 tab PO DAILY 03/02/18 03/02/18 escitalopram oxalate 10 mg PO DAILY 12/30/18 12/30/18 norethindrone-e.estradiol-iron 1 tab PO DAILY 12/30/18 12/30/18 [June FE 05/17 (28)] propranolol 10 mg PO TID 12/30/18 12/30/18 Previous Rx's Medication Instructions Recorded ondansetron 8 mg PO TID PRN #30 tab 03/03/18 tramadol 50 mg PO Q4H PRN #30 tab 03/03/18 alprazolam [Xanax] 0.5 mg PO BID PRN #4 tab 12/28/18 hydrocodone-acetaminophen 1 tab PO Q4-6H PRN #7 tab 12/28/18 Allergies Allergy/AdvReac Type Severity Reaction Status Date / Time Sulfa (Sulfonamide Allergy Verified 12/03/18 23:33 Antibiotics) Review of Systems Constitutional Constitutional: Denies chills, Denies fatigue, Denies fever(s), Denies frequent falls, Denies lethargy and Denies weakness Eyes Eyes: Denies change in vision, Denies eye discharge, Denies irritation and Denies loss of vision ENT Ears, Nose, Mouth, and Throat: Denies change in voice, Denies dizziness, Denies neck pain, Denies sore throat and Denies throat swelling Cardiovascular Cardiovascular: Denies chest pain, Denies irregular heart rhythm, Denies lightheadedness, Denies palpitations, Denies dyspnea, Denies dyspnea on exertion and Denies orthopnea Respiratory Respiratory: Denies cough, Denies dyspnea, Denies dyspnea on exertion and Denies wheezing Gastrointestinal Gastrointestinal: Reports abdominal pain, Denies change in bowel habits, Denies diarrhea, Reports nausea and Reports vomiting Genitourinary Genitourinary: Denies hematuria, Denies flank pain, Denies urinary incontinence and Denies urinary urgency Musculoskeletal Musculoskeletal: Denies back pain, Denies muscle weakness, Denies neck pain, Denies numbness and Denies tingling Integumentary/Breasts Skin/Breast: Denies pruritus, Denies erythema, Denies rash and Denies wounds Neurologic Neurologic: Denies behavioral changes, Denies confusion, Denies dizziness, Denies frequent falls, Denies loss of vision, Denies numbness, Denies tingling and Denies weakness Psychiatric Psychiatric: Denies anxiety, Denies behavioral changes, Denies confusion, Denies depression, Denies homicidal ideation and Denies suicidal ideation Endocrine Endocrine: Denies fatigue, Denies flushing and Denies palpitations Hematologic/Lymphatic Hematologic/Lymphatic: Denies easy bruising Allergic/Immunologic Allergic/Immunologic: Denies urticaria, Denies throat swelling and Denies wheezing [facility] Medical History Endometriosis (Acute) Polycystic ovaries (Acute) [place] teeth extracted (Acute) Surgical History Hx of tonsillectomy (Acute) Social History household members: friend(s) Smoking Status: Former smoker alcohol intake: current Social History household members: friend(s) Smoking Status: Former smoker alcohol intake: current Exam Narrative Exam Narrative: GENERAL: [23] year old patient appears stated age. Well-nourished, well-developed patient, in mild distress. Tearful, holding an emesis bag HEAD: Atraumatic. Normocephalic. EYES: Pupils equal round and reactive. Extraocular motions intact. No scleral icterus. No injection or drainage. ENT: Nose without bleeding, purulent drainage. Throat without erythema, tonsillar hypertrophy or exudate. Airway patent. NECK: Trachea midline. Non tender CARDIOVASCULAR: Regular rate and rhythm without murmurs, gallops, or rubs. RESPIRATORY: Clear to auscultation. Breath sounds equal bilaterally. No wheezes, rales, or rhonchi. GASTROINTESTINAL: Abdomen soft, tender in the right lower quadrant, nondistended. Bowel sounds in all 4 quadrants. No rebound. Voluntary guarding noted. Negative Rovsing's and heel tap EXTREMITIES: No edema or joint tenderness. BACK: Nontender without deformity or crepitance. No flank tenderness. NEURO: AOx3. SKIN: No rash or erythema of visible areas Initial Vital Signs Initial Vital Signs: Vital Signs Temperature 97.1 F L 01/24/19 20:22 Pulse Rate 103 H 01/24/19 20:22 Respiratory Rate 16 01/24/19 20:22 Blood Pressure 131/92 H 01/24/19 20:22 Pulse Oximetry 98 01/24/19 20:22 Course Orders Ordered: ED Orders 01/24/19 20:44 Complete Blood Count AUTO DIFF Stat Comprehensive Metabolic Panel Stat 01/24/19 22:45 US pelvic complete Stat Discontinued Medications Hydrocodone Bitart/Acetaminophen (Vicodin Prepack) 1 bottle MISC SEEINSTR ONE Stop: 01/25/19 00:34 Last Admin: 01/25/19 00:52 Dose: 1 bottle Documented by: THUY Sodium Chloride (Normal Saline 0.9%) 1,000 mls @ 1,000 mls/hr IV BOLUS ONE Stop: 01/24/19 22:00 Last Infusion: 01/24/19 22:56 Dose: 0 mls/hr Documented by: Admin: 01/24/19 21:11 Dose: 1,000 mls/hr Documented by: THUY Ketorolac Tromethamine (Toradol) 15 mg IV NOW ONE Stop: 01/24/19 21:02 Last Admin: 01/24/19 21:12 Dose: 15 mg Documented by: THUY Metoclopramide HCl (Reglan) 10 mg IV NOW ONE Stop: 01/25/19 00:10 Last Admin: 01/25/19 00:17 Dose: 10 mg Documented by: THUY Ondansetron HCl (Zofran) 4 mg IV NOW ONE Stop: 01/24/19 21:52 Last Admin: 01/24/19 21:56 Dose: 4 mg Documented by: ABHI Ondansetron HCl (Zofran Odt Prepack) 1 bottle MISC SEEINSTR ONE Stop: 01/25/19 00:34 Last Admin: 01/25/19 00:52 Dose: 1 bottle Documented by: THUY Vital Signs Vital signs: Vital Signs - 8 hr 01/24/19 20:22 01/24/19 20:30 01/24/19 21:00 Temperature 97.1 F L Pulse Rate 103 H 92 H 98 H Respiratory Rate 16 20 19 Blood Pressure 131/92 H Blood Pressure [Left Arm] 127/82 131/80 Pulse Oximetry 98 99 99 01/24/19 21:30 01/24/19 22:00 01/24/19 22:30 Temperature Pulse Rate 80 84 75 Respiratory Rate 15 15 18 Blood Pressure Blood Pressure [Left Arm] 124/87 121/77 142/99 H Pulse Oximetry 99 99 99 01/24/19 23:27 01/24/19 23:30 01/24/19 23:37 Temperature 98.7 F Pulse Rate 76 78 84 Respiratory Rate 12 15 16 Blood Pressure Blood Pressure [Left Arm] 100/81 89/69 L 121/74 Pulse Oximetry 99 99 99 01/25/19 00:30 Temperature Pulse Rate 79 Respiratory Rate 14 Blood Pressure Blood Pressure [Left Arm] 117/85 Pulse Oximetry 99 MDM - Abdominal Pain Lab Data Result diagrams: 01/24/19 20:44 01/24/19 20:44 Labs: Lab Results 01/24/19 01/24/19 Range/Units 20:44 20:44 WBC 9.9 (4.5-11.0) X10^3/uL RBC 4.15 (4.0-5.2) X10^6/uL Hgb 13.0 (12.0-16.0) g/dL Hct 38.0 (36-46) % MCV 91.6 (80-100) fL MCH 31.4 (26-34) PG MCHC 34.3 (30-36) % RDW 13.0 (11.6-14.8) % Plt Count 394 (150-400) X10^3/uL Neut % (Auto) 61.6 (50-75) % Lymph % (Auto) 26.3 (25-40) % [place] % (Auto) 9.1 (3-14) % Eos % (Auto) 2.1 (2-4) % Baso % (Auto) 0.9 (0-2) % Neut # (Auto) 6100 (6646-6018) /uL Lymph # (Auto) 2600 (4670-0668) /uL [place] # (Auto) 900 (0-900) /uL Eos # (Auto) 200 (0-450) /uL Baso # (Auto) 100 (0-100) /uL Sodium 138 (137-145) mmol/L Potassium 4.0 (3.4-5.1) mmol/L Chloride 105 (98-107) mmol/L Carbon Dioxide 26 (22-32) mmol/L BUN 15 (7-17) mg/dL Creatinine 0.70 (0.52-1.04) mg/dL Estimated GFR > 60.0 (>60) mL/min BUN/Creatinine Ratio 21.4 (6-22) Glucose 98 (70-100) mg/dL Calcium 9.4 (8.4-10.2) mg/dL Total Bilirubin 0.4 (0.2-1.3) mg/dL AST 41 H (14-36) IU/L ALT 27 (9-52) IU/L Alkaline Phosphatase 82 (38-126) U/L Total Protein 7.2 (6.3-8.2) g/dL Albumin 3.9 (3.5-5.0) g/dL Globulin 3.3 (1.7-4.1) g/dL Albumin/Globulin Ratio 1.2 (1.0-2.8) Point of care testing: Point of Care Testing Test Results Negative Urine Dip Bedside Urine Glucose Negative Bedside Urine Bilirubin - Negative Bedside Urine Ketone - Negative Urine Specific [place] 1.020 Bedside Urine Occult Blood - Negative Bedside Urine pH 6.0 Bedside Urine Protein - Negative Bedside Urine Urobilinogen - Negative Bedside Urine Nitrite - Negative Imaging Data Pelvic US: Radiologist's impression: Normal pelvis ultrasound. MDM Narrative Medical decision making narrative: Patient returns to emergency department with ongoing vomiting and abdominal pain. This pain is very similar to multiple episodes she has had in the past which frequently are not demonstrated on imaging and is thought to be related to endometriosis. She recently stopped hormone therapy as it was contributing to increasing migraines and since then her pain has been worsening adding to the suspicion that this is likely endometrial in etiology. Furthermore her menses started yesterday as did her significant pain. She has no fever, no chills, no signs of sepsis or significant intra abdominal findings. Labs and exam are very reassuring. Patient has appointment with Ob later this week. Questions answered to her apparent satisfaction. Return precautions given. Discharge Plan Departure Patient Disposition: Home Clinical Impression: Pelvic pain Activity Restrictions/Additional Instructions: 1. Drink plenty of fluids with frequent small sips. 2. For the next 24 hours a clear liquid diet is advised. After that please employ a brat diet which would include bananas, rice, apples, toast. 3. Please take medications as directed. 4. Please follow-up with your doctor in the next 1-2 days. Call the office for an appointment. 5. Please return to the emergency Department for any worsening or persistent symptoms, such as increasing pain or fever. Prescriptions: No Action biotin 1 cap PO DAILY RF: 0 hydrocodone-acetaminophen 5-325 mg tablet 1 tab PO Q4-6H PRN (Reason: pain) Qty: 7 RF: 0 alprazolam [Xanax] 0.5 mg tablet 0.5 mg PO BID PRN (Reason: anxiety) Qty: 4 RF: 0 norethindrone-e.estradiol-iron [Junel FE 05/17 (28)] 1 mg-20 mcg (21)/75 mg (7) tablet 1 tab PO DAILY RF: 0 propranolol 10 mg tablet 10 mg PO TID RF: 0 escitalopram oxalate 10 mg tablet 10 mg PO DAILY RF: 0 norethindrone-e.estradiol-iron 1 mg-20 mcg (21)/75 mg (7) tablet 1 tab PO DAILY RF: 0 tramadol 50 mg tablet 50 mg PO Q4H PRN (Reason: Pain, Moderate) Qty: 30 RF: 0 ondansetron 8 mg tablet,disintegrating 8 mg PO TID PRN (Reason: nausea and vomiting) Qty: 30 RF: 0
[2019-01-24] MEDS: SODIUM CHLORIDE 0.9% 1,000 ML 1000 ML IV (21:11)
[2019-01-24] MEDS: KETOROLAC 60 MG/2 ML VIAL 15 MG IV (21:12)
[2019-01-24 21:15] LABS: Add Manual Diff / Slide Review NO; Basophils Absolute Auto 100 /uL (0-100); Basophils Percent Auto 0.9 % (0-2); Eosinophils Absolute Auto 200 /uL (0-450); Eosinophils Percent Auto 2.1 % (2-4); Lymphocytes Absolute Auto 2600 /uL (1100-4500); Lymphocytes Percent Auto 26.3 % (25-40); Mean Corpuscular HGB Conc 34.3 % (30-36); Mean Corpuscular Hemoglobin 31.4 PG (26-34); Mean Corpuscular Volume 91.6 fL (80-100); Monocytes Absolute Auto 900 /uL (0-900); Monocytes Percent Auto 9.1 % (3-14); Neutrophils Absolute Auto 6100 /uL (1500-7000); Neutrophils Percent Auto 61.6 % (50-75); Platelet Count 394 X10^3/uL (150-400); Red Blood Cell Count 4.15 X10^6/uL (4.0-5.2); White Blood Cell Count 9.9 X10^3/uL (4.5-11.0)
[2019-01-24 21:20] LABS: Alanine Aminotransferase 27 IU/L (9-52); Albumin 3.9 g/dL (3.5-5.0); Albumin Globulin Ratio 1.2 (1.0-2.8); Alkaline Phosphatase 82 U/L (38-126); Aspartate Aminotransferase 41 IU/L (14-36); BUN Creatinine Ratio 21.4 (6-22); Bilirubin Total 0.4 mg/dL (0.2-1.3); Blood Urea Nitrogen 15 mg/dL (7-17); Calcium 9.4 mg/dL (8.4-10.2); Carbon Dioxide 26 mmol/L (22-32); Chloride 105 mmol/L (98-107); Estimated Glomerular Filt Rate > 60.0 mL/min (>60); Globulin 3.3 g/dL (1.7-4.1); Glucose 98 mg/dL (70-100); HEMOLYSIS < 15 (0-50); Sodium 138 mmol/L (137-145); Total Protein 7.2 g/dL (6.3-8.2)
--- NOTE | 2019-01-24 21:50 | PC.NURSE ---
patient nauseous and dry heaving. provider notified and 4mg of zofran via IV ordered.
[2019-01-24] MEDS: ONDANSETRON 4 MG/2 ML INJ IV (21:56)
--- NOTE | 2019-01-24 22:45 | DI.US.S_ITS ---
PROCEDURE: US PELVIC COMPLETE INDICATIONS: PAIN TECHNIQUE: Real-time scanning was performed of the pelvic organs, with image documentation. Additional endovaginal scanning was necessary due to incomplete visualization of the adnexal and endometrial structures by transabdominal scanning. COMPARISON: [facility], CT, CT ABDOMEN PELVIS W CON, 01/14/2019, 0:27. FINDINGS: Transabdominal scanning: Limited scanning through the kidneys shows no hydronephrosis. No pathologic free abdominal or pelvic fluid. The appendix is not identified and cannot be evaluated. Endovaginal scanning: Uterus: Uterus is normal in size at 6.3 x 3.8 x 5.1 cm. The endometrium measures 2.5 mm in combined thickness. Ovaries: Right ovary measures 3.1 x 1.6 x 2.3 cm the left ovary measures 1.9 x 1.1 x 2.7 cm. The ovaries are sonographically normal. IMPRESSION: 1. Uterus is sonographically normal. 2. Ovaries are sonographically normal. Dictated by: Sherry Dean MD, PhD on 01/25/2019 at 8:56 Approved by: Sherry Dean MD, PhD on 01/25/2019 at 8:57
[2019-01-25] MEDS: METOCLOPRAMIDE 10 MG/2 ML INJ IV (00:17)
[2019-01-25 00:30] VITALS: BP 117/85; PULSE 79; RESP 14; O2SAT 99
[2019-01-25] MEDS: ONDANSETRON 4 MG ODT PREPACK 1 BOTTLE MISC (00:52)
[2019-01-25] MEDS: HYDROCODONE/ACET 5/325 PREPACK 1 BOTTLE MISC (00:52)
== END 2019-01-25 00:56 | disposition home or self-care (01) ==
PROVIDERS: Emergency Provider Emergency Medicine
DX: R10.2 Pelvic and perineal pain (principal)
CPT/HCPCS: 36415; 76856; 80053; 81003; 81025; 85025; 96361; 96374; 96375; 99284; J1885; J2405; J2765

== ENCOUNTER 2019-03-13 00:35 | Emergency (ER) | payer OTHER, SELFPAY ==
[2018-03-02 18:05] VITALS: BMI 34.2
[2019-03-13 00:47] VITALS: BP 141/91; PULSE 118; RESP 22; TEMP 36.8; O2SAT 100
--- NOTE | 2019-03-13 01:03 | DI.US.S_ITS ---
PROCEDURE: US PELVIC COMPLETE INDICATIONS: RIGHT LOWER QUADRANT PAIN, HISTORY ENDOMETRIOSIS TECHNIQUE: Real-time scanning was performed of the pelvic organs, with image documentation. Additional endovaginal scanning was necessary due to incomplete visualization of the adnexal and endometrial structures by transabdominal scanning. COMPARISON: [facility], CT, CT ABDOMEN PELVIS W CON, 03/13/2019, 1:56. FINDINGS: Transabdominal scanning: Limited scanning through the kidneys shows no hydronephrosis. No pathologic free abdominal or pelvic fluid. Endovaginal scanning: Uterus: Uterus is normal in size at 8.4 x 3.9 x 5.2 cm. The endometrium measures 8 mm in combined thickness. No focal myometrial lesions are identified. Small nabothian cysts are present. Ovaries: Right ovary measures 2.6 x 2.1 x 1.9 cm. The left ovary measures 3.7 x 1.7 x 1.9 cm. Both ovaries are normal in size but had a cystic or solid abnormality. Small follicles are present bilaterally. Blood flow is demonstrated to both ovaries. A collapsing left ovarian cyst is incidentally noted. A small left paraovarian cyst is present measuring up to 1.2 cm. IMPRESSION: 1. Unremarkable uterus and ovaries. 2. Collapsing left ovarian cyst/follicle. There is also a simple appearing small left paraovarian cyst. Note: The preliminary report provided by [email or web address] [employer]. is concordant with the final report. Dictated by: Florin Harrison M.D. on 03/13/2019 at 7:06 Approved by: Florin Harrison M.D. on 03/13/2019 at 7:09
[2019-03-13] MEDS: KETOROLAC 60 MG/2 ML VIAL 30 MG IM (01:10)
[2019-03-13] MEDS: ONDANSETRON 4 MG ODT SL (01:10)
--- NOTE | 2019-03-13 01:12 | ED.ABDPAIN ---
HPI - Abdominal Pain General Chief Complaint: Abdominal Pain Stated Complaint: severe abd pain/nausea Time Seen by Provider: 03/13/19 01:03 Source: patient Mode of arrival: Ambulatory Limitations: no limitations History of Present Illness HPI narrative: Patient is a 23-year-old female with history of endometriosis and complicated migraines presenting with sudden onset of right lower quadrant pain. 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 She had nauseous she vomited 1 or 2 times. She continues to have pain. She was recently taken off control thought to be causing her migraines. She her last menstrual cycle was 1 week ago. She was feeling well earlier in the day she even had a cheeseburger during the right lower quadrant pain pain that that might help. MD complaint: abdominal pain Onset (ago): hour(s) Pain Consistency: constant Location: RLQ Quality: stabbing Radiation: none Migration to: no migration Relieving factors: nothing Exacerbating factors: nothing Related Data Home Medications Medication Instructions Recorded Confirmed biotin 1 cap PO DAILY 02/12/18 03/02/18 norethindrone-e.estradiol-iron 1 tab PO DAILY 03/02/18 03/02/18 escitalopram oxalate 10 mg PO DAILY 12/30/18 12/30/18 norethindrone-e.estradiol-iron 1 tab PO DAILY 12/30/18 12/30/18 [05/17 (28)] propranolol 10 mg PO TID 12/30/18 12/30/18 Previous Rx's Medication Instructions Recorded ondansetron 8 mg PO TID PRN #30 tab 03/03/18 tramadol 50 mg PO Q4H PRN #30 tab 03/03/18 alprazolam [Xanax] 0.5 mg PO BID PRN #4 tab 12/28/18 hydrocodone-acetaminophen 1 tab PO Q4-6H PRN #7 tab 12/28/18 hydrocodone-acetaminophen [[place]] 1 tab PO Q6H PRN #10 tab 03/13/19 ondansetron 4 mg PO Q8H PRN #10 tab 03/13/19 Allergies Allergy/AdvReac Type Severity Reaction Status Date / Time Sulfa (Sulfonamide Allergy Verified 12/03/18 23:33 Antibiotics) Review of Systems Review of Systems Narrative: GENERAL: Denies chills, fatigue, malaise, fever, sweats, travel HEENT: Denies sinus pain, ear pain, sore throat, difficulty swallowing, neck pain RESPIRATORY: Denies dyspnea, cough, wheezing, hemoptysis, sputum. CARDIOVASCULAR: Denies chest pain, palpitations, orthopnea, edema GASTROINTESTINAL: See HPI : Denies dysuria, frequency, incontinence, hematuria, urinary retention, flank pain. MUSCULOSKELETAL: Denies weakness, joint pain, or bony pain SKIN: No rash, no erythema, no pruritus NEUROLOGIC: Denies weakness, dizziness, headache, numbness, change in speech, confusion PSYCHIATRIC: No concerning psychosocial issues. 12 point review of systems is negative except for those stated above and HPI Patient History Medical History (Updated 03/13/19 @ 04:01 by Maryjo Choi DO) Endometriosis (Acute) Polycystic ovaries (Acute) Surgical History (Updated 03/13/19 @ 03:06 by Maryjo Choi DO) Hx of tonsillectomy (Acute) Status post appendectomy (Acute) [place] teeth extracted (Acute) Social History household members: friend(s) Smoking Status: Former smoker alcohol intake: current alcohol intake frequency: holidays/special occasions only Substance Use Type: does not use Exam Initial Vital Signs Initial Vital Signs: Vital Signs Temperature 98.2 F 03/13/19 00:47 Pulse Rate 118 H 03/13/19 00:47 Respiratory Rate 22 03/13/19 00:47 Blood Pressure 141/91 H 03/13/19 00:47 Pulse Oximetry 100 03/13/19 00:47 GENERAL: Well-appearing, well-nourished and in no acute distress. HEENT: Head atraumatic,EOMI, pupils reactive, face symmetric, moist mucous membranes CARDIOVASCULAR: Regular rate and rhythm without murmurs, rubs or gallops. RESPIRATORY: Breath sounds equal bilaterally, no wheezes rales or rhonchi. ABDOMEN: Soft tender right lower quadrant no guarding no rebound negative [place] sign : No CVA tenderness EXTREMITIES: Normal range of motion, no clubbing or edema. Neurovascularly intact NEUROLOGICAL: Alert and oriented x4.Normal gait and speech. Cranial nerves II through XII grossly intact. SKIN: Warm, dry, no laceration, no petechiae, no rashes or lesions. Course Orders Ordered: ED Orders 03/13/19 01:03 US pelvic complete Stat 03/13/19 01:10 Complete Blood Count AUTO DIFF Stat Comprehensive Metabolic Panel Stat Lipase Stat 03/13/19 01:57 CT abdomen pelvis w con Stat Discontinued Medications Hydrocodone Bitart/Acetaminophen (Vicodin Prepack) 1 bottle MISC SEEINSTR ONE Stop: 03/13/19 03:47 Last Admin: 03/13/19 04:19 Dose: 1 bottle Documented by: SHELLIE Hydromorphone HCl (Dilaudid) 0.5 mg IV NOW ONE Stop: 03/13/19 02:58 Last Admin: 03/13/19 04:19 Dose: 0.5 mg Documented by: SHELLIE Hydromorphone HCl (Dilaudid) 0.5 mg IV NOW ONE Stop: 03/13/19 03:47 Ketorolac Tromethamine (Toradol) 30 mg IM NOW ONE Stop: 03/13/19 01:04 Last Admin: 03/13/19 01:10 Dose: 30 mg Documented by: SHELLIE Ondansetron HCl (Zofran Odt) 4 mg SL NOW ONE Stop: 03/13/19 01:04 Last Admin: 03/13/19 01:10 Dose: 4 mg Documented by: SHELLIE Ondansetron HCl (Zofran) 4 mg IV NOW ONE Stop: 03/13/19 02:29 Last Admin: 03/13/19 02:31 Dose: 4 mg Documented by: SHELLIE Ondansetron HCl (Zofran Odt Prepack) 1 bottle MISC SEEINSTR ONE Stop: 03/13/19 03:47 Last Admin: 03/13/19 04:19 Dose: 1 bottle Documented by: SHELLIE Vital Signs Vital signs: Vital Signs - 8 hr 03/13/19 00:47 03/13/19 04:39 Temperature 98.2 F Pulse Rate 118 H 108 H Respiratory Rate 22 16 Blood Pressure 141/91 H 114/72 Pulse Oximetry 100 100 MDM - Abdominal Pain Lab Data Attestation: I reviewed the patient's lab results. Result diagrams: 03/13/19 01:10 03/13/19 01:10 Labs: Lab Results 11/16/19 11/16/19 Range/Units 01:10 01:10 WBC 12.0 H (4.5-11.0) X10^3/uL RBC 4.29 (4.0-5.2) X10^6/uL Hgb 13.5 (12.0-16.0) g/dL Hct 38.7 (36-46) % MCV 90.2 (80-100) fL MCH 31.5 (26-34) PG MCHC 34.9 (30-36) % RDW 13.3 (11.6-14.8) % Plt Count 417 H (150-400) X10^3/uL Neut % (Auto) 60.6 (50-75) % Lymph % (Auto) 30.2 (25-40) % [place] % (Auto) 7.4 (3-14) % Eos % (Auto) 1.0 L (2-4) % Baso % (Auto) 0.8 (0-2) % Neut # (Auto) 7300 H (3792-9000) /uL Lymph # (Auto) 3600 (5930-5785) /uL [place] # (Auto) 900 (0-900) /uL Eos # (Auto) 100 (0-450) /uL Baso # (Auto) 100 (0-100) /uL Sodium 143 (137-145) mmol/L Potassium 4.1 (3.4-5.1) mmol/L Chloride 107 (98-107) mmol/L Carbon Dioxide 26 (22-32) mmol/L BUN 10 (7-17) mg/dL Creatinine 0.90 (0.52-1.04) mg/dL Estimated GFR > 60.0 (>60) mL/min BUN/Creatinine Ratio 11.1 (6-22) Glucose 103 H (70-100) mg/dL Calcium 9.4 (8.4-10.2) mg/dL Total Bilirubin 0.4 (0.2-1.3) mg/dL AST 26 (14-36) IU/L ALT 21 (<35) IU/L Alkaline Phosphatase 88 (38-126) U/L Total Protein 7.6 (6.3-8.2) g/dL Albumin 4.5 (3.5-5.0) g/dL Globulin 3.1 (1.7-4.1) g/dL Albumin/Globulin Ratio 1.5 (1.0-2.8) Lipase 92 (23-300) U/L Point of care testing: Point of Care Testing Test Results Negative Urine Dip Bedside Urine Glucose Negative Bedside Urine Bilirubin - Negative Bedside Urine Ketone - Negative Urine Specific [place] 1.025 Bedside Urine Occult Blood +/- Bedside Urine pH 6.0 Bedside Urine Protein - Negative Bedside Urine Urobilinogen - Negative Bedside Urine Nitrite - Negative Bedside Urine Leukocytes - Negative Esterase Imaging Data pelvic US: Radiologist's impression: Preliminary report no significant abnormality in the right lower quadrant. The left ovarian corpus luteum cyst. 12 mm left paraovarian simple cyst. CT scan - abdomen: Radiologist's impression: Preliminary report: No significant abnormality within the right lower quadrant to account for patient's right lower quadrant pain. Hepatic steatosis MDM Narrative Medical decision making narrative: Patient states that this is not her endometriosis pain. Her pain continues to worsen even after Toradol. A decision for CT at that time. He is given more Dilaudid and Zofran as needed for pain. She does have trace blood in her urine. Discharge Plan Departure Patient Disposition: Home Clinical Impression: Endometriosis Discharge Date/Time: 03/13/19 04:41 Instructions: DI for Endometriosis Activity Restrictions/Additional Instructions: *You have been diagnosed with endometriosis *What to do: CT and ultrasound today are reassuring. Blood work also within normal limits. Pain is likely due to endometriosis from recent stoppage of control. Recommend changing her trying a new control brand. Please speak with her PCP about *Continue to take medications as directed Zofran 4 mg every 8 hours if needed for nausea or vomiting [place] 1 tablet every 6 hours if needed for severe pain Ibuprofen 800 mg every 8 hours if needed for gaid-yo-utteidfc pain *Follow up with your primary care provider in 2-3 days *Return to ER if you should have increasing pain inability tolerate fluids or any new, worsening or concerning symptoms CONTROLLED SUBSTANCE DISCHARGE (Narcotoic/benzodiazepine/Flexeril/Phenergan) 1. You have been prescribed narcotic medications, it does have acetaminophen/Tylenol/paracetamol in it so do not take extra Tylenol or Tylenol containing products 2. Please understand that we cannot provide further refills of narcotics, benzodiazepines or controlled substances through the ED and her pain management will need to be through your provider. 3. While on these medications you cannot drive or operate heavy machinery. 4. You cannot sign legal documents or perform any duties such as this. 5. As long as you're taking opiate pain medications he should also be taking a stool softener such as Colace, Dulcolax, MiraLAX or prune juice, to help avoid constipation. Prescriptions: New hydrocodone-acetaminophen [[place]] 5-325 mg tablet 1 tab PO Q6H PRN (Reason: pain) Qty: 10 RF: 0 ondansetron 4 mg tablet,disintegrating 4 mg PO Q8H PRN (Reason: nausea and vomiting) Qty: 10 RF: 0 No Action biotin 1 cap PO DAILY RF: 0 hydrocodone-acetaminophen 5-325 mg tablet 1 tab PO Q4-6H PRN (Reason: pain) Qty: 7 RF: 0 alprazolam [Xanax] 0.5 mg tablet 0.5 mg PO BID PRN (Reason: anxiety) Qty: 4 RF: 0 norethindrone-e.estradiol-iron [Junel FE 05/17 ()] 1 mg-20 mcg (21)/75 mg (7) tablet 1 tab PO DAILY RF: 0 propranolol 10 mg tablet 10 mg PO TID RF: 0 escitalopram oxalate 10 mg tablet 10 mg PO DAILY RF: 0 norethindrone-e.estradiol-iron 1 mg-20 mcg (21)/75 mg (7) tablet 1 tab PO DAILY RF: 0 tramadol 50 mg tablet 50 mg PO Q4H PRN (Reason: Pain, Moderate) Qty: 30 RF: 0 ondansetron 8 mg tablet,disintegrating 8 mg PO TID PRN (Reason: nausea and vomiting) Qty: 30 RF: 0 Referrals: [facility] [Provider Group]
[2019-03-13 01:24] LABS: Add Manual Diff / Slide Review NO; Basophils Absolute Auto 100 /uL (0-100); Basophils Percent Auto 0.8 % (0-2); Eosinophils Absolute Auto 100 /uL (0-450); Hematocrit 38.7 % (36-46); Hemoglobin 13.5 g/dL (12.0-16.0); Lymphocytes Absolute Auto 3600 /uL (1100-4500); Lymphocytes Percent Auto 30.2 % (25-40); Mean Corpuscular HGB Conc 34.9 % (30-36); Mean Corpuscular Hemoglobin 31.5 PG (26-34); Mean Corpuscular Volume 90.2 fL (80-100); Monocytes Absolute Auto 900 /uL (0-900); Monocytes Percent Auto 7.4 % (3-14); Neutrophils Absolute Auto 7300 /uL (1500-7000); Neutrophils Percent Auto 60.6 % (50-75); Platelet Count 417 X10^3/uL (150-400); Red Blood Cell Count 4.29 X10^6/uL (4.0-5.2); Red Cell Distribution Width 13.3 % (11.6-14.8)
[2019-03-13 01:30] LABS: Alanine Aminotransferase 21 IU/L (<35); Albumin 4.5 g/dL (3.5-5.0); Albumin Globulin Ratio 1.5 (1.0-2.8); Alkaline Phosphatase 88 U/L (38-126); Aspartate Aminotransferase 26 IU/L (14-36); BUN Creatinine Ratio 11.1 (6-22); Bilirubin Total 0.4 mg/dL (0.2-1.3); Blood Urea Nitrogen 10 mg/dL (7-17); Calcium 9.4 mg/dL (8.4-10.2); Carbon Dioxide 26 mmol/L (22-32); Chloride 107 mmol/L (98-107); Estimated Glomerular Filt Rate > 60.0 mL/min (>60); Globulin 3.1 g/dL (1.7-4.1); Glucose 103 mg/dL (70-100); HEMOLYSIS < 15 (0-50); Lipase 92 U/L (23-300); Potassium 4.1 mmol/L (3.4-5.1); Sodium 143 mmol/L (137-145); Total Protein 7.6 g/dL (6.3-8.2)
--- NOTE | 2019-03-13 01:57 | DI.CT.S_ITS ---
PROCEDURE: CT ABDOMEN PELVIS W CON INDICATIONS: Right lower quadrant pain TECHNIQUE: After the administration of oral and intravenous contrast, 5 mm thick sections acquired from the diaphragms to the symphysis. 5 mm thick coronal and sagittal reformats were performed. For radiation dose reduction, the following was used: automated exposure control, adjustment of mA and/or kV according to patient size. COMPARISON: [facility], CT, CT ABDOMEN PELVIS W CON, 01/14/2019, 0:27. FINDINGS: Image quality: Diagnostic. ABDOMEN: Lung bases: Lung bases are clear. Heart size is normal. Solid organs: Liver is normal in size and enhancement. Gallbladder is not enlarged or inflamed. Biliary system is non-dilated. Pancreas enhances normally. Spleen is normal in size and enhancement. No adrenal nodules. Kidneys are normal in size and enhancement, without hydronephrosis. Peritoneum and bowel: Stomach, small bowel, and colon loops are normal in caliber and wall thickness. No free fluid or air. Nodes and vessels: No retroperitoneal or mesenteric adenopathy. Aorta and inferior vena cava are normal in caliber. Bones: No acute fractures or suspicious osseous lesions are present. PELVIS: Genitourinary: Bladder wall thickness is normal. The uterus and ovaries are not enlarged. Collapsing left ovarian cyst may be present. Miscellaneous: No inguinal hernias or adenopathy. No free fluid or loculated fluid collection is evident. Bones: No suspicious bony lesions. No acute pelvic fractures are evident. IMPRESSION: No acute abnormality within the abdomen or pelvis. No findings to explain the patient's right lower quadrant pain are evident. Note: The preliminary report provided by [employer]. is concordant with the final report. Dictated by: Florin Harrison M.D. on 03/13/2019 at 7:31 Approved by: Florin Harrison M.D. on 03/13/2019 at 7:33
[2019-03-13] MEDS: ONDANSETRON 4 MG/2 ML INJ IV (02:31)
[2019-03-13] MEDS: HYDROMORPHONE 0.5 MG INJ IV (04:19)
[2019-03-13] MEDS: HYDROCODONE/ACET 5/325 PREPACK 1 BOTTLE MISC (04:19)
[2019-03-13] MEDS: ONDANSETRON 4 MG ODT PREPACK 1 BOTTLE MISC (04:19)
[2019-03-13 04:39] VITALS: BP 114/72; PULSE 108; RESP 16; O2SAT 100
== END 2019-03-13 04:41 | disposition home or self-care (01) ==
PROVIDERS: Emergency Provider Emergency Medicine
DX: N80.9 Endometriosis, unspecified (principal); R11.2 Nausea with vomiting, unspecified; R10.31 Right lower quadrant pain
CPT/HCPCS: 36415; 74177; 76830; 76856; 80053; 81003; 81025; 83690; 85025; 96372; 96374; 96375; 99282; 99285; J1170; J1885; J2405; Q9967

== ENCOUNTER 2019-03-19 22:59 | Emergency (ER) | payer OTHER, SELFPAY ==
[2018-03-02 18:05] VITALS: BMI 34.2
[2019-03-19 23:12] VITALS: BP 132/96; PULSE 114; RESP 18; TEMP 36.6; O2SAT 97
--- NOTE | 2019-03-19 23:15 | DI.RAD.S_ITS ---
PROCEDURE: XR RIBS LT MIN 3V W CXR1V INDICATIONS: fell and injured left ribs TECHNIQUE: 2 views of the left ribs were acquired, along with a single view chest. COMPARISON: [facility], , CHEST 2 VIEW, 07/30/2017, 3:47. FINDINGS: Surgical changes and devices: None. Bones and chest wall: A marker is placed upon the area of clinical concern. Within this region, no displaced rib fracture or other significant rib abnormality can be seen. No rib fractures are seen elsewhere. No suspicious bony lesions. Overlying soft tissues appear unremarkable. Lungs and pleura: No pleural effusions or pneumothorax. Lungs appear clear. Mediastinum: Mediastinal contours appear normal. Heart size is normal. IMPRESSION: No displaced rib fractures are seen. No pneumothorax. Note: No significant discrepancy from the preliminary report. Dictated by: Yony Doe M.D. on 03/20/2019 at 8:30 Approved by: Yony Doe M.D. on 03/20/2019 at 8:31
--- NOTE | 2019-03-20 00:04 | ED_ITS ---
HPI - Back Pain/Injury General Chief Complaint: Back Pain/Injury Stated Complaint: Back pain, fell down stairs Time Seen by Provider: 03/19/19 23:01 Source: patient Mode of arrival: Ambulatory Limitations: no limitations History of Present Illness HPI Narrative: 23-year-old female here for evaluation of left-sided back/flank pain. States this occurred when she fell back and hit her back on some stairs. No other injuries reported from the event. Does have pain with palpation and movement on the left side. Also pain with very deep breathing on the left side. No fevers Related Data Home Medications Medication Instructions Recorded Confirmed biotin 1 cap PO DAILY 02/12/18 03/02/18 norethindrone-e.estradiol-iron 1 tab PO DAILY 03/02/18 03/02/18 escitalopram oxalate 10 mg PO DAILY 12/30/18 12/30/18 norethindrone-e.estradiol-iron 1 tab PO DAILY 12/30/18 12/30/18 [05/17 (28)] propranolol 10 mg PO TID 12/30/18 12/30/18 Previous Rx's Medication Instructions Recorded ondansetron 8 mg PO TID PRN #30 tab 03/03/18 tramadol 50 mg PO Q4H PRN #30 tab 03/03/18 alprazolam [Xanax] 0.5 mg PO BID PRN #4 tab 12/28/18 hydrocodone-acetaminophen 1 tab PO Q4-6H PRN #7 tab 12/28/18 hydrocodone-acetaminophen [[place]] 1 tab PO Q6H PRN #10 tab 03/13/19 ondansetron 4 mg PO Q8H PRN #10 tab 03/13/19 hydrocodone-acetaminophen [[place]] 1 tab PO Q4-6H PRN #10 tab 03/20/19 Allergies Allergy/AdvReac Type Severity Reaction Status Date / Time Sulfa (Sulfonamide Allergy Verified 12/03/18 23:33 Antibiotics) Review of Systems Constitutional Constitutional: Denies fever(s) and Denies headache(s) ENT Ears, Nose, Mouth, and Throat: Denies headache(s) Cardiovascular Cardiovascular: Denies chest pain Respiratory Respiratory: Reports pain on inspiration Gastrointestinal Gastrointestinal: Denies abdominal pain, Denies nausea and Denies vomiting Musculoskeletal Musculoskeletal: Reports back pain, Denies myalgias and Denies arthralgias Integumentary/Breasts Skin/Breast: Denies lesions and Denies rash Neurologic Neurologic: Denies behavioral changes, Denies confusion and Denies headache(s) Psychiatric Psychiatric: Denies behavioral changes and Denies confusion Hematologic/Lymphatic Hematologic/Lymphatic: Denies easy bleeding and Denies easy bruising Patient History Medical History Endometriosis (Acute) Polycystic ovaries (Acute) Surgical History (Updated 03/13/19 @ 03:06 by Maryjo Choi DO) Hx of tonsillectomy (Acute) Status post appendectomy (Acute) [place] teeth extracted (Acute) Social History household members: friend(s) Smoking Status: Former smoker alcohol intake: current alcohol intake frequency: holidays/special occasions only Substance Use Type: does not use Exam Initial Vital Signs Initial Vital Signs: Vital Signs Temperature 98 F 03/19/19 23:12 Pulse Rate 114 H 03/19/19 23:12 Respiratory Rate 18 03/19/19 23:12 Blood Pressure 132/96 H 03/19/19 23:12 Pulse Oximetry 97 03/19/19 23:12 Const General: cooperative and comfortable Resp Effort & Inspection: normal respiratory effort Auscultation: clear to auscultation bilaterally Cardio Rate: tachycardic Rhythm: regular rhythm Back/Spine/Pelvis Cervical Spine: No cervical spinal tenderness Thoracic/Lumbar Spine: paraspinal tenderness (Left lower thoracic), No thoracic spinal tenderness and No lumbar spinal tenderness Skin Lesions: no lesions Rashes: no rashes Neuro General: alert and awake Cognition: normal cognition Extrem General: normal to inspection and capillary refill normal Psych Appearance: grossly normal and well kempt Course Orders Ordered: ED Orders 03/19/19 23:15 XR ribs LT min 3V w CXR1V Stat Discontinued Medications Hydrocodone Bitart/Acetaminophen ([place] 5/325) 1 tab PO NOW ONE Stop: 03/20/19 00:05 Last Admin: 03/20/19 00:16 Dose: 1 tab Documented by: DARNELL Hydrocodone Bitart/Acetaminophen (Vicodin Prepack) 1 bottle MISC SEEINSTR ONE Stop: 03/20/19 00:05 Last Admin: 03/20/19 00:16 Dose: 1 bottle Documented by: DARNELL Vital Signs Vital signs: Vital Signs - 8 hr 03/19/19 23:12 03/20/19 00:29 Temperature 98 F Pulse Rate 114 H 80 Respiratory Rate 18 18 Blood Pressure 132/96 H 105/80 Pulse Oximetry 97 98 [facility] - Back Pain/Injury Imaging Data Rib x-rays: Attestation: I personally reviewed and interpreted this imaging study as follows: My impression: No rib fractures identified [facility] Narrative Medical decision making narrative: Patient has relatively pinpoint tenderness to the left posterior ribs along the posterior axillary line. Clear lung exam. Lungs are unremarkable on the x-ray. No displaced rib fracture seen on the x- ray. I did discuss this with the patient. Skin is unremarkable. Did discuss the importance of taking breaths to avoid pneumonia. Will send home with pain control. No other injuries reported from the event or found on the exam. Patient was given return precautions and follow-up instructions. She expressed understanding and agreement plan. Discharge Plan Departure Patient Disposition: Home Clinical Impression: Rib pain on left side Discharge Date/Time: 03/20/19 00:38 Instructions: DI for Rib Contusion Activity Restrictions/Additional Instructions: There were no fracture seen on the x-ray. Your lungs were normal in the x-ray. Take the medications as directed. It is important that you occasionally take deep breaths. Return to the emergency department for any fevers. Contact your primary provider for follow-up. Prescriptions: New hydrocodone-acetaminophen [[place]] 5-325 mg tablet 1 tab PO Q4-6H PRN (Reason: pain) Qty: 10 RF: 0 No Action biotin 1 cap PO DAILY RF: 0 hydrocodone-acetaminophen 5-325 mg tablet 1 tab PO Q4-6H PRN (Reason: pain) Qty: 7 RF: 0 alprazolam [Xanax] 0.5 mg tablet 0.5 mg PO BID PRN (Reason: anxiety) Qty: 4 RF: 0 norethindrone-e.estradiol-iron [Junel FE 05/17 (28)] 1 mg-20 mcg (21)/75 mg (7) tablet 1 tab PO DAILY RF: 0 propranolol 10 mg tablet 10 mg PO TID RF: 0 escitalopram oxalate 10 mg tablet 10 mg PO DAILY RF: 0 norethindrone-e.estradiol-iron 1 mg-20 mcg (21)/75 mg (7) tablet 1 tab PO DAILY RF: 0 tramadol 50 mg tablet 50 mg PO Q4H PRN (Reason: Pain, Moderate) Qty: 30 RF: 0 ondansetron 8 mg tablet,disintegrating 8 mg PO TID PRN (Reason: nausea and vomiting) Qty: 30 RF: 0 hydrocodone-acetaminophen [[place]] 5-325 mg tablet 1 tab PO Q6H PRN (Reason: pain) Qty: 10 RF: 0 ondansetron 4 mg tablet,disintegrating 4 mg PO Q8H PRN (Reason: nausea and vomiting) Qty: 10 RF: 0
[2019-03-20] MEDS: HYDROCODONE/ACET 5/325 PREPACK 1 BOTTLE MISC (00:16)
[2019-03-20] MEDS: HYDROCODONE/ACET 5/325 TABLET 1 TAB PO (00:16)
[2019-03-20 00:29] VITALS: BP 105/80; PULSE 80; RESP 18; O2SAT 98
== END 2019-03-20 00:38 | disposition home or self-care (01) ==
PROVIDERS: Emergency Provider Emergency Medicine
DX: R07.81 Pleurodynia (principal); W10.9XXA Fall (on) (from) unspecified stairs and steps, initial encounter
CPT/HCPCS: 71101; 99282; 99283

== ENCOUNTER 2019-04-16 00:03 | Emergency (ER) | payer OTHER, SELFPAY ==
[2018-03-02 18:05] VITALS: BMI 34.2
[2019-04-16 00:18] VITALS: BP 144/85; PULSE 110; RESP 18; TEMP 37.1; O2SAT 100; BMI 34.5
--- NOTE | 2019-04-16 00:33 | ED.GENADULT ---
HPI - General Adult General Chief complaint: Urogenital-Female Stated complaint: blood with urination/back pain left side Time Seen by Provider: 04/16/19 00:12 Source: patient Mode of arrival: Family Vehicle Limitations: no limitations History of Present Illness HPI narrative: 23-year-old female here for evaluation of blood in her urine, dark colored urine and lower back discomfort. She has also been vomiting. She took Reglan at home that she has for her headaches if her nausea vomiting. She states that it feels like when she was diagnosed with pyelonephritis early this year. Symptoms started within the past 24 hours. No history of kidney stones. Related Data Home Medications Medication Instructions Recorded Confirmed biotin 1 cap PO DAILY 02/12/18 03/02/18 norethindrone-e.estradiol-iron 1 tab PO DAILY 03/02/18 03/02/18 escitalopram oxalate 10 mg PO DAILY 12/30/18 12/30/18 norethindrone-e.estradiol-iron 1 tab PO DAILY 12/30/18 12/30/18 [05/17 (28)] propranolol 10 mg PO TID 12/30/18 12/30/18 Previous Rx's Medication Instructions Recorded ondansetron 8 mg PO TID PRN #30 tab 03/03/18 tramadol 50 mg PO Q4H PRN #30 tab 03/03/18 alprazolam [Xanax] 0.5 mg PO BID PRN #4 tab 12/28/18 hydrocodone-acetaminophen 1 tab PO Q4-6H PRN #7 tab 12/28/18 hydrocodone-acetaminophen [Woodruff] 1 tab PO Q6H PRN #10 tab 03/13/19 ondansetron 4 mg PO Q8H PRN #10 tab 03/13/19 hydrocodone-acetaminophen [Woodruff] 1 tab PO Q4-6H PRN #10 tab 03/20/19 ciprofloxacin HCl 500 mg PO BID 7 Days #14 tab 04/16/19 ondansetron HCl [Zofran] 4 mg PO Q6H PRN #10 tab 04/16/19 Allergies Allergy/AdvReac Type Severity Reaction Status Date / Time Sulfa (Sulfonamide Allergy Verified 12/03/18 23:33 Antibiotics) Review of Systems Constitutional Constitutional: Denies fever(s) Cardiovascular Cardiovascular: Denies chest pain and Denies dyspnea Respiratory Respiratory: Denies dyspnea Gastrointestinal Gastrointestinal: Denies change in stool character, Reports nausea and Reports vomiting Genitourinary Genitourinary: Reports hematuria, Reports dysuria and Denies pelvic pain Musculoskeletal Musculoskeletal: Reports back pain (Left lower) Integumentary/Breasts Skin/Breast: Denies lesions and Denies rash Neurologic Neurologic: Denies behavioral changes Psychiatric Psychiatric: Denies behavioral changes Hematologic/Lymphatic Hematologic/Lymphatic: Denies easy bleeding and Denies easy bruising Patient History Medical History Endometriosis (Acute) Polycystic ovaries (Acute) Surgical History Hx of tonsillectomy (Acute) Status post appendectomy (Acute) [place] teeth extracted (Acute) Social History household members: friend(s) Smoking Status: Former smoker alcohol intake: current Smoking Status: Former smoker alcohol intake frequency: holidays/special occasions only Substance Use Type: does not use Exam Initial Vital Signs Initial Vital Signs: Vital Signs Temperature 98.7 F 04/16/19 00:18 Pulse Rate 110 H 04/16/19 00:18 Respiratory Rate 18 04/16/19 00:18 Blood Pressure 144/85 H 04/16/19 00:18 Pulse Oximetry 100 04/16/19 00:18 Const General: cooperative Orientation: alert and awake HENMT Head: normal to inspection and normocephalic Resp Effort & Inspection: normal respiratory effort Auscultation: clear to auscultation bilaterally Cardio Rate: tachycardic Rhythm: regular rhythm GI Inspection: non-distended Palpation: soft Back/Spine/Pelvis Back: CVA tenderness left Skin Lesions: no lesions Rashes: no rashes Neuro General: alert, awake and oriented x3 Cognition: normal cognition Speech: speech normal Extrem General: normal to inspection and capillary refill normal Psych Appearance: grossly normal and well kempt Course Orders Ordered: ED Orders 04/16/19 00:08 Basic Metabolic Panel Stat Complete Blood Count AUTO DIFF Stat 04/16/19 00:13 Urine Culture Stat Urine Microscopic Stat 04/16/19 01:46 CT kidney ureter bladder (KUB) Stat Discontinued Medications Ciprofloxacin (Cipro) 500 mg PO NOW ONE Stop: 04/16/19 01:01 Last Admin: 04/16/19 01:03 Dose: 500 mg Documented by: LOLIS Sodium Chloride (Normal Saline 0.9%) 1,000 mls @ 1,000 mls/hr IV BOLUS ONE Stop: 04/16/19 02:16 Last Infusion: 04/16/19 02:15 Dose: 1,000 mls/hr Documented by: Admin: 04/16/19 01:20 Dose: 1,000 mls/hr Documented by: LOLIS Ceftriaxone Sodium/Dextrose (Rocephin) 1 gm in 50 mls @ 100 mls/hr IV NOW ONE Stop: 04/16/19 02:16 Last Infusion: 04/16/19 03:00 Dose: 0 mls/hr Documented by: Admin: 04/16/19 02:01 Dose: 100 mls/hr Documented by: LOLIS Ondansetron HCl (Zofran Odt) 4 mg PO NOW ONE Stop: 04/16/19 00:48 Last Admin: 04/16/19 00:51 Dose: 4 mg Documented by: CHACE Ondansetron HCl (Zofran) 4 mg IV NOW ONE Stop: 04/16/19 01:28 Last Admin: 04/16/19 01:30 Dose: 4 mg Documented by: LOLIS Vital Signs Vital signs: Vital Signs - 8 hr 04/16/19 00:18 Temperature 98.7 F Pulse Rate 110 H Respiratory Rate 18 Blood Pressure 144/85 H Pulse Oximetry 100 Medical Decision Making Medical Records Medical records reviewed: Yes I reviewed the patient's medical records. Lab Data Lab results reviewed: Yes I reviewed the patient's lab results. Result diagrams: 04/16/19 00:08 04/16/19 00:08 Labs: Lab Results 04/16/19 04/16/19 04/16/19 Range/Units 00:08 00:08 00:13 WBC 9.7 (4.5-11.0) X10^3/uL RBC 4.40 (4.0-5.2) X10^6/uL Hgb 13.5 (12.0-16.0) g/dL Hct 39.2 (36-46) % MCV 89.1 (80-100) fL MCH 30.8 (26-34) PG MCHC 34.5 (30-36) % RDW 13.3 (11.6-14.8) % Plt Count 379 (150-400) X10^3/uL Neut % (Auto) 58.5 (50-75) % Lymph % (Auto) 32.5 (25-40) % Bowman % (Auto) 7.4 (3-14) % Eos % (Auto) 0.9 L (2-4) % Baso % (Auto) 0.7 (0-2) % Neut # (Auto) 5700 (7620-8443) /uL Lymph # (Auto) 3200 (2442-7267) /uL Bowman # (Auto) 700 (0-900) /uL Eos # (Auto) 100 (0-450) /uL Baso # (Auto) 100 (0-100) /uL Sodium 140 (137-145) mmol/L Potassium 3.8 (3.4-5.1) mmol/L Chloride 108 H (98-107) mmol/L Carbon Dioxide 23 (22-32) mmol/L BUN 9 (7-17) mg/dL Creatinine 0.70 (0.52-1.04) mg/dL Estimated GFR > 60.0 (>60) mL/min BUN/Creatinine Ratio 12.9 (6-22) Glucose 102 H (70-100) mg/dL Calcium 9.1 (8.4-10.2) mg/dL Urine RBC >100/hpf H (0-5/HPF) Urine WBC 0-1/hpf (0-5/HPF) Urine Bacteria Occasional (0-1) (None) Ur Culture Indicated? Specimen cultured Point of Care Testing Test Results Negative Urine Dip Bedside Urine Glucose Negative Bedside Urine Bilirubin - Negative Bedside Urine Ketone - Negative Urine Specific [place] 1.010 Bedside Urine Occult Blood +++ Bedside Urine pH 6.0 Bedside Urine Protein + 30 Bedside Urine Urobilinogen +/- 1mg Bedside Urine Nitrite + Positive Bedside Urine Leukocytes +++ 500 Esterase Point of care testing: Point of Care Testing Test Results Negative Urine Dip Bedside Urine Glucose Negative Bedside Urine Bilirubin - Negative Bedside Urine Ketone - Negative Urine Specific [place] 1.010 Bedside Urine Occult Blood +++ Bedside Urine pH 6.0 Bedside Urine Protein + 30 Bedside Urine Urobilinogen +/- 1mg Bedside Urine Nitrite + Positive Bedside Urine Leukocytes +++ [address] scan - abdomen: Radiologist's impression: No diverticulitis/colitis, obstructive uropathy, or bowel obstruction Likely left ovarian cyst. [facility] Narrative Medical decision making narrative: Patient was afebrile. Does not have an elevated white blood cell count however was tachycardic upon arrival. Kidney functions unremarkable. Urine is nitrite positive and does have blood in her urine. View of patient's lab shows no prior urine cultures. Attempted to give the patient Cipro for treatment of pyelonephritis however she vomited this medication. An IV was started and was given Zofran which did seem to help her symptoms. She was given a dose of Rocephin. The CT scan was ordered for evaluation of potential kidney stones given her symptoms. This does not show any kidney stones. Patient is nontoxic appearing. We did discuss the use of Tylenol ibuprofen for fevers. Was sent home with Zofran. Sent home with a prescription for antibiotics. She was given return precautions and follow-up instructions. I do not feel that she needs admitted to the hospital today for IV antibiotics however if her symptoms worsen this could potentially be the case. She expressed understanding and agreement plan. Discharge Plan Departure Patient Disposition: Home Clinical Impression: Pyelonephritis Instructions: DI for Kidney Infection Activity Restrictions/Additional Instructions: Use the nausea medication as needed. Tomorrow start taking the antibiotics as directed. Contact your medical department for follow-up. Once your symptoms are better you do need a repeat urinalysis to make sure that the blood that was in your urine has cleared up. Return to the emergency department for any new or worsening symptoms Prescriptions: New ondansetron HCl [Zofran] 4 mg tablet 4 mg PO Q6H PRN (Reason: nausea and vomiting) Qty: 10 RF: 0 ciprofloxacin HCl 500 mg tablet 500 mg PO BID 7 Days Qty: 14 RF: 0 No Action biotin 1 cap PO DAILY RF: 0 hydrocodone-acetaminophen 5-325 mg tablet 1 tab PO Q4-6H PRN (Reason: pain) Qty: 7 RF: 0 alprazolam [Xanax] 0.5 mg tablet 0.5 mg PO BID PRN (Reason: anxiety) Qty: 4 RF: 0 norethindrone-e.estradiol-iron [Junel FE 05/17 (28)] 1 mg-20 mcg (21)/75 mg (7) tablet 1 tab PO DAILY RF: 0 propranolol 10 mg tablet 10 mg PO TID RF: 0 escitalopram oxalate 10 mg tablet 10 mg PO DAILY RF: 0 hydrocodone-acetaminophen [Woodruff] 5-325 mg tablet 1 tab PO Q4-6H PRN (Reason: pain) Qty: 10 RF: 0 norethindrone-e.estradiol-iron 1 mg-20 mcg (21)/75 mg (7) tablet 1 tab PO DAILY RF: 0 tramadol 50 mg tablet 50 mg PO Q4H PRN (Reason: Pain, Moderate) Qty: 30 RF: 0 ondansetron 8 mg tablet,disintegrating 8 mg PO TID PRN (Reason: nausea and vomiting) Qty: 30 RF: 0 hydrocodone-acetaminophen [Woodruff] 5-325 mg tablet 1 tab PO Q6H PRN (Reason: pain) Qty: 10 RF: 0 ondansetron 4 mg tablet,disintegrating 4 mg PO Q8H PRN (Reason: nausea and vomiting) Qty: 10 RF: 0 Referrals: Suresh Pollock MD [Primary Care Provider] -
[2019-04-16 00:39] LABS: Bacteria Urine Occasional (0-1); RBC Urine >100/HPF (0-5/HPF); WBC Urine 0-1/HPF (0-5/HPF)
[2019-04-16 00:42] LABS: Culture Indicated Urine Specimen Cultured
[2019-04-16] MEDS: ONDANSETRON 4 MG ODT PO (00:51)
[2019-04-16] MEDS: CIPROFLOXACIN 500 MG TABLET PO (01:03)
[2019-04-16] MEDS: SODIUM CHLORIDE 0.9% 1,000 ML 1000 ML IV (01:20)
[2019-04-16] MEDS: ONDANSETRON 4 MG/2 ML INJ IV (01:30)
[2019-04-16 01:40] LABS: Add Manual Diff / Slide Review NO; Basophils Absolute Auto 100 /uL (0-100); Basophils Percent Auto 0.7 % (0-2); Eosinophils Absolute Auto 100 /uL (0-450); Eosinophils Percent Auto 0.9 % (2-4); Hematocrit 39.2 % (36-46); Hemoglobin 13.5 g/dL (12.0-16.0); Lymphocytes Absolute Auto 3200 /uL (1100-4500); Lymphocytes Percent Auto 32.5 % (25-40); Mean Corpuscular HGB Conc 34.5 % (30-36); Mean Corpuscular Hemoglobin 30.8 PG (26-34); Mean Corpuscular Volume 89.1 fL (80-100); Monocytes Absolute Auto 700 /uL (0-900); Monocytes Percent Auto 7.4 % (3-14); Neutrophils Absolute Auto 5700 /uL (1500-7000); Neutrophils Percent Auto 58.5 % (50-75); Platelet Count 379 X10^3/uL (150-400); Red Cell Distribution Width 13.3 % (11.6-14.8); White Blood Cell Count 9.7 X10^3/uL (4.5-11.0)
--- NOTE | 2019-04-16 01:46 | DI.CT.S_ITS ---
PROCEDURE: CT KIDNEY URETER BLADDER (KUB) INDICATIONS: eval for left sided stone TECHNIQUE: Noncontrast 5 mm thick sections acquired from the diaphragms to the symphysis. 5 mm thick coronal and sagittal reformats were then performed. For radiation dose reduction, the following was used: automated exposure control, adjustment of mA and/or kV according to patient size. COMPARISON: [facility], CT, CT ABDOMEN PELVIS W CON, 04/05/2018, 21:12. [facility], CT, CT ABDOMEN PELVIS W CON, 01/14/2019, 0:27. [facility], CT, CT ABDOMEN PELVIS W CON, 03/13/2019, 1:56. FINDINGS: Image quality: Excellent. Lung bases: Lung bases are clear. Heart size is normal. Urinary system: Both kidneys are normal in size. No kidney stones. No hydronephrosis or perinephric fat stranding. Both ureters appear non-dilated throughout their expected courses. Bladder wall thickness is normal; no calcified bladder stones. Other solid organs: Liver is normal in size. Gallbladder is normal. Pancreas is normal in contours. Spleen is normal in size. No adrenal nodules. Peritoneum and bowel: Unenhanced bowel loops demonstrate normal wall thickness and caliber. Appendix is absent. No free fluid or air. Nodes and vessels: No retroperitoneal or mesenteric adenopathy by size criteria. Aorta and inferior vena cava are normal in caliber. Abdominal wall: No ventral hernias. Pelvis: No free pelvic fluid. No inguinal hernias or adenopathy. Uterus is normal. Ovaries are unremarkable with ovarian follicles. Bones: No suspicious bony lesions. No vertebral body compression fractures. IMPRESSION: 1. No renal stone hydronephrosis. 2. No acute intra-abdominal process. No significant discrepancy with the shift production associate radiology preliminary report. Dictated by: Gonzalez Taylor M.D. on 04/16/2019 at 7:24 Approved by: Gonzalez Taylor M.D. on 04/16/2019 at 7:29
[2019-04-16 01:50] LABS: BUN Creatinine Ratio 12.9 (6-22); Blood Urea Nitrogen 9 mg/dL (7-17); Calcium 9.1 mg/dL (8.4-10.2); Carbon Dioxide 23 mmol/L (22-32); Chloride 108 mmol/L (98-107); Estimated Glomerular Filt Rate > 60.0 mL/min (>60); Glucose 102 mg/dL (70-100); HEMOLYSIS < 15 (0-50); Potassium 3.8 mmol/L (3.4-5.1); Sodium 140 mmol/L (137-145)
[2019-04-16] MEDS: CEFTRIAXONE 1 GM/50 ML FROZ.PIGGY IV (02:01)
[2019-04-16 03:30] VITALS: BP 140/79; PULSE 89; RESP 16; O2SAT 99
== END 2019-04-16 03:30 | disposition home or self-care (01) ==
PROVIDERS: Emergency Provider Emergency Medicine
DX: N12 Tubulo-interstitial nephritis, not specified as acute or chronic (principal)
CPT/HCPCS: 36415; 74176; 80048; 81003; 81015; 81025; 85025; 87077; 87086; 87147; 96361; 96365; 96375; 99284; J2405

== ENCOUNTER 2019-04-21 16:11 | Emergency (ER) | payer OTHER, SELFPAY ==
[2018-03-02 18:05] VITALS: BMI 34.2
--- NOTE | 2019-04-21 16:18 | DI.RAD.S_ITS ---
PROCEDURE: XR RIBS LT MIN 3V W CXR1V INDICATIONS: struck by snowboarder TECHNIQUE: A 2 views of the left ribs were acquired, along with a single view chest. COMPARISON: [facility], , XR RIBS LT MIN 3V W CXR1V, 03/19/2019, 23:23. FINDINGS: Surgical changes and devices: None. Bones and chest wall: No fractures or dislocations. No suspicious bony lesions. Overlying soft tissues appear unremarkable. Lungs and pleura: No pleural effusions or pneumothorax. Lungs appear clear. Mediastinum: Mediastinal contours appear normal. Heart size is normal. IMPRESSION: No acute cardiopulmonary findings. No displaced rib fractures visualized. Dictated by: Becca Song M.D. on 04/21/2019 at 15:43 Approved by: Becca Song M.D. on 04/21/2019 at 15:43
--- NOTE | 2019-04-21 16:21 | ED_ITS ---
HPI - Chest Pain General Chief Complaint: Extremity Injury, Upper Stated Complaint: snowboarding accident, rib pain Time Seen by Provider: 04/21/19 16:15 Source: patient Mode of arrival: Ambulatory History of Present Illness HPI narrative: Patient is a 23-year-old female who presents with left-sided rib pain. She was snowboarding at [facility] when she twisted and fell onto her left side. Then a snow boarder ran into her while she was on the ground into her back left side. She took naproxen prior to arrival she was feeling short of breath it hurts whenever she takes a deep breath. Related Data Home Medications Medication Instructions Recorded Confirmed biotin 1 cap PO DAILY 02/12/18 03/02/18 norethindrone-e.estradiol-iron 1 tab PO DAILY 03/02/18 03/02/18 escitalopram oxalate 10 mg PO DAILY 12/30/18 12/30/18 norethindrone-e.estradiol-iron 1 tab PO DAILY 12/30/18 12/30/18 [05/17 ()] propranolol 10 mg PO TID 12/30/18 12/30/18 Previous Rx's Medication Instructions Recorded ondansetron 8 mg PO TID PRN #30 tab 03/03/18 tramadol 50 mg PO Q4H PRN #30 tab 03/03/18 alprazolam [Xanax] 0.5 mg PO BID PRN #4 tab 12/28/18 hydrocodone-acetaminophen 1 tab PO Q4-6H PRN #7 tab 12/28/18 hydrocodone-acetaminophen [Bittinger] 1 tab PO Q6H PRN #10 tab 03/13/19 ondansetron 4 mg PO Q8H PRN #10 tab 03/13/19 hydrocodone-acetaminophen [Bittinger] 1 tab PO Q4-6H PRN #10 tab 03/20/19 ciprofloxacin HCl 500 mg PO BID 7 Days #14 tab 04/16/19 ondansetron HCl [Zofran] 4 mg PO Q6H PRN #10 tab 04/16/19 Allergies Allergy/AdvReac Type Severity Reaction Status Date / Time Sulfa (Sulfonamide Allergy Verified 12/03/18 23:33 Antibiotics) Review of Systems Review of Systems Narrative: GENERAL: Denies chills, fatigue, malaise, fever, sweats, travel HEENT: Denies sinus pain, ear pain, sore throat, difficulty swallowing, neck pain RESPIRATORY: Denies dyspnea, cough, wheezing, hemoptysis, sputum. CARDIOVASCULAR: Left-sided posterior rib pain see HPI Denies chest pain, palpitations, orthopnea, edema GASTROINTESTINAL: Denies nausea, vomiting, abdominal pain, diarrhea, constipation, melena. : Denies dysuria, frequency, incontinence, hematuria, urinary retention, flank pain. MUSCULOSKELETAL: Denies weakness, joint pain, or bony pain SKIN: No rash, no erythema, no pruritus NEUROLOGIC: Denies weakness, dizziness, headache, numbness, change in speech, confusion PSYCHIATRIC: No concerning psychosocial issues. 12 point review of systems is negative except for those stated above and HPI Patient History Medical History Endometriosis (Acute) Polycystic ovaries (Acute) Surgical History Hx of tonsillectomy (Acute) Status post appendectomy (Acute) [place] teeth extracted (Acute) Social History household members: friend(s) Smoking Status: Former smoker alcohol intake: current Smoking Status: Former smoker alcohol intake frequency: holidays/special occasions only Substance Use Type: does not use Exam Initial Vital Signs Initial Vital Signs: Vital Signs Temperature 98.0 F 04/21/19 16:25 Pulse Rate 119 H 04/21/19 16:25 Respiratory Rate 25 H 04/21/19 16:25 Blood Pressure 120/91 H 04/21/19 16:25 Pulse Oximetry 100 04/21/19 16:25 GENERAL: Well-appearing, well-nourished and in no acute distress. HEENT: Head atraumatic,EOMI, pupils reactive, face symmetric, moist mucous membranes CARDIOVASCULAR: Left posterior rib pain no sign of contusion or trauma no flail chest Regular rate and rhythm without murmurs, rubs or gallops. RESPIRATORY: Breath sounds equal bilaterally, no wheezes rales or rhonchi. Speaks in full sentences ABDOMEN: Soft, nontender. Normoactive bowel sounds all 4 quadrants. No guarding or rebound. EXTREMITIES: Normal range of motion, no clubbing or edema. Neurovascularly intact NEUROLOGICAL: Alert and oriented x4.Normal gait and speech. Cranial nerves II through XII grossly intact. SKIN: Warm, dry, no laceration, no petechiae, no rashes or lesions. Course Orders Ordered: ED Orders 04/21/19 16:18 XR ribs LT min 3V w CXR1V Stat Vital Signs Vital signs: Vital Signs - 8 hr 04/21/19 16:25 04/21/19 16:30 04/21/19 17:25 Temperature 98.0 F Pulse Rate 119 H 90 Pulse Rate [Bilateral Radial] 88 Respiratory Rate 25 H 18 Blood Pressure [Right Arm] 120/91 H 112/90 Pulse Oximetry 100 99 MDM - Chest Pain Imaging Data left rib xray: Radiologist's Impression: PROCEDURE: XR RIBS LT MIN 3V W CXR1V INDICATIONS: struck by snowboarder TECHNIQUE: A 2 views of the left ribs were acquired, along with a single view chest. COMPARISON: [facility], , XR RIBS LT MIN 3V W CXR1V, 03/19/2019, 23:23. FINDINGS: Surgical changes and devices: None. Bones and chest wall: No fractures or dislocations. No suspicious bony lesions. Overlying soft tissues appear unremarkable. Lungs and pleura: No pleural effusions or pneumothorax. Lungs appear clear. Mediastinum: Mediastinal contours appear normal. Heart size is normal. IMPRESSION: No acute cardiopulmonary findings. No displaced rib fractures visualized. Dictated by: Becca Song M.D. on 04/21/2019 at 15:43 Discharge Plan Departure Patient Disposition: Home Clinical Impression: Contusion of rib on left side Qualifiers: Encounter type: initial encounter Qualified Code(s): S20.212A - Contusion of left front wall of thorax, initial encounter Discharge Date/Time: 04/21/19 17:28 Activity Restrictions/Additional Instructions: *You have been diagnosed with left rib contusion *What to do: Expect to be sore for the next few days *Continue to take medications as directed Ibuprofen 800 mg every 8 hours or naproxen 500 mg every 12 hours *Follow up with your primary care provider in 2-3 days *Return to ER if you should have increasing shortness of breath pain or any new, worsening or concerning symptoms Prescriptions: No Action biotin 1 cap PO DAILY RF: 0 hydrocodone-acetaminophen 5-325 mg tablet 1 tab PO Q4-6H PRN (Reason: pain) Qty: 7 RF: 0 alprazolam [Xanax] 0.5 mg tablet 0.5 mg PO BID PRN (Reason: anxiety) Qty: 4 RF: 0 norethindrone-e.estradiol-iron [Junel FE 05/17 (28)] 1 mg-20 mcg (21)/75 mg (7) tablet 1 tab PO DAILY RF: 0 propranolol 10 mg tablet 10 mg PO TID RF: 0 escitalopram oxalate 10 mg tablet 10 mg PO DAILY RF: 0 hydrocodone-acetaminophen [Bittinger] 5-325 mg tablet 1 tab PO Q4-6H PRN (Reason: pain) Qty: 10 RF: 0 norethindrone-e.estradiol-iron 1 mg-20 mcg (21)/75 mg (7) tablet 1 tab PO DAILY RF: 0 tramadol 50 mg tablet 50 mg PO Q4H PRN (Reason: Pain, Moderate) Qty: 30 RF: 0 ondansetron 8 mg tablet,disintegrating 8 mg PO TID PRN (Reason: nausea and vomiting) Qty: 30 RF: 0 hydrocodone-acetaminophen [Bittinger] 5-325 mg tablet 1 tab PO Q6H PRN (Reason: pain) Qty: 10 RF: 0 ondansetron 4 mg tablet,disintegrating 4 mg PO Q8H PRN (Reason: nausea and vomiting) Qty: 10 RF: 0 ondansetron HCl [Zofran] 4 mg tablet 4 mg PO Q6H PRN (Reason: nausea and vomiting) Qty: 10 RF: 0 ciprofloxacin HCl 500 mg tablet 500 mg PO BID 7 Days Qty: 14 RF: 0 Referrals: Suresh Pollock MD [Primary Care Provider] -
[2019-04-21 16:25] VITALS: BP 120/91; PULSE 119; RESP 25; TEMP 36.7; O2SAT 100
[2019-04-21 16:30] VITALS: PULSE 88
[2019-04-21 17:25] VITALS: BP 112/90; PULSE 90; RESP 18; O2SAT 99
== END 2019-04-21 17:28 | disposition home or self-care (01) ==
PROVIDERS: Emergency Provider Emergency Medicine
DX: S20.212A Contusion of left front wall of thorax, initial encounter (principal); V00.318A Other snowboard accident, initial encounter; Y93.23 Activity, snow (alpine) (downhill) skiing, snowboarding, sledding, tobogganing and snow tubing
CPT/HCPCS: 71101; 99282; 99283

== ENCOUNTER 2019-05-02 02:12 | Emergency (ER) | payer OTHER, SELFPAY ==
[2018-03-02 18:05] VITALS: BMI 34.2
[2019-05-02 02:24] VITALS: BP 144/78; PULSE 144; RESP 20; O2SAT 97; BMI 36.3
[2019-05-02 02:28] VITALS: TEMP 36.4
[2019-05-02] MEDS: SODIUM CHLORIDE 0.9% 1,000 ML 1000 ML IV (02:46)
[2019-05-02] MEDS: KETOROLAC 60 MG/2 ML VIAL 15 MG IV (02:46)
[2019-05-02] MEDS: ONDANSETRON 4 MG/2 ML INJ IV (02:46)
[2019-05-02 02:51] LABS: Add Manual Diff / Slide Review NO; Basophils Absolute Auto 100 /uL (0-100); Basophils Percent Auto 1.1 % (0-2); Eosinophils Absolute Auto 100 /uL (0-450); Eosinophils Percent Auto 0.6 % (2-4); Hematocrit 43.4 % (36-46); Hemoglobin 14.7 g/dL (12.0-16.0); Lymphocytes Absolute Auto 3700 /uL (1100-4500); Lymphocytes Percent Auto 29.2 % (25-40); Mean Corpuscular HGB Conc 33.8 % (30-36); Mean Corpuscular Hemoglobin 29.9 PG (26-34); Mean Corpuscular Volume 88.3 fL (80-100); Monocytes Absolute Auto 800 /uL (0-900); Neutrophils Absolute Auto 8100 /uL (1500-7000); Neutrophils Percent Auto 63.1 % (50-75); Platelet Count 464 X10^3/uL (150-400); Red Blood Cell Count 4.92 X10^6/uL (4.0-5.2); Red Cell Distribution Width 13.3 % (11.6-14.8); White Blood Cell Count 12.8 X10^3/uL (4.5-11.0)
[2019-05-02 02:52] LABS: WBC Urine None Seen (0-5/HPF)
[2019-05-02 02:53] LABS: Bilirubin Urine UA NEGATIVE (NEGATIVE); Glucose Urine UA NEGATIVE (Negative); Ketones Urine UA NEGATIVE (NEGATIVE); Nitrite Urine UA NEGATIVE (Negative); Occult Blood Urine UA 3+ (Negative); Protein Urine UA TRACE (Negative); Urobilinogen Urine UA 0.2 E.U./dL (0.2)
[2019-05-02 02:57] LABS: BUN Creatinine Ratio 16.7 (6-22); Blood Urea Nitrogen 15 mg/dL (7-17); Calcium 9.8 mg/dL (8.4-10.2); Carbon Dioxide 21 mmol/L (22-32); Chloride 105 mmol/L (98-107); Estimated Glomerular Filt Rate > 60.0 mL/min (>60); Glucose 120 mg/dL (70-100); HEMOLYSIS < 15 (0-50); Potassium 4.1 mmol/L (3.4-5.1); Sodium 141 mmol/L (137-145)
[2019-05-02 03:11] LABS: Appearance Urine UA Slightly Cloudy; Color Urine UA LIGHT PINK; Leukocyte Esterase Urine UA NEGATIVE (NEGATIVE)
[2019-05-02 03:12] LABS: Bacteria Urine Occasional (0-1); RBC Urine 30-100/HPF (0-5/HPF); Squamous Epithelial Cell Urine 0-1 /HPF (0-5/HPF)
[2019-05-02 03:13] LABS: Culture Indicated Urine Cult Not Indicated
[2019-05-02] MEDS: LIDOCAINE 2% 7 ML in SODIUM CHLORIDE 0.9% 50 ML 342 ML IV (03:16)
[2019-05-02 03:18] LABS: Pregnancy Test Urine Negative (Negative)
--- NOTE | 2019-05-02 03:25 | ED.FEMALEGU ---
HPI - Female Genitourinary General Chief complaint: Urogenital-Female Stated complaint: severe abdominal pain Time Seen by Provider: 05/02/19 02:13 Source: patient Mode of arrival: Wheelchair Limitations: no limitations History of Present Illness HPI Narrative: 23-year-old female former smoker presents with a chief complaint of a sudden onset right flank and groin pain that started few hours ago. She denies any provocation or palliation and states that she is pacing and unable to find a position of comfort. She denies any dysuria, frequency or urgency. She denies any vaginal bleeding. She does have a long history of abdominal and pelvic pain and has had multiple surgeries and a large number of CT scans. She was most recently seen and diagnosed with pyelonephritis and has completed her antibiotic regimen she has had no fever chills, she does admit to vomiting prior to arrival. She has taken Tylenol as well as Ultram at home. MD Complaint: pelvic pain Onset (ago): hour(s) Location: RLQ Female Urogenital Radiation: R Flank Quality: Burning, Cramping and Stabbing Duration: intermittent Relieving factors: none Exacerbating factors: none Patient : No Related Data Home Medications Medication Instructions Recorded Confirmed biotin 1 cap PO DAILY 02/12/18 03/02/18 norethindrone-e.estradiol-iron 1 tab PO DAILY 03/02/18 03/02/18 escitalopram oxalate 10 mg PO DAILY 12/30/18 12/30/18 norethindrone-e.estradiol-iron 1 tab PO DAILY 12/30/18 12/30/18 [05/17 (28)] propranolol 10 mg PO TID 12/30/18 12/30/18 Previous Rx's Medication Instructions Recorded ondansetron 8 mg PO TID PRN #30 tab 03/03/18 tramadol 50 mg PO Q4H PRN #30 tab 03/03/18 alprazolam [Xanax] 0.5 mg PO BID PRN #4 tab 12/28/18 hydrocodone-acetaminophen 1 tab PO Q4-6H PRN #7 tab 12/28/18 hydrocodone-acetaminophen [[place]] 1 tab PO Q6H PRN #10 tab 03/13/19 ondansetron 4 mg PO Q8H PRN #10 tab 03/13/19 hydrocodone-acetaminophen [[place]] 1 tab PO Q4-6H PRN #10 tab 03/20/19 ciprofloxacin HCl 500 mg PO BID 7 Days #14 tab 04/16/19 ondansetron HCl [Zofran] 4 mg PO Q6H PRN #10 tab 04/16/19 Allergies Allergy/AdvReac Type Severity Reaction Status Date / Time Sulfa (Sulfonamide Allergy Verified 12/03/18 23:33 Antibiotics) Review of Systems Constitutional Constitutional: Denies chills, Denies fatigue, Denies fever(s), Denies frequent falls, Denies lethargy and Denies weakness Eyes Eyes: Denies change in vision, Denies eye discharge, Denies irritation and Denies loss of vision ENT Ears, Nose, Mouth, and Throat: Denies change in voice, Denies dizziness, Denies neck pain, Denies sore throat and Denies throat swelling Cardiovascular Cardiovascular: Denies chest pain, Denies irregular heart rhythm, Denies lightheadedness, Denies palpitations, Denies dyspnea, Denies dyspnea on exertion and Denies orthopnea Respiratory Respiratory: Denies cough, Denies dyspnea, Denies dyspnea on exertion and Denies wheezing Gastrointestinal Gastrointestinal: Denies abdominal pain, Denies change in bowel habits, Denies diarrhea, Denies nausea and Denies vomiting Genitourinary Genitourinary: Denies hematuria, Reports pelvic pain, Denies flank pain, Denies urinary incontinence and Denies urinary urgency Musculoskeletal Musculoskeletal: Denies back pain, Denies muscle weakness, Denies neck pain, Denies numbness and Denies tingling Integumentary/Breasts Skin/Breast: Denies pruritus, Denies erythema, Denies rash and Denies wounds Neurologic Neurologic: Denies behavioral changes, Denies confusion, Denies dizziness, Denies frequent falls, Denies loss of vision, Denies numbness, Denies tingling and Denies weakness Psychiatric Psychiatric: Denies anxiety, Denies behavioral changes, Denies confusion, Denies depression, Denies homicidal ideation and Denies suicidal ideation Endocrine Endocrine: Denies fatigue, Denies flushing and Denies palpitations Hematologic/Lymphatic Hematologic/Lymphatic: Denies easy bruising Allergic/Immunologic Allergic/Immunologic: Denies urticaria, Denies throat swelling and Denies wheezing Patient History Medical History Endometriosis (Acute) Polycystic ovaries (Acute) Surgical History Hx of tonsillectomy (Acute) Status post appendectomy (Acute) [place] teeth extracted (Acute) alcohol intake frequency: 0-2 drinks per day Substance Use Type: does not use Exam Narrative Exam Narrative: GENERAL: [23] year old patient appears stated age. Well-nourished, well-developed patient, in obvious distress, crying, holding her flank, pacing in the room and holding an emesis bag HEAD: Atraumatic. Normocephalic. EYES: Pupils equal round and reactive. Extraocular motions intact. No scleral icterus. No injection or drainage. ENT: Nose without bleeding, purulent drainage. Throat without erythema, tonsillar hypertrophy or exudate. Airway patent. NECK: Trachea midline. Non tender CARDIOVASCULAR: Regular rate and rhythm without murmurs, gallops, or rubs. RESPIRATORY: Clear to auscultation. Breath sounds equal bilaterally. No wheezes, rales, or rhonchi. GASTROINTESTINAL: Abdomen soft, non-tender, nondistended. EXTREMITIES: No edema or joint tenderness. BACK: Nontender without deformity or crepitance. No flank tenderness. NEURO: AOx3. SKIN: No rash or erythema of visible areas Initial Vital Signs Initial Vital Signs: Vital Signs Pulse Rate 144 H 05/02/19 02:24 Respiratory Rate 20 05/02/19 02:24 Blood Pressure 144/78 H 05/02/19 02:24 Pulse Oximetry 97 05/02/19 02:24 Course Course Course Narrative: Patient had little improvement after Toradol but a complete resolution of symptoms after lidocaine. Given her improvement symptoms, reassuring labs and extensive history of imaging we elected to hold off on another CT scan as it is unlikely to providing results of will change the plan. [place]. She understands return precautions and is had her questions answered to her apparent satisfaction Orders Ordered: ED Orders 05/02/19 02:39 Basic Metabolic Panel Stat Complete Blood Count AUTO DIFF Stat 05/02/19 02:47 Test Urine Stat Urinalysis and Microscopic Stat 05/02/19 03:00 CT kidney ureter bladder (KUB) Stat Ondansetron HCl (Zofran) 4 mg IV Q4HR PRN PRN Reason: Nausea And Vomiting Last Admin: 05/02/19 02:46 Dose: 4 mg Documented by: THUY Discontinued Medications Hydrocodone Bitart/Acetaminophen (Vicodin 5/325 Prepack) 1 bottle MISC SEEINSTR ONE Stop: 05/02/19 03:38 Sodium Chloride (Normal Saline 0.9%) 1,000 mls @ 1,000 mls/hr IV BOLUS ONE Stop: 05/02/19 03:25 Last Admin: 05/02/19 02:46 Dose: 1,000 mls/hr Documented by: THUY Lidocaine HCl 7 ml/ Sodium (Chloride) 57 mls @ 342 mls/hr IV NOW ONE Stop: 05/02/19 03:00 Last Infusion: 05/02/19 03:27 Dose: 0 mls/hr Documented by: Admin: 05/02/19 03:16 Dose: 342 mls/hr Documented by: XOCHITL Ketorolac Tromethamine (Toradol) 15 mg IV NOW ONE Stop: 05/02/19 02:27 Last Admin: 05/02/19 02:46 Dose: 15 mg Documented by: THUY Vital Signs Vital signs: Vital Signs - 8 hr 05/02/19 02:24 05/02/19 02:28 Temperature 97.6 F Pulse Rate 144 H Respiratory Rate 20 Blood Pressure 144/78 H Pulse Oximetry 97 MDM - Female Genitourinary Lab Data Result diagrams: 05/02/19 02:39 05/02/19 02:39 Labs: Lab Results 05/02/19 05/02/19 05/02/19 Range/Units 02:39 02:39 02:47 WBC 12.8 H (4.5-11.0) X10^3/uL RBC 4.92 (4.0-5.2) X10^6/uL Hgb 14.7 (12.0-16.0) g/dL Hct 43.4 (36-46) % MCV 88.3 (80-100) fL MCH 29.9 (26-34) PG MCHC 33.8 (30-36) % RDW 13.3 (11.6-14.8) % Plt Count 464 H (150-400) X10^3/uL Neut % (Auto) 63.1 (50-75) % Lymph % (Auto) 29.2 (25-40) % [place] % (Auto) 6.0 (3-14) % Eos % (Auto) 0.6 L (2-4) % Baso % (Auto) 1.1 (0-2) % Neut # (Auto) 8100 H (0426-0791) /uL Lymph # (Auto) 3700 (8035-5391) /uL [place] # (Auto) 800 (0-900) /uL Eos # (Auto) 100 (0-450) /uL Baso # (Auto) 100 (0-100) /uL Sodium 141 (137-145) mmol/L Potassium 4.1 (3.4-5.1) mmol/L Chloride 105 (98-107) mmol/L Carbon Dioxide 21 L (22-32) mmol/L BUN 15 (7-17) mg/dL Creatinine 0.90 (0.52-1.04) mg/dL Estimated GFR > 60.0 (>60) mL/min BUN/Creatinine Ratio 16.7 (6-22) Glucose 120 H (70-100) mg/dL Calcium 9.8 (8.4-10.2) mg/dL Urine Color Light pink Urine Appearance Slightly cloudy Urine pH 5.0 (4.5-8.0) Ur Specific [place] 1.010 (1.000-1.035) Urine Protein Trace H (Negative) Urine Glucose (UA) Negative (Negative) g/dL Urine Ketones Negative (NEGATIVE) Urine Occult Blood 3+ H (Negative) Urine Nitrate Negative (Negative) Urine Bilirubin Negative (NEGATIVE) Urine Urobilinogen 0.2 (0.2) E.U./dL Ur Leukocyte Esterase Negative (NEGATIVE) Urine RBC 30-100/hpf H (0-5/HPF) Urine WBC None seen (0-5/HPF) Ur Squamous Epith Cells 0-1 /hpf (0-5/HPF) Urine Bacteria Occasional (0-1) (None) Ur Culture Indicated? Cult not indicated Micro UA Comment * Urine Test (Negative) 05/02/19 Range/Units 02:47 WBC (4.5-11.0) X10^3/uL RBC (4.0-5.2) X10^6/uL Hgb (12.0-16.0) g/dL Hct (36-46) % MCV (80-100) fL MCH (26-34) PG MCHC (30-36) % RDW (11.6-14.8) % Plt Count (150-400) X10^3/uL Neut % (Auto) (50-75) % Lymph % (Auto) (25-40) % [place] % (Auto) (3-14) % Eos % (Auto) (2-4) % Baso % (Auto) (0-2) % Neut # (Auto) (7976-0995) /uL Lymph # (Auto) (8928-3741) /uL [place] # (Auto) (0-900) /uL Eos # (Auto) (0-450) /uL Baso # (Auto) (0-100) /uL Sodium (137-145) mmol/L Potassium (3.4-5.1) mmol/L Chloride (98-107) mmol/L Carbon Dioxide (22-32) mmol/L BUN (7-17) mg/dL Creatinine (0.52-1.04) mg/dL Estimated GFR (>60) mL/min BUN/Creatinine Ratio (6-22) Glucose (70-100) mg/dL Calcium (8.4-10.2) mg/dL Urine Color Urine Appearance Urine pH (4.5-8.0) Ur Specific [place] (1.000-1.035) Urine Protein (Negative) Urine Glucose (UA) (Negative) g/dL Urine Ketones (NEGATIVE) Urine Occult Blood (Negative) Urine Nitrate (Negative) Urine Bilirubin (NEGATIVE) Urine Urobilinogen (0.2) E.U./dL Ur Leukocyte Esterase (NEGATIVE) Urine RBC (0-5/HPF) Urine WBC (0-5/HPF) Ur Squamous Epith Cells (0-5/HPF) Urine Bacteria (None) Ur Culture Indicated? Micro UA Comment Urine Test Negative (Negative) Discharge Plan Departure Patient Disposition: Home Clinical Impression: Acute flank pain Hematuria Qualifiers: Hematuria type: gross Qualified Code(s): R31.0 - Gross hematuria Instructions: DI for Flank Pain Activity Restrictions/Additional Instructions: *You have been diagnosed with [acute right flank and groin pain with hematuria. Kidney stone and other renal colic considered highly likely. An alternative diagnosis to consider would be [place] Pain hematuria syndrome] *What to do: *Take medications as directed *Follow up with your primary care provider in 2-3 days, call for an appointment. Let them know you were seen in the Emergency Department and that we ask that you be seen in follow up *Return to ER if you should have any new, worsening or concerning symptoms Prescriptions: No Action biotin 1 cap PO DAILY RF: 0 hydrocodone-acetaminophen 5-325 mg tablet 1 tab PO Q4-6H PRN (Reason: pain) Qty: 7 RF: 0 alprazolam [Xanax] 0.5 mg tablet 0.5 mg PO BID PRN (Reason: anxiety) Qty: 4 RF: 0 norethindrone-e.estradiol-iron [Junel FE 05/17 (28)] 1 mg-20 mcg (21)/75 mg (7) tablet 1 tab PO DAILY RF: 0 propranolol 10 mg tablet 10 mg PO TID RF: 0 escitalopram oxalate 10 mg tablet 10 mg PO DAILY RF: 0 hydrocodone-acetaminophen [[place]] 5-325 mg tablet 1 tab PO Q4-6H PRN (Reason: pain) Qty: 10 RF: 0 norethindrone-e.estradiol-iron 1 mg-20 mcg (21)/75 mg (7) tablet 1 tab PO DAILY RF: 0 tramadol 50 mg tablet 50 mg PO Q4H PRN (Reason: Pain, Moderate) Qty: 30 RF: 0 ondansetron 8 mg tablet,disintegrating 8 mg PO TID PRN (Reason: nausea and vomiting) Qty: 30 RF: 0 hydrocodone-acetaminophen [[place]] 5-325 mg tablet 1 tab PO Q6H PRN (Reason: pain) Qty: 10 RF: 0 ondansetron 4 mg tablet,disintegrating 4 mg PO Q8H PRN (Reason: nausea and vomiting) Qty: 10 RF: 0 ondansetron HCl [Zofran] 4 mg tablet 4 mg PO Q6H PRN (Reason: nausea and vomiting) Qty: 10 RF: 0 ciprofloxacin HCl 500 mg tablet 500 mg PO BID 7 Days Qty: 14 RF: 0 Referrals: Suresh Pollock MD [Primary Care Provider] -
--- NOTE | 2019-05-02 03:27 | PC.NURSE ---
Pt rates pain 4/10 after lidocaine drip, states pain is manageable. Dr Mandel notified, will cancel KUB
[2019-05-02] MEDS: HYDROCODONE/ACET 5/325 PREPACK 1 BOTTLE MISC (03:49)
[2019-05-02 03:54] VITALS: BP 108/71; PULSE 102; RESP 16; TEMP 36.6; O2SAT 98
== END 2019-05-02 03:54 | disposition home or self-care (01) ==
PROVIDERS: Emergency Provider Emergency Medicine
DX: R10.31 Right lower quadrant pain (principal); R31.0 Gross hematuria
CPT/HCPCS: 36415; 80048; 81001; 81025; 85025; 96361; 96374; 96375; 99284; J1885; J2405

== ENCOUNTER 2019-05-06 15:23 | Emergency (ER) | payer OTHER, SELFPAY ==
[2018-03-02 18:05] VITALS: BMI 34.2
[2019-05-06 15:24] VITALS: BP 143/85; PULSE 137; RESP 16; TEMP 36.2; O2SAT 100; BMI 34.5
--- NOTE | 2019-05-06 15:58 | PC.NURSE ---
Records requested from [facility]. Spoke with RN who cared for patient to find out what medications patient received as she couldn't remember them all and states she feels worse since getting them. Patient was given benadryl, phenergan, 1L nS, [place], Magnesium, ativan and dilaudid. Patient states she feels worse that her migraine is different than her typical migraine.
--- NOTE | 2019-05-06 16:47 | ED.HA ---
HPI - Headache <Jennifer Johnson PA-C - Last Filed: 05/06/19 20:41> General Chief Complaint: Headache Stated Complaint: abdominal pain Time Seen by Provider: 05/06/19 16:47 Source: patient Mode of arrival: Ambulatory Limitations: no limitations History of Present Illness HPI Narrative: This 23-year-old female comes to ED secondary to atypical headache. She states that she has a history of hemiplegic migraine, however she woke up with a headache this morning that is not typical for her. She states that usually headaches are left posterior with light sensitivity. She states today, headache is more on the right side behind her eye, dull, persistent, she thinks worse than usual migraine. She denies exacerbating or alleviating features. She states she has had some intermittent double vision or difficulty focusing with both eyes today, and that is not typical with her headaches. She states that she vomited 4 times, last at 10:30 a.m.. She was seen at another local emergency department prior to arrival here, evaluated and multiple medications given, but have not made a difference in headache or nausea. She drove herself here. She states that her commander sent her to the ED initially today. She denies any recent illness or upper respiratory symptoms, congestion, earache. She denies any fever, chills, sweats. She denies any neck pain or rash. She denies any urinary symptoms or abdominal pain. She denies any chest pain, dyspnea or extremity pain and states that the only pain she has is headache. She denies any possibility of , states she is on OCP, LMP 04/10 and has not had intercourse since then Related Data Home Medications Medication Instructions Recorded Confirmed biotin 1 cap PO DAILY 02/12/18 03/02/18 norethindrone-e.estradiol-iron 1 tab PO DAILY 12/30/18 05/06/19 [05/17 (28)] propranolol 10 mg PO TID 12/30/18 12/30/18 bupropion HCl 150 mg PO DAILY 05/06/19 05/06/19 escitalopram oxalate 20 mg PO DAILY 05/06/19 05/06/19 naproxen 500 mg PO BID 05/06/19 05/06/19 sumatriptan succinate 50 mg PO PRN PRN 05/06/19 05/06/19 trazodone 100 mg PO DAILY 05/06/19 05/06/19 verapamil 120 mg PO DAILY 05/06/19 Previous Rx's Medication Instructions Recorded alprazolam [Xanax] 0.5 mg PO BID PRN #4 tab 12/28/18 ondansetron 4 mg PO Q8H PRN #10 tab 03/13/19 hydrocodone-acetaminophen [[place]] 1 tab PO Q4-6H PRN #10 tab 03/20/19 ondansetron HCl [Zofran] 4 mg PO Q6H PRN #10 tab 04/16/19 Allergies Allergy/AdvReac Type Severity Reaction Status Date / Time Sulfa (Sulfonamide Allergy Verified 05/06/19 15:34 Antibiotics) Review of Systems <Jennifer Johnson PA-C - Last Filed: 05/06/19 20:41> Review of Systems ROS Unobtainable: All systems reviewed & are unremarkable except as noted in HPI and below Patient History <Jennifer Johnson PA-C - Last Filed: 05/06/19 20:41> Medical History (Updated 05/06/19 @ 18:41 by Jennifer Johnson PA-C) Endometriosis (Acute) Hemiplegic migraine (Inactive) Panic attack (Inactive) Polycystic ovaries (Acute) Surgical History Hx of tonsillectomy (Acute) Status post appendectomy (Acute) [place] teeth extracted (Acute) Social History household members: friend(s) Smoking Status: Former smoker alcohol intake: current Smoking Status: Former smoker alcohol intake frequency: 0-2 drinks per day Substance Use Type: does not use Exam <Jennifer Johnson PA-C - Last Filed: 05/06/19 20:41> Narrative Exam Narrative: GENERAL APPEARANCE: Patient resting comfortably, in no distress (watching cellphone). HEENT: PERRL, EOMI, normal TMs and oropharynx, right maxillary tenderness, also moderate right and left frontal tenderness NECK: Supple, no masses LUNGS: Clear to auscultation bilaterally. HEART: Rate and rhythm regular without murmur, normal S1 and S2, no S3 or S4. ABDOMEN: Soft, NT, ND, + BS x 4 quadrants NEUROLOGIC: Alert and oriented, normal speech, gait and coordination though appears slightly drowsy when initially standing. MUSCULOSKELETAL: Full Csp AROM, nontender Initial Vital Signs Initial Vital Signs: Vital Signs Temperature 97.1 F L 05/06/19 15:24 Pulse Rate 137 H 05/06/19 15:24 Respiratory Rate 16 05/06/19 15:24 Blood Pressure 143/85 H 05/06/19 15:24 Pulse Oximetry 100 05/06/19 15:24 <Navi Mandel DO - Last Filed: 05/07/19 07:00> Initial Vital Signs Initial Vital Signs: Vital Signs Temperature 97.1 F L 05/06/19 15:24 Pulse Rate 137 H 05/06/19 15:24 Respiratory Rate 16 05/06/19 15:24 Blood Pressure 143/85 H 05/06/19 15:24 Pulse Oximetry 100 05/06/19 15:24 Course <Jennifer Johnson PA-C - Last Filed: 05/06/19 20:41> Course Additional Information: Reviewed findings with nurse who took care of the patient at [facility] (unable to fax records as machine/power down there). She had CBC, Chem panel, lipase there without acute abnormalities. She was given Benadryl, Toradol, Phenergan, fluids, Decadron, magnesium, Dilaudid, and Ativan as well as Percocet without significant change in her headache. Imaging was not done as they reported they're quite familiar with patient and did not see any acute neurologic changes. I have reviewed history and findings with Dr. Mandel who is also familiar with patient and agrees reasonable to discharge given this information as well as lack of acute findings on our evaluation. Patient was sleeping comfortably at the time I went to review findings and discharge plan with her. Given meds she had previously (none here) I requested that she get a ride home and she agreed, remained in the department until her ride arrived Orders Ordered: ED Orders 05/06/19 15:40 EKG-12 Lead Stat 05/06/19 17:02 CT head/brain wo con Stat 05/06/19 17:18 C-Reactive Protein Quant Stat Erythrocyte Sedimentation Rate Stat Vital Signs Vital signs: Vital Signs - 8 hr 05/06/19 15:24 05/06/19 17:52 05/06/19 19:16 Temperature 97.1 F L Pulse Rate 137 H 111 H 109 H Respiratory Rate 16 18 16 Blood Pressure 143/85 H Blood Pressure [Left Arm] 131/84 115/79 Pulse Oximetry 100 97 98 <Navi Mandel DO - Last Filed: 05/07/19 07:00> Orders Ordered: ED Orders 05/06/19 15:40 EKG-12 Lead Stat 05/06/19 17:02 CT head/brain wo con Stat 05/06/19 17:18 C-Reactive Protein Quant Stat Erythrocyte Sedimentation Rate Stat Vital Signs Vital signs: Vital Signs - 8 hr 05/06/19 15:24 05/06/19 17:52 05/06/19 19:16 Temperature 97.1 F L Pulse Rate 137 H 111 H 109 H Respiratory Rate 16 18 16 Blood Pressure 143/85 H Blood Pressure [Left Arm] 131/84 115/79 Pulse Oximetry 100 97 98 MDM - Headache <Jennifer Johnson PA-C - Last Filed: 05/06/19 20:41> Lab Data Labs: Lab Results 05/06/19 05/06/19 Range/Units 17:18 17:18 ESR 19 (0-20) MM/HR C-Reactive Protein < 0.5 (<1.0) mg/dL Point of Care Testing Test Results Negative ECG Data Attestation: I personally reviewed and interpreted this ECG as follows: (Sinus tach, rate 131, normal axis) Prior ECG tracings: not available for review ( ) <DO Shaolm Matthew Last Filed: 05/07/19 07:00> Lab Data Labs: Lab Results 05/06/19 05/06/19 Range/Units 17:18 17:18 ESR 19 (0-20) MM/HR C-Reactive Protein < 0.5 (<1.0) mg/dL Point of Care Testing Test Results Negative Discharge Plan Departure Patient Disposition: Home Clinical Impression: Vision disturbance Headache Qualifiers: Headache type: other headache syndrome Qualified Code(s): G44.89 - Other headache syndrome Discharge Date/Time: 05/06/19 22:19 Instructions: DI for Headache Activity Restrictions/Additional Instructions: This headache does not seem typical for your migraine though it could be a variation. It seems that you have some sinus tenderness as well even though you have not been ill. Your additional lab work that we did here as well as your CT scan did not show any acute problem. As we talked about, we would not medicate differently here than you received earlier today, so I would like you to continue resting at home in a dark quiet place tonight, avoid screen time or other bright lights. You should return to the closest ED if you have acutely worsening symptoms, and otherwise follow-up with your PCP as planned tomorrow. Prescriptions: No Action biotin 1 cap PO DAILY RF: 0 alprazolam [Xanax] 0.5 mg tablet 0.5 mg PO BID PRN (Reason: anxiety) Qty: 4 RF: 0 norethindrone-e.estradiol-iron [Junel FE 05/17 ()] 1 mg-20 mcg (21)/75 mg (7) tablet 1 tab PO DAILY RF: 0 propranolol 10 mg tablet 10 mg PO TID RF: 0 hydrocodone-acetaminophen [[place]] 5-325 mg tablet 1 tab PO Q4-6H PRN (Reason: pain) Qty: 10 RF: 0 ondansetron 4 mg tablet,disintegrating 4 mg PO Q8H PRN (Reason: nausea and vomiting) Qty: 10 RF: 0 ondansetron HCl [Zofran] 4 mg tablet 4 mg PO Q6H PRN (Reason: nausea and vomiting) Qty: 10 RF: 0 sumatriptan succinate 50 mg tablet 50 mg PO PRN PRN (Reason: Migraine Headache) RF: 0 verapamil 120 mg tablet 120 mg PO DAILY RF: 0 trazodone 100 mg tablet 100 mg PO DAILY RF: 0 naproxen 500 mg tablet 500 mg PO BID RF: 0 escitalopram oxalate 20 mg tablet 20 mg PO DAILY RF: 0 bupropion HCl 150 mg tablet extended release 24 hr 150 mg PO DAILY RF: 0 Referrals: Suresh Pollock MD [Primary Care Provider] -
--- NOTE | 2019-05-06 17:02 | DI.CT.S_ITS ---
PROCEDURE: CT HEAD/BRAIN WO CON INDICATIONS: atypical MCFARLANE, new vision change TECHNIQUE: Noncontrast 4.5 mm thick angled axial sections acquired from the foramen magnum to the vertex, with coronal and sagittal reformats. For radiation dose reduction, the following was used: automated exposure control, adjustment of mA and/or kV according to patient size. COMPARISON: None. FINDINGS: Image quality: Excellent. CSF spaces: Basal cisterns are patent. No extra-axial fluid collections. Ventricles are normal in size and shape. Brain: No midline shift. No intracranial masses or hemorrhage. [place]-white matter interface is normal. Skull and face: Calvarium and visualized facial bones are intact, without suspicious lesions. Sinuses: Visualized sinuses and mastoids are clear. IMPRESSION: No acute intracranial process is seen. Dictated by: Yony Doe M.D. on 05/06/2019 at 17:07 Approved by: Yony Doe M.D. on 05/06/2019 at 17:08
--- NOTE | 2019-05-06 17:30 | PC.NURSE ---
patient seen and evaluated at [facility] Reports feeling lena shakey, difficulty focusing and not feeling right
[2019-05-06 17:39] LABS: C-Reactive Protein Quant < 0.5 mg/dL (<1.0)
[2019-05-06 17:41] LABS: Erythrocyte Sedimentation Rate 19 MM/HR (0-20)
[2019-05-06 17:52] VITALS: BP 131/84; PULSE 111; RESP 18; O2SAT 97
--- NOTE | 2019-05-06 18:29 | PC.NURSE ---
pt is calling for a ride
[2019-05-06 19:16] VITALS: BP 115/79; PULSE 109; RESP 16; O2SAT 98
--- NOTE | 2019-05-06 20:35 | PC.NURSE ---
Pt still appears drowsy,pt awake and sitting on edge of stretcher while she waits for her ride to arrive. pt given water,drinking without difficulty.
== END 2019-05-06 22:19 | disposition home or self-care (01) ==
PROVIDERS: Emergency Provider Internal Medicine
DX: H53.9 Unspecified visual disturbance (principal); G44.89 Other headache syndrome; R10.9 Unspecified abdominal pain
CPT/HCPCS: 36415; 70450; 81025; 85651; 86140; 93005; 99283; 99285

== ENCOUNTER 2019-06-18 16:52 | Emergency (ER) | payer OTHER, SELFPAY ==
[2018-03-02 18:05] VITALS: BMI 34.2
[2019-06-18 17:01] VITALS: BP 125/92; PULSE 78; RESP 18; TEMP 37; O2SAT 100; BMI 35.4
[2019-06-18 17:55] LABS: Add Manual Diff / Slide Review NO; Basophils Absolute Auto 100 /uL (0-100); Basophils Percent Auto 0.9 % (0-2); Eosinophils Absolute Auto 0 /uL (0-450); Eosinophils Percent Auto 0.3 % (2-4); Hematocrit 40.4 % (36-46); Hemoglobin 13.7 g/dL (12.0-16.0); Lymphocytes Absolute Auto 2400 /uL (1100-4500); Lymphocytes Percent Auto 19.6 % (25-40); Mean Corpuscular HGB Conc 33.8 % (30-36); Mean Corpuscular Volume 88.7 fL (80-100); Monocytes Absolute Auto 700 /uL (0-900); Neutrophils Absolute Auto 8800 /uL (1500-7000); Neutrophils Percent Auto 73.2 % (50-75); Platelet Count 387 X10^3/uL (150-400); Red Blood Cell Count 4.56 X10^6/uL (4.0-5.2); Red Cell Distribution Width 13.8 % (11.6-14.8)
[2019-06-18 18:05] LABS: Acetaminophen < 10 ug/mL (10-30); Alanine Aminotransferase 33 IU/L (<35); Albumin 4.5 g/dL (3.5-5.0); Albumin Globulin Ratio 1.3 (1.0-2.8); Alkaline Phosphatase 90 U/L (38-126); Aspartate Aminotransferase 31 IU/L (14-36); BUN Creatinine Ratio 12.5 (6-22); Bilirubin Total 0.6 mg/dL (0.2-1.3); Blood Urea Nitrogen 10 mg/dL (7-17); Calcium 9.6 mg/dL (8.4-10.2); Carbon Dioxide 24 mmol/L (22-32); Chloride 104 mmol/L (98-107); Estimated Glomerular Filt Rate > 60.0 mL/min (>60); Ethanol (ETOH) < 10 mg/dL; Globulin 3.5 g/dL (1.7-4.1); Glucose 92 mg/dL (70-100); HEMOLYSIS < 15 (0-50); Potassium 3.9 mmol/L (3.4-5.1); Salicylate < 1.0 mg/dL (<20); Sodium 138 mmol/L (137-145)
[2019-06-18 18:10] LABS: UR Morphine/Opiate cutoff 300 Negative (Negative); Ur Creatinine Normal (Normal); Ur Specific Gravity Normal (Normal); Urine Amphetamines Negative (Negative); Urine Barbiturates Negative (Negative); Urine Benzodiazepines Negative (Negative); Urine Cocaine Negative (Negative); Urine MDMA Negative (Negative); Urine Methadone Negative (Negative); Urine Methamphetamines Negative (Negative); Urine Oxycodone Negative (Negative); Urine Phencyclidine Negative (Negative); Urine Tetrahydrocannabinol Negative (Negative); Urine Tricyclic Antidepressant Negative (Negative); Urine pH Normal (Normal)
--- NOTE | 2019-06-18 18:46 | ED_ITS ---
HPI - Psych <NIKOLAI Mcfarlane - Last Filed: 06/18/19 21:22> General Chief Complaint: Psychiatric Symptoms Stated Complaint: suicidal thoughts Time Seen by Provider: 06/18/19 17:35 Source: patient and other (command rep) Mode of arrival: Ambulatory Limitations: no limitations History of Present Illness HPI Narrative: This is a 23-year-old female, formal smoker, who were escorted to ED with command rep with complain of suicidal ideation. Patient reports she has been having suicidal ideation last 1.5 months with plans such as overdosing her SSRIs and [place] and this has been getting worse. Patient reports she recently weaned off from her routine medications including antidepressant medications in mid April. Patient used to take Lexapro, trazod one, bupropion, verapamil for migraine headache and sumatriptan. The patient was told she does not have the conditions to be on medications per psychologist. Patient has a history of endometriosis with laparoscopic surgery, migraine headache and depression. Today the patient was at the [facility] for malingering according to Command Master Chief ([facility]) and she will be ADMIN separation with Other than honorable discharge . Patient expressed her suicidal ideation to her CO. The patient has been faking her illness and has had numerous number of evaluations for endometriosis and migraine headache. According to [facility], it is not understood the patient has an access to weapons. Patient reports she does not have SSRIs or other medications except a few tabs of sumatriptan. However, patient [place] thinking about jumping off the bridge. Patient denies homicidal ideation. Patient denies previous suicidal attempts. Patient is not currently smoking cigarettes, taking ETOH, and uses drugs. Related Data Home Medications Medication Instructions Recorded Confirmed biotin 1 cap PO DAILY #0 02/12/18 06/18/19 naproxen 500 mg PO BID 05/06/19 06/18/19 sumatriptan succinate 50 mg PO PRN PRN 05/06/19 06/18/19 loperamide 2 mg PO Q4H PRN 06/18/19 06/18/19 norethindrone-e.estradiol-iron 1 tab PO DAILY 06/18/19 06/18/19 [05/17 (28)] Previous Rx's Medication Instructions Recorded ondansetron 4 mg PO Q8H PRN #10 tab 03/13/19 Allergies Allergy/AdvReac Type Severity Reaction Status Date / Time Sulfa (Sulfonamide Allergy Verified 05/06/19 15:34 Antibiotics) Review of Systems <NIKOLAI Mcfarlane - Last Filed: 06/18/19 21:22> Review of Systems Narrative: General: Denies fever, chills, fatigue, malaise, sweats. HEENT: Denies sinus pain, ear pain, sore throat, difficulty swallowing, dizziness. Respiratory: Denies dyspnea, cough, wheezing, hemoptysis, sputum. Cardiovascular: Denies chest pain, palpitations, orthopnea, edema. Gastrointestinal: Denies nausea, vomiting, abdominal pain, diarrhea, constipation, melena. : Denies dysuria, frequency, incontinence, hematuria, urinary retention. Musculoskeletal: Denies weakness, joint pain or bony pain. Skin: Denies rash, skin lesions, or other. Neurologic: Denies weakness, headache, numbness, change in speech, confusion, seizures, incoordination. Psychiatric: See HPI 12-point review of systems is negative except for those stated above. Patient History <NIKOLAI Mcfarlane - Last Filed: 06/18/19 21:22> Medical History Endometriosis (Acute) Hemiplegic migraine (Inactive) Panic attack (Inactive) Polycystic ovaries (Acute) Surgical History Hx of tonsillectomy (Acute) Status post appendectomy (Acute) [place] teeth extracted (Acute) Social History household members: friend(s) Smoking Status: Former smoker alcohol intake: current Smoking Status: Former smoker alcohol intake frequency: holidays/special occasions only Substance Use Type: does not use Exam <NIKOLAI Mcfarlane - Last Filed: 06/18/19 21:22> Narrative Exam Narrative: General appearance: well developed, well nourished, in no acute distress. Head: normocephalic, atraumatic, no scalp lesions, non-tender. ENT: Bilateral auditory canals and tympanic membranes clear. Hearing grossly intact. Nose without bleeding, purulent discharge, septal hematoma or deviation. Turbinate without erythema or swelling. Facial sinuses nontender to palpate. Mucous membrane moist, no mucosal lesion. Throat without erythema, tonsillar hypertrophy or exudate. Uvula in midline, airway patent. Neck/Thyroid: neck supple, full range of motion, no visible masses or meningeal signs. No JVD, non-tender without lymphadenopathy. Skin: no suspicious rashes, lesions over visible areas. Warm and dry and appropriate color for ethnicity. Heart: no clubbing, no cyanosis, no edema. S1 and S2 normal. RRR w/o murmurs, clicks, or bruits. Lungs: Breathing even and unlabored. No stridor. No accessory muscles used. Able to speak in full sentences. Chest: normal shape and expansion. Abdomen: non-obese, non-distended. Neurologic: alert and oriented. Cognitive exam, PATIENT TRANSPORT ORDERLY and PNS grossly intact on informal exam. Initial Vital Signs Initial Vital Signs: Vital Signs Temperature 98.6 F 06/18/19 17:01 Pulse Rate 78 06/18/19 17:01 Respiratory Rate 18 06/18/19 17:01 Blood Pressure 125/92 H 06/18/19 17:01 Pulse Oximetry 100 06/18/19 17:01 Psych Appearance: grossly normal Mental Status: mental status grossly normal Speech and Movement: slowed movement and other (soft spoken) Mood: dysthymic mood Affect: sad and other (flat) Attitude: cooperative Thought Process: normal Thought Content: no hallucinations, no homicidality, no obsessions and suicidality Judgment: fair <Navi Mandel DO - Last Filed: 06/19/19 07:25> Initial Vital Signs Initial Vital Signs: Vital Signs Temperature 98.6 F 06/18/19 17:01 Pulse Rate 78 06/18/19 17:01 Respiratory Rate 18 06/18/19 17:01 Blood Pressure 125/92 H 06/18/19 17:01 Pulse Oximetry 100 06/18/19 17:01 Scores <NIKOLAI Mcfarlane - Last Filed: 06/18/19 21:22> GCS Doug coma scale eye opening: Spontaneous Doug coma scale verbal response: Orientated Doug coma scale motor response: Obey commands Doug coma scale total score: 15 Course <NIKOLAI Mcfarlane - Last Filed: 06/18/19 21:22> Orders Ordered: Discontinued Medications Acetaminophen (Tylenol) 650 mg PO NOW ONE Stop: 06/18/19 19:53 Last Admin: 06/18/19 20:10 Dose: 650 mg Documented by: HARPREET Ibuprofen (Advil) 400 mg PO NOW ONE Stop: 06/18/19 19:53 Last Admin: 06/18/19 20:10 Dose: 400 mg Documented by: HARPREET Vital Signs Vital signs: Vital Signs - 8 hr 06/18/19 17:01 Temperature 98.6 F Pulse Rate 78 Respiratory Rate 18 Blood Pressure 125/92 H Pulse Oximetry 100 <Navi Mandel DO - Last Filed: 06/19/19 07:25> Orders Ordered: Discontinued Medications Acetaminophen (Tylenol) 650 mg PO NOW ONE Stop: 06/18/19 19:53 Last Admin: 06/18/19 20:10 Dose: 650 mg Documented by: HARPREET Ibuprofen (Advil) 400 mg PO NOW ONE Stop: 06/18/19 19:53 Last Admin: 06/18/19 20:10 Dose: 400 mg Documented by: HARPREET Vital Signs Vital signs: Vital Signs - 8 hr 06/18/19 17:01 Temperature 98.6 F Pulse Rate 78 Respiratory Rate 18 Blood Pressure 125/92 H Pulse Oximetry 100 MDM - Psych <NIKOLAI Mcfarlane - Last Filed: 06/18/19 21:22> Differential Diagnosis Differential diagnosis: Likely suicidal ideation, depression, acute anxiety and other (Situational stress) Medical Records Attestation: I reviewed the patient's medical records. Lab Data Attestation: I reviewed the patient's lab results. Result diagrams: 06/18/19 17:44 06/18/19 17:44 Labs: Lab Results 06/18/19 06/18/19 06/18/19 Range/Units 17:30 17:44 17:44 WBC 12.0 H (4.5-11.0) X10^3/uL RBC 4.56 (4.0-5.2) X10^6/uL Hgb 13.7 (12.0-16.0) g/dL Hct 40.4 (36-46) % MCV 88.7 (80-100) fL MCH 30.0 (26-34) PG MCHC 33.8 (30-36) % RDW 13.8 (11.6-14.8) % Plt Count 387 (150-400) X10^3/uL Neut % (Auto) 73.2 (50-75) % Lymph % (Auto) 19.6 L (25-40) % Hardee % (Auto) 6.0 (3-14) % Eos % (Auto) 0.3 L (2-4) % Baso % (Auto) 0.9 (0-2) % Neut # (Auto) 8800 H (2767-1920) /uL Lymph # (Auto) 2400 (4317-6468) /uL Hardee # (Auto) 700 (0-900) /uL Eos # (Auto) 0 (0-450) /uL Baso # (Auto) 100 (0-100) /uL Sodium 138 (137-145) mmol/L Potassium 3.9 (3.4-5.1) mmol/L Chloride 104 (98-107) mmol/L Carbon Dioxide 24 (22-32) mmol/L BUN 10 (7-17) mg/dL Creatinine 0.80 (0.52-1.04) mg/dL Estimated GFR > 60.0 (>60) mL/min BUN/Creatinine Ratio 12.5 (6-22) Glucose 92 (70-100) mg/dL Calcium 9.6 (8.4-10.2) mg/dL Total Bilirubin 0.6 (0.2-1.3) mg/dL AST 31 (14-36) IU/L ALT 33 (<35) IU/L Alkaline Phosphatase 90 (38-126) U/L Total Protein 8.0 (6.3-8.2) g/dL Albumin 4.5 (3.5-5.0) g/dL Globulin 3.5 (1.7-4.1) g/dL Albumin/Globulin Ratio 1.3 (1.0-2.8) TSH (0.47-4.68) uIU/mL Free T4 (0.78-2.19) ng/dL Salicylates < 1.0 (<20) mg/dL U Opiates 300ng/mL cut Negative (Negative) Ur Oxycodone Screen Negative (Negative) Urine Methadone Screen Negative (Negative) Acetaminophen < 10 L (10-30) ug/mL Ur Barbiturates Screen Negative (Negative) U Tricyclic Antidepress Negative (Negative) Ur Phencyclidine Scrn Negative (Negative) Ur Amphetamines Screen Negative (Negative) U Methamphetamines Scrn Negative (Negative) Ur MDMA Scrn (Ecstasy) Negative (Negative) U Benzodiazepines Scrn Negative (Negative) Urine Cocaine Screen Negative (Negative) U Marijuana (THC) Screen Negative (Negative) Ethyl Alcohol < 10 ( - 10) mg/dL 06/18/19 Range/Units 17:44 WBC (4.5-11.0) X10^3/uL RBC (4.0-5.2) X10^6/uL Hgb (12.0-16.0) g/dL Hct (36-46) % MCV (80-100) fL MCH (26-34) PG MCHC (30-36) % RDW (11.6-14.8) % Plt Count (150-400) X10^3/uL Neut % (Auto) (50-75) % Lymph % (Auto) (25-40) % Hardee % (Auto) (3-14) % Eos % (Auto) (2-4) % Baso % (Auto) (0-2) % Neut # (Auto) (5707-8658) /uL Lymph # (Auto) (1907-2146) /uL Hardee # (Auto) (0-900) /uL Eos # (Auto) (0-450) /uL Baso # (Auto) (0-100) /uL Sodium (137-145) mmol/L Potassium (3.4-5.1) mmol/L Chloride (98-107) mmol/L Carbon Dioxide (22-32) mmol/L BUN (7-17) mg/dL Creatinine (0.52-1.04) mg/dL Estimated GFR (>60) mL/min BUN/Creatinine Ratio (6-22) Glucose (70-100) mg/dL Calcium (8.4-10.2) mg/dL Total Bilirubin (0.2-1.3) mg/dL AST (14-36) IU/L ALT (<35) IU/L Alkaline Phosphatase (38-126) U/L Total Protein (6.3-8.2) g/dL Albumin (3.5-5.0) g/dL Globulin (1.7-4.1) g/dL Albumin/Globulin Ratio (1.0-2.8) TSH 1.42 (0.47-4.68) uIU/mL Free T4 1.03 (0.78-2.19) ng/dL Salicylates (<20) mg/dL U Opiates 300ng/mL cut (Negative) Ur Oxycodone Screen (Negative) Urine Methadone Screen (Negative) Acetaminophen (10-30) ug/mL Ur Barbiturates Screen (Negative) U Tricyclic Antidepress (Negative) Ur Phencyclidine Scrn (Negative) Ur Amphetamines Screen (Negative) U Methamphetamines Scrn (Negative) Ur MDMA Scrn (Ecstasy) (Negative) U Benzodiazepines Scrn (Negative) Urine Cocaine Screen (Negative) U Marijuana (THC) Screen (Negative) Ethyl Alcohol ( - 10) mg/dL Point of Care Testing Test Results Negative Urine Dip Bedside Urine Glucose Negative Bedside Urine Bilirubin - Negative Bedside Urine Ketone +/- 5 Urine Specific [place] 1.030 Bedside Urine Occult Blood ++ Bedside Urine pH 5.5 Bedside Urine Protein - Negative Bedside Urine Urobilinogen - Negative Bedside Urine Nitrite - Negative Bedside Urine Leukocytes - Negative Esterase MDM Narrative Medical decision making narrative: 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 Patient has plans of [place] and overdosing medications. The patient is medically cleared per labs, urine test, Uhcg, and UDS. Patient underwent captain's mast today and is waiting to be Administratively from [employer] with [facility]. Patient reports she has been very depressed alternating insomnia with hypersomnia and neglecting self-care. Patient lives with a roommate but does not have close social support. Patient reports has been having suicidal ideation for last 1.5 months and it has been getting worse. Patient has been cooperative, contract safety verbally. Food Safety Scientist Haven Youssef also evaluated patient and we both agree that patient will benefit for inpatient hospitalization and treatment for suicidal ideation with mental health evaluation. Patient was kindly accepted by at [facility] and she will be transfer by the Command Rep with precautions. The POC person and contact number has been provided to the command rep and the patient agrees with plan of care. <Navi Mandel DO - Last Filed: 06/19/19 07:25> Lab Data Labs: Lab Results 06/18/19 06/18/19 06/18/19 Range/Units 17:30 17:44 17:44 WBC 12.0 H (4.5-11.0) X10^3/uL RBC 4.56 (4.0-5.2) X10^6/uL Hgb 13.7 (12.0-16.0) g/dL Hct 40.4 (36-46) % MCV 88.7 (80-100) fL MCH 30.0 (26-34) PG MCHC 33.8 (30-36) % RDW 13.8 (11.6-14.8) % Plt Count 387 (150-400) X10^3/uL Neut % (Auto) 73.2 (50-75) % Lymph % (Auto) 19.6 L (25-40) % Hardee % (Auto) 6.0 (3-14) % Eos % (Auto) 0.3 L (2-4) % Baso % (Auto) 0.9 (0-2) % Neut # (Auto) 8800 H (5764-4940) /uL Lymph # (Auto) 2400 (2870-7425) /uL Hardee # (Auto) 700 (0-900) /uL Eos # (Auto) 0 (0-450) /uL Baso # (Auto) 100 (0-100) /uL Sodium 138 (137-145) mmol/L Potassium 3.9 (3.4-5.1) mmol/L Chloride 104 (98-107) mmol/L Carbon Dioxide 24 (22-32) mmol/L BUN 10 (7-17) mg/dL Creatinine 0.80 (0.52-1.04) mg/dL Estimated GFR > 60.0 (>60) mL/min BUN/Creatinine Ratio 12.5 (6-22) Glucose 92 (70-100) mg/dL Calcium 9.6 (8.4-10.2) mg/dL Total Bilirubin 0.6 (0.2-1.3) mg/dL AST 31 (14-36) IU/L ALT 33 (<35) IU/L Alkaline Phosphatase 90 (38-126) U/L Total Protein 8.0 (6.3-8.2) g/dL Albumin 4.5 (3.5-5.0) g/dL Globulin 3.5 (1.7-4.1) g/dL Albumin/Globulin Ratio 1.3 (1.0-2.8) TSH (0.47-4.68) uIU/mL Free T4 (0.78-2.19) ng/dL Salicylates < 1.0 (<20) mg/dL U Opiates 300ng/mL cut Negative (Negative) Ur Oxycodone Screen Negative (Negative) Urine Methadone Screen Negative (Negative) Acetaminophen < 10 L (10-30) ug/mL Ur Barbiturates Screen Negative (Negative) U Tricyclic Antidepress Negative (Negative) Ur Phencyclidine Scrn Negative (Negative) Ur Amphetamines Screen Negative (Negative) U Methamphetamines Scrn Negative (Negative) Ur MDMA Scrn (Ecstasy) Negative (Negative) U Benzodiazepines Scrn Negative (Negative) Urine Cocaine Screen Negative (Negative) U Marijuana (THC) Screen Negative (Negative) Ethyl Alcohol < 10 ( - 10) mg/dL 06/18/19 Range/Units 17:44 WBC (4.5-11.0) X10^3/uL RBC (4.0-5.2) X10^6/uL Hgb (12.0-16.0) g/dL Hct (36-46) % MCV (80-100) fL MCH (26-34) PG MCHC (30-36) % RDW (11.6-14.8) % Plt Count (150-400) X10^3/uL Neut % (Auto) (50-75) % Lymph % (Auto) (25-40) % Hardee % (Auto) (3-14) % Eos % (Auto) (2-4) % Baso % (Auto) (0-2) % Neut # (Auto) (5253-0377) /uL Lymph # (Auto) (8711-6513) /uL Hardee # (Auto) (0-900) /uL Eos # (Auto) (0-450) /uL Baso # (Auto) (0-100) /uL Sodium (137-145) mmol/L Potassium (3.4-5.1) mmol/L Chloride (98-107) mmol/L Carbon Dioxide (22-32) mmol/L BUN (7-17) mg/dL Creatinine (0.52-1.04) mg/dL Estimated GFR (>60) mL/min BUN/Creatinine Ratio (6-22) Glucose (70-100) mg/dL Calcium (8.4-10.2) mg/dL Total Bilirubin (0.2-1.3) mg/dL AST (14-36) IU/L ALT (<35) IU/L Alkaline Phosphatase (38-126) U/L Total Protein (6.3-8.2) g/dL Albumin (3.5-5.0) g/dL Globulin (1.7-4.1) g/dL Albumin/Globulin Ratio (1.0-2.8) TSH 1.42 (0.47-4.68) uIU/mL Free T4 1.03 (0.78-2.19) ng/dL Salicylates (<20) mg/dL U Opiates 300ng/mL cut (Negative) Ur Oxycodone Screen (Negative) Urine Methadone Screen (Negative) Acetaminophen (10-30) ug/mL Ur Barbiturates Screen (Negative) U Tricyclic Antidepress (Negative) Ur Phencyclidine Scrn (Negative) Ur Amphetamines Screen (Negative) U Methamphetamines Scrn (Negative) Ur MDMA Scrn (Ecstasy) (Negative) U Benzodiazepines Scrn (Negative) Urine Cocaine Screen (Negative) U Marijuana (THC) Screen (Negative) Ethyl Alcohol ( - 10) mg/dL Point of Care Testing Test Results Negative Urine Dip Bedside Urine Glucose Negative Bedside Urine Bilirubin - Negative Bedside Urine Ketone +/- 5 Urine Specific [place] 1.030 Bedside Urine Occult Blood ++ Bedside Urine pH 5.5 Bedside Urine Protein - Negative Bedside Urine Urobilinogen - Negative Bedside Urine Nitrite - Negative Bedside Urine Leukocytes - Negative Esterase Discharge Plan Departure Patient Disposition: Xfer Psychiatric Hosp Clinical Impression: Suicidal ideations Discharge Date/Time: 06/18/19 22:07 Activity Restrictions/Additional Instructions: You have been diagnosed with suicidal ideations and transfer to [facility]. Your care has been accepted by Dr. Garcia for further evaluation and treatment. You will be escorted by your come and representatives to [address] [place] [address]. Please park your car in ED to enter to the building. Please escort PO3 Newton to the hospital while her leadership is traveling with her in the back seat with the patient and another person driving with locked door. Transfer Center POC is Sgt Bacon and his phone # [phone] if you have any questions. Referrals: [facility] [Outside] Suresh Pollock MD [Primary Care Provider] -
[2019-06-18 19:32] LABS: Free T4, Direct Thyroxine 1.03 ng/dL (0.78-2.19)
[2019-06-18 19:46] LABS: Thyroid Stimulating Hormone 1.42 uIU/mL (0.47-4.68)
--- NOTE | 2019-06-18 20:06 | CM.SWNOTE ---
Addendum entered by Haven Youssef R.N. 06/18/19 20:23: DENNY/RN called [facility] Transfer center at [phone] gave patient information for them to review. DENNY/RN gave ED provider information about [facility] psychiatric provider who will call and get information about patient. CM/RN faxed Clinicals for them to review for admission to their inpatient psychiatric treatment floor. DENNY/RN informed that if patient is accepted Timothy will fax over paperwork for ED staff to go over with patient prior to transport to hospital. ED provider plan is to transport patient to [facility] by her command private vehicle. 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 Patient had underwent captains mass today and stated that she felt [place]. Patient was alert and oriented at time of CM/RN Visit and stated she was still having SI while meeting with CM/RN. Patient stated she has not been feeling well for the last year and a half and has struggled with her command and her psychiatric doctor with understanding why she has needed to go to medical. Patient stated for the last 1.5 months she has been feeling SI every day and patient stated last month she drove her dog to [place] to be cared for by her sister because she wanted her dog cared for if something was going to happen to her. I: Prime Plan: get patient into Inpatient psychiatric facility to help stabilize and treat patients Depression and SI. DENNY/RN called [facility] and they have beds available. Hvaen Youssef RN OPHTHALMIC ASSISTANT - Signals Officer Assessment OPHTHALMIC ASSISTANT - Signals Officer Assessment Start: 06/18/19 19:04 Freq: Status: Active Protocol: Document 06/18/19 19:05 HS (Rec: 06/18/19 20:05 [email or web address]) OPHTHALMIC ASSISTANT/Signals Officer Assessment Time Spent with Patient Start date 06/18/19 Visit Start Time 18:25 End date 06/18/19 Visit End Time 19:00 Total time Care Management spent on 120min patient visit-in minutes Mental Health Screening Include Onset, Duration, Intensity Presenting Problem Patient presented to the ED by escort of her command rep with complaints of SI. Patient stated she has been feeling depressed for five months but with increasing SI for the last 1.5 months. Patient stated she [place] and spent 45mins watching the water from the bridge patient stated that she didn't jump because of her sister calling. Precipitating Event(s) Patient has been having trouble at work. 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 Patient was very upset and frustrated that her command is kicking her out Patient stated she wanted to OD but doesn't have any medications so she was planning on jumping. Her command decided to bring her here to the ED for an Evaluation. Current Behavioral Health Provider(s) Patient see's behavioral Include Facility, Provider, Ph. # health clinic [facility] [place] [facility]. Psych. Hx Mental Health and Chemical Patient has been having Dependency thoughts of SI for the last five months. Psychiatric Hospitalizations (date(s)/ none location) Support System(s) Patient has a sister and niece in [place] who she is very close to. School/Work Patient works in [id number] Legal Matters - Outstanding Issues Patient is going through separation from the [employer]- patient had [employer] today. Mental Status Orientation (Person/Place/Time) Patient was alert and oriented x3 at time of Cm/RN visit Affect Patient affect was sad and emotional Thought Processes (Ctynvzb-Nfpvsbkf-Stpp Patient thought process was Xegaogfo-Wlepmeow-Cajgwhrzzu- coherent Ihkyviuwemgify-Asotbii-Weirzvnsqdny- Thought Blocking) Speech (Blvljy-Ukey-Jrtnuoa-Rapid-Soft- Slow and soft Loud-Pressured) Motor (Epilrf-Mocofnoor-Vbvv-Other) slow Insight (Present-Partially Present- present Impaired) Judgement (Intact-Impaired) impaired- patient has been feeling suicidal for the last 5 months and gave her dog to her sister in [place] to take care of. Memory (Asjxwpvlw-Xufxfm-Scfuyd, Intact Impaired-Intact) Concentration (Intact-Impaired) Intact Attention (Intact-Impaired) Intact Behavior (Appropriate-Inappropriate) appropriate Risk Assessment Suicidal Ideation (Plan) Yes: [place] or [place] Homicidal Ideation (Plan) No Intervention Intervention CM/RN spoke with ED provider and determined that patient would benefit from inpatient psychiatric treatment due to her SI having a plan and giving away her beloved belongings so they are cared for when she is gone.
[2019-06-18] MEDS: ACETAMINOPHEN 325 MG TABLET 650 MG PO (20:10)
[2019-06-18] MEDS: IBUPROFEN 400 MG TABLET PO (20:10)
--- NOTE | 2019-06-18 20:48 | PC.NURSE ---
pt resting on bed. Door and curtain are open to hallway.
[2019-06-18 21:12] VITALS: BP 125/86; PULSE 84; RESP 16; TEMP 36.9; O2SAT 98
== END 2019-06-18 22:07 ==
PROVIDERS: Emergency Medicine; Emergency Provider Nurse Practitioner Family
DX: R45.851 Suicidal ideations (principal)
CPT/HCPCS: 36415; 80053; 80305; 80320; 80329; 81003; 81025; 84439; 84443; 85025; 99284; G0480